=== PATIENT | female | born 1955 | race Caucasian/White ===

== ENCOUNTER → 2017-02-28 | Outpatient (CLI) | payer MEDICARE, OTHER ==
[2017-02-28 08:45] LABS: EKG EKG PERFORMED
[2017-02-28 09:15] LABS: Basophils % (A) 0 %; CH 32.4; CHCM 31.1; Eosinophils # (A) 0.1 k/uL (0-0.7); Eosinophils % (A) 1 %; HCT 44.5 % (34.0-46.0); HDW 2.61; Hypochromasia Slight; Luc # (Auto) 0.07; Luc % (Auto) 1; Lymphocytes # (A) 2.1 k/uL (1.0-4.8); Lymphocytes % (A) 24 %; MCH 32.8 pg (25.0-35.0); MCHC 31.3 g/dL (31.0-37.0); MCV 104.7 fL (80.0-100.0); Macrocytosis Moderate; Mean Platelet Volume 7.4; Monocytes # (A) 0.2 k/uL (0-1.0); Monocytes % (A) 2 %; Neutrophils # (A) 6.1 k/uL (1.3-7.7); Neutrophils % (A) 71 %; RBC 4.25 m/uL (3.80-5.40); RDW 15.4 % (11.5-15.5); WBC 8.6 k/uL (3.8-10.6); WBC (Perox) 8.79
[2017-02-28 09:32] LABS: ALT 34 U/L (9-52); AST 27 U/L (14-36); Alkaline Phosphatase 79 U/L (38-126); Anion Gap 16 mmol/L; Blood Urea Nitrogen 11 mg/dL (7-17); Calcium 9.5 mg/dL (8.4-10.2); Carbon Dioxide 23 mmol/L (22-30); Chloride 105 mmol/L (98-107); Cholesterol 168 mg/dL (<200); Glucose 111 mg/dL (74-99); HDL Cholesterol 50 mg/dL (40-60); Non-African American GFR(MDRD) >60 (>60 ml/min/1.73 sqM); Potassium 3.7 mmol/L (3.5-5.1); Sodium 144 mmol/L (137-145); Total Bilirubin 0.8 mg/dL (0.2-1.3); Total Protein 6.8 g/dL (6.3-8.2); Triglycerides 147 mg/dL (<150)
--- NOTE | 2017-02-28 10:09 | XR ---
Right knee HISTORY: Pain 3 views of the right knee, no comparisons There is marginal spurring and joint space loss is present in the medial compartment. Alignment and b one mineralization are maintained. Marginal spurring also present at the patellofemoral joint with latoya int space loss. There may be a small joint effusion. IMPRESSION: Osteoarthritis.
--- NOTE | 2017-02-28 10:11 | XR ---
Right shoulder HISTORY: M25.561, M25.511 3 views of the right shoulder No comparisons Bone mineralization is maintained. Spurring and joint space loss of the glenohumeral joint. No eviden t fracture location. Right lung apex as visualized is normal. IMPRESSION: Osteoarthritic change noted at the glenohumeral joint.
== END | disposition home or self-care (01) ==
LOC: LABWHC1 08:35
PROVIDERS: ATTEND Internal Medicine
DX: M17.11 Unilateral primary osteoarthritis, right knee (principal); M19.011 Primary osteoarthritis, right shoulder; E03.9 Hypothyroidism, unspecified; E78.2 Mixed hyperlipidemia; I10 Essential (primary) hypertension
CPT/HCPCS: 36415; 80053; 80061; 84439; 84443; 85025; 93005

== ENCOUNTER → 2017-05-26 | Outpatient (CLI) | payer MEDICARE, OTHER ==
[2017-05-26 13:38] LABS: Basophils % (A) 0 %; CH 31.8; CHCM 31.3; Eosinophils # (A) 0.1 k/uL (0-0.7); Eosinophils % (A) 1 %; HCT 43.2 % (34.0-46.0); HDW 2.67; HGB 13.9 gm/dL (11.4-16.0); Hypochromasia Slight; Luc # (Auto) 0.07; Luc % (Auto) 1; Lymphocytes # (A) 1.8 k/uL (1.0-4.8); Lymphocytes % (A) 16 %; MCH 32.8 pg (25.0-35.0); MCHC 32.1 g/dL (31.0-37.0); MCV 102.2 fL (80.0-100.0); Macrocytosis Slight; Mean Platelet Volume 7.1; Monocytes # (A) 0.3 k/uL (0-1.0); Monocytes % (A) 2 %; Neutrophils # (A) 9.3 k/uL (1.3-7.7); Neutrophils % (A) 81 %; RBC 4.23 m/uL (3.80-5.40); RDW 14.2 % (11.5-15.5); WBC 11.5 k/uL (3.8-10.6); WBC (Perox) 11.24
[2017-05-26 14:03] LABS: ALT 40 U/L (9-52); AST 28 U/L (14-36); Alkaline Phosphatase 108 U/L (38-126); Amylase 31 U/L (30-110); Anion Gap 16 mmol/L; Blood Urea Nitrogen 9 mg/dL (7-17); Calcium 9.8 mg/dL (8.4-10.2); Carbon Dioxide 22 mmol/L (22-30); Chloride 107 mmol/L (98-107); Glucose 117 mg/dL (74-99); Non-African American GFR(MDRD) >60 (>60 ml/min/1.73 sqM); Potassium 3.4 mmol/L (3.5-5.1); Sodium 145 mmol/L (137-145); Total Bilirubin 0.7 mg/dL (0.2-1.3); Total Protein 6.6 g/dL (6.3-8.2)
[2017-05-26 15:22] LABS: Erythrocyte Sedimentation Rate 50 mm/hr (0-20)
== END | disposition home or self-care (01) ==
LOC: LABWHC1 12:53
PROVIDERS: ATTEND Internal Medicine
DX: T58.94XA Toxic effect of carbon monoxide from unspecified source, undetermined, initial encounter (principal); I10 Essential (primary) hypertension; R55 Syncope and collapse
CPT/HCPCS: 36415; 80053; 82150; 82375; 83690; 85025; 85652

== ENCOUNTER 2019-11-10 11:05 | Inpatient (IN) | payer MEDICARE, OTHER ==
[2019-11-10 11:24] LABS: Glucose,Whole Blood 83 mg/dL (75-99)
[2019-11-10] MEDS ORDERED: SODIUM CHLORIDE 0.9% 1,000 ML IV STA (11:54)
[2019-11-10 12:08] LABS: Basophils # (A) 0.1 k/uL (0-0.2); Basophils % (A) 1 %; Eosinophils # (A) 0.1 k/uL (0-0.7); Eosinophils % (A) 1 %; HCT 44.2 % (34.0-46.0); HGB 13.4 gm/dL (11.4-16.0); Hypochromasia Slight; Lymphocytes # (A) 1.8 k/uL (1.0-4.8); Lymphocytes % (A) 15 %; MCH 29.5 pg (25.0-35.0); MCHC 30.4 g/dL (31.0-37.0); Mean Platelet Volume 7.6; Monocytes # (A) 0.3 k/uL (0-1.0); Monocytes % (A) 3 %; Neutrophils # (A) 9.4 k/uL (1.3-7.7); Neutrophils % (A) 79 %; Platelet Count 343 k/uL (150-450); RBC 4.56 m/uL (3.80-5.40); RDW 14.7 % (11.5-15.5); WBC 11.8 k/uL (3.8-10.6)
[2019-11-10 12:19] LABS: Albumin 4.4 g/dL (3.5-5.0); Calcium 10.3 mg/dL (8.4-10.2); Potassium 4.2 mmol/L (3.5-5.1); Total Bilirubin 1.4 mg/dL (0.2-1.3); Total Protein 7.2 g/dL (6.3-8.2)
--- NOTE | 2019-11-10 12:27 | ED ---
Weakness HPI - General Chief complaint: Weakness Stated complaint: weakness Time Seen by Provider: 11/10/19 11:43 Source: EMS Mode of arrival: EMS Limitations: no limitations - History of Present Illness Initial comments: Patient is 63-year-old female with history of CVA and IA presenting to emergency Department with a chief complaint of weakness. Patient status states the patient has been in a gradual decline for about a year. Daughter states the p atient does not like to seek any medical attention over the last week she has developed increased weakness. Patient states that she has not been eating well over the last week with few episodes of nonbloody diarrhea over the last several days. Patient does report increased urgency but denies changes in frequency or dysuria. Denies any nausea vomiting or abdominal pain. Denies any back pain chest pain or shortness of breath at this time. Patient states she does not have any appetite. Patient lives home alone in a senior apartment. - Related Data Allergies Allergy/AdvReac Type Severity Reaction Status Date / Time No Known Allergies Allergy Verified 11/10/19 11:11 Review of Systems ROS Statement: Those systems with pertinent positive or pertinent negative responses have been documented in the HPI. ROS Other: All systems not noted in ROS Statement are negative. Past Medical History Past Medical History: Hypertension Additional Past Medical History / Comment(s): neuropathy History of Any Multi-Drug Resistant Organisms: None Reported Past Surgical History: Section Past Psychological History: No Psychological Hx Reported Smoking Status: Never smoker Past Alcohol Use History: None Reported Past Drug Use History: None Reported General Exam Limitations: no limitations General appearance: alert, in no apparent distress, obese Head exam: Present: atraumatic, normocephalic, normal inspection Eye exam: Present: normal appearance, PERRL, EOMI Pupils: Present: normal accommodation ENT exam: Present: normal exam, normal oropharynx, mucous membranes dry, TM's normal bilaterally, normal external ear exam Neck exam: Present: normal inspection, full ROM. Absent: tenderness, lymphadenopathy Respiratory exam: Present: normal lung sounds bilaterally. Absent: respiratory distress, wheezes, rales, chest wall tenderness, accessory muscle use Cardiovascular Exam: Present: regular rate, normal rhythm, normal heart sounds Extremities exam: Present: normal inspection, full ROM Back exam: Present: normal inspection, full ROM Neurological exam: Present: alert, oriented X3 Psychiatric exam: Present: normal affect, normal mood Skin exam: Present: warm, dry, intact, normal color Course Vital Signs 11/10/19 11:09 Temperature 97.9 F Pulse Rate 107 H Respiratory 16 Rate Blood Pressure 140/72 O2 Sat by Pulse 95 Oximetry EKG Findings - EKG Comments: EKG Findings:: Sinus tachycardia, trachea rate 102, [place] interval 166, QRS duration 84, QTC 458. Medical Decision Making - Medical Decision Making Patient is 63-year-old female presenting to emergency Department with chief complaint of weakness. Patient is AO 3. Daughter is also present as historian. On exam patient does have dry mucous members. Poor hygiene also evident. Patient does have excoriations along her abdominal skin. Patient is m orbidly obese. EKG shows sinus tachycardia and is similar to her most recent one.. D-dimer negative. Initial troponin is negative. UA does show ketones, leukocyte esterase and white blood cells. The suspect patient has a urinary tract infection. Lactate is elevated secondary to dehydration. Chest x-ray does show bilateral atelectasis favored over pneumonia. Auscultation is not evident of any wheezing Or rhonchi. Patient given IV fluids and Rocephin. Patient will be admitted for further medical management. Case discussed with physician. Admitted physician is . - Lab Data Result diagrams: 11/10/19 11:22 11/10/19 11:22 Lab Results 11/10/19 11/10/19 11/10/19 Range/Units 11:22 11:22 11:22 WBC 11.8 H (3.8-10.6) k/uL RBC 4.56 (3.80-5.40) m/uL Hgb 13.4 (11.4-16.0) gm/dL Hct 44.2 (34.0-46.0) % MCV 97.0 (80.0-100.0) fL MCH 29.5 (25.0-35.0) pg MCHC 30.4 L (31.0-37.0) g/dL RDW 14.7 (11.5-15.5) % Plt Count 343 (150-450) k/uL Neutrophils % 79 % Lymphocytes % 15 % Monocytes % 3 % Eosinophils % 1 % Basophils % 1 % Neutrophils # 9.4 H (1.3-7.7) k/uL Lymphocytes # 1.8 (1.0-4.8) k/uL Monocytes # 0.3 (0-1.0) k/uL Eosinophils # 0.1 (0-0.7) k/uL Basophils # 0.1 (0-0.2) k/uL Hypochromasia Slight PT 9.9 (9.0-12.0) sec INR 0.9 (<1.2) APTT 21.6 L (22.0-30.0) sec D-Dimer 0.45 (<0.60) mg/L FEU Sodium (137-145) mmol/L Potassium (3.5-5.1) mmol/L Chloride (98-107) mmol/L Carbon Dioxide (22-30) mmol/L Anion Gap mmol/L BUN (7-17) mg/dL Creatinine (0.52-1.04) mg/dL Est GFR (CKD-EPI)AfAm (>60 ml/min/1.73 sqM) Est GFR (CKD-EPI)NonAf (>60 ml/min/1.73 sqM) Glucose (74-99) mg/dL POC Glucose (mg/dL) 83 (75-99) mg/dL POC Glu Revenue Stamp Cutter ID Nelli Xavier Plasma Lactic Acid Silvio (0.7-2.0) mmol/L Calcium (8.4-10.2) mg/dL Total Bilirubin (0.2-1.3) mg/dL AST (14-36) U/L ALT (4-34) U/L Alkaline Phosphatase (38-126) U/L Troponin I (0.000-0.034) ng/mL Total Protein (6.3-8.2) g/dL Albumin (3.5-5.0) g/dL Urine Color Urine Appearance (Clear) Urine pH (5.0-8.0) Ur Specific [place] (1.001-1.035) Urine Protein (Negative) Urine Glucose (UA) (Negative) Urine Ketones (Negative) Urine Blood (Negative) Urine Nitrite (Negative) Urine Bilirubin (Negative) Urine Urobilinogen (<2.0) mg/dL Ur Leukocyte Esterase (Negative) Urine RBC (0-5) /hpf Urine WBC (0-5) /hpf Urine WBC Clumps (None) /hpf Ur Squamous Epith Cells (0-4) /hpf Amorphous Sediment (None) /hpf Urine Bacteria (None) /hpf Urine Mucus (None) /hpf 11/10/19 11/10/19 11/10/19 Range/Units 11:22 11:22 12:10 WBC (3.8-10.6) k/uL RBC (3.80-5.40) m/uL Hgb (11.4-16.0) gm/dL Hct (34.0-46.0) % MCV (80.0-100.0) fL MCH (25.0-35.0) pg MCHC (31.0-37.0) g/dL RDW (11.5-15.5) % Plt Count (150-450) k/uL Neutrophils % % Lymphocytes % % Monocytes % % Eosinophils % % Basophils % % Neutrophils # (1.3-7.7) k/uL Lymphocytes # (1.0-4.8) k/uL Monocytes # (0-1.0) k/uL Eosinophils # (0-0.7) k/uL Basophils # (0-0.2) k/uL Hypochromasia PT (9.0-12.0) sec INR (<1.2) APTT (22.0-30.0) sec D-Dimer (<0.60) mg/L FEU Sodium 141 (137-145) mmol/L Potassium 4.2 (3.5-5.1) mmol/L Chloride 100 (98-107) mmol/L Carbon Dioxide 19 L (22-30) mmol/L Anion Gap 22 mmol/L BUN 20 H (7-17) mg/dL Creatinine 0.92 (0.52-1.04) mg/dL Est GFR (CKD-EPI)AfAm 76 (>60 ml/min/1.73 sqM) Est GFR (CKD-EPI)NonAf 66 (>60 ml/min/1.73 sqM) Glucose 85 (74-99) mg/dL POC Glucose (mg/dL) (75-99) mg/dL POC Glu Revenue Stamp Cutter ID Plasma Lactic Acid Silvio 2.3 H* (0.7-2.0) mmol/L Calcium 10.3 H (8.4-10.2) mg/dL Total Bilirubin 1.4 H (0.2-1.3) mg/dL AST 24 (14-36) U/L ALT 16 (4-34) U/L Alkaline Phosphatase 77 (38-126) U/L Troponin I <0.012 (0.000-0.034) ng/mL Total Protein 7.2 (6.3-8.2) g/dL Albumin 4.4 (3.5-5.0) g/dL Urine Color Urine Appearance (Clear) Urine pH (5.0-8.0) Ur Specific [place] (1.001-1.035) Urine Protein (Negative) Urine Glucose (UA) (Negative) Urine Ketones (Negative) Urine Blood (Negative) Urine Nitrite (Negative) Urine Bilirubin (Negative) Urine Urobilinogen (<2.0) mg/dL Ur Leukocyte Esterase (Negative) Urine RBC (0-5) /hpf Urine WBC (0-5) /hpf Urine WBC Clumps (None) /hpf Ur Squamous Epith Cells (0-4) /hpf Amorphous Sediment (None) /hpf Urine Bacteria (None) /hpf Urine Mucus (None) /hpf 11/10/19 Range/Units 12:15 WBC (3.8-10.6) k/uL RBC (3.80-5.40) m/uL Hgb (11.4-16.0) gm/dL Hct (34.0-46.0) % MCV (80.0-100.0) fL MCH (25.0-35.0) pg MCHC (31.0-37.0) g/dL RDW (11.5-15.5) % Plt Count (150-450) k/uL Neutrophils % % Lymphocytes % % Monocytes % % Eosinophils % % Basophils % % Neutrophils # (1.3-7.7) k/uL Lymphocytes # (1.0-4.8) k/uL Monocytes # (0-1.0) k/uL Eosinophils # (0-0.7) k/uL Basophils # (0-0.2) k/uL Hypochromasia PT (9.0-12.0) sec INR (<1.2) APTT (22.0-30.0) sec D-Dimer (<0.60) mg/L FEU Sodium (137-145) mmol/L Potassium (3.5-5.1) mmol/L Chloride (98-107) mmol/L Carbon Dioxide (22-30) mmol/L Anion Gap mmol/L BUN (7-17) mg/dL Creatinine (0.52-1.04) mg/dL Est GFR (CKD-EPI)AfAm (>60 ml/min/1.73 sqM) Est GFR (CKD-EPI)NonAf (>60 ml/min/1.73 sqM) Glucose (74-99) mg/dL POC Glucose (mg/dL) (75-99) mg/dL POC Glu Revenue Stamp Cutter ID Plasma Lactic Acid Silvio (0.7-2.0) mmol/L Calcium (8.4-10.2) mg/dL Total Bilirubin (0.2-1.3) mg/dL AST (14-36) U/L ALT (4-34) U/L Alkaline Phosphatase (38-126) U/L Troponin I (0.000-0.034) ng/mL Total Protein (6.3-8.2) g/dL Albumin (3.5-5.0) g/dL Urine Color Yellow Urine Appearance Turbid H (Clear) Urine pH 8.0 (5.0-8.0) Ur Specific [place] 1.016 (1.001-1.035) Urine Protein 3+ H (Negative) Urine Glucose (UA) Negative (Negative) Urine Ketones 3+ H (Negative) Urine Blood Small H (Negative) Urine Nitrite Negative (Negative) Urine Bilirubin Negative (Negative) Urine Urobilinogen 2.0 (<2.0) mg/dL Ur Leukocyte Esterase Large H (Negative) Urine RBC 38 H (0-5) /hpf Urine WBC >182 H (0-5) /hpf Urine WBC Clumps Few H (None) /hpf Ur Squamous Epith Cells 1 (0-4) /hpf Amorphous Sediment Rare H (None) /hpf Urine Bacteria Moderate H (None) /hpf Urine Mucus Few H (None) /hpf Disposition Clinical Impression: Weakness, Dehydration, Urinary tract infection, Fungal skin infection Disposition: ADMITTED IP TO THIS HOSP Condition: Fair Instructions (If sedation given, give patient instructions): Weakness (ED) Additional Instructions: Patient will be admitted Is patient prescribed a controlled substance at d/c from ED?: No Referrals: Logan Renee MD [Primary Care Provider] - 1-2 days Time of Disposition: 13:20
[2019-11-10 12:31] LABS: D-Dimer 0.45 mg/L FEU (<0.60); INR 0.9 (<1.2); Prothrombin Time 9.9 sec (9.0-12.0)
[2019-11-10 12:36] LABS: Partial Thromboplastin Time 21.6 sec (22.0-30.0)
--- NOTE | 2019-11-10 12:45 | XR ---
EXAMINATION TYPE: XR chest 2V DATE OF EXAM: 11/10/2019 COMPARISON: NONE TECHNIQUE: PA and lateral views submitted. HISTORY: Weakness FINDINGS: The lungs are clear and there is no pneumothorax, pleural effusion, or focal pneumonia. Subsegmenta l changes at both lung bases with reduced inspiration. Arthropathy of the shoulders. No pneumothorax. IMPRESSION: 1. Basilar atelectasis favored over pneumonia secondary to poor inspiration correlate clinically.
[2019-11-10 12:51] LABS: Amorphous Sediment,Urine Rare /hpf; Appearance,Urine Turbid (Clear); Bacteria,Urine Moderate /hpf; Bilirubin,Urine Negative (Negative); Blood,Urine Small (Negative); Color,Urine Yellow; Glucose,Urine (UA) Negative (Negative); Ketones,Urine 3+ (Negative); Leukocyte Esterase,Urine Large (Negative); Mucus,Urine Few /hpf; Nitrite,Urine Negative (Negative); Protein,Urine 3+ (Negative); RBC,Urine 38 /hpf (0-5); Specific Gravity,Urine 1.016 (1.001-1.035); Squamous Epithelial Cell,Urine 1 /hpf (0-4); WBC,Urine >182 /hpf (0-5)
[2019-11-10] MEDS ORDERED: cefTRIAXone IN SWFI 1,000 MG/10 ML SYRINGE IVP STA (13:00)
[2019-11-10] MEDS ORDERED: NALOXONE 0.4 MG/ML 1 ML VIAL IV PRN (13:12)
[2019-11-10] MEDS ORDERED: ACETAMINOPHEN TAB 325 MG TAB PO PRN (13:12)
[2019-11-10] MEDS ORDERED: ALPRAZolam 0.25 MG TAB PO PRN (13:12)
[2019-11-10] MEDS ORDERED: MORPHINE SULFATE 4 MG/ML SYRINGE IV PRN (13:12)
[2019-11-10] MEDS ORDERED: traMADol 50 MG TAB PO PRN (13:12)
[2019-11-10] MEDS: SODIUM CHLORIDE 0.9% 1,000 ML IV SCH ×2 (13:34→19:55)
[2019-11-10] MEDS: GABAPENTIN 100 MG CAP PO SCH (19:55)
[2019-11-11] MEDS: LISINOPRIL 20 MG TAB PO SCH (08:25)
[2019-11-11] MEDS: amLODIPine 10 MG TAB PO SCH (08:25)
[2019-11-11] MEDS: SODIUM CHLORIDE 0.9% 1,000 ML IV SCH ×2 (09:53→15:59)
--- NOTE | 2019-11-11 14:52 | P.HPIM ---
History of Present Illness H&P Date: 11/11/19 This is a 63-year-old female patient of Dr. Renee with history of hypertension, CVA, [place], neuropathy. Patient apparently has had increasing weakness gradually worsening over the past year and significantly worse over the past 10 days. She states she has not been eating well for the past week. She has had off-and-on diarrhea for several days, nonbloody. She complains of dysuria which started fi rst. She denies having any abdominal pain. She denies fever but complains of chills. She denies any flank pain or back pain. She also gives history that approximately 6-8 weeks ago she didn't feel safe walking with her walker and started using a wheelchair. She denies any home 02. She states she contacted Dr. Renee's office and staff called her daughter Apolonia and she went to check on her in her home. Patient was agreeable to come in the hospital but was unable to get in the car. Patient came into [facility] emergency center by EMS for evaluation. Patient was afebrile, heart rate 107, blood pressure 140/72, pulse ox 95%. EKG was sinus tachycardia. WBC 11.8, hemoglobin 13.4, platelet count 343. CO2 19, BUN 20 creatinine 0.92, blood sugar 85. Lactic acid 2.3 with repeat at 1.9, total bilirubin 1.4 and liver function tests within normal limits, troponin negative. Urinalysis turbid, blood small, leukoesterase large, WBCs greater than 182, bacteria moderate. [facility] on [facility] Patient was admitted to our service per patient's daughter, Apolonia, request. Apolonia works as a vp digital marketing social media and crm at [employer]. Physical therapy has evaluated the patient and recommended subacute rehab. Patient refuses subacute rehab and states she will be agreeable to home care only. Patient has been started on ceftriaxone and urine culture in progress. Review of Systems Constitutional: Reports chills, Reports fatigue, Reports lethargy, Reports malaise, Reports poor appetite, Reports weakness, Denies fever Eyes: denies blurred vision, denies pain Ears, nose, mouth and throat: Denies dysphagia, Denies headache, Denies nasal congestion, Denies nasal discharge, Denies sore throat, Denies vertigo Cardiovascular: Denies chest pain, Denies decreased exercise tolerance, Denies dyspnea on exertion, Denies edema, Denies lightheadedness, Denies shortness of breath, Denies syncope Respiratory: Denies cough, Denies cough with sputum, Denies dyspnea, Denies excessive sputum, Denies hemoptysis, Denies home oxygen, Denies wheezing Gastrointestinal: Reports diarrhea (intermittent ), Reports loss of appetite, Denies abdominal pain, Denies nausea, Denies vomiting Genitourinary: Reports dysuria, Reports urgency, Denies hematuria Musculoskeletal: Reports gait dysfunction, Reports muscle weakness, Denies myalgias Integumentary: Denies pruritus, Denies rash Neurological: Reports gait dysfunction, Reports weakness, Denies change in mentation, Denies change in speech, Denies numbness Psychiatric: Denies anxiety, Denies depression Endocrine: Denies fatigue, Denies weight change Past Medical History Past Medical History: CVA/TIA, Hypertension, Myocardial Infarction ([place]) Additional Past Medical History / Comment(s): neuropathy Last Myocardial Infarction Date:: unknown History of Any Multi-Drug Resistant Organisms: None Reported Past Surgical History: Section Past Anesthesia/Blood Transfusion Reactions: No Reported Reaction Past Psychological History: No Psychological Hx Reported Smoking Status: Former smoker Past Alcohol Use History: None Reported Additional Past Alcohol Use History / Comment(s): Patient was a smoker briefly and quit 40 years ago. She denies any illicit drug use or alcohol use. Patient lives at home alone in a senior apartment. She has a walker and wheelchair at home. She denies any oxygen use. Past Drug Use History: None Reported - Past Family History Father Additional Family Medical History / Comment(s): Father at age 101 from old age. Mother Additional Family Medical History / Comment(s): Mother at age 83 with history of hypertension. Brother(s) Additional Family Medical History / Comment(s): Patient does not have any brothers or sisters. Daughter(s) Additional Family Medical History / Comment(s): Patient has 3 daughters. She has no contact with 2 of her daughters. One daughter has no major medical problems. Son(s) Additional Family Medical History / Comment(s): Patient has 3 sons. One as a stillbirth, one has no major medical problems, one has ADD. Medications and Allergies Home Medications Medication Instructions Recorded Confirmed Type Benazepril HCl 20 mg PO DAILY 11/10/19 11/10/19 History Gabapentin [Neurontin] 100 mg PO HS 11/10/19 11/10/19 History Multivitamins, Thera [Multivitamin 1 tab PO DAILY 11/10/19 11/10/19 History (formulary)] amLODIPine [Norvasc] 10 mg PO DAILY 11/10/19 11/10/19 History Allergies Allergy/AdvReac Type Severity Reaction Status Date / Time No Known Allergies Allergy Verified 11/10/19 13:37 Physical Exam Vitals: Vital Signs Temp Pulse Pulse Resp BP BP Pulse Ox 11/11/19 07:00 98.1 F 82 16 130/76 97 11/11/19 02:20 98.2 F 93 18 131/74 96 11/11/19 00:00 16 11/10/19 20:00 97.7 F 94 16 111/74 99 11/10/19 15:00 98 17 124/78 99 11/10/19 13:46 98.0 F 11/10/19 13:30 100 18 132/73 11/10/19 12:00 100 19 135/76 97 11/10/19 11:30 101 H 17 140/72 96 11/10/19 11:09 97.9 F 107 H 16 140/72 95 Intake and Output 11/10/19 11/11/19 11/11/19 22:59 06:59 14:59 Intake Total 50 Balance 50 Intake: Oral 50 Other: Voiding Method Diaper Diaper Diaper # Voids 1 2 # Bowel Movements 1 Gen: This is a morbidly obese 63-year-old female. Patient is resting bed appears to be comfortable and in no acute distress. HEENT: Head is atraumatic, normocephalic. Pupils equal, round. Sclerae is anicteric. NECK: Supple. No JVD. No lymphadenopathy. No thyromegaly. LUNGS: Clear to auscultation. No wheezes or rhonchi. No intercostal retractions. HEART: Regular rate and rhythm. No murmur. ABDOMEN: Soft. Bowel sounds are present. No masses. No tenderness. Excoriation on abdominal fold. EXTREMITIES: No pedal edema. No calf tenderness. NEUROLOGICAL: Patient is awake, alert and oriented x3. Cranial nerves 2 through 12 are grossly intact. Generalized weakness. Results CBC & Chem 7: 11/10/19 11:22 11/10/19 11:22 Labs: Abnormal Lab Results - Last 24 Hours (Table) 11/10/19 11/10/19 11/10/19 Range/Units 11:22 11:22 11:22 WBC 11.8 H (3.8-10.6) k/uL MCHC 30.4 L (31.0-37.0) g/dL Neutrophils # 9.4 H (1.3-7.7) k/uL APTT 21.6 L (22.0-30.0) sec Carbon Dioxide 19 L (22-30) mmol/L BUN 20 H (7-17) mg/dL Plasma Lactic Acid Silvio (0.7-2.0) mmol/L Calcium 10.3 H (8.4-10.2) mg/dL Total Bilirubin 1.4 H (0.2-1.3) mg/dL Urine Appearance (Clear) Urine Protein (Negative) Urine Ketones (Negative) Urine Blood (Negative) Ur Leukocyte Esterase (Negative) Urine RBC (0-5) /hpf Urine WBC (0-5) /hpf Urine WBC Clumps (None) /hpf Amorphous Sediment (None) /hpf Urine Bacteria (None) /hpf Urine Mucus (None) /hpf 11/10/19 11/10/19 Range/Units 12:10 12:15 WBC (3.8-10.6) k/uL MCHC (31.0-37.0) g/dL Neutrophils # (1.3-7.7) k/uL APTT (22.0-30.0) sec Carbon Dioxide (22-30) mmol/L BUN (7-17) mg/dL Plasma Lactic Acid Silvio 2.3 H* (0.7-2.0) mmol/L Calcium (8.4-10.2) mg/dL Total Bilirubin (0.2-1.3) mg/dL Urine Appearance Turbid H (Clear) Urine Protein 3+ H (Negative) Urine Ketones 3+ H (Negative) Urine Blood Small H (Negative) Ur Leukocyte Esterase Large H (Negative) Urine RBC 38 H (0-5) /hpf Urine WBC >182 H (0-5) /hpf Urine WBC Clumps Few H (None) /hpf Amorphous Sediment Rare H (None) /hpf Urine Bacteria Moderate H (None) /hpf Urine Mucus Few H (None) /hpf Microbiology - Last 24 Hours (Table) 11/10/19 12:15 Urine Culture - Preliminary Urine,Catheterized Thrombosis Risk Factor Assmnt - DVT/VTE Prophylaxis DVT/VTE Prophylaxis: Pharmacologic Prophylaxis ordered Assessment and Plan Plan: 1. Acute urinary tract infection with lactic acidosis. Urine culture and blood culture in progress. Continue ceftriaxone. 2. Generalized weakness, worsening debilitation, poor oral intake, ongoing and worsening over one year, possibly due to deconditioning. 3. Hypertension. Continue Norvasc 10 mg daily, lisinopril 20 mg daily. 4. Neuropathy. Continue gabapentin 100 mg at bedtime. 5. Morbid obesity with BMI of 51. 6. GI prophylaxis. Pepcid. 7. DVT prophylaxis. Heparin subcu. Patient will be admitted to the hospital for a minimum of 2 night stay. Discharge plan: Most likely home with homecare. PT has recommended subacute rehab. Patient is adamant that she will not go to subacute rehab. Impression and plan of care have been directed as dictated by the signing physician. Brooklyn Rowell nurse practitioner acting as scribe for signing physician.
[2019-11-11] MEDS: HEPARIN SODIUM,PORCINE 5,000 UNIT/ML 1 ML VIAL SQ SCH (20:28)
[2019-11-11] MEDS: GABAPENTIN 100 MG CAP PO SCH (20:28)
[2019-11-12] MEDS: SODIUM CHLORIDE 0.9% 1,000 ML IV SCH ×2 (00:12→15:56)
[2019-11-12] MEDS: HEPARIN SODIUM,PORCINE 5,000 UNIT/ML 1 ML VIAL SQ SCH ×2 (08:15→20:58)
[2019-11-12] MEDS: amLODIPine 10 MG TAB PO SCH (08:16)
[2019-11-12] MEDS: LISINOPRIL 20 MG TAB PO SCH (08:16)
[2019-11-12] MEDS: FAMOTIDINE 20 MG TAB PO SCH (08:16)
--- NOTE | 2019-11-12 17:33 | P.PN ---
Subjective Progress Note Date: 11/12/19 This is a 63-year-old female patient of Dr. Renee with history of hypertension, CVA, [place], neuropathy. Patient apparently has had increasing weakness gradually worsening over the past year and significantly worse over the past 10 days. She states she has not been eating well for the past week. She has had off-and-on diarrhea for several days, nonbloody. She complains of dysuria which started first. She denies having any abdominal pain. She denies fever but complains of chills. She denies any flank pain or back pain. She also gives history that approximately 6-8 weeks ago she didn't feel safe walking with her walker and started using a wheelchair. She denies any home 02. She states she contacted Dr. Renee's office and staff called her daughter Apolonia and she went to check on her in her home. Patient was agreeable to come in the hospital but was unable to get in the car. Patient came into [facility] emergency center by EMS for evaluation. Patient was afebrile, heart rate 107, blood pressure 140/72, pulse ox 95%. EKG was sinus tachycardia. WBC 11.8, hemoglobin 13.4, platelet count 343. CO2 19, BUN 20 creatinine 0.92, blood sugar 85. Lactic acid 2.3 with repe at at 1.9, total bilirubin 1.4 and liver function tests within normal limits, troponin negative. Urinalysis turbid, blood small, leukoesterase large, WBCs greater than 182, bacteria moderate. Patient was started on ceftriaxone and admitted to the MedSur floor. Patient was admitted to our service per patient's daughter, Apolonia, request. Apolonia works as a hospice social worker at [employer]. Physical therapy has evaluated the patient and recommended subacute rehab. Patient refuses subacute rehab and states she will be agreeable to home care only. Patient has been started on ceftriaxone and urine culture in progress. 11/12: Patient states she is feeling sleepy today. She is complaining of generalized weakness. She states she is drinking and eating everything on her tray. She is urinating without difficulty. Urine culture is in progress. She is currently on Rocephin. Patient has been afebrile, heart rate 97, blood pressure 107/63, pulse ox 93% on room air. Patient states that she is staying in the hospital until Thursday because that's what the doctor told her. Discussed discharge planning with her again. She is adamantly against subacute rehab. Review of Systems Constitutional: Reports chills, Reports fatigue, Reports lethargy, Reports malaise, Reports poor appetite, Reports weakness, Denies fever Eyes: denies blurred vision, denies pain Ears, nose, mouth and throat: Denies dysphagia, Denies headache, Denies nasal congestion, Denies nasal discharge, Denies sore throat, Denies vertigo Cardiovascular: Denies chest pain, Denies decreased exercise tolerance, Denies dyspnea on exertion, Denies edema, Denies lightheadedness, Denies shortness of breath, Denies syncope Respiratory: Denies cough, Denies cough with sputum, Denies dyspnea, Denies excessive sputum, Denies hemoptysis, Denies home oxygen, Denies wheezing Gastrointestinal: Reports diarrhea (intermittent ), denies loss of appetite, D enies abdominal pain, Denies nausea, Denies vomiting Genitourinary: Denies dysuria, Reports urgency, Denies hematuria Musculoskeletal: Reports gait dysfunction, Reports muscle weakness, Denies myalgias Integumentary: Denies pruritus, Denies rash Neurological: Reports gait dysfunction, Reports weakness, Denies change in mentation, Denies change in speech, Denies numbness Psychiatric: Denies anxiety, Denies depression Endocrine: Denies fatigue, Denies weight change Objective - Vital Signs Vital signs: Vital Signs Temp 97.8 F 11/12/19 07:00 Pulse 87 11/12/19 07:00 Resp 16 11/12/19 07:00 BP 113/66 11/12/19 07:00 Pulse Ox 97 11/12/19 07:00 Intake & Output 11/11/19 11/12/19 11/12/19 18:59 06:59 18:59 Intake Total 250 Balance 250 Intake: Intake, IV Titration 250 Amount Sodium Chloride 0.9% 1, 200 000 ml @ 99 mls/hr IV . Q10H7M RED Rx#:[id number] cefTRIAXone 1 gm In 50 Sodium Chloride 0.9% 50 ml @ 100 mls/hr IVPB Q24HR RED Rx#:[id number] Other: Voiding Method Diaper Diaper Diaper # Voids 2 1 - Exam Gen: This is a morbidly obese 63-year-old female. Patient is resting bed appears to be comfortable and in no acute distress. HEENT: Head is atraumatic, normocephalic. Pupils equal, round. Sclerae is anicteric. NECK: Supple. No JVD. No lymphadenopathy. No thyromegaly. LUNGS: Clear to auscultation. No wheezes or rhonchi. No intercostal retractions. HEART: Regular rate and rhythm. No murmur. ABDOMEN: Soft. Bowel sounds are present. No masses. No tenderness. Excoriation on abdominal fold. EXTREMITIES: No pedal edema. No calf tenderness. Dorsalis pedis +1 bilaterally. NEUROLOGICAL: Patient is awake, alert and oriented x3. Cranial nerves 2 through 12 are grossly intact. Generalized weakness. - Labs CBC & Chem 7: 11/10/19 11:22 11/10/19 11:22 Labs: Microbiology - Last 24 Hours (Table) 11/10/19 12:15 Urine Culture - Preliminary Urine,Catheterized Gram Neg Bacilli 11/10/19 13:00 Blood Culture - Preliminary Blood No Growth after 24 hours Assessment and Plan Plan: 1. Acute urinary tract infection with lactic acidosis. Urine culture and blood culture in progress. Continue ceftriaxone. 2. Generalized weakness, worsening debilitation, poor oral intake, ongoing and worsening over one year, possibly due to deconditioning. 3. Hypertension. Continue Norvasc 10 mg daily, lisinopril 20 mg daily. 4. Neuropathy. Continue gabapentin 100 mg at bedtime. 5. Morbid obesity with BMI of 51. 6. GI prophylaxis. Pepcid. 7. DVT prophylaxis. Heparin subcu. Discharge plan: Most likely home with homecare. PT has recommended subacute rehab. Patient is adamant that she will not go to subacute rehab. Impression and plan of care have been directed as dictated by the signing physician. Brooklyn Rowell nurse practitioner acting as scribe for signing ph ysician.
[2019-11-12] MEDS: GABAPENTIN 100 MG CAP PO SCH (20:58)
[2019-11-13 07:23] LABS: HCT 36.3 % (34.0-46.0); HGB 11.2 gm/dL (11.4-16.0); Hypochromasia Slight; MCH 29.7 pg (25.0-35.0); MCHC 30.9 g/dL (31.0-37.0); MCV 96.3 fL (80.0-100.0); Mean Platelet Volume 7.6; Platelet Count 229 k/uL (150-450); RBC 3.78 m/uL (3.80-5.40); RDW 15.1 % (11.5-15.5); WBC 6.4 k/uL (3.8-10.6)
[2019-11-13 07:32] LABS: Calcium 9.8 mg/dL (8.4-10.2); Potassium 4.2 mmol/L (3.5-5.1)
[2019-11-13] MEDS: SODIUM CHLORIDE 0.9% 1,000 ML IV SCH ×2 (07:38→12:25)
[2019-11-13] MEDS: HEPARIN SODIUM,PORCINE 5,000 UNIT/ML 1 ML VIAL SQ SCH ×2 (08:16→20:56)
[2019-11-13] MEDS: LISINOPRIL 20 MG TAB PO SCH (08:17)
[2019-11-13] MEDS: amLODIPine 10 MG TAB PO SCH (08:17)
[2019-11-13] MEDS: FAMOTIDINE 20 MG TAB PO SCH (08:17)
--- NOTE | 2019-11-13 11:20 | P.PN ---
Subjective Progress Note Date: 11/13/19 Principal diagnosis: Weakness and UTI Patient continued to be modalities stable was slightly restless this morning but seems to be alert awake and following commands Objective - Vital Signs Vital signs: Vital Signs Temp 98.3 F 11/13/19 07:00 Pulse 81 11/13/19 07:00 Resp 16 11/13/19 07:00 BP 117/73 11/13/19 07:00 Pulse Ox 92 L 11/13/19 07:00 Intake & Output 11/12/19 11/13/19 11/13/19 18:59 06:59 18:59 Intake Total 240 Balance 240 Intake: Oral 240 Other: Voiding Method Diaper Diaper Diaper # Voids 1 1 - Exam Gen.: in stated age, no acute distress Heart: Normal S1-S2 Lungs: Clear to auscultation bilaterally Abdomen: Soft, no tenderness, positive bowel sounds in all 4 quadrant no guarding or rebound Skin: No new rash Psych: Alert and oriented 3 Neuro: No focal deficit - Labs CBC & Chem 7: 11/13/19 06:56 11/13/19 06:56 Labs: Abnormal Lab Results - Last 24 Hours (Table) 11/13/19 11/13/19 Range/Units 06:56 06:56 RBC 3.78 L (3.80-5.40) m/uL Hgb 11.2 L (11.4-16.0) gm/dL MCHC 30.9 L (31.0-37.0) g/dL BUN 22 H (7-17) mg/dL Microbiology - Last 24 Hours (Table) 11/10/19 12:15 Urine Culture - Final Urine,Catheterized Escherichia coli 11/10/19 13:00 Blood Culture - Preliminary Blood No Growth after 48 hours Assessment and Plan Assessment: 1. E. coli urinary tract infection. Patient is responding to Rocephin sensitivity was done and we'll consider switching to oral antibiotics in the morning based on clinical progress. 2. Restlessness and agitation. Seems to be controlled with frequent orientation. Plan discussed with nursing staff for discharge in the morning based on physical therapy recommendation. 3. Generalized weakness and debility. Could be related to #1 and morbid obesity with have physical therapy evaluate patient in the morning. 4. Hypertension. Fairly controlled. 5. Peripheral neuropathy. With continue low-dose Neurontin and monitor closely
[2019-11-13] MEDS: GABAPENTIN 100 MG CAP PO SCH (20:56)
[2019-11-14] MEDS: SODIUM CHLORIDE 0.9% 1,000 ML IV SCH ×2 (06:05→09:59)
[2019-11-14] MEDS: LISINOPRIL 20 MG TAB PO SCH (07:48)
[2019-11-14] MEDS: HEPARIN SODIUM,PORCINE 5,000 UNIT/ML 1 ML VIAL SQ SCH (07:48)
[2019-11-14] MEDS: FAMOTIDINE 20 MG TAB PO SCH (07:48)
[2019-11-14] MEDS: amLODIPine 10 MG TAB PO SCH (07:48)
[2019-11-14 07:51] VITALS: BP 124/79; PULSE 82; RESP 18; TEMP 98.8
--- NOTE | 2019-11-14 15:18 | P.DS ---
Providers Date of admission: 11/11/19 11:42 Attending physician: Ena Poe Primary care physician: Logan Renee [facility] Course: This is a 63-year-old female patient of Dr. Renee with history of hypertension, CVA, [place], neuropathy. Patient apparently has had increasing weakness gradually worsening over the past year and significantly worse over the past 10 days. She states she has not been eating well for the past week. She has had off-and-on diarrhea for several days, nonbloody. She complains of dysuria which started first. She denies having any abdominal pain. She denies fever but complains of chills. She denies any flank pain or back pain. She also gives history that approximately 6-8 weeks ago she didn't feel safe walking with her walker and started using a wheelchair. She denies any home 02. She states she contacted Dr. Renee's office and staff called her daughter Apolonia and she went to check on her in her home. Patient was agreeable to come in the hospital but was unable to get in the car. Patient came into [facility] emergency center by EMS for evaluation. Patient was afebrile, heart rate 107, blood pressure 140/72, pulse ox 95%. EKG was sinus tachycardia. WBC 11.8, hemoglobin 13.4, platelet count 343. CO2 19, BUN 20 creatinine 0.92, blood sugar 85. Lactic acid 2.3 with repeat at 1.9, total bilirubin 1.4 and liver function tests within normal limits, troponin negative. Urinalysis turbid, blood small, leukoesterase large, WBCs greater than 182, bacteria moderate. Patient was started on ceftriaxone and admitted to the MedSurg floor. Patient was admitted to our service per patient's daughter, Apolonia, request. Apolonia works as a public health social worker at [employer]. Physical therapy has evaluated the patient and recommended subacute rehab. Patient refuses subacute rehab and states she will be agreeable to home care only. Patient has been started on ceftriaxone and urine culture in progress. 11/12: Patient states she is feeling sleepy today. She is complaining of generalized weakness. She states she is drinking and eating everything on her tray. She is urinating without difficulty. Urine culture is in progress. She is currently on Rocephin. Patient has been afebrile, heart rate 97, blood pressure 107/63, pulse ox 93% on room air. Patient states that she is staying in the hospital until Thursday because that's what the doctor told her. Discussed discharge planning with her again. She is adamantly against subacute rehab. 11/14 patient examined bedside. Is feeling much better and would like to go home. Physical therapy evaluated the patient , very limited mobility refuses to stand patient is able to pivot to chair easily with supervision but does not want to stand or walk due to complains of bilateral knee pain and fatigue. On discussion withdaughter patient does have ongoing weakness and numbness involving the lower extremity for the past few weeks. Patient uses a wheelchair at home and refuses to walk. She had no neurology or EMG or nerve conduction study in the past few years and gets outpatient treatment with B12 injections for low vitamin B12. Patient recommended to follow up with neurology as outpatient. Vitals otherwise stable with a temperature of 98.8 pulse 68 to respiratory rate 18 blood pressure 124/79 WBC 6.4 creatinine 0.93. Patient will be discharged on Keflex 500 3 times a day for 7 days Review of Systems Constitutional: Reports chills, Reports fatigue, Reports lethargy, Reports malaise, Reports poor appetite, Reports weakness, Denies fever Eyes: denies blurred vision, denies pain Ears, nose, mouth and throat: Denies dysphagia, Denies headache, Denies nasal congestion, Denies nasal discharge, Denies sore throat, Denies vertigo Cardiovascular: Denies chest pain, Denies decreased exercise tolerance, Denies dyspnea on exertion, Denies edema, Denies lightheadedness, Denies shortness of breath, Denies syncope Respiratory: Denies cough, Denies cough with sputum, Denies dyspnea, Denies excessive sputum, Denies hemoptysis, Denies home oxygen, Denies wheezing Gastrointestinal: Reports diarrhea (intermittent ), denies loss of appetite, Denies abdominal pain, Denies nausea, Denies vomiting Genitourinary: Denies dysuria, Reports urgency, Denies hematuria Musculoskeletal: Reports gait dysfunction, Reports muscle weakness, Denies myalgias Integumentary: Denies pruritus, Denies rash Neurological: Reports gait dysfunction, Reports weakness, Denies change in mentation, Denies change in speech, Denies numbness Psychiatric: Denies anxiety, Denies depression Endocrine: Positive for fatigue PE - Constitutional General appearance: cooperative, no acute distress, obese - Respiratory Respiratory: bilateral: CTA, negative: diminished, dullness, rales, rhonchi - Cardiovascular Rhythm: regular Heart sounds: normal: S1, S2 Abnormal Heart Sounds: no systolic murmur, no diastolic murmur, no rub, no S3 Gallop, no S4 Gallop, no click, no other - Gastrointestinal General gastrointestinal: normal bowel sounds, soft - Neurologic Neurologic: CNII-XII intat - Musculoskeletal Musculoskeletal: b/l lower ext peripheal neuropahty and weakness - Psychiatric Psychiatric: A&O x's 3, appropriate affect Discharge diagnoses 1. E. coli urinary tract infection. 2. Restlessness and agitation. Seems to be controlled with frequent orientation. 3. Generalized weakness and debility. Could be related to #1 and morbid obesity with deconditioning 4. Hypertension. 5. Peripheral neuropathy with history of B12 deficiency. Disposition home with home care Patient Condition at Discharge: Fair Plan - Discharge Summary Discharge Rx Participant: Yes New Discharge Prescriptions: New Cephalexin [Keflex] 500 mg PO Q8HR #21 cap Continue Multivitamins, Thera [Multivitamin (formulary)] 1 tab PO DAILY amLODIPine [Norvasc] 10 mg PO DAILY Gabapentin [Neurontin] 100 mg PO HS Benazepril HCl 20 mg PO DAILY Discharge Medication List Benazepril HCl 20 mg PO DAILY 11/10/19 [History] Gabapentin [Neurontin] 100 mg PO HS 11/10/19 [History] Multivitamins, Thera [Multivitamin (formulary)] 1 tab PO DAILY 11/10/19 [History] amLODIPine [Norvasc] 10 mg PO DAILY 11/10/19 [History] Cephalexin [Keflex] 500 mg PO Q8HR #21 cap 11/14/19 [Rx] Follow up Appointment(s)/Referral(s): [facility], [NON-STAFF] - Logan Renee MD [Primary Care Provider] - 11/15/19 10:30 am Patient Instructions/Handouts: Urinary Tract Infection in Women (DC), Weakness (ED) Activity/Diet/Wound Care/Special Instructions: Patient will be admitted Discharge Disposition: HOME WITH HOME HEALTH SERVICES
== END 2019-11-14 17:57 | disposition home health service (06) | DRG 690 ==
LOC: EC 11:05 → 4SSUR 12:59 → OBSVTOIN 11-11 11:42
PROVIDERS: ADMIT Family Medicine; ATTEND Family Medicine
DX: N39.0 Urinary tract infection, site not specified (principal); Z68.43 Body mass index [BMI] 50.0-59.9, adult; E87.2 Acidosis; I10 Essential (primary) hypertension; G62.9 Polyneuropathy, unspecified; E66.01 Morbid (severe) obesity due to excess calories; E86.0 Dehydration; R53.81 Other malaise; R45.1 Restlessness and agitation; B96.20 Unspecified Escherichia coli [E. coli] as the cause of diseases classified elsewhere; B36.8 Other specified superficial mycoses; I25.2 Old myocardial infarction; Z98.891 History of uterine scar from previous surgery; Z87.891 Personal history of nicotine dependence; Z82.49 Family history of ischemic heart disease and other diseases of the circulatory system; Z79.899 Other long term (current) drug therapy; Z86.73 Personal history of transient ischemic attack (TIA), and cerebral infarction without residual deficits
CPT/HCPCS: 36415; 51701; 71046; 80048; 80053; 81001; 82607; 83605; 84484; 85025; 85027; 85379; 85610; 85730; 87040; 87077; 87086; 87186; 93005; 96361; 96374; 99285

== ENCOUNTER 2019-11-20 11:46 | Inpatient (IN) | payer MEDICARE, OTHER ==
[2019-11-20] MEDS ORDERED: SODIUM CHLORIDE 0.9% 1,000 ML IV STA ×2 (12:00)
--- NOTE | 2019-11-20 12:03 | ED ---
General Adult HPI - General Stated complaint: Weakness Time Seen by Provider: 11/20/19 11:52 Source: patient, EMS Mode of arrival: EMS Limitations: no limitations - History of Present Illness Initial comments: Patient is a pleasant 63-year-old female presenting to the emergency department for generalized weakness. Patient was in the hospital and discharged week ago for urinary tract infection. Patient has not gotten up out of her chair much and even has difficulty going to the bathroom. Patient just feels weak all over. Patient states she has been drinking some fluids. Patient denies confusion or any isolated area of weakness. - Related Data Home Medications Medication Instructions Recorded Confirmed Benazepril HCl 20 mg PO DAILY 11/10/19 11/10/19 Gabapentin [Neurontin] 100 mg PO HS 11/10/19 11/10/19 Multivitamins, Thera [Multivitamin 1 tab PO DAILY 11/10/19 11/10/19 (formulary)] amLODIPine [Norvasc] 10 mg PO DAILY 11/10/19 11/10/19 Previous Rx's Medication Instructions Recorded Cephalexin [Keflex] 500 mg PO Q8HR #21 cap 11/14/19 Allergies Allergy/AdvReac Type Severity Reaction Status Date / Time No Known Allergies Allergy Verified 11/10/19 13:37 Review of Systems ROS Statement: Those systems with pertinent positive or pertinent negative responses have been documented in the HPI. ROS Other: All systems not noted in ROS Statement are negative. Constitutional: Denies: fever Eyes: Denies: eye pain ENT: Denies: ear pain Respiratory: Denies: dyspnea Cardiovascular: Denies: chest pain Endocrine: Reports: fatigue Gastrointestinal: Denies: abdominal pain Genitourinary: Denies: dysuria Musculoskeletal: Denies: back pain Skin: Denies: rash Neurological: Reports: as per HPI. Denies: headache, confusion Past Medical History Past Medical History: CVA/TIA, Hypertension, Myocardial Infarction ([place]) Additional Past Medical History / Comment(s): neuropathy Last Myocardial Infarction Date:: unknown History of Any Multi-Drug Resistant Organisms: None Reported Past Surgical History: Section Past Anesthesia/Blood Transfusion Reactions: No Reported Reaction Past Psychological History: No Psychological Hx Reported Smoking Status: Former smoker Past Alcohol Use History: None Reported Additional Past Alcohol Use History / Comment(s): Patient was a smoker briefly and quit 40 years ago. She denies any illicit drug use or alcohol use. Patient lives at home alone in a senior apartment. She has a walker and wheelchair at home. She denies any oxygen use. Past Drug Use History: None Reported - Past Family History Father Additional Family Medical History / Comment(s): Father at age 101 from old age. Mother Additional Family Medical History / Comment(s): Mother at age 83 with history of hypertension. Brother(s) Additional Family Medical History / Comment(s): Patient does not have any brothers or sisters. Daughter(s) Additional Family Medical History / Comment(s): Patient has 3 daughters. She has no contact with 2 of her daughters. One daughter has no major medical problems. Son(s) Additional Family Medical History / Comment(s): Patient has 3 sons. One as a stillbirth, one has no major medical problems, one has ADD. General Exam Limitations: no limitations General appearance: other (Drowsy but easily arousable to voice.) Head exam: Present: normocephalic Eye exam: Present: normal appearance, PERRL ENT exam: Present: mucous membranes dry Neck exam: Present: normal inspection Respiratory exam: Present: normal lung sounds bilaterally Cardiovascular Exam: Present: tachycardia GI/Abdominal exam: Present: soft. Absent: tenderness Extremities exam: Present: normal inspection. Absent: pedal edema, calf tenderness Neurological exam: Present: oriented X3, CN II-XII intact Expanded Patient oriented to: Present: person, place, time Motor strength exam: RUE: 4, LUE: 4, RLE: 4, LLE: 4 Eye Response: (4) open spontaneously Motor Response: (6) obeys commands Verbal Response: (5) oriented Psychiatric exam: Present: normal affect, normal mood Skin exam: Present: normal color Course Vital Signs 11/20/19 11/20/19 12:23 14:00 Temperature 98.3 F Pulse Rate 89 86 Respiratory 18 18 Rate Blood Pressure 127/62 139/79 O2 Sat by Pulse 94 L 96 Oximetry EKG Findings - EKG Comments: EKG Findings:: Normal sinus rhythm and 90. [place] 150. QRS 90. QT 358. QTC 437. Left axis. LVH criteria. No acute ST change. Medical Decision Making - Medical Decision Making Patient reevaluated and slightly improved. Family requests admission and social work consult for placement. Case was discussed with Dr. Smart, who will admit covering for Dr. Cruz. - Lab Data Result diagrams: 11/20/19 12:19 11/20/19 12:19 Lab Results 11/20/19 11/20/19 11/20/19 Range/Units 12:19 12:19 12:19 WBC 6.0 (3.8-10.6) k/uL RBC 3.93 (3.80-5.40) m/uL Hgb 11.7 (11.4-16.0) gm/dL Hct 37.7 (34.0-46.0) % MCV 95.9 (80.0-100.0) fL MCH 29.7 (25.0-35.0) pg MCHC 30.9 L (31.0-37.0) g/dL RDW 15.2 (11.5-15.5) % Plt Count 269 (150-450) k/uL Neutrophils % 67 % Lymphocytes % 22 % Monocytes % 5 % Eosinophils % 2 % Basophils % 3 % Neutrophils # 4.0 (1.3-7.7) k/uL Lymphocytes # 1.3 (1.0-4.8) k/uL Monocytes # 0.3 (0-1.0) k/uL Eosinophils # 0.1 (0-0.7) k/uL Basophils # 0.2 (0-0.2) k/uL Hypochromasia Slight PT (9.0-12.0) sec INR (<1.2) APTT (22.0-30.0) sec Sodium 138 (137-145) mmol/L Potassium 4.9 (3.5-5.1) mmol/L Chloride 103 (98-107) mmol/L Carbon Dioxide 26 (22-30) mmol/L Anion Gap 9 mmol/L BUN 22 H (7-17) mg/dL Creatinine 0.80 (0.52-1.04) mg/dL Est GFR (CKD-EPI)AfAm 90 (>60 ml/min/1.73 sqM) Est GFR (CKD-EPI)NonAf 78 (>60 ml/min/1.73 sqM) Glucose 104 H (74-99) mg/dL Plasma Lactic Acid Silvio 1.5 (0.7-2.0) mmol/L Calcium 9.4 (8.4-10.2) mg/dL Magnesium 1.8 (1.6-2.3) mg/dL Total Bilirubin 0.8 (0.2-1.3) mg/dL AST 42 H (14-36) U/L ALT 42 H (4-34) U/L Alkaline Phosphatase 56 (38-126) U/L Creatine Kinase 79 (30-135) U/L Troponin I (0.000-0.034) ng/mL Total Protein 6.5 (6.3-8.2) g/dL Albumin 3.7 (3.5-5.0) g/dL Urine Color Urine Appearance (Clear) Urine pH (5.0-8.0) Ur Specific [place] (1.001-1.035) Urine Protein (Negative) Urine Glucose (UA) (Negative) Urine Ketones (Negative) Urine Blood (Negative) Urine Nitrite (Negative) Urine Bilirubin (Negative) Urine Urobilinogen (<2.0) mg/dL Ur Leukocyte Esterase (Negative) Urine RBC (0-5) /hpf Urine WBC (0-5) /hpf Ur Squamous Epith Cells (0-4) /hpf Urine Bacteria (None) /hpf Urine Mucus (None) /hpf Urine Yeast (Budding) (None) /hpf 11/20/19 11/20/19 11/20/19 Range/Units 12:19 12:19 14:15 WBC (3.8-10.6) k/uL RBC (3.80-5.40) m/uL Hgb (11.4-16.0) gm/dL Hct (34.0-46.0) % MCV (80.0-100.0) fL MCH (25.0-35.0) pg MCHC (31.0-37.0) g/dL RDW (11.5-15.5) % Plt Count (150-450) k/uL Neutrophils % % Lymphocytes % % Monocytes % % Eosinophils % % Basophils % % Neutrophils # (1.3-7.7) k/uL Lymphocytes # (1.0-4.8) k/uL Monocytes # (0-1.0) k/uL Eosinophils # (0-0.7) k/uL Basophils # (0-0.2) k/uL Hypochromasia PT 9.7 (9.0-12.0) sec INR 0.9 (<1.2) APTT 20.4 L (22.0-30.0) sec Sodium (137-145) mmol/L Potassium (3.5-5.1) mmol/L Chloride (98-107) mmol/L Carbon Dioxide (22-30) mmol/L Anion Gap mmol/L BUN (7-17) mg/dL Creatinine (0.52-1.04) mg/dL Est GFR (CKD-EPI)AfAm (>60 ml/min/1.73 sqM) Est GFR (CKD-EPI)NonAf (>60 ml/min/1.73 sqM) Glucose (74-99) mg/dL Plasma Lactic Acid Silvio (0.7-2.0) mmol/L Calcium (8.4-10.2) mg/dL Magnesium (1.6-2.3) mg/dL Total Bilirubin (0.2-1.3) mg/dL AST (14-36) U/L ALT (4-34) U/L Alkaline Phosphatase (38-126) U/L Creatine Kinase (30-135) U/L Troponin I <0.012 (0.000-0.034) ng/mL Total Protein (6.3-8.2) g/dL Albumin (3.5-5.0) g/dL Urine Color Yellow Urine Appearance Cloudy H (Clear) Urine pH 5.0 (5.0-8.0) Ur Specific [place] 1.013 (1.001-1.035) Urine Protein Negative (Negative) Urine Glucose (UA) Negative (Negative) Urine Ketones Trace H (Negative) Urine Blood Negative (Negative) Urine Nitrite Negative (Negative) Urine Bilirubin Negative (Negative) Urine Urobilinogen <2.0 (<2.0) mg/dL Ur Leukocyte Esterase Moderate H (Negative) Urine RBC 2 (0-5) /hpf Urine WBC 29 H (0-5) /hpf Ur Squamous Epith Cells 3 (0-4) /hpf Urine Bacteria Rare H (None) /hpf Urine Mucus Rare H (None) /hpf Urine Yeast (Budding) Few H (None) /hpf - Radiology Data Radiology results: image reviewed (Chest x-ray shows no acute process) Disposition Clinical Impression: Dehydration, Urinary tract infection Disposition: ADMITTED IP TO THIS [facility] Is patient prescribed a controlled substance at d/c from ED?: No Referrals: Logan Renee MD [Primary Care Provider] - 1-2 days Decision Time: 15:11
[2019-11-20 12:31] LABS: Basophils # (A) 0.2 k/uL (0-0.2); Basophils % (A) 3 %; Eosinophils # (A) 0.1 k/uL (0-0.7); Eosinophils % (A) 2 %; HCT 37.7 % (34.0-46.0); HGB 11.7 gm/dL (11.4-16.0); Hypochromasia Slight; Lymphocytes # (A) 1.3 k/uL (1.0-4.8); Lymphocytes % (A) 22 %; MCH 29.7 pg (25.0-35.0); MCHC 30.9 g/dL (31.0-37.0); MCV 95.9 fL (80.0-100.0); Mean Platelet Volume 7.7; Monocytes # (A) 0.3 k/uL (0-1.0); Monocytes % (A) 5 %; Neutrophils % (A) 67 %; Platelet Count 269 k/uL (150-450); RBC 3.93 m/uL (3.80-5.40); RDW 15.2 % (11.5-15.5)
[2019-11-20 12:39] LABS: Albumin 3.7 g/dL (3.5-5.0); Calcium 9.4 mg/dL (8.4-10.2); Magnesium 1.8 mg/dL (1.6-2.3); Potassium 4.9 mmol/L (3.5-5.1); Total Bilirubin 0.8 mg/dL (0.2-1.3); Total Protein 6.5 g/dL (6.3-8.2)
[2019-11-20 12:47] LABS: INR 0.9 (<1.2); Prothrombin Time 9.7 sec (9.0-12.0)
[2019-11-20 13:03] LABS: Partial Thromboplastin Time 20.4 sec (22.0-30.0)
--- NOTE | 2019-11-20 13:05 | XR ---
EXAMINATION TYPE: XR chest 2V DATE OF EXAM: 11/20/2019 HISTORY: Weakness. REFERENCE: Previous study dated 11/10/2019. FINDINGS: The heart is mildly enlarged. Lungs are clear. Pleural space are clear. IMPRESSION: MILD CARDIOMEGALY.
[2019-11-20 14:39] LABS: Appearance,Urine Cloudy (Clear); Bacteria,Urine Rare /hpf; Bilirubin,Urine Negative (Negative); Blood,Urine Negative (Negative); Budding Yeast,Urine Few /hpf; Color,Urine Yellow; Glucose,Urine (UA) Negative (Negative); Ketones,Urine Trace (Negative); Leukocyte Esterase,Urine Moderate (Negative); Mucus,Urine Rare /hpf; Nitrite,Urine Negative (Negative); Protein,Urine Negative (Negative); RBC,Urine 2 /hpf (0-5); Specific Gravity,Urine 1.013 (1.001-1.035); Squamous Epithelial Cell,Urine 3 /hpf (0-4); Urobilinogen,Urine <2.0 mg/dL (<2.0); WBC,Urine 29 /hpf (0-5)
[2019-11-20] MEDS ORDERED: NALOXONE 0.4 MG/ML 1 ML VIAL IV PRN (15:11)
[2019-11-20] MEDS ORDERED: ACETAMINOPHEN TAB 325 MG TAB PO PRN (15:11)
--- NOTE | 2019-11-20 16:16 | P.PN ---
Progress Note - Text Progress Note Date: 11/20/19 per patient and her family wishes, care will be transferred to Dr. Poe
[2019-11-20] MEDS: SODIUM CHLORIDE 0.9% 1,000 ML IV SCH ×2 (17:35→23:29)
[2019-11-20] MEDS: GABAPENTIN 100 MG CAP PO SCH (20:24)
[2019-11-21] MEDS: MULTIVITAMINS, THERA 1 EACH TAB PO SCH (08:22)
[2019-11-21] MEDS: amLODIPine 10 MG TAB PO SCH (08:22)
[2019-11-21] MEDS: LISINOPRIL 20 MG TAB PO SCH (08:22)
--- NOTE | 2019-11-21 11:08 | US ---
EXAMINATION TYPE: US kidneys/renal and bladder DATE OF EXAM: 11/21/2019 COMPARISON: NONE CLINICAL HISTORY: frequent UTIs. EXAM MEASUREMENTS: Right Kidney: 9.2 x 4.6 x 5.1 cm Left Kidney: 10.9 x 4.9 x 4.6 cm Technically difficult study performed portably on morbidly obese patient. Right Kidney: thinned cortex Left Kidney: Mild left hydronephrosis. Bladder: wnl, patient states she did just empty and bladder is still quite full. Bilateral Jets seen: No There is no evidence for hydronephrosis at this point in time. No nephrolithiasis is seen. No edouard s are identified. The urinary bladder is anechoic. Bilateral ureteral jets are not seen. IMPRESSION: 1. Mild left-sided hydronephrosis. 2. Right renal cortical thinning suggesting chronic medical renal disease. 3. Abnormal post void residual in the urinary bladder.
--- NOTE | 2019-11-21 11:56 | P.HPIM ---
History of Present Illness H&P Date: 11/21/19 Chief Complaint: Generalized weakness This is a 63-year-old female patient of Dr. Renee with history of hypertension, CVA, [place], neuropathy. Patient was recently hospitalized November 11 through November 14 for E. coli urinary tract infection and generalized weakness. Patient was discharged home with homecare. On presentation November 11, patient complained of increasing weakness gradually worsening over the past year and significantly worse over the past 10 days. She also gives history that approximately 6-8 weeks ago she didn't feel safe walking with her walker and st arted using a wheelchair. She states she has not been eating well for the past week. She has had off-and-on diarrhea for several days, nonbloody. Patient states that she was feeling improved when she went home but then became very weak. She denies any burning with urination. She does state she has incontinence which is fairly new for her. She denies any constipation. She denies having any abdominal pain. She denies fever but complains of chills. She denies any flank pain or back pain. Patient came into [facility] emergency center by EMS for evaluation. Patient was afebrile, heart rate 84, blood pressure 127/62, pulse ox 95%. EKG was sinus rhythm at rate of 90. WBC 6, hemoglobin 11.7, platelet count 269, electrolytes within normal limits, BUN 22 and creatinine 0.8, blood sugar 104. Lactic acid 1.5. Total bilirubin 0.8, AST 42, ALT 42, alkaline phosphatase 56. Troponin was negative. Urinalysis cloudy, leukoesterase moderate, WBC 29, squamous cells 3, bacteria rare. Chest x-ray showed no acute process. Patient was started on ceftriaxone and admitted to the MedSurg floor. Patient was initially admitted under [facility] and then changed to our service per patient's daughter, Apolonia, request. Apolonia works as a social work manager at [employer]. Consult dated for urology and bladder scans postvoid ordered. Review of Systems Constitutional: denies chills, Reports fatigue, Reports lethargy, Reports malaise, Reports poor appetite, Reports weakness, Denies fever Eyes: denies blurred vision, denies pain Ears, nose, mouth and throat: Denies dysphagia, Denies headache, Denies nasal congestion, Denies nasal discharge, Denies sore throat, Denies vertigo Cardiovascular: Denies chest pain, Denies decreased exercise tolerance, Denies dyspnea on exertion, Denies edema, Denies lightheadedness, Denies shortness of breath, Denies syncope Respiratory: Denies cough, Denies cough with sputum, Denies dyspnea, Denies excessive sputum, Denies hemoptysis, Denies home oxygen, Denies wheezing Gastrointestinal: denies diarrhea, Reports loss of appetite, Denies abdominal pain, Denies nausea, Denies vomiting Genitourinary: denies dysuria, Reports urgency, Denies hematuria Musculoskeletal: Reports gait dysfunction, Reports muscle weakness, Denies myalgias Integumentary: Denies pruritus, Denies rash Neurological: Reports gait dysfunction, Reports weakness, Denies change in mentation, Denies change in speech, Denies numbness Psychiatric: Denies anxiety, Denies depression Endocrine: Denies fatigue, Denies weight change Past Medical History Past Medical History: CVA/TIA, Hypertension, Myocardial Infarction ([place]) Additional Past Medical History / Comment(s): neuropathy Last Myocardial Infarction Date:: unknown History of Any Multi-Drug Resistant Organisms: None Reported Past Surgical History: Section Past Anesthesia/Blood Transfusion Reactions: No Reported Reaction Past Psychological History: No Psychological Hx Reported Smoking Status: Former smoker Past Alcohol Use History: None Reported Additional Past Alcohol Use History / Comment(s): Patient was a smoker briefly and quit 40 years ago. She denies any illicit drug use or alcohol use. Patient lives at home alone in a senior apartment. She has a walker and wheelchair at home. She denies any oxygen use. Past Drug Use History: None Reported - Past Family History Father Additional Family Medical History / Comment(s): Father at age 101 from old age. Mother Family Medical History: Hypertension Additional Family Medical History / Comment(s): Mother at age 83 with history of hypertension. Brother(s) Additional Family Medical History / Comment(s): Patient does not have any brothers or sisters. Daughter(s) Additional Family Medical History / Comment(s): Patient has 3 daughters. She has no contact with 2 of her daughters. One daughter has no major medical problems. Son(s) Additional Family Medical History / Comment(s): Patient has 3 sons. One as a stillbirth, one has no major medical problems, one has ADD. Medications and Allergies Home Medications Medication Instructions Recorded Confirmed Type Benazepril HCl 20 mg PO DAILY 11/10/19 11/20/19 History Gabapentin [Neurontin] 100 mg PO HS 11/10/19 11/20/19 History Multivitamins, Thera [Multivitamin 1 tab PO DAILY 11/10/19 11/20/19 History (formulary)] amLODIPine [Norvasc] 10 mg PO DAILY 11/10/19 11/20/19 History Cephalexin [Keflex] 500 mg PO Q8HR #21 cap 11/14/19 11/20/19 Rx Allergies Allergy/AdvReac Type Severity Reaction Status Date / Time No Known Allergies Allergy Verified 11/20/19 15:16 Physical Exam Vitals: Vital Signs Temp Pulse Pulse Pulse Resp BP BP 11/21/19 06:51 98.0 F 86 18 106/71 11/20/19 23:13 98.0 F 89 16 125/72 11/20/19 20:00 97.5 F L 86 18 104/62 11/20/19 16:03 97.3 F L 90 18 112/78 11/20/19 15:39 97.3 F L 84 18 124/74 11/20/19 14:00 86 18 139/79 11/20/19 12:23 98.3 F 89 18 127/62 Pulse Ox 11/21/19 06:51 93 L 11/20/19 23:13 95 11/20/19 20:00 95 11/20/19 16:03 95 11/20/19 15:39 96 11/20/19 14:00 96 11/20/19 12:23 94 L Intake and Output 11/20/19 11/21/19 11/21/19 22:59 06:59 14:59 Intake Total 240 Balance 240 Intake: Oral 240 Other: Voiding Method Bedside Commode Bedside Commode # Voids 1 0 Weight 136.078 kg Gen: This is a morbidly obese 63-year-old female. Patient is resting bed appears to be comfortable and in no acute distress. HEENT: Head is atraumatic, normocephalic. Pupils equal, round. Sclerae is anicteric. NECK: Supple. No JVD. No lymphadenopathy. No thyromegaly. LUNGS: Clear to auscultation. No wheezes or rhonchi. No intercostal retractions. HEART: Regular rate and rhythm. No murmur. ABDOMEN: Soft. Bowel sounds are present. No masses. No tenderness. . EXTREMITIES: No pedal edema. No calf tenderness. NEUROLOGICAL: Patient is awake, alert and oriented x3. Cranial nerves 2 through 12 are grossly intact. Generalized weakness. Results CBC & Chem 7: 11/20/19 12:19 11/20/19 12:19 Labs: Abnormal Lab Results - Last 24 Hours (Table) 11/20/19 11/20/19 11/20/19 Range/Units 12:19 12:19 12:19 MCHC 30.9 L (31.0-37.0) g/dL APTT 20.4 L (22.0-30.0) sec BUN 22 H (7-17) mg/dL Glucose 104 H (74-99) mg/dL AST 42 H (14-36) U/L ALT 42 H (4-34) U/L Urine Appearance (Clear) Urine Ketones (Negative) Ur Leukocyte Esterase (Negative) Urine WBC (0-5) /hpf Urine Bacteria (None) /hpf Urine Mucus (None) /hpf Urine Yeast (Budding) (None) /hpf 11/20/19 Range/Units 14:15 MCHC (31.0-37.0) g/dL APTT (22.0-30.0) sec BUN (7-17) mg/dL Glucose (74-99) mg/dL AST (14-36) U/L ALT (4-34) U/L Urine Appearance Cloudy H (Clear) Urine Ketones Trace H (Negative) Ur Leukocyte Esterase Moderate H (Negative) Urine WBC 29 H (0-5) /hpf Urine Bacteria Rare H (None) /hpf Urine Mucus Rare H (None) /hpf Urine Yeast (Budding) Few H (None) /hpf Microbiology - Last 24 Hours (Table) 11/20/19 14:15 Urine Culture - Preliminary Urine,Voided Thrombosis Risk Factor Assmnt - DVT/VTE Prophylaxis DVT/VTE Prophylaxis: Pharmacologic Prophylaxis ordered - Choose All That Apply Any of the Below Risk Factors Present?: Yes Each Factor Represents 1 point: Obesity (BMI >25), Swollen legs (current) Other Risk Factors: Yes Each Risk Factor Represents 2 Points: Age 61-74 years Other congenital or acquired thrombophilia - If yes, enter type in comment: No Thrombosis Risk Factor Assessment Total Risk Factor Score: 4 Thrombosis Risk Factor Assessment Level: Moderate Risk Assessment and Plan Plan: 1. Generalized weakness secondary to deconditioning and acute urinary tract infection. Repeat Urine culture and blood culture in progress. Continue ceftriaxone. Consult with urology, bladder scan postvoid. Discontinue IV fluids. 2. Recent treatment for acute E. coli urinary tract infection with urinary incontinence. Continue continue as in #1. 3. Hypertension. Continue Norvasc 10 mg daily, lisinopril 20 mg daily. 4. Neuropathy. Continue gabapentin 100 mg at bedtime. 5. Morbid obesity with BMI of 51. 6. GI prophylaxis. Pepcid. 7. DVT prophylaxis. Heparin subcu. Patient placed as an observation status. Discharge plan: Most likely home with homecare. PT consult. Impression and plan of care have been directed as dictated by the signing physician. Brooklyn Rowell nurse practitioner acting as scribe for signing ban farmer.
--- NOTE | 2019-11-21 19:42 | P.GSCN ---
History of Present Illness Consult date: 11/21/19 Reason for Consult: UTI and urinary incontinence History of present illness: Ms Terrazas is a 63-year-old female admitted to the hospital for UTI, She has a recent hospitalization in November 11 through November 14 for E. coli urinary tract infection. She indicated for the past few months she is been having difficulty with voiding with sensation of incomplete bladder emptying. She also complains of urgency with urinary incontinence. Denies any previous history of urinary retention. She underwent RBUS which demonstrated distended bladder with mild left hydronephrosis. She denies any hx of left flank pain or hx of nephrolithasis. He PVR was 900 mL Review of Systems - Constitutional Reports weakness, Denies chills, Denies fever - EENT Ears, nose, mouth and throat: Denies dysphagia - Cardiovascular Reports edema, Denies chest pain - Respiratory Denies cough, Denies dyspnea - Gastrointestinal Denies abdominal pain, Denies nausea, Denies vomiting - Genitourinary Genitourinary: Reports difficulty voiding, Reports incomplete emptying, Reports urgency - Musculoskeletal Reports muscle weakness - Psychiatric Denies confusion, Denies depression Past Medical History Past Medical History: CVA/TIA, Hypertension, Myocardial Infarction (SD) Additional Past Medical History / Comment(s): neuropathy Last Myocardial Infarction Date:: unknown History of Any Multi-Drug Resistant Organisms: None Reported Past Surgical History: Section Past Anesthesia/Blood Transfusion Reactions: No Reported Reaction Past Psychological History: No Psychological Hx Reported Smoking Status: Former smoker Past Alcohol Use History: None Reported Additional Past Alcohol Use History / Comment(s): Patient was a smoker briefly and quit 40 years ago. She denies any illicit drug use or alcohol use. Patient lives at home alone in a senior apartment. She has a walker and wheelchair at home. She denies any oxygen use. Past Drug Use History: None Reported - Past Family History Father Additional Family Medical History / Comment(s): Father at age 101 from old age. Mother Family Medical History: Hypertension Additional Family Medical History / Comment(s): Mother at age 83 with history of hypertension. Brother(s) Additional Family Medical History / Comment(s): Patient does not have any brothers or sisters. Daughter(s) Additional Family Medical History / Comment(s): Patient has 3 daughters. She has no contact with 2 of her daughters. One daughter has no major medical problems. Son(s) Additional Family Medical History / Comment(s): Patient has 3 sons. One as a stillbirth, one has no major medical problems, one has ADD. Medications and Allergies Home Medications Medication Instructions Recorded Confirmed Type Benazepril HCl 20 mg PO DAILY 11/10/19 11/20/19 History Gabapentin [Neurontin] 100 mg PO HS 11/10/19 11/20/19 History Multivitamins, Thera [Multivitamin 1 tab PO DAILY 11/10/19 11/20/19 History (formulary)] amLODIPine [Norvasc] 10 mg PO DAILY 11/10/19 11/20/19 History Cephalexin [Keflex] 500 mg PO Q8HR #21 cap 11/14/19 11/20/19 Rx Allergies Allergy/AdvReac Type Severity Reaction Status Date / Time No Known Allergies Allergy Verified 11/20/19 15:16 Surgical - Exam Vital Signs Temp Pulse Resp BP Pulse Ox 98.3 F 89 18 127/62 94 L 11/20/19 12:23 11/20/19 12:23 11/20/19 12:23 11/20/19 12:23 11/20/19 12:23 - General no distress, no pain - Eyes normal ocular movement, no pale - ENT normal mucosa, no hearing loss - Respiratory normal expansion, normal respiratory effort - Abdomen Abdomen: soft, non tender - Neurologic no combative, no confused - Psychiatric oriented to time, oriented to person, oriented to place, speech is normal Results - Labs 11/20/19 12:19 11/20/19 12:19 Microbiology - Last 24 Hours (Table) 11/20/19 13:14 Blood Culture - Preliminary Blood No Growth after 24 hours 11/20/19 14:15 Urine Culture - Preliminary Urine,Voided Assessment and Plan Assessment: 63 yo female admitted with weakness and UTI. Urology is consulted for UTI and urinary incontinence. RBUS demonstrated distended bladder with mild left hydro, of note her PVR is 900 mL. Patient UTI and hydronephrosis are secondary to poor bladder emptying and urinary retention . Her urinary incontinence is most likely overflow incontinence secondary to her urinary retention. Plan: -place alejo catheter for urinary retention, can be discharged home with alejo and f/u in 7-10 days for TOV -Will need repeat RBUS as an outpatient after resolution of urinary retention to asses for resolution of hydronephrosis
[2019-11-21] MEDS: HEPARIN SODIUM,PORCINE 5,000 UNIT/ML 1 ML VIAL SQ SCH (21:12)
[2019-11-21] MEDS: GABAPENTIN 100 MG CAP PO SCH (21:12)
[2019-11-22 05:37] VITALS: RESP 16
[2019-11-22] MEDS: HEPARIN SODIUM,PORCINE 5,000 UNIT/ML 1 ML VIAL SQ SCH (08:30)
[2019-11-22] MEDS: amLODIPine 10 MG TAB PO SCH (08:30)
[2019-11-22] MEDS: LISINOPRIL 20 MG TAB PO SCH (08:30)
[2019-11-22] MEDS: MULTIVITAMINS, THERA 1 EACH TAB PO SCH (08:30)
[2019-11-22 14:45] VITALS: BP 110/73; PULSE 82; TEMP 97.6
--- NOTE | 2019-11-23 15:46 | P.DS ---
Providers Date of admission: 11/20/19 21:41 Expected date of discharge: 11/22/19 Attending physician: Ena Poe Consults: 11/21/19 07:59 Consult Physician Routine Consulting Provider: Vincent Dunaway Consult Reason/Comments: frequent UTI, incontinence Do you want consulting provider notified?: Yes [facility] This is a 63-year-old female patient of Dr. Renee with history of hypertension, CVA, [place], neuropathy. Patient was recently hospitalized November 11 through November 14 for E. coli urinary tract infection and generalized weakness. Patient was discharged home with homecare. On presentation November 11, patient complained of increasing weakness gradually worsening over the past year and significantly worse over the past 10 days. She also gives history that approximately 6-8 weeks ago she didn't feel safe walking with her walker and started using a wheelchair. She states she has not been eating well for the past week. She has had off-and-on diarrhea for several days, nonbloody. Patient states that she was feeling improved when she went home but then became very weak. She denies any burning with urination. She does state she has incontinence which is fairly new for her. She denies any constipation. She denies having any abdominal pain. She denies fever but complains of chills. She denies any flank pain or back pain. Patient came into [facility] emergency center by EMS for evaluation. Patient was afebrile, heart rate 84, blood pressure 127/62, pulse ox 95%. EKG was sinus rhythm at rate of 90. WBC 6, hemoglobin 11.7, platelet count 269, electrolytes within normal limits, BUN 22 and creatinine 0.8, blood sugar 104. Lactic acid 1.5. Total bilirubin 0.8, AST 42, ALT 42, alkaline phosphatase 56. Troponin was negative. Urinalysis cloudy, leukoesterase moderate, WBC 29, squamous cells 3, bacteria rare. Chest x-ray showed no acute process. Patient was started on ceftriaxone and admitted to the MedSurg floor. Patient was initially admitted under [facility] and then changed to our service per patient's daughter, Apolonia, request. Apolonia works as a psychotherapist social worker at [employer]. Consult dated for urology and bladder scans postvoid ordered. 11/22:renal ultrasound revealed mild left sided hydronephrosis. Right renal cortical thinning suggestive of chronic medical renal disease. Abnormal postvoid residual in the urinary bladder.patient was seen in consultation by Dr. Dunaway with recommendations for a Alejo catheter for urinary retention with plan to follow-up in the office in 7-10 days. Plan for repeat ultrasound as an outpatient to evaluate resolution of urinary retention and hydronephrosis. Patient was afebrile, heart rate 82, blood pressure 110/73, pulse ox 97% on room air. urine culture was positive for Arelis species not albicans and patient was provided prescription for Diflucan for 3 days. Patient to continue her antibiotic prescription provided on her last admission. patient has been evaluated by physical therapy with recommendations for home with home care. Patient will be discharged home today in stable condition. Discharge diagnoses: 1. Generalized weakness secondary to deconditioning and acute urinary tract infection. 2. Recent treatment for acute E. coli urinary tract infection with urinary incontinence. 3. Hypertension. 4. Neuropathy. 5. Morbid obesity with BMI of 51. 6. Urinary retention contributing to urinary tract infection. 7. Arelis urinary tract infection. Discharge plan: home with [facility]. Impression and plan of care have been directed as dictated by the signing physician. Brooklyn Rowell nurse practitioner acting as scribe for signing physician. Patient Condition at Discharge: Good Plan - Discharge Summary Discharge Rx Participant: Yes New Discharge Prescriptions: New Fluconazole [Diflucan] 150 mg PO DAILY #3 tab Continue Multivitamins, Thera [Multivitamin (formulary)] 1 tab PO DAILY amLODIPine [Norvasc] 10 mg PO DAILY Gabapentin [Neurontin] 100 mg PO HS Benazepril HCl 20 mg PO DAILY Cephalexin [Keflex] 500 mg PO Q8HR #21 cap Discharge Medication List Benazepril HCl 20 mg PO DAILY 11/10/19 [History] Gabapentin [Neurontin] 100 mg PO HS 11/10/19 [History] Multivitamins, Thera [Multivitamin (formulary)] 1 tab PO DAILY 11/10/19 [History] amLODIPine [Norvasc] 10 mg PO DAILY 11/10/19 [History] Cephalexin [Keflex] 500 mg PO Q8HR #21 cap 11/14/19 [Rx] Fluconazole [Diflucan] 150 mg PO DAILY #3 tab 11/22/19 [Rx] Follow up Appointment(s)/Referral(s): Vincent Dunaway MD [STAFF PHYSICIAN] - 12/16/19 10:20 am (pt unable to do initial appt made at 1 week per order and made appt for 12/16) [facility], [NON-STAFF] - Logan Renee MD [Primary Care Provider] - 11/28/19 10:30 am Patient Instructions/Handouts: Dehydration (DC), Urinary Tract Infection in Women (DC) Activity/Diet/Wound Care/Special Instructions: D/C alejo 1 week 11/29/19 Discharge Disposition: HOME WITH HOME HEALTH SERVICES
== END 2019-11-22 17:05 | disposition home health service (06) | DRG 690 ==
LOC: EC 11:46 → 1SOBS 15:11 → OBSVTOIN 21:41 → 6NMEDSUR 22:54
PROVIDERS: ADMIT Family Medicine; ATTEND Family Medicine
DX: N13.6 Pyonephrosis (principal); Z68.43 Body mass index [BMI] 50.0-59.9, adult; B37.49 Other urogenital candidiasis; I10 Essential (primary) hypertension; G62.9 Polyneuropathy, unspecified; E66.01 Morbid (severe) obesity due to excess calories; I25.2 Old myocardial infarction; E86.0 Dehydration; N39.490 Overflow incontinence; Z79.899 Other long term (current) drug therapy; Z87.440 Personal history of urinary (tract) infections; Z86.73 Personal history of transient ischemic attack (TIA), and cerebral infarction without residual deficits; Z98.890 Other specified postprocedural states; Z87.891 Personal history of nicotine dependence; Z82.49 Family history of ischemic heart disease and other diseases of the circulatory system
CPT/HCPCS: 36415; 71046; 76770; 80053; 81001; 82550; 83605; 83735; 84484; 85025; 85610; 85730; 87040; 87086; 93005; 96360; 96361; 99285

== ENCOUNTER 2023-09-17 09:47 | Inpatient (IN) | payer MEDICARE, OTHER ==
[2023-09-17] MEDS ORDERED: LIDOCAINE 1% INJ 10MG/ML (20 ML MDV) SQ ONE (10:08)
--- NOTE | 2023-09-17 10:19 | ED ---
General Adult HPI - General Chief complaint: Skin/Abscess/Foreign Body Stated complaint: Infection in Breast Time Seen by Provider: 09/17/23 10:07 Source: patient, family, EMS, RN notes reviewed Mode of arrival: EMS - History of Present Illness Initial comments: 67-year-old female with a past medical history significant for myocardial infarction presents to the emergency department with a chief complaint of right breast pain. Patient reports that her right breast started bleeding today she has had a large mass that has progressively gotten worse over 3 months. She denies any known fevers, chills she reports it is not painful. She reports bright red blood from the area. Denies any fever, chills chest pain, shortness of breath, nausea, vomiting, abdominal pain. Patient has never had a mammogram. - Related Data Home Medications Medication Instructions Recorded Confirmed No Known Home Medications 09/17/23 09/17/23 Allergies Allergy/AdvReac Type Severity Reaction Status Date / Time No Known Allergies Allergy Verified 09/17/23 14:29 Review of Systems ROS Statement: Those systems with pertinent positive or pertinent negative responses have been documented in the HPI. ROS Other: All systems not noted in ROS Statement are negative. Past Medical History Past Medical History: CVA/TIA, Hypertension, Myocardial Infarction (SC) Additional Past Medical History / Comment(s): neuropathy Last Myocardial Infarction Date:: unknown History of Any Multi-Drug Resistant Organisms: None Reported Past Surgical History: Section Past Anesthesia/Blood Transfusion Reactions: No Reported Reaction Past Psychological History: No Psychological Hx Reported Smoking Status: Never smoker Past Alcohol Use History: None Reported Past Drug Use History: None Reported - Past Family History Father Additional Family Medical History / Comment(s): Father at age 101 from old age. Mother Family Medical History: Hypertension Additional Family Medical History / Comment(s): Mother at age 83 with history of hypertension. Brother(s) Additional Family Medical History / Comment(s): Patient does not have any brothe rs or sisters. Daughter(s) Additional Family Medical History / Comment(s): Patient has 3 daughters. She has no contact with 2 of her daughters. One daughter has no major medical problems. Son(s) Additional Family Medical History / Comment(s): Patient has 3 sons. One as a stillbirth, one has no major medical problems, one has ADD. General Exam - General Exam Comments Initial Comments: General: Alert, in no acute distress Head: atraumatic normocephalic. Eyes PERRL, EOMI intact, mucous membranes moist Respiratory: Lungs clear to auscultation bilaterally Cardiovascular: Tachycardic Chest: Right breast with large region encompassing the nipple, with surrounding erythema. Nontender. Purulent and bloody discharge noted. Abdominal: Soft without guarding or rebound Extremities: Normal inspection with full range of motion and normal capillary refill Neuroogic: alert and oriented 3, CN II-XII intact, able to ambulate with steady gait Skin: warm dry and intact with normal color Course Vital Signs 09/17/23 09/17/23 09/17/23 09:58 10:30 11:00 Temperature 98.1 F Pulse Rate 140 H 107 H 131 H Respiratory 20 20 21 Rate Blood Pressure 126/70 164/109 163/102 O2 Sat by Pulse 92 L 96 93 L Oximetry 09/17/23 09/17/23 09/17/23 11:25 11:30 12:00 Temperature Pulse Rate 99 98 133 H Respiratory 20 19 21 Rate Blood Pressure 165/99 165/99 167/95 O2 Sat by Pulse 95 91 L 90 L Oximetry - Reevaluation(s) Reevaluation #1: 09/17/23 13:31 Patient reevaluated. Patient be followed the plan for admission. Reevaluation #2: 09/17/23 13:44 Case is discussed with Dr. My burch who agrees and accepts the patient for observation. Medical Decision Making - Medical Decision Making Was pt. sent in by a medical professional or institution (, PA, [employer], urgent care, hospital, or long-term...) When possible be specific @ -[No] Did you speak to anyone other than the patient for history (EMS, parent, family, police, friend...)? What history was obtained from this source @ -[No] Did you review nursing and triage notes (agree or disagree)? Why? @ -[I reviewed and agree with nursing and triage notes] Were old charts reviewed (outside hosp., previous admission, EMS record, old EKG, old radiological studies, urgent care reports/EKG's, long-term records)? Report findings @ -[No old charts were reviewed] Differential Diagnosis (chest pain, altered mental status, abdominal pain women, abdominal pain men, vaginal bleeding, weakness, fever, dyspnea, syncope, headache, dizziness, GI bleed, back pain, seizure, CVA, palpatations, mental health, musculoskeletal)? @ -[not applicable] EKG interpreted by me (3pts min.). @ -[As above] X-rays interpreted by me (1pt min.). @ -yes ] CT interpreted by me (1pt min.). @ -Yes U/S interpreted by me (1pt. min.). @ -[None done] What testing was considered but not performed or refused? (CT, X-rays, U/S, labs)? Why? @ -[None] What meds were considered but not given or refused? Why? @ -[None] Did you discuss the management of the patient with other professionals (professionals i.e. , PA, [employer], lab, RT, psych nurse, secondary social studies teacher, mural painter, te acher, trust officer, case monitor)? Give summary @ -Dr Pepe who agrees and accepts the patient for admission. Was smoking cessation discussed for >3mins.? @ -[No] Was critical care preformed (if so, how long)? @ -[No] Were there social determinants of health that impacted care today? How? (Homelessness, low income, unemployed, alcoholism, drug addiction, transportation, low edu. Level, literacy, decrease access to med. care, residential, rehab)? @ -[No] Was there de-escalation of care discussed even if they declined (Discuss DNR or withdrawal of care, Hospice)? DNR status @ -[No] What co-morbidities impacted this encounter? (DM, HTN, Smoking, COPD, CAD, Cancer, CVA, ARF, Chemo, Hep., AIDS, mental health diagnosis, sleep apnea, morbid obesity)? @ -[None] Was patient admitted / discharged? Hospital course, mention meds given and route, prescriptions, significant lab abnormalities, going to OR and other pertinent info. @ -Admission. 67-year-old female with a past medical history significant for CVA/TIA/hypertension, SC presents to the emergency department with a chief complaint of right breast pain. Patient had a thorough history and physical exam performed. Physical exam reveals tachycardic and hypoxic female. There is a large 4 cm x 4 cm circular lesion around the nipple with active purulent and bloody discharge. Patient was placed on 2 L nasal cannula. Patient's oxygen saturation 96 and 97%. Patient had laboratory studies which revealed: WBC 7.5, hemoglobin 14.5 platelets 235 sodium 135, potassium 2.3 BUN 9, creatinine 0.86 troponin negative. CRP 6.[address] which reveals filling defect within the cyst in the right upper lobe segmental branch embolism cannot be noted. The right-sided breast carcinoma with skin thickening is diminished with right axillary adenopathy. I discussed results in detail with the patient's family and family members who agree and all questions were addressed. Case was discussed with marcin Black who agrees and accepts the patient for admission with consult to Dr. Esposito. Patient will be started on heparin. Case is discussed with, ZACHERY Grijalva who agrees with plan of care Undiagnosed new problem with uncertain prognosis? @ -[No] Drug Therapy requiring intensive monitoring for toxicity (Heparin, Nitro, Insulin, Cardizem)? @ -[No] Were any procedures done? @ -[No] Diagnosis/symptom? @ -Right breast Lesion - Pulmonary Embolism Acute, or Chronic, or Acute on Chronic? @ Acute Uncomplicated (without systemic symptoms) or Complicated (systemic symptoms)? @ -[default] Side effects of treatment? @ -[No] Exacerbation, Progression, or Severe Exacerbation? @ -[No] Poses a threat to life or bodily function? How? (Chest pain, USA, SC, pneumonia, PE, COPD, DKA, ARF, appy, cholecystitis, CVA, Diverticulitis, Homicidal, Suicidal, threat to staff... and all critical care pts) @ -Yes, PE - Lab Data Result diagrams: 09/17/23 10:20 09/17/23 10:20 Lab Results 09/17/23 09/17/23 09/17/23 Range/Units 10:20 10:20 10:20 WBC 7.5 (3.8-10.6) k/uL RBC 4.47 (3.80-5.40) m/uL Hgb 14.5 (11.4-16.0) gm/dL Hct 45.1 (34.0-46.0) % MCV 100.8 H (80.0-100.0) fL MCH 32.4 (25.0-35.0) pg MCHC 32.2 (31.0-37.0) g/dL RDW 14.2 (11.5-15.5) % Plt Count 235 (150-450) k/uL MPV 7.6 Neutrophils % 85 % Lymphocytes % 10 % Monocytes % 3 % Eosinophils % 1 % Basophils % 0 % Neutrophils # 6.4 (1.3-7.7) k/uL Lymphocytes # 0.8 L (1.0-4.8) k/uL Monocytes # 0.2 (0-1.0) k/uL Eosinophils # 0.0 (0-0.7) k/uL Basophils # 0.0 (0-0.2) k/uL Hypochromasia Slight Macrocytosis Slight PT (10.0-12.5) sec INR (<1.2) APTT (22.0-30.0) sec Sodium 135 L (137-145) mmol/L Potassium 3.3 L (3.5-5.1) mmol/L Chloride 95 L (98-107) mmol/L Carbon Dioxide 32 H (22-30) mmol/L Anion Gap 8 mmol/L BUN 9 (7-17) mg/dL Creatinine 0.86 (0.52-1.04) mg/dL Est GFR (CKD-EPI)AfAm 80 (>60 ml/min/1.73 sqM) Est GFR (CKD-EPI)NonAf 70 (>60 ml/min/1.73 sqM) Glucose 139 H (74-99) mg/dL Plasma Lactic Acid Silvio 1.5 (0.7-2.0) mmol/L Calcium 8.5 (8.4-10.2) mg/dL Magnesium 1.9 (1.6-2.3) mg/dL Total Bilirubin 1.4 H (0.2-1.3) mg/dL AST 184 H (14-36) U/L ALT 80 H (4-34) U/L Alkaline Phosphatase 117 (38-126) U/L Troponin I (0.000-0.034) ng/mL C-Reactive Protein 6.1 H (<1.0) mg/dL Total Protein 7.4 (6.3-8.2) g/dL Albumin 3.5 (3.5-5.0) g/dL Urine Color Urine Appearance (Clear) Urine pH (5.0-8.0) Ur Specific [place] (1.001-1.035) Urine Protein (Negative) Urine Glucose (UA) (Negative) Urine Ketones (Negative) Urine Blood (Negative) Urine Nitrite (Negative) Urine Bilirubin (Negative) Urine Urobilinogen (<2.0) mg/dL Ur Leukocyte Esterase (Negative) Urine RBC (0-5) /hpf Urine WBC (0-5) /hpf Ur Squamous Epith Cells (0-4) /hpf Urine Bacteria (None) /hpf Urine Mucus (None) /hpf 09/17/23 09/17/23 09/17/23 Range/Units 10:20 10:20 10:20 WBC (3.8-10.6) k/uL RBC (3.80-5.40) m/uL Hgb (11.4-16.0) gm/dL Hct (34.0-46.0) % MCV (80.0-100.0) fL MCH (25.0-35.0) pg MCHC (31.0-37.0) g/dL RDW (11.5-15.5) % Plt Count (150-450) k/uL MPV Neutrophils % % Lymphocytes % % Monocytes % % Eosinophils % % Basophils % % Neutrophils # (1.3-7.7) k/uL Lymphocytes # (1.0-4.8) k/uL Monocytes # (0-1.0) k/uL Eosinophils # (0-0.7) k/uL Basophils # (0-0.2) k/uL Hypochromasia Macrocytosis PT 11.4 (10.0-12.5) sec INR 1.1 (<1.2) APTT 24.5 (22.0-30.0) sec Sodium (137-145) mmol/L Potassium (3.5-5.1) mmol/L Chloride (98-107) mmol/L Carbon Dioxide (22-30) mmol/L Anion Gap mmol/L BUN (7-17) mg/dL Creatinine (0.52-1.04) mg/dL Est GFR (CKD-EPI)AfAm (>60 ml/min/1.73 sqM) Est GFR (CKD-EPI)NonAf (>60 ml/min/1.73 sqM) Glucose (74-99) mg/dL Plasma Lactic Acid Silvio (0.7-2.0) mmol/L Calcium (8.4-10.2) mg/dL Magnesium (1.6-2.3) mg/dL Total Bilirubin (0.2-1.3) mg/dL AST (14-36) U/L ALT (4-34) U/L Alkaline Phosphatase (38-126) U/L Troponin I 0.029 (0.000-0.034) ng/mL C-Reactive Protein (<1.0) mg/dL Total Protein (6.3-8.2) g/dL Albumin (3.5-5.0) g/dL Urine Color Yellow Urine Appearance Clear (Clear) Urine pH 5.5 (5.0-8.0) Ur Specific [place] 1.049 H (1.001-1.035) Urine Protein 1+ H (Negative) Urine Glucose (UA) Negative (Negative) Urine Ketones Trace H (Negative) Urine Blood Small H (Negative) Urine Nitrite Positive H (Negative) Urine Bilirubin Negative (Negative) Urine Urobilinogen 2.0 (<2.0) mg/dL Ur Leukocyte Esterase Small H (Negative) Urine RBC 3 (0-5) /hpf Urine WBC 11 H (0-5) /hpf Ur Squamous Epith Cells 1 (0-4) /hpf Urine Bacteria Rare H (None) /hpf Urine Mucus Rare H (None) /hpf Disposition Clinical Impression: Breast abscess, Tachycardia, Hypoxia, Fungal skin infection, Pulmonary embolism Disposition: ADMITTED IP TO THIS HOSP Condition: Fair Is patient prescribed a controlled substance at d/c from ED?: No Time of Disposition: 10:19
--- NOTE | 2023-09-17 10:31 | XR ---
EXAMINATION TYPE: XR chest 1V portable DATE OF EXAM: 09/17/2023 COMPARISON: 11/20/2019 HISTORY: Shortness of breath TECHNIQUE: Frontal and lateral views of the chest are obtained. FINDINGS: Scattered senescent parenchymal changes noted. Hyperinflation compatible with COPD. Basilar increased density may reflect atelectasis. Developing infiltrate to exclude. Correlate clinic ally. Heart size is stable. Mediastinal structures are stable and grossly unremarkable. No evidence for hilar prominence. Degenerative changes dorsal spine. IMPRESSION: 1. Basilar increased density may reflect atelectasis. Developing infiltrate to exclude. Correlate cli nically.
[2023-09-17 10:33] LABS: Basophils % (A) 0 %; Eosinophils % (A) 1 %; HCT 45.1 % (34.0-46.0); HGB 14.5 gm/dL (11.4-16.0); Hypochromasia Slight; Lymphocytes # (A) 0.8 k/uL (1.0-4.8); Lymphocytes % (A) 10 %; MCH 32.4 pg (25.0-35.0); MCHC 32.2 g/dL (31.0-37.0); MCV 100.8 fL (80.0-100.0); Macrocytosis Slight; Mean Platelet Volume 7.6; Monocytes # (A) 0.2 k/uL (0-1.0); Monocytes % (A) 3 %; Neutrophils # (A) 6.4 k/uL (1.3-7.7); Neutrophils % (A) 85 %; Platelet Count 235 k/uL (150-450); RBC 4.47 m/uL (3.80-5.40); RDW 14.2 % (11.5-15.5); WBC 7.5 k/uL (3.8-10.6)
[2023-09-17 10:44] LABS: ALT 80 U/L (4-34); AST 184 U/L (14-36); African American GFR (CKD) 80 (>60 ml/min/1.73 sqM); Albumin 3.5 g/dL (3.5-5.0); Alkaline Phosphatase 117 U/L (38-126); Anion Gap 8 mmol/L; Blood Urea Nitrogen 9 mg/dL (7-17); Calcium 8.5 mg/dL (8.4-10.2); Carbon Dioxide 32 mmol/L (22-30); Chloride 95 mmol/L (98-107); Glucose 139 mg/dL (74-99); INR 1.1 (<1.2); Magnesium 1.9 mg/dL (1.6-2.3); Non-African American GFR(CKD) 70 (>60 ml/min/1.73 sqM); Partial Thromboplastin Time 24.5 sec (22.0-30.0); Potassium 3.3 mmol/L (3.5-5.1); Prothrombin Time 11.4 sec (10.0-12.5); Sodium 135 mmol/L (137-145); Total Bilirubin 1.4 mg/dL (0.2-1.3); Total Protein 7.4 g/dL (6.3-8.2)
[2023-09-17 11:12] LABS: C Reactive Protein 6.1 mg/dL (<1.0)
[2023-09-17] MEDS: NYSTATIN 100,000 UNIT/GM POWD 15 GM TOPICAL SCH ×2 (11:25→15:05)
--- NOTE | 2023-09-17 11:43 | CT ---
EXAMINATION TYPE: CT chest angio for PE DATE OF EXAM: 09/17/2023 COMPARISON: none HISTORY: PE, breast abscess CT DLP: 933.7 mGycm CONTRAST: CT chest with contrast and 3D reconstruction with MIP imaging is performed with IV Contrast, patient injected with 100 mL of Isovue 370. Contrast-enhanced CT of the chest was performed through the course of the pulmonary arteries with pineda g and mediastinal window settings submitted. 3D reconstruction with MIP imaging was also performed. PULMONARY ARTERIES: There appears to be a filling defect within a cyst right upper lobe subsegmental branch. Pulmonary embolism is not excluded. No evidence for large central embolus or saddle embolus.. LUNGS: The lungs are clear and free of infiltrate. Basilar compressive atelectasis. No pulmonary nodu le or mass is detected. No pleural effusion. MEDIASTINUM: Thoracic aorta is of normal caliber.. The heart is enlarged. No evidence for mediastin al mass. No mediastinal lymph nodes greater than 1cm. HILAR STRUCTURES: No evidence for mass. No hilar lymph nodes greater than 1 cm. UPPER ABDOMEN: There is evidence of cholelithiasis. Other: Right axillary adenopathy measuring up to 3.8 and 3.0 cm. 1 cm left axillary lymph node identi fied. Partially imaged on this subareolar right breast mass measuring at least 4.6 cm. In mammographi c and sonographic correlation advised. I see less likely matter IMPRESSION: 1. There appears to be a filling defect within a cyst right upper lobe subsegmental branch. Pulmonar y embolism is not excluded. No evidence for large central embolus or saddle embolus. 2. Right-sided breast carcinoma with skin thickening is partially imaged. Ultrasound and mammography recommended. Right axillary adenopathy.
[2023-09-17] MEDS ORDERED: HEPARIN SODIUM 1,000 UN/ML (10ML VL) IV ONE (13:16)
[2023-09-17] MEDS ORDERED: HEPARIN SODIUM 1,000 UN/ML (10ML VL) IV PRN (13:16)
[2023-09-17] MEDS: HEPARIN SOD,PORK IN 0.45% NACL 25,000 UNIT in 0.45% NACL 1 250ML.BAG IV SCH (13:45)
[2023-09-17 13:54] LABS: Appearance,Urine Clear (Clear); Bacteria,Urine Rare /hpf; Bilirubin,Urine Negative (Negative); Blood,Urine Small (Negative); Color,Urine Yellow; Glucose,Urine (UA) Negative (Negative); Ketones,Urine Trace (Negative); Leukocyte Esterase,Urine Small (Negative); Mucus,Urine Rare /hpf; Nitrite,Urine Positive (Negative); PH, Urine 5.5 (5.0-8.0); Protein,Urine 1+ (Negative); RBC,Urine 3 /hpf (0-5); Squamous Epithelial Cell,Urine 1 /hpf (0-4); WBC,Urine 11 /hpf (0-5)
[2023-09-17] MEDS ORDERED: NALOXONE 0.4 MG/ML 1 ML VIAL IV PRN (13:56)
[2023-09-17 14:14] LABS: Specific Gravity,Urine 1.049 (1.001-1.035)
[2023-09-17] MEDS: SODIUM CHLORIDE 0.9% 1,000 ML IV SCH (15:05)
[2023-09-17 15:09] LABS: Basophils % (A) 0 %; Eosinophils % (A) 0 %; HCT 45.8 % (34.0-46.0); HGB 14.4 gm/dL (11.4-16.0); Hypochromasia Slight; Lymphocytes # (A) 0.8 k/uL (1.0-4.8); Lymphocytes % (A) 10 %; MCH 31.9 pg (25.0-35.0); MCHC 31.4 g/dL (31.0-37.0); MCV 101.5 fL (80.0-100.0); Macrocytosis Slight; Mean Platelet Volume 8.2; Monocytes # (A) 0.3 k/uL (0-1.0); Monocytes % (A) 4 %; Neutrophils # (A) 6.6 k/uL (1.3-7.7); Neutrophils % (A) 85 %; Platelet Count 215 k/uL (150-450); RBC 4.51 m/uL (3.80-5.40); RDW 14.2 % (11.5-15.5); WBC 7.8 k/uL (3.8-10.6)
[2023-09-17 15:34] LABS: INR 1.2 (<1.2); Prothrombin Time 12.4 sec (10.0-12.5)
[2023-09-17] MEDS ORDERED: bisacodyL 5 MG TABLET.DR PO PRN (17:47)
--- NOTE | 2023-09-17 17:57 | P.HPIM ---
History of Present Illness H&P Date: 09/17/23 Patient is a 67-year-old female with coronary artery disease and prior myocardial infarction, who presented to the ER with complaints of right breast pain and breast lesion that started bleeding. In the ER she underwent an extensive evaluation. On arrival she was tachycardic to 140. Laboratory analysis included a CBC, coags, CMP, troponin, and urinalysis which were remarkable for sodium 135, potassium 3.3, glucose 139, bilirubin 1.4, AST 184, ALT 80, troponin 0.029. She underwent a chest x-ray which shows basilar increased density possibly reflecting atelectasis. She then underwent CT of the chest which noted a defect within the right upper lobe subsegmental branch with pulmonary embolism not excluded. Right breast carcinoma with skin thickening is partially imaged, right axillary lymphadenopathy Patient seen and examined at bedside. She reports that she has had a right breast lesion for quite some time. It has been bleeding intermittently for the last several weeks. Today she had significant bleeding from her right-sided breast lesion and therefore called her daughter to come to the emergency department. The patient denies any history of mammograms. She has not been following with the primary care physician since Dr. Renee retired. She reports a breast lesion for the last 3 months. She denies any chest pain, shortness of breath, or right-sided breast pain. She denies any headache, lightheadedness, or dizziness. She uses a walker at baseline. She denies any recent cough, cold, fever, flu, nausea, vomiting, or diarrhea. Daughter reports she had a diarrhea episode about 2 weeks ago. She denies any weight loss, or night sweats. She does report decreased appetite over the last several weeks and increased overall fatigue. Vital signs reviewed General: nontoxic, mild distress, appears at stated age Cardiovascular: S1S2 tachy, no murmur, positive posterior tibial pulse bilateral, Lungs: DEcreased bs bilateral, no rhonchi, no rales , no accessory muscle use Abdominal: soft, nontender to palpation, no guarding, no appreciable org anomegaly Ext: no gross muscle atrophy, no edema b/l lower extremities, no contractures Neuro: Anisocoria, no tongue deviation, uvula elevation symmetric, no extremity focal neuro deficits Psych: Alert, oriented, appropriate affect Breast: Daugther present during exam: right breast with induration and errythema of entire breast, breast is taunt and almost non mobile. There is a large fungatiing, nodular purple mass just lateral and caudid to the areola that is approx 5 cm in length. Assessment/Plan: Right-sided segmental pulmonary embolism with acute hypoxic respiratory failure Fungating/necrotic right-sided breast measuring at least 4.6 cm - admit to cardiac step-down as inpatient - Supplement O2 - heparin gtt, monitor ptt for adequate dose and toxicity, follow HgB closey. Also needs clost monitoring for recurrent bleeding from breast mass - Check B/l LE venous dopplers and echo - Consult Pulm, Heme/onc and Dr. Eduardo - d/w family inpatient vs outpatient biopsy depending of recs of oncoloshahida and salvatore Britt d/w pateint and family that any PET SCAN will need to be completed as an outpatient. - will defer mammogram at this time as likely to cuase recurrent bleed and mass is grossly visable. - follow CBC - [place] 5/325 every 6 hours for moderate pain and morphine 4 mg every 4 hours for severe pain - Follow troponin for signs of heart strain. Transaminitis -Due to body habitus likely would suggest CT over liver ultrasound. We'll await oncology evaluation to determine if this would best be performed with or without contrast Hypokalemia -Replace with potassium chloride 40 mEq oral 1 Class III Obesity with BMI 60.6 - outpatient structured weight loss Imaging: As per HPI Data Review: As per HPI DVT prophylaxis: Heaprin gtt Discussed with: Patient, children COde status: DNR Anticipated discharge date: Pending clinical course Anticipated discharge place: Pending clinical course This dictation was prepared using Zoom voice recognition software. Though every attempt is made to correct errors during dictation some may still exist. Past Medical History Past Medical History: CVA/TIA, Hypertension Additional Past Medical History / Comment(s): neuropathy Last Myocardial Infarction Date:: unknown History of Any Multi-Drug Resistant Organisms: None Reported Past Surgical History: Section Past Anesthesia/Blood Transfusion Reactions: No Reported Reaction Past Psychological History: No Psychological Hx Reported Smoking Status: Never smoker Past Alcohol Use History: None Reported Additional Past Alcohol Use History / Comment(s): Patient was a smoker briefly and quit 40 years ago. She denies any illicit drug use or alcohol use. Patient lives at home alone in a senior apartment. She has a walker and wheelchair at home. She denies any oxygen use. Past Drug Use History: None Reported - Past Family History Father Additional Family Medical History / Comment(s): Father at age 101 from old age. Mother Family Medical History: Hypertension Additional Family Medical History / Comment(s): Mother at age 83 with history of hypertension. Brother(s) Additional Family Medical History / Comment(s): Patient does not have any brothers or sisters. Daughter(s) Additional Family Medical History / Comment(s): Patient has 3 daughters. She has no contact with 2 of her daughters. One daughter has no major medical problems. Son(s) Additional Family Medical History / Comment(s): Patient has 3 sons. One as a stillbirth, one has no major medical problems, one has ADD. Medications and Allergies Home Medications Medication Instructions Recorded Confirmed Type No Known Home Medications 09/17/23 09/17/23 History Allergies Allergy/AdvReac Type Severity Reaction Status Date / Time No Known Allergies Allergy Verified 09/17/23 14:29 Physical Exam Osteopathic Statement: *. No significant issues noted on an osteopathic structural exam other than those noted in the History and Physical/Consult. Vitals: Vital Signs Temp Pulse Pulse Resp BP BP Pulse Ox 09/17/23 15:40 98 18 142/86 94 L 09/17/23 15:20 92 L 09/17/23 15:02 99.8 F H 129 H 18 134/93 93 L 09/17/23 12:00 133 H 21 167/95 90 L 09/17/23 11:30 98 19 165/99 91 L 09/17/23 11:25 99 20 165/99 95 09/17/23 11:00 131 H 21 163/102 93 L 09/17/23 10:30 107 H 20 164/109 96 09/17/23 09:58 98.1 F 140 H 20 126/70 92 L Intake and Output 09/17/23 09/17/23 09/17/23 06:59 14:59 22:59 Intake Total 79.723 Balance 79.723 Intake: Intake, IV Titration 79.723 Amount Heparin Sod,Pork in 0.45% 79.723 NaCl 25,000 unit In 0.45 % NaCl 1 250ml.bag @ 16.9 UNITS/KG/HR 22.997 mls/ hr IV .[id number] [facility] Rx#: [id number] Other: Weight 136.078 kg 136.078 kg Results CBC & Chem 7: 09/17/23 14:27 09/17/23 10:20 Labs: Abnormal Lab Results - Last 24 Hours (Table) 09/17/23 09/17/23 09/17/23 Range/Units 10:20 10:20 10:20 MCV 100.8 H (80.0-100.0) fL Lymphocytes # 0.8 L (1.0-4.8) k/uL INR (<1.2) APTT (22.0-30.0) sec Sodium 135 L (137-145) mmol/L Potassium 3.3 L (3.5-5.1) mmol/L Chloride 95 L (98-107) mmol/L Carbon Dioxide 32 H (22-30) mmol/L Glucose 139 H (74-99) mg/dL Total Bilirubin 1.4 H (0.2-1.3) mg/dL AST 184 H (14-36) U/L ALT 80 H (4-34) U/L C-Reactive Protein 6.1 H (<1.0) mg/dL Ur Specific [place] 1.049 H (1.001-1.035) Urine Protein 1+ H (Negative) Urine Ketones Trace H (Negative) Urine Blood Small H (Negative) Urine Nitrite Positive H (Negative) Ur Leukocyte Esterase Small H (Negative) Urine WBC 11 H (0-5) /hpf Urine Bacteria Rare H (None) /hpf Urine Mucus Rare H (None) /hpf 09/17/23 09/17/23 Range/Units 14:27 14:27 MCV 101.5 H (80.0-100.0) fL Lymphocytes # 0.8 L (1.0-4.8) k/uL INR 1.2 H (<1.2) APTT 169.0 H* (22.0-30.0) sec Sodium (137-145) mmol/L Potassium (3.5-5.1) mmol/L Chloride (98-107) mmol/L Carbon Dioxide (22-30) mmol/L Glucose (74-99) mg/dL Total Bilirubin (0.2-1.3) mg/dL AST (14-36) U/L ALT (4-34) U/L C-Reactive Protein (<1.0) mg/dL Ur Specific [place] (1.001-1.035) Urine Protein (Negative) Urine Ketones (Negative) Urine Blood (Negative) Urine Nitrite (Negative) Ur Leukocyte Esterase (Negative) Urine WBC (0-5) /hpf Urine Bacteria (None) /hpf Urine Mucus (None) /hpf Thrombosis Risk Factor Assmnt - Choose All That Apply Each Factor Represents 1 point: Obesity (BMI >25) Each Risk Factor Represents 2 Points: Age 61-74 years Thrombosis Risk Factor Assessment Total Risk Factor Score: 3 Thrombosis Risk Factor Assessment Level: Moderate Risk
[2023-09-17] MEDS: POTASSIUM CHLORIDE ER 20 MEQ TAB.ER PO STA (20:02)
[2023-09-18] MEDS: SODIUM CHLORIDE 0.9% 1,000 ML IV SCH ×2 (00:03→04:20)
[2023-09-18] MEDS: MELATONIN 3 MG TABLET PO PRN (01:00)
[2023-09-18] MEDS: HYDROcodone/APAP 5-325MG 1 EACH TAB PO PRN (01:00)
[2023-09-18] MEDS ORDERED: SODIUM CHLORIDE 0.9% 1,000 ML IV ONE (03:08)
[2023-09-18 03:39] LABS: Glucose,Whole Blood 103 mg/dL (70-110)
[2023-09-18] MEDS: HEPARIN SOD,PORK IN 0.45% NACL 25,000 UNIT in 0.45% NACL 1 250ML.BAG IV SCH ×2 (04:13→18:45)
--- NOTE | 2023-09-18 04:30 | P.EN ---
Informed by the RN that the patient's oxygen requirements gradually worsened overnight from 3 L nasal cannula to 10 L via high flow. The patient has also had persistent tachycardia. EKGs were obtained and reviewed showing sinus tachycardia 138 bpm as reviewed by me. Patient was seen at the bedside and reported feeling okay and had no active complaints. The case was discussed with vascular surgery polymerization helper for EKOS. Informed regarding the patient's change in status. Advised to move the patient to MICU and order an Echocardiogram for AM to assess for RV strain.
[2023-09-18 05:12] LABS: Glucose,Whole Blood 106 mg/dL (70-110)
[2023-09-18 05:30] LABS: Basophils % (A) 0 %; Eosinophils % (A) 1 %; HCT 44.6 % (34.0-46.0); Hypochromasia Slight; Lymphocytes # (A) 1.3 k/uL (1.0-4.8); Lymphocytes % (A) 20 %; MCHC 31.4 g/dL (31.0-37.0); MCV 101.7 fL (80.0-100.0); Macrocytosis Slight; Mean Platelet Volume 7.8; Monocytes # (A) 0.3 k/uL (0-1.0); Monocytes % (A) 4 %; Neutrophils # (A) 4.8 k/uL (1.3-7.7); Neutrophils % (A) 74 %; Platelet Count 215 k/uL (150-450); RBC 4.39 m/uL (3.80-5.40); RDW 14.4 % (11.5-15.5); WBC 6.6 k/uL (3.8-10.6)
[2023-09-18 05:50] LABS: African American GFR (CKD) 70 (>60 ml/min/1.73 sqM); Anion Gap 8 mmol/L; Blood Urea Nitrogen 13 mg/dL (7-17); Calcium 8.4 mg/dL (8.4-10.2); Carbon Dioxide 29 mmol/L (22-30); Chloride 98 mmol/L (98-107); Glucose 108 mg/dL (74-99); Non-African American GFR(CKD) 61 (>60 ml/min/1.73 sqM); Phosphorus 2.4 mg/dL (2.5-4.5); Potassium 3.7 mmol/L (3.5-5.1); Sodium 135 mmol/L (137-145)
--- NOTE | 2023-09-18 07:50 | XR ---
EXAMINATION TYPE: XR chest 1V DATE OF EXAM: 09/18/2023 HISTORY: Shortness of breath. COMPARISON: 09/17/2023 TECHNIQUE: Single view of the chest is submitted. FINDINGS: Demonstrated are scattered senescent parenchymal change. Persistent increased basilar density at the left lung base which may reflect atelectasis or infiltrat e. The heart is stable. Hilar and mediastinal structures are within normal limits. Degenerative changes are seen of the dorsal spine. IMPRESSION: 1. Persistent increased basilar density at the left lung base which may reflect atelectasis or infil trate.
--- NOTE | 2023-09-18 07:52 | US ---
EXAMINATION TYPE: US venous doppler duplex LE DATE OF EXAM: 09/18/2023 7:35 AM COMPARISON: CLINICAL INDICATION: Female, 67 years old with history of Pulmonary embolism; On IV heparin. Possible PE. Portable inpatient exam SIDE PERFORMED: Bilateral TECHNIQUE: The lower extremity deep venous system is examined utilizing real time linear array sonog lynette with graded compression, doppler sonography and color-flow sonography. VESSELS IMAGED: Common Femoral Vein Deep Femoral Vein Greater Saphenous Vein *-not visualized Femoral Vein Popliteal Vein Small Saphenous Vein *-not visualized Proximal Calf Veins- not visualized (* superficial vessels) Extremely limited exam due to patient body habitus Right Leg: Negative for DVT Left Leg: Negative for DVT IMPRESSION: Grayscale, color doppler, spectral doppler imaging performed of the deep veins of the lo wer extremities. There is normal flow, compressibility, vascular waveforms.
[2023-09-18] MEDS ORDERED: FUROSEMIDE 10 MG/ML 2 ML VIAL IV ONE (08:31)
[2023-09-18] MEDS ORDERED: POTASSIUM CHLORIDE ER 20 MEQ TAB.ER PO ONE (08:33)
[2023-09-18] MEDS ORDERED: Potassium Replacement Protocol 1 EACH MISC MISCELLANE PRN (08:33)
--- NOTE | 2023-09-18 08:33 | P.CRDCN ---
History of Present Illness Consult date: 09/18/23 Chief complaint: Shortness of breath History of present illness: The patient is a 67-year-old female patient with no significant past medical his tory besides morbid obesity presented to the emergency department complaining of right breast discomfort. The discomfort started a few days ago as redness in the nipple and subsequently progressed significantly. The patient denies having any cardiovascular symptoms of any shortness of breath or any chest pain or chest discomfort beside the right breast discomfort. No dizziness or lightheadedness and no feeling of heart racing or fluttering. She presented to the emergency department because of the pain. She was found to be hypoxic and the hypoxemia has progressed overnight. She was also tachycardic. Further investigation was performed including computed tomography scan of the chest lidya wed possible pulmonary embolism but the pulmonary embolism was not sagittal nor central. She was started on heparin. The vascular surgeon was placed for possible ultrasonic catheter needed. I did review the computed tomography scan by myself and I did not see any evidence of RV strain on the computed tomography scan. An echo is in process to be done. The troponin is a slightly elevated. No NT proBNP ordered but is in process to be done. The chest x-ray showed what it seems to be small left pleural effusion. Clinically the patient remains hypoxic and currently she is on 10 L oxygen to maintain normal saturation. She is in mild heart failure was only mild bilateral lower extremity edema. She has not been making good urine. The creatinine is normal. The EKG shows sinus tachycardia. The patient doesn't have any cardiovascular history from before with no CAD or CHF or cardiac arrhythmia never seen a golf sales manager before. Hemodynamically today she remains stable. The examination is remarkable for regular rhythm with a systolic murmur at the right upper sternal and left upper sternal border and mild bilateral lower extremity edema. Assessment Acute hypoxic respiratory failure Pulmonary embolism, submassive versus non-massive Lower extremities edema and decreased urine output Sinus tachycardia The right breast discomfort/wound Obesity Plan I would give the patient 20 mg of Lasix IV once Continue IV heparin After further investigation of the etiology of the hypoxemia. Obtain an echocardiogram with Doppler to evaluate the etiology of the systolic murmur and the RV strain evidence Monitor the patient in the intensive care unit Follow-up with the patient Past Medical History Past Medical History: CVA/TIA, Hypertension Additional Past Medical History / Comment(s): neuropathy Last Myocardial Infarction Date:: unknown History of Any Multi-Drug Resistant Organisms: None Reported Past Surgical History: Section Past Anesthesia/Blood Transfusion Reactions: No Reported Reaction Past Psychological History: No Psychological Hx Reported Smoking Status: Never smoker Past Alcohol Use History: None Reported Additional Past Alcohol Use History / Comment(s): Patient was a smoker briefly and quit 40 years ago. She denies any illicit drug use or alcohol use. Patient lives at home alone in a senior apartment. She has a walker and wheelchair at home. She denies any oxygen use. Past Drug Use History: None Reported - Past Family History Father Additional Family Medical History / Comment(s): Father at age 101 from old age. Mother Family Medical History: Hypertension Additional Family Medical History / Comment(s): Mother at age 83 with history of hypertension. Brother(s) Additional Family Medical History / Comment(s): Patient does not have any brothers or sisters. Daughter(s) Additional Family Medical History / Comment(s): Patient has 3 daughters. She has no contact with 2 of her daughters. One daughter has no major medical problems. Son(s) Additional Family Medical History / Comment(s): Patient has 3 sons. One as a stillbirth, one has no major medical problems, one has ADD. Medications and Allergies Home Medications Medication Instructions Recorded Confirmed Type No Known Home Medications 09/17/23 09/17/23 History Allergies Allergy/AdvReac Type Severity Reaction Status Date / Time No Known Allergies Allergy Verified 09/17/23 14:29 Physical Exam Vitals: Vital Signs Temp Pulse Pulse Resp BP BP Pulse Ox 09/18/23 08:17 99 09/18/23 07:00 87 12 115/81 99 09/18/23 06:00 89 11 L 129/89 96 09/18/23 03:56 129 H 18 120/77 94 L 09/18/23 03:33 18 92 L 09/18/23 03:32 18 88 L 09/18/23 03:29 92 L 09/18/23 03:10 100.3 F H 146 H 18 117/76 91 L 09/18/23 00:00 99.1 F 133 H 20 136/84 91 L 09/17/23 20:00 98.9 F 122 H 18 136/81 94 L 09/17/23 15:40 98 18 142/86 94 L 09/17/23 15:20 92 L 09/17/23 15:02 99.8 F H 129 H 18 134/93 93 L 09/17/23 12:00 133 H 21 167/95 90 L 09/17/23 11:30 98 19 165/99 91 L 09/17/23 11:25 99 20 165/99 95 09/17/23 11:00 131 H 21 163/102 93 L 09/17/23 10:30 107 H 20 164/109 96 09/17/23 09:58 98.1 F 140 H 20 126/70 92 L Intake and Output 09/17/23 09/18/23 09/18/23 22:59 06:59 14:59 Intake Total 99.723 287.107 0 Output Total 500 120 Balance -400.277 167.107 0 Intake: IV 20 75 Invasive Line 1 10 Invasive Line 2 10 Sodium Chloride 0.9% 1, 75 000 ml @ 75 mls/hr IV . [id number] [facility] Rx#:[id number] Intake, IV Titration 79.723 212.107 0 Amount Heparin Sod,Pork in 0.45% 79.723 212.107 0 NaCl 25,000 unit In 0.45 % NaCl 1 250ml.bag @ 16.9 UNITS/KG/HR 22.997 mls/ hr IV .[id number] [facility] Rx#: [id number] Output: Urine 500 120 Other: Voiding Method Indwelling Catheter Indwelling Catheter Weight 136.078 kg Results 09/18/23 05:14 09/18/23 05:14 Cardiac Enzymes 09/17/23 09/17/23 09/17/23 Range/Units 10:20 10:20 17:49 AST 184 H (14-36) U/L Troponin I 0.029 0.035 H* (0.000-0.034) ng/mL Coagulation 09/17/23 09/17/23 09/17/23 Range/Units 10:20 14:27 22:55 PT 11.4 12.4 (10.0-12.5) sec APTT 24.5 169.0 H* 38.3 H (22.0-30.0) sec 09/18/23 Range/Units 05:14 PT (10.0-12.5) sec APTT 157.7 H* (22.0-30.0) sec CBC 09/17/23 09/17/23 09/18/23 Range/Units 10:20 14:27 05:14 WBC 7.5 7.8 6.6 (3.8-10.6) k/uL RBC 4.47 4.51 4.39 (3.80-5.40) m/uL Hgb 14.5 14.4 14.0 (11.4-16.0) gm/dL Hct 45.1 45.8 44.6 (34.0-46.0) % Plt Count 235 215 215 (150-450) k/uL Comprehensive Metabolic Panel 09/17/23 09/18/23 Range/Units 10:20 05:14 Sodium 135 L 135 L (137-145) mmol/L Potassium 3.3 L 3.7 (3.5-5.1) mmol/L Chloride 95 L 98 (98-107) mmol/L Carbon Dioxide 32 H 29 (22-30) mmol/L BUN 9 13 (7-17) mg/dL Creatinine 0.86 0.96 (0.52-1.04) mg/dL Glucose 139 H 108 H (74-99) mg/dL Calcium 8.5 8.4 (8.4-10.2) mg/dL AST 184 H (14-36) U/L ALT 80 H (4-34) U/L Alkaline Phosphatase 117 (38-126) U/L Total Protein 7.4 (6.3-8.2) g/dL Albumin 3.5 (3.5-5.0) g/dL Current Medications Generic Name Dose Route Start Last Admin Trade Name Freq PRN Reason Stop Dose Admin Acetaminophen 650 mg 09/17/23 17:47 Acetaminophen Tab 325 Mg Tab PO Q6HR PRN Mild Pain or Fever > 100.5 Hydrocodone Bitart/Acetaminophen 1 each 09/17/23 17:47 09/18/23 01:00 Hydrocodone/Apap 5-325mg 1 Each Tab PO 1 each Q4HR PRN Administration Moderate Pain (Scale 4 to 6) Bisacodyl 5 mg 09/17/23 17:47 Bisacodyl 5 Mg Tablet.Dr PO DAILY PRN Constipation Heparin Sodium (Porcine) 0 unit 09/17/23 13:16 09/17/23 23:44 Heparin Sodium 1,000 Un/Ml (10ml Vl) IV 5,440 unit PER PROTOCOL PRN Administration Low PTT Protocol Heparin Sodium/Sodium Chloride 250 mls @ 22.997 mls/hr 09/17/23 13:30 09/18/23 07:57 25,000 unit/ Sodium Chloride IV 12.9 units/kg/hr .[id number] RED 17.554 mls/hr Titration Protocol 16.9 UNITS/KG/HR Sodium Chloride 1,000 mls @ 75 mls/hr 09/18/23 03:15 09/18/23 04:20 Saline 0.9% IV 75 mls/hr .[id number] RED Administration Melatonin 3 mg 09/17/23 17:47 09/18/23 01:00 Melatonin 3 Mg Tablet PO 3 mg HS PRN Administration Insomnia Morphine Sulfate 4 mg 09/17/23 17:47 Morphine Sulfate 4 Mg/Ml Syringe IVP Q4HR PRN Severe Pain (Scale 7 to 10) Naloxone HCl 0.2 mg 09/17/23 13:56 Naloxone 0.4 Mg/Ml 1 Ml Vial IV Q2M PRN Opioid Reversal Ondansetron HCl 4 mg 09/17/23 17:47 Ondansetron 4 Mg/2 Ml Vial IVP Q8HR PRN Nausea And Vomiting Intake and Output 09/17/23 09/18/23 09/18/23 22:59 06:59 14:59 Intake Total 99.723 287.107 0 Output Total 500 120 Balance -400.277 167.107 0 Intake: IV 20 75 Invasive Line 1 10 Invasive Line 2 10 Sodium Chloride 0.9% 1, 75 000 ml @ 75 mls/hr IV . [id number] [facility] Rx#:[id number] Intake, IV Titration 79.723 212.107 0 Amount Heparin Sod,Pork in 0.45% 79.723 212.107 0 NaCl 25,000 unit In 0.45 % NaCl 1 250ml.bag @ 16.9 UNITS/KG/HR 22.997 mls/ hr IV .[id number] [facility] Rx#: [id number] Output: Urine 500 120 Other: Voiding Method Indwelling Catheter Indwelling Catheter Weight 136.078 kg 09/18/23 05:14 09/18/23 05:14
[2023-09-18] MEDS: POTASSIUM CHLORIDE ER 20 MEQ TAB.ER PO STA (08:47)
--- NOTE | 2023-09-18 09:41 | P.PN ---
Progress Note - Text Progress Note Date: 09/18/23 Patient is up in the chair. She is eating breakfast. She has no significant complaints of abdominal pain. On exam vital signs are stable. Abdomen is soft. Acute and chronic cholecystitis treated conservatively. Patient to receive supportive care. No surgical intervention is planned at this point.
[2023-09-18] MEDS ORDERED: IOPAMIDOL CONTRAST (ORAL USE) VIAL PO PRN (12:37)
--- NOTE | 2023-09-18 12:44 | P.GSCN ---
History of Present Illness Consult date: 09/18/23 Reason for Consult: PE History of present illness: 67-year-old morbid obese female presented to the emergency department complaining of right breast discomfort. She was found to have a fungating mass of the right breast which was bleeding. She was tachycardic, and hypoxic which has progressed overnight. She was sent for CT chest which showed possible pulmonary embolism but the pulmonary embolism. She was started on heparin and an echo is in process to be done. The troponin is a slightly elevated. The chest x-ray showed what it seems to be small left pleural effusion. Overnight her oxygen requirements have increased to 10L. Currently she denies any fevers, chills, chest pain or shortness of breath. Review of Systems All systems: negative (what is mentioned in the PMH or HPI) Past Medical History Past Medical History: CVA/TIA, Hypertension Additional Past Medical History / Comment(s): neuropathy Last Myocardial Infarction Date:: unknown History of Any Multi-Drug Resistant Organisms: None Reported Past Surgical History: Section Past Anesthesia/Blood Transfusion Reactions: No Reported Reaction Past Psychological History: No Psychological Hx Reported Smoking Status: Never smoker Past Alcohol Use History: None Reported Additional Past Alcohol Use History / Comment(s): Patient was a smoker briefly and quit 40 years ago. She denies any illicit drug use or alcohol use. Patient lives at home alone in a senior apartment. She has a walker and wheelchair at home. She denies any oxygen use. Past Drug Use History: None Reported - Past Family History Father Additional Family Medical History / Comment(s): Father at age 101 from old age. Mother Family Medical History: Hypertension Additional Family Medical History / Comment(s): Mother at age 83 with history of hypertension. Brother(s) Additional Family Medical History / Comment(s): Patient does not have any brothers or sisters. Daughter(s) Additional Family Medical History / Comment(s): Patient has 3 daughters. She has no contact with 2 of her daughters. One daughter has no major medical problems. Son(s) Additional Family Medical History / Comment(s): Patient has 3 sons. One as a stillbirth, one has no major medical problems, one has ADD. Medications and Allergies Home Medications Medication Instructions Recorded Confirmed Type No Known Home Medications 09/17/23 09/17/23 History Allergies Allergy/AdvReac Type Severity Reaction Status Date / Time No Known Allergies Allergy Verified 09/17/23 14:29 Surgical - Exam Vital Signs Temp Pulse Resp BP Pulse Ox 98.1 F 140 H 20 126/70 92 L 09/17/23 09:58 09/17/23 09:58 09/17/23 09:58 09/17/23 09:58 09/17/23 09:58 Patient Seen Date: 09/18/23 - General well developed, well nourished, no distress, obese - Eyes PERRL, normal ocular movement - ENT normal pinna, normal nares - Neck no masses, no bruits - Respiratory on 10 L no retractions - Cardiovascular Rhythm: regular - Abdomen Abdomen: soft, non tender - Integumentary right breast with large fungating mas around the nipple with surrounding erythema. No active bleeding. - Psychiatric oriented to time, oriented to person, oriented to place, speech is normal Results - Labs 09/18/23 05:14 09/18/23 05:14 Abnormal Lab Results - Last 24 Hours (Table) 09/17/23 09/17/23 09/17/23 Range/Units 10:20 14:27 14:27 MCV 101.5 H (80.0-100.0) fL Lymphocytes # 0.8 L (1.0-4.8) k/uL INR 1.2 H (<1.2) APTT 169.0 H* (22.0-30.0) sec Sodium (137-145) mmol/L Glucose (74-99) mg/dL Phosphorus (2.5-4.5) mg/dL Troponin I (0.000-0.034) ng/mL Ur Specific [place] 1.049 H (1.001-1.035) Urine Protein 1+ H (Negative) Urine Ketones Trace H (Negative) Urine Blood Small H (Negative) Urine Nitrite Positive H (Negative) Ur Leukocyte Esterase Small H (Negative) Urine WBC 11 H (0-5) /hpf Urine Bacteria Rare H (None) /hpf Urine Mucus Rare H (None) /hpf 09/17/23 09/17/23 09/18/23 Range/Units 17:49 22:55 05:14 MCV 101.7 H (80.0-100.0) fL Lymphocytes # (1.0-4.8) k/uL INR (<1.2) APTT 38.3 H (22.0-30.0) sec Sodium (137-145) mmol/L Glucose (74-99) mg/dL Phosphorus (2.5-4.5) mg/dL Troponin I 0.035 H* (0.000-0.034) ng/mL Ur Specific [place] (1.001-1.035) Urine Protein (Negative) Urine Ketones (Negative) Urine Blood (Negative) Urine Nitrite (Negative) Ur Leukocyte Esterase (Negative) Urine WBC (0-5) /hpf Urine Bacteria (None) /hpf Urine Mucus (None) /hpf 09/18/23 09/18/23 Range/Units 05:14 05:14 MCV (80.0-100.0) fL Lymphocytes # (1.0-4.8) k/uL INR (<1.2) APTT 157.7 H* (22.0-30.0) sec Sodium 135 L (137-145) mmol/L Glucose 108 H (74-99) mg/dL Phosphorus 2.4 L (2.5-4.5) mg/dL Troponin I (0.000-0.034) ng/mL Ur Specific [place] (1.001-1.035) Urine Protein (Negative) Urine Ketones (Negative) Urine Blood (Negative) Urine Nitrite (Negative) Ur Leukocyte Esterase (Negative) Urine WBC (0-5) /hpf Urine Bacteria (None) /hpf Urine Mucus (None) /hpf Diabetes panel 09/18/23 Range/Units 05:14 Sodium 135 L (137-145) mmol/L Potassium 3.7 (3.5-5.1) mmol/L Chloride 98 (98-107) mmol/L Carbon Dioxide 29 (22-30) mmol/L BUN 13 (7-17) mg/dL Creatinine 0.96 (0.52-1.04) mg/dL Glucose 108 H (74-99) mg/dL Calcium 8.4 (8.4-10.2) mg/dL Calcium panel 09/18/23 Range/Units 05:14 Calcium 8.4 (8.4-10.2) mg/dL Phosphorus 2.4 L (2.5-4.5) mg/dL Pituitary panel 09/18/23 Range/Units 05:14 Sodium 135 L (137-145) mmol/L Potassium 3.7 (3.5-5.1) mmol/L Chloride 98 (98-107) mmol/L Carbon Dioxide 29 (22-30) mmol/L BUN 13 (7-17) mg/dL Creatinine 0.96 (0.52-1.04) mg/dL Glucose 108 H (74-99) mg/dL Calcium 8.4 (8.4-10.2) mg/dL Adrenal panel 09/18/23 Range/Units 05:14 Sodium 135 L (137-145) mmol/L Potassium 3.7 (3.5-5.1) mmol/L Chloride 98 (98-107) mmol/L Carbon Dioxide 29 (22-30) mmol/L BUN 13 (7-17) mg/dL Creatinine 0.96 (0.52-1.04) mg/dL Glucose 108 H (74-99) mg/dL Calcium 8.4 (8.4-10.2) mg/dL Assessment and Plan Assessment: 1. Possible PE 2. Fungating right breast mass 3. Respiratory failure 4. Morbid obesity Plan: Reviewed the CT chest independently- no significant thrombus burden noted within the main pulmonary arteries. No indication for any vascular intervention at this time for the PE. Discussed with the patient the only option would be thrombectomy because thro mbolysis would make her mass bleed more. The clot burden is not large enough for thrombectomy to benefit and recommendation is for anticoagulation. Patient will likely require surgery for the breast mass and would be able to hold heparin prior. Thank you for the consultation.
--- NOTE | 2023-09-18 13:18 | P.CNPUL ---
History of Present Illness Consult date: 09/18/23 Requesting physician: Magnolia Echeverria Reason for consult: other (Possible pulmonary embolism) Chief complaint: Right breast discomfort and bleeding History of present illness: This is a 67-year-old female with chronic redness and swelling of her right nipple, which has been progressively getting worse. Patient has been noticing bleeding from her right breast nipple, and while evaluated in the ER she was noted to have a large mass which has been progressively getting worse apparently over the last 3 months. Upon evaluation in the ER, the patient was also noted to be tachycardic, with slightly elevated troponin of 0.035. Chest x-ray showed left lower lobe atelectasis, CT of the chest raised the possibility of a defect in the right upper lobe subsegmental branch. Considering the patient was complaining of some shortness of breath, and the patient was transferred to the ICU for further evaluation she was seen already by cardiology and by vascular surgery. I reviewed the CT of the chest, and I did not feel that the findings are specific for thromboembolic disease, not to mention that the CT angiogram is a very poor quality CT. Nonetheless it did show right breast mass, and right a xillary lymph nodes highly suggestive of breast carcinoma with lymph node metastasis. After reviewing the CT of the chest, and after reviewing that the patient had negative venous Doppler, and considering the patient had bleeding from the right breast mass, I recommended stopping the heparin and hopefully sometime today and arrange for a VQ scan to put the issue to rest clinically this is not a presentation of pulmonary embolism. And again the CT of the chest does not seem very diagnostic. During my evaluation the patient no shortness of breath, no cough no wheezing and no chest pain. She was on 2 L nasal cannula and O2 saturation was 97%, and after reviewing the CT of the chest again, she does have left lower lobe atelectasis, doubt pneumonia involving the left lower lobe Review of Systems Constitutional: Negative HEENT: Negative Pulmonary: As noted in HPI Cardiac: Negative GI: Negative Genitourinary: Negative Muscular skeletal: Negative Hematologic: Negative Psychiatric: Negative Endocrine: Negative Neurologic: Negative Skin: As noted in HPI with skin changes and masslike lesion in the left breast area/nipple. Past Medical History Past Medical History: CVA/TIA, Hypertension Additional Past Medical History / Comment(s): neuropathy Last Myocardial Infarction Date:: unknown History of Any Multi-Drug Resistant Organisms: None Reported Past Surgical History: Section Past Anesthesia/Blood Transfusion Reactions: No Reported Reaction Past Psychological History: No Psychological Hx Reported Smoking Status: Never smoker Past Alcohol Use History: None Reported Additional Past Alcohol Use History / Comment(s): Patient was a smoker briefly and quit 40 years ago. She denies any illicit drug use or alcohol use. Patient lives at home alone in a senior apartment. She has a walker and wheelchair at home. She denies any oxygen use. Past Drug Use History: None Reported - Past Family History Father Additional Family Medical History / Comment(s): Father at age 101 from old age. Mother Family Medical History: Hypertension Additional Family Medical History / Comment(s): Mother at age 83 with history of hypertension. Brother(s) Additional Family Medical History / Comment(s): Patient does not have any brothers or sisters. Daughter(s) Additional Family Medical History / Comment(s): Patient has 3 daughters. She has no contact with 2 of her daughters. One daughter has no major medical problems. Son(s) Additional Family Medical History / Comment(s): Patient has 3 sons. One as a stillbirth, one has no major medical problems, one has ADD. Medications and Allergies Home Medications Medication Instructions Recorded Confirmed Type No Known Home Medications 09/17/23 09/17/23 History Allergies Allergy/AdvReac Type Severity Reaction Status Date / Time No Known Allergies Allergy Verified 09/17/23 14:29 Physical Exam Vitals: Vital Signs Temp Pulse Pulse Resp BP BP Pulse Ox 09/18/23 12:00 98.9 F 87 129 H 14 136/82 94 L 09/18/23 11:00 82 12 142/74 95 09/18/23 10:00 90 18 137/82 97 09/18/23 09:00 86 12 147/91 98 09/18/23 08:17 99 09/18/23 08:00 99 F 86 129 H 13 130/89 98 09/18/23 07:00 87 12 115/81 99 09/18/23 06:00 89 11 L 129/89 96 09/18/23 03:56 129 H 18 120/77 94 L 09/18/23 03:33 18 92 L 11/24/23 03:32 18 88 L 09/18/23 03:29 92 L 09/18/23 03:10 100.3 F H 146 H 18 117/76 91 L 09/18/23 00:00 99.1 F 133 H 20 136/84 91 L 09/17/23 20:00 98.9 F 122 H 18 136/81 94 L 09/17/23 15:40 98 18 142/86 94 L 09/17/23 15:20 92 L 09/17/23 15:02 99.8 F H 129 H 18 134/93 93 L Intake and Output 09/17/23 09/18/23 09/18/23 22:59 06:59 14:59 Intake Total 99.723 287.107 218.034 Output Total 500 120 265 Balance -400.277 167.107 -46.966 Intake: IV 20 75 180 Invasive Line 1 10 Invasive Line 2 10 Sodium Chloride 0.9% 1, 75 180 000 ml @ 10 mls/hr IV . Q24H RED Rx#:[id number] Intake, IV Titration 79.723 212.107 38.034 Amount Heparin Sod,Pork in 0.45% 79.723 212.107 38.034 NaCl 25,000 unit In 0.45 % NaCl 1 250ml.bag @ 16.9 UNITS/KG/HR 22.997 mls/ hr IV .[id number] RED Rx#: [id number] Output: Urine 500 120 265 Female - External 60 Other: Voiding Method Indwelling Catheter Indwelling Catheter Indwelling Catheter Weight 136.078 kg Physical Exam: Revealed 67-year-old female in no distress Head: Atraumatic, normocephalic. HEENT:[Neck is supple.] [No neck masses.] [No thyromegaly.] [No JVD.] Chest: [Diminished breath sounds at the bases especially at the left base, no crackles or rhonchi or wheezes there is evidence of a fungating/necrotic right sided breast lesion measuring almost 5 cm with surrounding erythema and tenderness. Cardiac Exam: [Normal S1 and S2, no S3 gallop, no murmur.] Abdomen: Obese, [Soft, nontender, no megaly, no rebound, no guarding, normal bowel sounds.] Extremities: [No clubbing, no edema, no cyanosis.] Neurological Exam: [No focal neurologic deficit.] Alert oriented 3 Psychiatric: Normal mood, affect and normal mental status examination. Skin: As noted above regarding findings of right breast. Results - Laboratory Findings CBC and BMP: 09/18/23 05:14 09/18/23 05:14 PT/INR, D-dimer PT 12.4 sec (10.0-12.5) 09/17/23 14:27 INR 1.2 (<1.2) H 09/17/23 14:27 Abnormal lab findings: Abnormal Labs 09/17/23 09/17/23 09/17/23 10:20 10:20 10:20 MCV 100.8 H Lymphocytes # 0.8 L INR APTT Sodium 135 L Potassium 3.3 L Chloride 95 L Carbon Dioxide 32 H Glucose 139 H Phosphorus Total Bilirubin 1.4 H AST 184 H ALT 80 H Troponin I C-Reactive Protein 6.1 H Ur Specific [place] 1.049 H Urine Protein 1+ H Urine Ketones Trace H Urine Blood Small H Urine Nitrite Positive H Ur Leukocyte Esterase Small H Urine WBC 11 H Urine Bacteria Rare H Urine Mucus Rare H 09/17/23 09/17/23 09/17/23 14:27 14:27 17:49 MCV 101.5 H Lymphocytes # 0.8 L INR 1.2 H APTT 169.0 H* Sodium Potassium Chloride Carbon Dioxide Glucose Phosphorus Total Bilirubin AST ALT Troponin I 0.035 H* C-Reactive Protein Ur Specific [place] Urine Protein Urine Ketones Urine Blood Urine Nitrite Ur Leukocyte Esterase Urine WBC Urine Bacteria Urine Mucus 09/17/23 09/18/23 09/18/23 22:55 05:14 05:14 MCV 101.7 H Lymphocytes # INR APTT 38.3 H Sodium 135 L Potassium Chloride Carbon Dioxide Glucose 108 H Phosphorus 2.4 L Total Bilirubin AST ALT Troponin I C-Reactive Protein Ur Specific [place] Urine Protein Urine Ketones Urine Blood Urine Nitrite Ur Leukocyte Esterase Urine WBC Urine Bacteria Urine Mucus 09/18/23 05:14 MCV Lymphocytes # INR APTT 157.7 H* Sodium Potassium Chloride Carbon Dioxide Glucose Phosphorus Total Bilirubin AST ALT Troponin I C-Reactive Protein Ur Specific [place] Urine Protein Urine Ketones Urine Blood Urine Nitrite Ur Leukocyte Esterase Urine WBC Urine Bacteria Urine Mucus - Diagnostic Findings CT scan - chest: image reviewed (As noted in HPI questionable subsegmental defec t in the right upper lobe, however very poor quality CT angiogram of the chest) Assessment and Plan Assessment: Impression: Left lower lobe atelectasis, doubt pulmonary embolism based on the clinical presentation and based on the CT of the chest findings. Not to mention the patient had a negative venous Doppler of lower extremities. Fungating right Breast mass, highly suggestive of breast carcinoma with axillary lymph node metastasis. Acute hypoxic respiratory failure secondary to mostly atelectasis, and obesity. Patient may have obesity/hypoventilation syndrome. And significant left lower lobe atelectasis is noted on chest x-ray and CT of the chest Morbid obesity Obesity hypoventilation syndrome Recommendation: Discontinue heparin VQ scan Surgery to see patient for fungating right breast mass Titrate oxygen accordingly Incentive spirometry and encourage ambulation We will continue to follow Time with Patient: Greater than 30
[2023-09-18] MEDS: ONDANSETRON 4 MG/2 ML VIAL IVP PRN (13:30)
--- NOTE | 2023-09-18 13:38 | NM ---
EXAMINATION TYPE: NM pul perfusion DATE OF EXAM: 09/18/2023 COMPARISON: NONE CLINICAL INDICATION: Female, 67 years old with history of ? PE; Following administration of 5.1 mCi Tc 99m MAA. Images obtained post injection. FINDINGS: No perfusion defect is identified. Homogeneous distribution radiotracer noted. IMPRESSION: Very low probability for pulmonary embolism.
--- NOTE | 2023-09-18 15:22 | P.GSHP ---
History of Present Illness H&P Date: 09/18/23 Chief Complaint: fungating right breast mass Naila is a 67 year-old white female seen in consultation for Dr. Mejia regarding a fungating right breast mass. She presented to the emergency room on 09-17-23 with a complaint of a right breast lesion which had begun bleeding. She states that the bleeding has been ongoing intermittently for several weeks. Additionally she states that the mass is been present for over a year. She has never had a mammogram. She does not have a primary care physician. She denies ever having had any surgery on her breast. In the emergency department she was noted to be tachycardic and a computed tomography scan of the chest revealed a questionable pulmonary embolism. She was on heparin which has been discontinued. As this was further evaluated with a VQ scan which was low probability for pulmonary embolism. She has been seen by pulmonary, vascular surgery, and cardiology. She was noted by cardiology to be in mild heart failure. She was additionally seen by Dr. Yost from medical oncology. He would like to shrink the tumor with chemotherapy if possible. Family history: Negative for cancer Hormonal history: Menarche: 10 age of first 19, breast fed: No control pills: 4 years Hormones: Negative Past surgical history: Medical history: Hypertension Social history: Nicotine: Negative Alcohol: Negative Drugs: Negative - Constitutional Constitutional: Denies chills, Denies fever - EENT Eyes: denies blurred vision, denies pain Ears: deny: decreased hearing, tinnitus Ears, nose, mouth and throat: Denies headache, Denies sore throat - Breasts Breasts: bilateral: as per HPI - Cardiovascular Cardiovascular: Denies chest pain, Denies shortness of breath - Respiratory Respiratory: Denies cough, Denies 7 - Gastrointestinal Gastrointestinal: Denies abdominal pain, Denies diarrhea, Denies nausea, Denies vomiting - Genitourinary (Female) Genitourinary: Denies dysuria, Denies hematuria - Menstruation Menstruation: Reports postmenopausal - Musculoskeletal Comment: Uses a walker to ambulate - Integumentary Comment: Fungating mass right breast/fungal infection under both breast and in both groins - Neurological Neurological: Denies numbness, Denies weakness - Psychiatric Psychiatric: Denies anxiety, Denies depression - Endocrine Endocrine: Denies fatigue, Denies weight change - Hematologic/Lymphatic Comment: none - Allergic/Immunologic Allergic/Immunologic: Reports seasonal allergies Past Medical History Past Medical History: CVA/TIA, Hypertension Additional Past Medical History / Comment(s): neuropathy Last Myocardial Infarction Date:: unknown History of Any Multi-Drug Resistant Organisms: None Reported Past Surgical History: Section Past Anesthesia/Blood Transfusion Reactions: No Reported Reaction Past Psychological History: No Psychological Hx Reported Smoking Status: Never smoker Past Alcohol Use History: None Reported Additional Past Alcohol Use History / Comment(s): Patient was a smoker briefly and quit 40 years ago. She denies any illicit drug use or alcohol use. Patient lives at home alone in a senior apartment. She has a walker and wheelchair at home. She denies any oxygen use. Past Drug Use History: None Reported - Past Family History Father Additional Family Medical History / Comment(s): Father at age 101 from old age. Mother Family Medical History: Hypertension Additional Family Medical History / Comment(s): Mother at age 83 with history of hypertension. Brother(s) Additional Family Medical History / Comment(s): Patient does not have any br others or sisters. Daughter(s) Additional Family Medical History / Comment(s): Patient has 3 daughters. She has no contact with 2 of her daughters. One daughter has no major medical problems. Son(s) Additional Family Medical History / Comment(s): Patient has 3 sons. One as a stillbirth, one has no major medical problems, one has ADD. Medications and Allergies Home Medications Medication Instructions Recorded Confirmed Type No Known Home Medications 09/17/23 09/17/23 History Allergies Allergy/AdvReac Type Severity Reaction Status Date / Time No Known Allergies Allergy Verified 09/17/23 14:29 Surgical - Exam Vital Signs Temp Pulse Resp BP Pulse Ox 98.1 F 140 H 20 126/70 92 L 09/17/23 09:58 09/17/23 09:58 09/17/23 09:58 09/17/23 09:58 09/17/23 09:58 - General BMI 60.6 no distress - Eyes normal ocular movement - Neck trachea midline - Respiratory normal respiratory effort, clear to auscultation - Cardiovascular Heart Sounds: normal: S1, S2 - Abdomen Abdomen: soft, non tender, no guarding, no rigid, no rebound - Integumentary Fungating lesion right central breast, fungal infection under both breast and in bilateral groins - Neurologic no disoriented, no combative - Musculoskeletal laying in bed, by history uses a walker to ambulate - Psychiatric oriented to time, oriented to person, oriented to place, speech is normal, memory intact Breast examination: Inspection: Fungating mass right breast at the nipple areolar area with erythematous extension over three quarters of the remainder of the breast, bilateral fungal infection under both breast Right breast: Fungating mass nipple areolar complex measuring approximately 5 cm in size with thickened skin changes occupying at least three quarters of the breast no other dominant masses or nodules of concern this does not appear to be fixed to the chest wall What appears to be a fungal infection under the right breast Right axilla: Difficult to examine secondary to patient recumbent in bed; radiographically positive adenopathy Left breast: No dominant masses or nodules of concern Left axilla: No adenopathy of concern Fungal infection under her left breast Results Personal review of CAT scan, right breast mass noted - Labs 09/18/23 05:14 09/18/23 05:14 Abnormal Lab Results - Last 24 Hours (Table) 09/17/23 09/17/23 09/17/23 Range/Units 14:27 14:27 17:49 MCV 101.5 H (80.0-100.0) fL Lymphocytes # 0.8 L (1.0-4.8) k/uL INR 1.2 H (<1.2) APTT 169.0 H* (22.0-30.0) sec Sodium (137-145) mmol/L Glucose (74-99) mg/dL Phosphorus (2.5-4.5) mg/dL Troponin I 0.035 H* (0.000-0.034) ng/mL 09/17/23 09/18/23 09/18/23 Range/Units 22:55 05:14 05:14 MCV 101.7 H (80.0-100.0) fL Lymphocytes # (1.0-4.8) k/uL INR (<1.2) APTT 38.3 H (22.0-30.0) sec Sodium 135 L (137-145) mmol/L Glucose 108 H (74-99) mg/dL Phosphorus 2.4 L (2.5-4.5) mg/dL Troponin I (0.000-0.034) ng/mL 09/18/23 Range/Units 05:14 MCV (80.0-100.0) fL Lymphocytes # (1.0-4.8) k/uL INR (<1.2) APTT 157.7 H* (22.0-30.0) sec Sodium (137-145) mmol/L Glucose (74-99) mg/dL Phosphorus (2.5-4.5) mg/dL Troponin I (0.000-0.034) ng/mL Diabetes panel 09/18/23 Range/Units 05:14 Sodium 135 L (137-145) mmol/L Potassium 3.7 (3.5-5.1) mmol/L Chloride 98 (98-107) mmol/L Carbon Dioxide 29 (22-30) mmol/L BUN 13 (7-17) mg/dL Creatinine 0.96 (0.52-1.04) mg/dL Glucose 108 H (74-99) mg/dL Calcium 8.4 (8.4-10.2) mg/dL Calcium panel 09/18/23 Range/Units 05:14 Calcium 8.4 (8.4-10.2) mg/dL Phosphorus 2.4 L (2.5-4.5) mg/dL Pituitary panel 09/18/23 Range/Units 05:14 Sodium 135 L (137-145) mmol/L Potassium 3.7 (3.5-5.1) mmol/L Chloride 98 (98-107) mmol/L Carbon Dioxide 29 (22-30) mmol/L BUN 13 (7-17) mg/dL Creatinine 0.96 (0.52-1.04) mg/dL Glucose 108 H (74-99) mg/dL Calcium 8.4 (8.4-10.2) mg/dL Adrenal panel 09/18/23 Range/Units 05:14 Sodium 135 L (137-145) mmol/L Potassium 3.7 (3.5-5.1) mmol/L Chloride 98 (98-107) mmol/L Carbon Dioxide 29 (22-30) mmol/L BUN 13 (7-17) mg/dL Creatinine 0.96 (0.52-1.04) mg/dL Glucose 108 H (74-99) mg/dL Calcium 8.4 (8.4-10.2) mg/dL Assessment and Plan Assessment: Impression: Fungating mass right breast with some intermittent bleeding over the past several weeks, hemoglobin 14 Tachycardia/shortness of breath, probable mild heart failure, appears to have ruled out pulmonary embolism Morbid obesity Fungal infection under both breast and both groins Plan: Case discussed with Dr. Yost from medical oncology; at this time we would like to treat the patient nonoperatively if possible Core biopsy of axillary lymph node via radiology to make the diagnosis, I would avoid biopsy of the tumor in the breast if possible as this appears to be necrotic and could further aggravate bleeding Metastatic workup has been ordered computed tomography scan chest abdomen and pelvis and a bone scan Nystatin to treat fungal infections We will follow as needed
--- NOTE | 2023-09-18 16:08 | CA ---
Transthoracic Echo Report Name: Naila Terrazas Age: 67 Gender: F : 1955 Exam Date: 09/18/2023 09:28 Exam Location: [facility] Ht (in): 59 Wt (lb): 300 Ordering Physician: Magnolia Echeverria MD Attending/Referring Phys: Dental Hygiene Teacher Mima Vidales RDCS Procedure CPT: Indications: evaluate for R heart strain Cardiac Hx: Technical Quality: Poor Contrast 1: Definity Total Dose (mL): 2 Contrast 2: Total Dose (mL): MEASUREMENTS (Male / Female) Normal Values 2D ECHO LV Diastolic Diameter PLAX 5.2 cm 4.2 - 5.9 / 3.9 - 5.3 cm LV Systolic Diameter PLAX 4.2 cm IVS Diastolic Thickness 1.3 cm 0.6 - 1.0 / 0.6 - 0.9 cm LVPW Diastolic Thickness 1.3 cm 0.6 - 1.0 / 0.6 - 0.9 cm LV Relative Wall Thickness 0.5 M-MODE Aortic Root Diameter MM 3.2 cm LA Systolic Diameter MM 6.0 cm LA Ao Ratio MM 1.8 AV Cusp Separation MM 1.9 cm DOPPLER AV Peak Velocity 111.9 cm/s AV Peak Gradient 5.0 mmHg AV Mean Velocity 72.2 cm/s AV Mean Gradient 2.6 mmHg AV Velocity Time Integral 22.5 cm LVOT Peak Velocity 77.9 cm/s LVOT Peak Gradient 2.4 mmHg LVOT Velocity Time Integral 15.1 cm MV Area PHT 3.9 cm??? Mitral E Point Velocity 65.3 cm/s Mitral A Point Velocity 62.0 cm/s Mitral E to A Ratio 1.1 MV Deceleration Time 192.1 ms TR Peak Velocity 236.7 cm/s TR Peak Gradient 22.4 mmHg Right Ventricular Systolic Press 27.4 mmHg FINDINGS Left Ventricle Mildly increased left ventricular wall thickness. Left ventricular cavity size normal. Left ventricular ejection fraction is estimated at 50 %. Right Ventricle Right ventricle not well visualized. Right ventricular systolic pressure within normal limits. TAPSE is 26mm and S' is 13 cm/sec. No right heart strain noted. Right Atrium Right atrium not well visualized. Left Atrium Moderate left atrial dilatation. Mitral Valve No mitral stenosis. Mitral valve not well visualized. Aortic Valve Aortic valve not well visualized. No aortic stenosis. Mild aortic regurgitation. Tricuspid Valve Tricuspid valve not well visualized. Mild tricuspid regurgitation. Pulmonic Valve Pulmonic valve not well visualized. Pericardium Minimal pericardial effusion (normal variant). Echo free space anterior to the right ventricle likely represents a fat pad. Aorta Normal size aortic root and proximal ascending aorta. CONCLUSIONS Extremely difficult study for interpretation The EF is 50% Previewed by: Dr. Luis Hernandez MD (Electronically Signed) Final Date: 18 September 2023 16:06
--- NOTE | 2023-09-18 16:40 | P.PN ---
Subjective Progress Note Date: 09/18/23 (delayed charting seen at 10am) Patient is a 67-year-old female with coronary artery disease and prior myocardial infarction, who presented to the ER with complaints of right breast pain and breast lesion that started bleeding. In the ER she underwent an extensive evaluation. On arrival she was tachycardic to 140. Laboratory analysis included a CBC, coags, CMP, troponin, and urinalysis which were remarkable for sodium 135, potassium 3.3, glucose 139, bilirubin 1.4, AST 184, ALT 80, troponin 0.029. She underwent a chest x-ray which shows basilar increased density possibly reflecting atelectasis. She then underwent CT of the chest which noted a defect within the right upper lobe subsegmental branch with pulmonary embolism not excluded. Right breast carcinoma with skin thickening is partially imaged, right axillary lymphadenopathy. She was started on a heparin gtt and arrangements were made for admission. Pulm, oncology, and breast surgery were cosnulted. Over night she became hypoxic and required 10L high flow nasal cannula. She was subsequently transferred to the ICU. Patient seen and examined at bedside. She denies any shortness of breath, she continues to have some bleeding from her right breast. She is asking to eat. She denies any unusual nausea or vomiting. Vital signs reviewed General: nontoxic, no distress, appears at stated age, obese Cardiovascular: S1S2 reg with systolic ejection murmur, positive posterior tibial pulse bilateral, Lungs: Coarse breath sounds bilateral, no rhonchi, no rales , no accessory muscle use Abdominal: soft, nontender to palpation, no guarding, no appreciable organomegaly Ext: no gross muscle atrophy, no edema b/l lower extremities, no contractures Neuro: CN II-XI grossly intact, no focal neuro deficits Psych: Alert, oriented, appropriate affect Assessment/Plan: Probable Right-sided segmental pulmonary embolism with acute hypoxic respiratory failure Fungating/necrotic right-sided breast measuring at least 4.6 cm - discussed with Dr. Munoz no indication for EKOS - Discusse owen Gilmore and does not feel PE is likely, check VQ scan and D/C heparin if low probabilty - D/W Dr. Yost who would like biopsy anmd staging - D/W Dr. Tracey she is available to see the patient if needed over the weekend if not is planning on seeing her again on 09/22 she recommends possible Lymphnode core biopsy or other distant site pending resuls of abd/pelvis and bone scan. - reat CBC and CMP in AM - Heparin gtt, monitor ptt for therapeutic range and toxicity, monito for signs of bleeding Transaminitis -Trend and check CT abd and pelvis Positive troponin - Cardio note reviewed. Lasix 20 mg IVP X 1, await echo Class III Obesity with BMI 60.6 - outpatient structured weight loss Hypokalemia - resolved Imaging: VQ scan ordered LE venous doppler- no DVT Data Review: Symptomatic CBC, coags, PT, mass, and phosphorus which are remarkable for PTT 157.7 and phosphorus 2.4. DVT prophylaxis: heparin gtt Discussed with: Daughter Molly updated multiple times throughout the day Anticipated discharge date: Pending Clinical Course Anticipated discharge place: Pending Clinical Course This dictation was prepared using [employer] voice recognition software. Though every attempt is made to correct errors during dictation some may still exist. Objective - Vital Signs Vital signs: Vital Signs Temp 98.9 F 09/18/23 12:00 Pulse 123 H 09/18/23 14:00 Resp 15 09/18/23 14:00 BP 148/89 09/18/23 14:00 Pulse Ox 95 09/18/23 14:00 FiO2 Intake & Output 09/17/23 09/18/23 09/18/23 18:59 06:59 18:59 Intake Total 79.723 307.107 338.034 Output Total 620 355 Balance 79.723 -312.893 -16.966 Weight 136.078 kg Intake: IV 95 200 Invasive Line 1 10 Invasive Line 2 10 Sodium Chloride 0.9% 1, 75 200 000 ml @ 10 mls/hr IV . Q24H RED Rx#:[id number] Intake, IV Titration 79.723 212.107 38.034 Amount Heparin Sod,Pork in 0.45% 79.723 212.107 38.034 NaCl 25,000 unit In 0.45 % NaCl 1 250ml.bag @ 16.9 UNITS/KG/HR 22.997 mls/ hr IV .[id number] RED Rx#: [id number] Oral 100 Output: Urine 620 355 Female - External 60 Other: Voiding Method Indwelling Catheter Indwelling Catheter - Labs CBC & Chem 7: 09/18/23 05:14 09/18/23 05:14 Labs: Abnormal Lab Results - Last 24 Hours (Table) 09/17/23 09/17/23 09/18/23 Range/Units 17:49 22:55 05:14 MCV 101.7 H (80.0-100.0) fL APTT 38.3 H (22.0-30.0) sec Sodium (137-145) mmol/L Glucose (74-99) mg/dL Phosphorus (2.5-4.5) mg/dL Troponin I 0.035 H* (0.000-0.034) ng/mL 09/18/23 09/18/23 Range/Units 05:14 05:14 MCV (80.0-100.0) fL APTT 157.7 H* (22.0-30.0) sec Sodium 135 L (137-145) mmol/L Glucose 108 H (74-99) mg/dL Phosphorus 2.4 L (2.5-4.5) mg/dL Troponin I (0.000-0.034) ng/mL Microbiology - Last 24 Hours (Table) 09/17/23 10:20 Gram Stain - Preliminary Breast - Right
[2023-09-18 19:41] LABS: ALT 65 U/L (4-34)
[2023-09-18 19:51] LABS: NT-Pro-B-Type Natriuretic Pept 605 pg/mL
[2023-09-18 20:15] LABS: AST 111 U/L (14-36); Alkaline Phosphatase 87 U/L (38-126)
[2023-09-18] MEDS: NYSTATIN 100,000 UNIT/GM POWD 15 GM TOPICAL SCH (22:05)
--- NOTE | 2023-09-18 23:15 | P.CONS ---
History of Present Illness - Reason for Consult Consult date: 09/18/23 Rt Breast Mass - History of Present Illness Ms Terrazas is a pleasant white female, with multiple medical issues, and no regu lar medical follow-up now for at least some years. The patient came in because of discomfort in the right breast, with then open area developing with oozing of blood. On physical exam the patient appears to have a large breast mass, penetrating through the skin with surface ulceration from which the bruising was occurring. The patient told the admitting service that the mass had been present for at least 3 months. On my evaluation she admitted that the mass had been present "forever" oozing from that started about 2-3 months ago, and had become somewhat more prominent and persistent over the past 2-3 weeks. The patient apparently has never had a mammogram. She denied any prior history of malignancy. On presentation the patient was found to be tachycardic and hypoxic. Troponins were mildly elevated. A CT scan of the chest showed bilateral basilar atelectasis, with CT angiogram raising the possibility of PE. CLL also showed a right breast mass at least 4.6 cm, right axillary adenopathy in the 3 cm range, and a 1 cm left axillary node. patient's labs showed mild troponin elevation, leading to cardiology evaluation. Echocardiogram showed LV EF of 50%, with some left ventricular hypertrophy. the patient also had lower extremity edema bilaterally, and was started on diuretics by cardiology. She was also started on IV heparin for the possible PE the patient states that she lives alone, with family coming in to help. She is able to perform simple ADLs on her own on a regular basis Review of Systems Constitutional: Reports fatigue, Reports weakness Eyes: denies blurred vision, denies pain Ears: deny: decreased hearing, ear discharge, earache, tinnitus Ears, nose, mouth and throat: Denies headache, Denies sore throat Cardiovascular: Reports as per HPI, Reports shortness of breath Respiratory: Reports dyspnea Gastrointestinal: Denies abdominal pain, Denies diarrhea, Denies nausea, Denies vomiting Genitourinary: Denies dysuria, Denies hematuria Menstruation: Reports postmenopausal Musculoskeletal: Reports as per HPI, Reports muscle weakness Integumentary: Reports as per HPI (skin changes right breast) Neurological: Reports weakness Psychiatric: Reports as per HPI Endocrine: Reports fatigue Hematologic/Lymphatic: Reports as per HPI Past Medical History Past Medical History: CVA/TIA, Hypertension Additional Past Medical History / Comment(s): neuropathy Last Myocardial Infarction Date:: unknown History of Any Multi-Drug Resistant Organisms: None Reported Past Surgical History: Section Past Anesthesia/Blood Transfusion Reactions: No Reported Reaction Past Psychological History: No Psychological Hx Reported Smoking Status: Never smoker Past Alcohol Use History: None Reported Additional Past Alcohol Use History / Comment(s): Patient was a smoker briefly and quit 40 years ago. She denies any illicit drug use or alcohol use. Patient lives at home alone in a senior apartment. She has a walker and wheelchair at home. She denies any oxygen use. Past Drug Use History: None Reported - Past Family History Father Additional Family Medical History / Comment(s): Father at age 101 from old age. Mother Family Medical History: Hypertension Additional Family Medical History / Comment(s): Mother at age 83 with history of hypertension. Brother(s) Additional Family Medical History / Comment(s): Patient does not have any brothers or sisters. Daughter(s) Additional Family Medical History / Comment(s): Patient has 3 daughters. She has no contact with 2 of her daughters. One daughter has no major medical problems. Son(s) Additional Family Medical History / Comment(s): Patient has 3 sons. One as a stillbirth, one has no major medical problems, one has ADD. Medications and Allergies Home Medications Medication Instructions Recorded Confirmed Type No Known Home Medications 09/17/23 09/17/23 History Allergies Allergy/AdvReac Type Severity Reaction Status Date / Time No Known Allergies Allergy Verified 09/17/23 14:29 Physical Exam Vitals: Vital Signs Temp Pulse Pulse Resp BP BP Pulse Ox 09/18/23 22:00 98 14 130/82 94 L 09/18/23 21:00 130 H 15 121/83 95 09/18/23 20:00 98.8 F 126 H 134 H 14 125/73 96 09/18/23 19:00 95 11 L 122/76 95 09/18/23 18:00 124 H 13 115/70 96 09/18/23 17:00 92 14 116/81 98 09/18/23 16:00 98.8 F 96 105 H 12 147/96 96 09/18/23 15:00 100 12 120/79 96 09/18/23 14:00 123 H 15 148/89 95 09/18/23 13:08 87 12 91 L 09/18/23 12:00 98.9 F 87 129 H 14 136/82 94 L 09/18/23 11:00 82 12 142/74 95 09/18/23 10:00 90 18 137/82 97 09/18/23 09:00 86 12 147/91 98 09/18/23 08:17 99 09/18/23 08:00 99 F 86 99 13 130/89 98 09/18/23 07:00 87 12 115/81 99 09/18/23 06:00 89 11 L 129/89 96 09/18/23 03:56 129 H 18 120/77 94 L 09/18/23 03:33 18 92 L 09/18/23 03:32 18 88 L 09/18/23 03:29 92 L 09/18/23 03:10 100.3 F H 146 H 18 117/76 91 L 09/18/23 00:00 99.1 F 133 H 20 136/84 91 L Intake and Output 09/18/23 09/18/23 09/18/23 06:59 14:59 22:59 Intake Total 287.107 338.034 570 Output Total 120 295 510 Balance 167.107 43.034 60 Intake: IV 75 200 80 Sodium Chloride 0.9% 1, 75 200 80 000 ml @ 10 mls/hr IV . Q24H RED Rx#:[id number] Intake, IV Titration 212.107 38.034 Amount Heparin Sod,Pork in 0.45% 212.107 38.034 NaCl 25,000 unit In 0.45 % NaCl 1 250ml.bag @ 16.9 UNITS/KG/HR 22.997 mls/ hr IV .[id number] RED Rx#: [id number] Oral 100 490 Output: Urine 120 295 510 Other: Voiding Method Indwelling Catheter Indwelling Catheter Indwelling Catheter - Constitutional General appearance: mild distress - EENT Eyes: EOMI, PERRLA ENT: hearing grossly normal, normal oropharynx - Neck Neck: no lymphadenopathy Carotids: bilateral: upstroke normal Thyroid: bilateral: normal size - Respiratory Respiratory: bilateral: diminished - Cardiovascular Rhythm: regular Heart sounds: normal: S1, S2 - Gastrointestinal General gastrointestinal: normal bowel sounds, soft - Integumentary rt breast skin changes - Neurologic Neurologic: CNII-XII intact - Musculoskeletal Musculoskeletal: generalized weakness, strength equal bilaterally - Psychiatric Psychiatric: A&O x's 3, appropriate affect - breast exam performed with female RN certified nursing assistant. Right breast shows an obvious mass in the central portion, that is growing through the skin, with a nodular surface with some surface necrosis in an area of ulceration inferiorly from which there is some bruising occurring. Surrounding breast area shows some thickening of the skin redness. -On examination of the lymph node basins, there appeared to be at least 1-2 hard, fixed suspicious nodes in the right axilla. No definite adenopathy on physical exam noted on the left no other adenopathy noted Results CBC & Chem 7: 09/18/23 05:14 09/18/23 05:14 Labs: Abnormal Lab Results - Last 24 Hours (Table) 09/17/23 09/18/23 09/18/23 Range/Units 22:55 05:14 05:14 MCV 101.7 H (80.0-100.0) fL APTT 38.3 H (22.0-30.0) sec Sodium 135 L (137-145) mmol/L Glucose 108 H (74-99) mg/dL Phosphorus 2.4 L (2.5-4.5) mg/dL AST (14-36) U/L ALT (4-34) U/L 09/18/23 09/18/23 Range/Units 05:14 15:53 MCV (80.0-100.0) fL APTT 157.7 H* (22.0-30.0) sec Sodium (137-145) mmol/L Glucose (74-99) mg/dL Phosphorus (2.5-4.5) mg/dL AST 111 H (14-36) U/L ALT 65 H (4-34) U/L Microbiology - Last 24 Hours (Table) 09/17/23 10:20 Gram Stain - Preliminary Breast - Right Wound Culture - Preliminary Beta Hemolytic Strep Group C Gram Neg Bacilli Assessment and Plan (1) Breast mass, right Narrative/Plan: physical exam findings, as well as imaging are quite compatible with a large right breast malignancy, with right axillary node involvement. Based on the history, this is likely a neglected tumor, it the patient seeking attention when she developed persistent serous sanguinous oozing due to surface breakdown - The clinical impression and implications were discussed in detail with her, and also with her daughter. They were advised that we need a tissue diagnosis for confirmation, as well as testing for marker status. The patient appears to have at least locally advanced disease, with a definite possibility of metastatic disease also. In this situation the mainstay of treatment in the first line, in case of nonmetastatic disease would be neoadjuvant systemic therapy, and systemic therapy in case of existing metastatic disease. - Major surgical intervention should therefore be avoided as much as possible, in case of metastatic disease, and upfront in case of locally advanced disease. The only indication for the same would be if the patient had a intractable, significantly symptomatic issue for which emergent surgical intervention would be required, such as major ongoing bleeding. - On examination there does not seem to be the case. Therefore in my opinion, it would be best to proceed with tissue diagnosis through biopsy, and continue local wound care, and ordered additional staging studies. - The above was also discussed in detail with the admitting service, and the surgical service, who were in agreement. Surgery will consult IR for right axillary node biopsy. - I will order additional staging with CT scan of the abdomen and pelvis and bone scan, and will also check tumor markers. Current Visit: Yes Status: Acute Code(s): N63.10 - UNSPECIFIED LUMP IN THE RIGHT BREAST, UNSPECIFIED QUADRANT SNOMED Code(s): 94982779 (2) Hypoxia Narrative/Plan: because of the same appears to be somewhat unclear at this time. It was initially attributed to the probable PE reported on CT angiogram. However from my discussion with the admitting service, the findings on further evaluation by pulmonary medicine, were not felt to be convincing for the same. Therefore VQ scan has been ordered with results pending. If this shows low, or no, probability of PE, then anticoagulation can be discontinued. In that situation cardiac etiology may be possible. Current Visit: Yes Status: Acute Code(s): R09.02 - HYPOXEMIA SNOMED Code(s): 529125660 Plan: defer to the admitting service and other consultants for management of her other medical problems
[2023-09-19] MEDS: PIPERACILLIN-TAZOBACTAM 3.375 GM in SODIUM CHLORIDE 0.9% 100 ML IVPB SCH ×4 (00:01→23:56)
[2023-09-19] MEDS: ACETAMINOPHEN TAB 325 MG TAB PO PRN (00:23)
[2023-09-19 06:17] LABS: HCT 43.2 % (34.0-46.0); HGB 13.6 gm/dL (11.4-16.0); Hypochromasia Moderate; MCH 32.1 pg (25.0-35.0); MCHC 31.4 g/dL (31.0-37.0); MCV 102.3 fL (80.0-100.0); Macrocytosis Slight; Platelet Count 202 k/uL (150-450); RBC 4.22 m/uL (3.80-5.40); RDW 14.4 % (11.5-15.5); WBC 6.2 k/uL (3.8-10.6)
[2023-09-19] MEDS: SODIUM CHLORIDE 0.9% 1,000 ML IV SCH (06:54)
[2023-09-19 07:00] LABS: ALT 53 U/L (4-34); AST 90 U/L (14-36); African American GFR (CKD) 77 (>60 ml/min/1.73 sqM); Albumin 2.9 g/dL (3.5-5.0); Alkaline Phosphatase 92 U/L (38-126); Blood Urea Nitrogen 14 mg/dL (7-17); Calcium 8.1 mg/dL (8.4-10.2); Chloride 97 mmol/L (98-107); Glucose 98 mg/dL (74-99); Magnesium 1.9 mg/dL (1.6-2.3); Non-African American GFR(CKD) 66 (>60 ml/min/1.73 sqM); Sodium 134 mmol/L (137-145); Total Bilirubin 0.8 mg/dL (0.2-1.3); Total Protein 6.5 g/dL (6.3-8.2)
[2023-09-19 07:02] LABS: Anion Gap 6 mmol/L; Carbon Dioxide 31 mmol/L (22-30)
--- NOTE | 2023-09-19 07:16 | XR ---
EXAMINATION TYPE: XR chest 1V DATE OF EXAM: 09/19/2023 HISTORY: Shortness of breath. COMPARISON: 09/18/2023 TECHNIQUE: Single view of the chest is submitted. FINDINGS: Demonstrated are scattered senescent parenchymal change. There is no evidence for focal infiltrate. The heart is stable. Continued Prominence of the central pulmonary vasculature. Left lower lobe increased of May reflect a telectasis and/or infiltrate and is unchanged. Hilar and mediastinal structures are within normal limits. Degenerative changes are seen of the dorsal spine. IMPRESSION: 1. Continued Prominence of the central pulmonary vasculature. Left lower lobe increased of May refle ct atelectasis and/or infiltrate and is unchanged.
--- NOTE | 2023-09-19 09:03 | P.PN ---
Subjective Progress Note Date: 09/19/23 Principal diagnosis: Respiratory failure The patient is a 67-year-old female patient with no significant past medical history besides morbid obesity presented to the emergency department complaining of right breast discomfort. The discomfort started a few days ago as redness in the nipple and subsequently progressed significantly. The patient denies having any cardiovascular symptoms of any shortness of breath or any chest pain or chest discomfort beside the right breast discomfort. No dizziness or lightheadedness and no feeling of heart racing or fluttering. She presented to the emergency department because of the pain. She was found to be hypoxic and the hypoxemia has progressed overnight. She was also tachycardic. Further investigation was performed including computed tomography scan of the chest showed possible pulmonary embolism but the pulmonary embolism was not sagittal nor central. She was started on heparin. The vascular surgeon was placed for possible ultrasonic catheter needed. I did review the computed tomography scan by myself and I did not see any evidence of RV strain on the computed tomography scan. An echo is in process to be done. The troponin is a slightly elevated. No NT proBNP ordered but is in process to be done. The chest x-ray showed what it seems to be small left pleural effusion. Clinically the patient remains hypoxic and currently she is on 10 L oxygen to maintain normal saturation. She is in mild heart failure was only mild bilateral lower extremity edema. She has not been making good urine. The creatinine is normal. The EKG shows sinus tachycardia. The patient doesn't have any cardiovascular history from before with no CAD or CHF or cardiac arrhythmia never seen a registration coordinator before. Hemodynamically today she remains stable. The examination is remarkable for regular rhythm with a systolic murmur at the right upper sternal and left upper sternal border and mild bilateral lower extremity edema. 09/19/2023 The patient was seen this morning. Overall she is doing better. She is on nasal cannula oxygen only. Her heart rate has improved significantly. The echo was technically difficult but the ejection fraction appears to be within normal limits. From the cardiovascular standpoint of view, continue the current medical regimen. The examination is remarkable for a systolic murmur at the l eft upper sternal border with diminished breathing sounds bilaterally and mild bilateral lower extremities edema. I'm going to the patient Lasix 20 mg IV once and start the patient on metoprolol for the tachycardia. Assessment Acute hypoxic respiratory failure Pulmonary embolism, submassive versus non-massive Lower extremities edema and decreased urine output Sinus tachycardia The right breast discomfort/wound Obesity Plan Start the patient on metoprolol Give the patient one dose of Lasix IV Follow-up with the patient Objective - Vital Signs Vital signs: Vital Signs Temp 98.8 F 09/19/23 04:00 Pulse 125 H 09/19/23 07:00 Resp 19 09/19/23 07:00 BP 131/78 09/19/23 07:00 Pulse Ox 95 09/19/23 07:00 FiO2 Intake & Output 09/18/23 09/19/23 09/19/23 18:59 06:59 18:59 Intake Total 868.034 220 10 Output Total 595 465 30 Balance 273.034 -245 -20 Weight 144 kg Intake: IV 240 120 10 Sodium Chloride 0.9% 1, 240 120 10 000 ml @ 10 mls/hr IV . Q24H RED Rx#:[id number] Intake, IV Titration 38.034 100 Amount Heparin Sod,Pork in 0.45% 38.034 NaCl 25,000 unit In 0.45 % NaCl 1 250ml.bag @ 16.9 UNITS/KG/HR 22.997 mls/ hr IV .[id number] RED Rx#: [id number] Piperacillin-Tazobactam 3 100 .375 gm In Sodium Chloride 0.9% 100 ml @ 25 mls/hr IVPB Q8HR RED Rx# :[id number] Oral 590 Output: Urine 595 465 30 Other: Voiding Method Indwelling Catheter Indwelling Catheter - Labs CBC & Chem 7: 09/19/23 05:32 09/19/23 05:32 Labs: Abnormal Lab Results - Last 24 Hours (Table) 09/18/23 09/19/23 09/19/23 Range/Units 15:53 05:32 05:32 MCV 102.3 H (80.0-100.0) fL Sodium 134 L (137-145) mmol/L Chloride 97 L (98-107) mmol/L Carbon Dioxide 31 H (22-30) mmol/L Calcium 8.1 L (8.4-10.2) mg/dL AST 111 H 90 H (14-36) U/L ALT 65 H 53 H (4-34) U/L Albumin 2.9 L (3.5-5.0) g/dL Microbiology - Last 24 Hours (Table) 09/17/23 10:10 Blood Culture - Preliminary Blood 09/17/23 10:20 Blood Culture - Preliminary Blood 09/17/23 10:20 Gram Stain - Preliminary Breast - Right Wound Culture - Preliminary Beta Hemolytic Strep Group C Gram Neg Bacilli
[2023-09-19] MEDS: ENOXAPARIN 40 MG/0.4 ML SYRINGE SQ SCH (09:24)
[2023-09-19] MEDS ORDERED: FUROSEMIDE 10 MG/ML 2 ML VIAL IV ONE (09:25)
[2023-09-19] MEDS: METOPROLOL TARTRATE 12.5 MG TAB PO SCH ×2 (09:50→21:34)
[2023-09-19] MEDS: NYSTATIN 100,000 UNIT/GM POWD 15 GM TOPICAL SCH ×3 (09:51→21:34)
[2023-09-19 10:03] LABS: Cancer Antigen 153 17.8 U/mL (0.0-32.3)
--- NOTE | 2023-09-19 12:27 | P.PN ---
Subjective Progress Note Date: 09/19/23 Principal diagnosis: Fungating right breast mass /bleeding This is a 67-year-old female with chronic redness and swelling of her right nipple, which has been progressively getting worse. Patient has been noticing bleeding from her right breast nipple, and while evaluated in the ER she was noted to have a large mass which has been progressively getting worse apparently over the last 3 months. Upon evaluation in the ER, the patient was also noted to be tachycardic, with slightly elevated troponin of 0.035. Chest x-ray showed left lower lobe atelectasis, CT of the chest raised the possibility of a defect in the right upper lobe subsegmental branch. Considering the patient was complaining of some shortness of breath, and the patient was transferred to the ICU for further evaluation she was seen already by cardiology and by vascular surgery. I reviewed the CT of the chest, and I did not feel that the findings are specific for thromboembolic disease, not to mention that the CT angiogram is a very poor quality CT. Nonetheless it did show right breast mass, and right axillary lymph nodes highly suggestive of breast carcinoma with lymph node metastasis. After reviewing the CT of the chest, and after reviewing that the patient had negative venous Doppler, and considering the patient had bleeding from the right breast mass, I recommended stopping the heparin and hopefully sometime today and arrange for a VQ scan to put the issue to rest clinically this is not a presentation of pulmonary embolism. And again the CT of the chest does not seem very diagnostic. During my evaluation the patient no shortness of breath, no cough no wheezing and no chest pain. She was on 2 L nasal cannula and O2 saturation was 97%, and after reviewing the CT of the chest again, she does have left lower lobe atelectasis, doubt pneumonia involving the left lower lobe Reevaluated today on 09/19/23, patient remains in the ICU, doing fairly well, relatively asymptomatic, her VQ scan came back negative for pulmonary embolism/low probability as the patient does not need heparin which I have already cut discontinued yesterday. She is however on Lovenox for DVT prophylaxis and cardiology recommended metoprolol 12.5 twice a day for tachycardia. Seems to be mostly a sinus tachycardia. Patient remains on 4 L nasal cannula, O2 saturation is 96% up to 98%. WBC count is 6.2 hemoglobin 13.6 basic metabolic profile is normal and renal profile is normal. Patient was seen by general surgery consultation, and I recommended basically right axillary lymph node biopsy by interventional radiology, withdraw the not do breast biopsy at this point since there is a concern about bleeding from the fungating right breast mass. In the meantime the patient is hemodynamically stable, and I believe we can safely transfer the patient out of the ICU to a regular medical floor or a medical surgical floor with telemetry to keep an eye on her tachycardia, and metoprolol was added today Objective - Vital Signs Vital signs: Vital Signs Temp 98.7 F 09/19/23 08:00 Pulse 105 H 09/19/23 11:00 Resp 16 09/19/23 11:00 BP 110/83 09/19/23 11:00 Pulse Ox 95 09/19/23 11:00 FiO2 Intake & Output 09/18/23 09/19/23 09/19/23 18:59 06:59 18:59 Intake Total 868.034 220 10 Output Total 595 465 505 Balance 273.034 245 -495 Weight 144 kg Intake: IV 240 120 10 Sodium Chloride 0.9% 1, 240 120 10 000 ml @ 10 mls/hr IV . Q24H [facility] Rx#:[id number] Intake, IV Titration 38.034 100 Amount Heparin Sod,Pork in 0.45% 38.034 NaCl 25,000 unit In 0.45 % NaCl 1 250ml.bag @ 16.9 UNITS/KG/HR 22.997 mls/ hr IV .[id number] [facility] Rx#: [id number] Piperacillin-Tazobactam 3 100 .375 gm In Sodium Chloride 0.9% 100 ml @ 25 mls/hr IVPB Q8HR [facility] Rx# :[id number] Oral 590 Output: Urine 595 465 505 Other: Voiding Method Indwelling Catheter Indwelling Catheter Indwelling Catheter - Exam Physical Exam: Revealed 67-year-old female in no distress, on 4 L nasal cannula O2 saturation 94% Head: Atraumatic, normocephalic. HEENT:[Neck is supple.] [No neck masses.] [No thyromegaly.] [No JVD.] Chest: [Diminished breath sounds at the bases especially at the left base, no crackles or rhonchi or wheezes there is evidence of a fungating/necrotic right sided breast lesion measuring almost 5 cm with surrounding erythema and tend erness. Cardiac Exam: [Normal S1 and S2, no S3 gallop, no murmur.] Abdomen: Obese, [Soft, nontender, no megaly, no rebound, no guarding, normal bowel sounds.] Extremities: [No clubbing, no edema, no cyanosis.] Neurological Exam: [No focal neurologic deficit.] Alert oriented 3 Psychiatric: Normal mood, affect and normal mental status examination. Skin: As noted above regarding findings of right breast. - Labs CBC & Chem 7: 09/19/23 05:32 09/19/23 05:32 Labs: Abnormal Lab Results - Last 24 Hours (Table) 09/18/23 09/19/23 09/19/23 Range/Units 15:53 05:32 05:32 MCV 102.3 H (80.0-100.0) fL Sodium 134 L (137-145) mmol/L Chloride 97 L (98-107) mmol/L Carbon Dioxide 31 H (22-30) mmol/L Calcium 8.1 L (8.4-10.2) mg/dL AST 111 H 90 H (14-36) U/L ALT 65 H 53 H (4-34) U/L Albumin 2.9 L (3.5-5.0) g/dL Microbiology - Last 24 Hours (Table) 09/17/23 10:10 Blood Culture - Preliminary Blood 09/17/23 10:20 Blood Culture - Preliminary Blood 09/17/23 10:20 Gram Stain - Preliminary Breast - Right Wound Culture - Preliminary Beta Hemolytic Strep Group C Gram Neg Bacilli Assessment and Plan Assessment: Impression: Pulmonary embolism was practically ruled out, VQ scan was reviewed. Fungating right Breast mass, highly suggestive of breast carcinoma with axillary lymph node metastasis. Acute hypoxic respiratory failure secondary to mostly atelectasis, and obesity. Patient may have obesity/hypoventilation syndrome. And significant left lower lobe atelectasis is noted on chest x-ray and CT of the chest Morbid obesity Obesity hypoventilation syndrome Recommendation: Transfer patient out of the ICU to a medical surgical floor, preferably with telemetry Discontinue heparin Surgery to see patient for fungating right breast mass, already recommended right axillary lymph node biopsy by interventional radiology Encourage incentive spirometry Titrate oxygen accordingly Ambulate patient if possible We will continue to follow Time with Patient: Less than 30
--- NOTE | 2023-09-19 12:37 | P.PN ---
Subjective Progress Note Date: 09/19/23 Patient seen and examined in the ICU. No complaints today states she is not having issues with breathing. Overall feels improved. Would like to get back to bed and is sleepy. Objective - Vital Signs Vital signs: Vital Signs Temp 98.7 F 09/19/23 08:00 Pulse 105 H 09/19/23 11:00 Resp 16 09/19/23 11:00 BP 110/83 09/19/23 11:00 Pulse Ox 95 09/19/23 11:00 FiO2 Intake & Output 09/18/23 09/19/23 09/19/23 18:59 06:59 18:59 Intake Total 868.034 220 10 Output Total 595 465 505 Balance 273.034 -245 -495 Weight 144 kg Intake: IV 240 120 10 Sodium Chloride 0.9% 1, 240 120 10 000 ml @ 10 mls/hr IV . Q24H [facility] Rx#:[id number] Intake, IV Titration 38.034 100 Amount Heparin Sod,Pork in 0.45% 38.034 NaCl 25,000 unit In 0.45 % NaCl 1 250ml.bag @ 16.9 UNITS/KG/HR 22.997 mls/ hr IV .[id number] [facility] Rx#: [id number] Piperacillin-Tazobactam 3 100 .375 gm In Sodium Chloride 0.9% 100 ml @ 25 mls/hr IVPB Q8HR [facility] Rx# :[id number] Oral 590 Output: Urine 595 465 505 Other: Voiding Method Indwelling Catheter Indwelling Catheter Indwelling Catheter - Exam No acute distress in a chair on nasal cannula. Mildly tachycardic. No overt respiratory distress. - Labs CBC & Chem 7: 09/19/23 05:32 09/19/23 05:32 Labs: Abnormal Lab Results - Last 24 Hours (Table) 09/18/23 09/19/23 09/19/23 Range/Units 15:53 05:32 05:32 MCV 102.3 H (80.0-100.0) fL Sodium 134 L (137-145) mmol/L Chloride 97 L (98-107) mmol/L Carbon Dioxide 31 H (22-30) mmol/L Calcium 8.1 L (8.4-10.2) mg/dL AST 111 H 90 H (14-36) U/L ALT 65 H 53 H (4-34) U/L Albumin 2.9 L (3.5-5.0) g/dL Microbiology - Last 24 Hours (Table) 09/17/23 10:10 Blood Culture - Preliminary Blood 09/17/23 10:20 Blood Culture - Preliminary Blood 09/17/23 10:20 Gram Stain - Preliminary Breast - Right Wound Culture - Preliminary Beta Hemolytic Strep Group C Gram Neg Bacilli Assessment and Plan Assessment: Possible PE on computed tomography scan, unlikely based on VQ Fungating breast mass Plan: At this time patient appears to be doing well with improvement of her respiratory status. Her heparin has been stopped due to the low likelihood on VQ scan and evidence of bleeding from her fungating breast mass. No vascular intervention indicated at this time. We'll sign off at this point
--- NOTE | 2023-09-19 12:58 | P.PN ---
Subjective Progress Note Date: 09/19/23 Hospital Course: Patient is a 67-year-old female with coronary artery disease and prior myocardial infarction, who presented to the ER with complaints of right breast pain and breast lesion that started bleeding. In the ER she underwent an extensive evaluation. On arrival she was tachycardic to 140. Laboratory analysis included a CBC, coags, CMP, troponin, and urinalysis which were remarkable for sodium 135, potassium 3.3, glucose 139, bilirubin 1.4, AST 184, ALT 80, troponin 0.029. She underwent a chest x-ray which shows basilar increased density possibly reflecting atelectasis. She then underwent CT of the chest which noted a defect within the right upper lobe subsegmental branch with pulmonary embolism not excluded. Right breast carcinoma with skin thickening is partially imaged, right axillary lymphadenopathy. She was started on a heparin gtt and arrangements were made for admission. Pulm, oncology, and breast surgery were cosnulted. Over night she became hypoxic and required 10L high flow nasal cannula. She was subsequently transferred to the ICU. Oxygen requirements coming down. Negative VQ scan. Cardiology also following. Echocardiogram showed EF 50%. Subjective: Seen and examined at bedside. No acute events overnight. Slightly tachycardic. Pertinent positives and negatives as discussed above, a complete review of systems was performed and all other systems are negative. Vitals Signs Reviewed. General: nontoxic, no distress, appears at stated age, obese Derm: warm, dry, lobulated necrotic fungating right-sided breast mass Head: atraumatic, normocephalic, symmetric Eyes: EOMI, no lid lag, anicteric sclera Mouth: no lip lesion, mucus membranes moist Cardiovascular: S1S2 reg, systolic murmur Lungs: Bilateral coarse breath sounds , no accessory muscle use, supplemental oxygen Abdominal: soft, nontender to palpation, no guarding, no appreciable organomegaly Ext: no gross muscle atrophy, no edema, no contractures Neuro: CN II-XI grossly intact, no focal neuro deficits Psych: Alert, oriented, appropriate affect Data Reviewed Today: Pertinent Labs: WBC 6.2, hemoglobin 13.6, sodium 134, bicarbonate 31, creatinine 0.89, magnesium 1.9, AST 90, ALT 53 Imaging: Chest x-ray independently interpreted, shows interstitial opacities and left pleural effusion Assessment and Plan: Patient is critically ill, in medical ICU. Acute hypoxic respiratory failure likely secondary to atelectasis Suspected obesity hypoventilation syndrome -Pulmonology note reviewed, transfer out of the ICU -Pulmonary embolism ruled out in light of negative VQ scan -Continue to wean oxygen -Vascular surgery note reviewed, signed off Hypervolemia Sinus tachycardia NSTEMI, non-ischemic -Cardiology note reviewed, patient given a dose of 20 mg IV Lasix and metoprolol 12.5 twice a day -Consider aspirin and statin Fungating/necrotic right-sided breast measuring at least 4.6 cm -Pending CT abdomen and pelvis with contrast, and nuclear med whole-body bone scan -Surgery and oncology following, likely IR guided biopsy of right axilla versus other distant site depending on the staging test -Wound cultures growing beta hemolytic strep group C and gram negative bacilli, likely skin contamination -Continue local wound care -ID also following -Patient is currently on IV Zosyn 3.375 g every 8 hours, consider discontinuing Transaminitis, down trending -Trend and check CT abd and pelvis Class III Obesity with BMI 60.6 - outpatient structured weight loss Hypokalemia - resolved DVT ppx: Lovenox Code status: Full code Anticipated discharge place: Pending clinical course Anticipated discharge time: Pending clinical course Objective - Vital Signs Vital signs: Vital Signs Temp 98.7 F 09/19/23 08:00 Pulse 105 H 09/19/23 11:00 Resp 16 09/19/23 11:00 BP 110/83 09/19/23 11:00 Pulse Ox 95 09/19/23 11:00 FiO2 Intake & Output 09/18/23 09/19/23 09/19/23 18:59 06:59 18:59 Intake Total 868.034 220 10 Output Total 595 465 505 Balance 273.034 -245 -495 Weight 144 kg Intake: IV 240 120 10 Sodium Chloride 0.9% 1, 240 120 10 000 ml @ 10 mls/hr IV . Q24H [facility] Rx#:[id number] Intake, IV Titration 38.034 100 Amount Heparin Sod,Pork in 0.45% 38.034 NaCl 25,000 unit In 0.45 % NaCl 1 250ml.bag @ 16.9 UNITS/KG/HR 22.997 mls/ hr IV .[id number] [facility] Rx#: [id number] Piperacillin-Tazobactam 3 100 .375 gm In Sodium Chloride 0.9% 100 ml @ 25 mls/hr IVPB Q8HR [facility] Rx# :[id number] Oral 590 Output: Urine 595 465 505 Other: Voiding Method Indwelling Catheter Indwelling Catheter Indwelling Catheter - Labs CBC & Chem 7: 09/19/23 05:32 09/19/23 05:32 Labs: Abnormal Lab Results - Last 24 Hours (Table) 09/18/23 09/19/23 09/19/23 Range/Units 15:53 05:32 05:32 MCV 102.3 H (80.0-100.0) fL Sodium 134 L (137-145) mmol/L Chloride 97 L (98-107) mmol/L Carbon Dioxide 31 H (22-30) mmol/L Calcium 8.1 L (8.4-10.2) mg/dL AST 111 H 90 H (14-36) U/L ALT 65 H 53 H (4-34) U/L Albumin 2.9 L (3.5-5.0) g/dL Microbiology - Last 24 Hours (Table) 09/17/23 10:10 Blood Culture - Preliminary Blood 09/17/23 10:20 Blood Culture - Preliminary Blood 09/17/23 10:20 Gram Stain - Preliminary Breast - Right Wound Culture - Preliminary Beta Hemolytic Strep Group C Gram Neg Bacilli
--- NOTE | 2023-09-19 21:44 | P.CONS ---
History of Present Illness - Reason for Consult Consult date: 09/19/23 - History of Present Illness Patient is a 67-year-old female with a past medical history significant for CVA TIA hypertension morbid obesity presenting to the hospital 2 days ago for evaluation of right breast pain patient mention right breast started to bleed but was the main reason she came to the hospital apparently did not have this mass that has been progressive getting worse for the last 3 months patient denies high-grade fever or any chills denies significant pain to the right breast area, patient on presentation to the hospital was afebrile subsequently did have a low-grade fever of 99.8 F to 100.3 degrees Fahrenheit, patient was on the floor apparently he become acutely short of breath for the patient was brought into the hospital ICU for close monitoring work-up so far include the patient did have a CT angiogram of the chest appears to be filling defect within the cystic right upper lobe subsegmental branch PE not excluded right-sided breast carcinoma with skin thickening patient also have a VQ scan which was very low probability for PE, patient did have white count of 7.5 creatinine 0.96 levels and mildly elevated urine mildly positive patient did have blood and right breast cultures obtained which are currently pending patient has been empirically started on Zosyn infectious disease was consulted today concern for possible sepsis as the patient did have a low-grade fever and tachycardia meeting criteria for SIRS Past Medical History Past Medical History: CVA/TIA, Hypertension Additional Past Medical History / Comment(s): neuropathy Last Myocardial Infarction Date:: unknown History of Any Multi-Drug Resistant Organisms: None Reported Past Surgical History: Section Past Anesthesia/Blood Transfusion Reactions: No Reported Reaction Past Psychological History: No Psychological Hx Reported Smoking Status: Never smoker Past Alcohol Use History: None Reported Additional Past Alcohol Use History / Comment(s): Patient was a smoker briefly and quit 40 years ago. She denies any illicit drug use or alcohol use. Patient lives at home alone in a senior apartment. She [facility] and [facility]. She denies any oxygen use. Past Drug Use History: None Reported - Past Family History Father Additional Family Medical History / Comment(s): Father at age 101 from old age. Mother Family Medical History: Hypertension Additional Family Medical History / Comment(s): Mother at age 83 with history of hypertension. Brother(s) Additional Family Medical History / Comment(s): Patient does not have any brothers or sisters. Daughter(s) Additional Family Medical History / Comment(s): Patient has 3 daughters. She has no contact with 2 of her daughters. One daughter has no major medical pr oblems. Son(s) Additional Family Medical History / Comment(s): Patient has 3 sons. One as a stillbirth, one has no major medical problems, one has ADD. Medications and Allergies Home Medications Medication Instructions Recorded Confirmed Type No Known Home Medications 09/17/23 09/17/23 History Allergies Allergy/AdvReac Type Severity Reaction Status Date / Time No Known Allergies Allergy Verified 09/17/23 14:29 Physical Exam Vitals: Vital Signs Temp Pulse Pulse Resp BP Pulse Ox 09/19/23 07:00 125 H 19 131/78 95 09/19/23 06:00 93 14 112/74 92 L 09/19/23 05:00 89 15 117/81 93 L 09/19/23 04:00 98.8 F 99 19 112/67 94 L 09/19/23 03:00 94 18 108/71 91 L 09/19/23 02:00 135 H 19 96/68 90 L 09/19/23 01:00 134 H 16 122/79 91 L 09/19/23 00:16 134 H 19 122/79 92 L 09/19/23 00:00 99.5 F 140 H 20 113/73 93 L 09/18/23 23:00 131 H 14 124/67 93 L 09/18/23 22:00 98 14 130/82 94 L 09/18/23 21:00 130 H 15 121/83 95 09/18/23 20:00 98.8 F 126 H 134 H 14 125/73 96 09/18/23 19:00 95 11 L 122/76 95 09/18/23 18:00 124 H 13 115/70 96 09/18/23 17:00 92 14 116/81 98 09/18/23 16:00 98.8 F 96 105 H 12 147/96 96 09/18/23 15:00 100 12 120/79 96 09/18/23 14:00 123 H 15 148/89 95 09/18/23 13:08 87 12 91 L 09/18/23 12:00 98.9 F 87 129 H 14 136/82 94 L 09/18/23 11:00 82 12 142/74 95 Intake and Output 09/18/23 09/19/23 09/19/23 22:59 06:59 14:59 Intake Total 570 180 10 Output Total 510 255 30 Balance 60 -75 -20 Intake: IV 80 80 10 Sodium Chloride 0.9% 1, 80 80 10 000 ml @ 10 mls/hr IV . Q24H [facility] Rx#:[id number] Intake, IV Titration 100 Amount Piperacillin-Tazobactam 3 100 .375 gm In Sodium Chloride 0.9% 100 ml @ 25 mls/hr IVPB Q8HR [facility] Rx# :[id number] Oral 490 Output: Urine 510 255 30 Other: Voiding Method Indwelling Catheter Indwelling Catheter Weight 144 kg Results CBC & Chem 7: 09/19/23 05:32 09/19/23 05:32 Labs: Abnormal Lab Results - Last 24 Hours (Table) 09/18/23 09/19/23 09/19/23 Range/Units 15:53 05:32 05:32 MCV 102.3 H (80.0-100.0) fL Sodium 134 L (137-145) mmol/L Chloride 97 L (98-107) mmol/L Carbon Dioxide 31 H (22-30) mmol/L Calcium 8.1 L (8.4-10.2) mg/dL AST 111 H 90 H (14-36) U/L ALT 65 H 53 H (4-34) U/L Albumin 2.9 L (3.5-5.0) g/dL Microbiology - Last 24 Hours (Table) 09/17/23 10:10 Blood Culture - Preliminary Blood 09/17/23 10:20 Blood Culture - Preliminary Blood 09/17/23 10:20 Gram Stain - Preliminary Breast - Right Wound Culture - Preliminary Beta Hemolytic Strep Group C Gram Neg Bacilli Assessment and Plan Plan: 1patient presented to hospital with large right breast mass with some bleeding, in this patient who is running low-grade fever and was tachycardic and concern for possible infected right breast wound with underlying malignancy versus pneumonia less likely 2-blood and local culture obtained results will be followed we will check inflammatory markers 3-patient to continue with the Zosyn 3.375 g. Every 8 hours waiting for the culture to finalize We will follow on clinical condition and cultures to further adjust medication if needed Thank you for this consultation we will follow the patient along with you Dictation was produced using [employer] dictation software. please excuse any grammatical, word or spelling errors. Time with Patient: Greater than 30
[2023-09-20] MEDS: HYDROcodone/APAP 5-325MG 1 EACH TAB PO PRN (01:00)
[2023-09-20 06:34] LABS: ALT 47 U/L (4-34); AST 91 U/L (14-36); African American GFR (CKD) 65 (>60 ml/min/1.73 sqM); Albumin 2.9 g/dL (3.5-5.0); Alkaline Phosphatase 104 U/L (38-126); Anion Gap 7 mmol/L; Blood Urea Nitrogen 17 mg/dL (7-17); Calcium 8.1 mg/dL (8.4-10.2); Carbon Dioxide 31 mmol/L (22-30); Chloride 94 mmol/L (98-107); Glucose 90 mg/dL (74-99); Non-African American GFR(CKD) 57 (>60 ml/min/1.73 sqM); Potassium 3.7 mmol/L (3.5-5.1); Sodium 132 mmol/L (137-145); Total Bilirubin 0.7 mg/dL (0.2-1.3); Total Protein 6.3 g/dL (6.3-8.2)
[2023-09-20 06:44] LABS: Basophils % (A) 0 %; Eosinophils % (A) 0 %; HCT 41.9 % (34.0-46.0); HGB 13.2 gm/dL (11.4-16.0); Hypochromasia Slight; Lymphocytes % (A) 17 %; MCH 31.9 pg (25.0-35.0); MCHC 31.4 g/dL (31.0-37.0); MCV 101.5 fL (80.0-100.0); Macrocytosis Slight; Mean Platelet Volume 8.1; Monocytes # (A) 0.4 k/uL (0-1.0); Monocytes % (A) 7 %; Neutrophils # (A) 4.3 k/uL (1.3-7.7); Neutrophils % (A) 74 %; Platelet Count 232 k/uL (150-450); RBC 4.13 m/uL (3.80-5.40); RDW 14.9 % (11.5-15.5); WBC 5.9 k/uL (3.8-10.6)
[2023-09-20] MEDS ORDERED: POTASSIUM CHLORIDE 10 MEQ in WATER FOR INJECTION 1 100ML.BAG IVPB SCH (06:45)
[2023-09-20] MEDS: SODIUM CHLORIDE 0.9% 1,000 ML IV SCH (06:56)
[2023-09-20] MEDS ORDERED: POTASSIUM BICARBONATE/CIT AC 20 MEQ TABLET.EFF NG-TUBE SCH (07:00)
--- NOTE | 2023-09-20 09:21 | XR ---
EXAMINATION TYPE: XR chest 1V DATE OF EXAM: 09/20/2023 5:25 AM CLINICAL INDICATION:Female, 67 years old with history of SOB, PE; [facility] COMPARISON: Chest radiograph one day prior. TECHNIQUE: XR chest 1V Frontal view of the chest. FINDINGS: Lungs/Pleura: Stable suspected trace left pleural effusion is identified. No evidence of pneumothorax . Pulmonary vascularity: Mild pulmonary vascular congestion. Heart/mediastinum: Cardiomediastinal silhouette is enlarged and stable. Musculoskeletal: No acute osseous pathology. IMPRESSION: Stable exam demonstrating cardiomegaly and suspected trace left pleural effusion.
[2023-09-20] MEDS: ENOXAPARIN 40 MG/0.4 ML SYRINGE SQ SCH (10:41)
[2023-09-20] MEDS: METOPROLOL TARTRATE 25 MG TAB PO SCH ×2 (10:41→21:04)
[2023-09-20] MEDS: PIPERACILLIN-TAZOBACTAM 3.375 GM in SODIUM CHLORIDE 0.9% 100 ML IVPB SCH ×3 (10:45→23:30)
[2023-09-20] MEDS: NYSTATIN 100,000 UNIT/GM POWD 15 GM TOPICAL SCH ×3 (10:45→21:04)
--- NOTE | 2023-09-20 10:55 | P.PN ---
Subjective Progress Note Date: 09/20/23 Hospital Course: Patient is a 67-year-old female with coronary artery disease and prior myocard ial infarction, who presented to the ER with complaints of right breast pain and breast lesion that started bleeding. In the ER she underwent an extensive evaluation. On arrival she was tachycardic to 140. Laboratory analysis included a CBC, coags, CMP, troponin, and urinalysis which were remarkable for sodium 135, potassium 3.3, glucose 139, bilirubin 1.4, AST 184, ALT 80, troponin 0.029. She underwent a chest x-ray which shows basilar increased density possibly reflecting atelectasis. She then underwent CT of the chest which noted a defect within the right upper lobe subsegmental branch with pulmonary embolism not excluded. Right breast carcinoma with skin thickening is partially imaged, right axillary lymphadenopathy. She was started on a heparin gtt and arrangements were made for admission. Pulm, oncology, and breast surgery were cosnulted. Over night she became hypoxic and required 10L high flow nasal cannula. She was subsequently transferred to the ICU. Oxygen requirements coming down. Negative VQ scan. Cardiology also following. Echocardiogram showed EF 50%. ID also following, patient currently on Zosyn. Subjective: Seen and examined at bedside. No acute events overnight. Slightly tachycardic. Pertinent positives and negatives as discussed above, a complete review of systems was performed and all other systems are negative. Vitals Signs Reviewed. General: nontoxic, no distress, appears at stated age, obese Derm: warm, dry, lobulated necrotic fungating right-sided breast mass Head: atraumatic, normocephalic, symmetric Eyes: EOMI, no lid lag, anicteric sclera Mouth: no lip lesion, mucus membranes moist Cardiovascular: S1S2 reg, systolic murmur Lungs: Bilateral coarse breath sounds , no accessory muscle use, supplemental oxygen Abdominal: soft, nontender to palpation, no guarding, no appreciable organomegaly Ext: no gross muscle atrophy, no edema, no contractures Neuro: CN II-XI grossly intact, no focal neuro deficits Psych: Alert, oriented, appropriate affect Data Reviewed Today: Pertinent Labs: WBC 5.9, hemoglobin 13.2, sodium 132, bicarbonate 31, creatinine 1.02, AST 91, ALT 47 Imaging: Chest x-ray independently interpreted, shows interstitial opacities and left pleural effusion, similar to yesterday Assessment and Plan: Patient is critically ill, in medical ICU. Acute hypoxic respiratory failure likely secondary to atelectasis Suspected obesity hypoventilation syndrome -Pulmonology following, pending transfer to the ICU -Pulmonary embolism ruled out in light of negative VQ scan -Continue to wean oxygen -Vascular surgery note reviewed, signed off Hypervolemia, slightly improved Sinus tachycardia NSTEMI, non-ischemic -Cardiology following -Pulmonology increase metoprolol to 25 twice a day -Consider aspirin and statin Fungating/necrotic right-sided breast measuring at least 4.6 cm -Pending CT abdomen and pelvis with contrast, and nuclear med whole-body bone scan -Surgery and oncology following, likely IR guided biopsy of right axilla versus other distant site depending on the staging test -Wound cultures growing beta hemolytic strep group C and gram negative bacilli -Continue local wound care -ID following, recommending continuing IV antibiotics -Patient is currently on IV Zosyn 3.375 g every 8 hours Transaminitis, down trending, stable -Trend and check CT abd and pelvis Class III Obesity with BMI 60.6 - outpatient structured weight loss Hypokalemia - resolved DVT ppx: Lovenox Code status: Full code Anticipated discharge place: Pending clinical course Anticipated discharge time: Pending clinical course Objective - Vital Signs Vital signs: Vital Signs Temp 98.3 F 09/20/23 04:00 Pulse 133 H 09/20/23 10:00 Resp 14 09/20/23 10:00 BP 108/73 09/20/23 10:00 Pulse Ox 92 L 09/20/23 10:00 FiO2 Intake & Output 09/19/23 09/20/23 09/20/23 18:59 06:59 18:59 Intake Total 10 90 10 Output Total 1160 460 25 Balance -1150 -370 -15 Weight 147 kg Intake: IV 10 90 10 Sodium Chloride 0.9% 1, 10 90 10 000 ml @ 10 mls/hr IV . Q24H COUNTS INCLUDE 234 BEDS AT THE [facility] Rx#:[id number] Output: Urine 1160 460 25 Other: Voiding Method Indwelling Catheter Indwelling Catheter - Labs CBC & Chem 7: 09/20/23 05:44 09/20/23 05:44 Labs: Abnormal Lab Results - Last 24 Hours (Table) 09/20/23 09/20/23 Range/Units 05:44 05:44 MCV 101.5 H (80.0-100.0) fL Sodium 132 L (137-145) mmol/L Chloride 94 L (98-107) mmol/L Carbon Dioxide 31 H (22-30) mmol/L Calcium 8.1 L (8.4-10.2) mg/dL AST 91 H (14-36) U/L ALT 47 H (4-34) U/L Albumin 2.9 L (3.5-5.0) g/dL Microbiology - Last 24 Hours (Table) 09/17/23 10:10 Blood Culture - Preliminary Blood 09/17/23 10:20 Blood Culture - Preliminary Blood 09/17/23 10:20 Gram Stain - Preliminary Breast - Right Wound Culture - Preliminary Beta Hemolytic Strep Group C Proteus mirabilis Presumptive Staph aureus
[2023-09-20] MEDS ORDERED: IOPAMIDOL CONTRAST (ORAL USE) VIAL PO PRN ×2 (13:17→13:30)
--- NOTE | 2023-09-20 13:28 | P.PN ---
Subjective Progress Note Date: 09/20/23 Principal diagnosis: Fungating right breast mass /bleeding This is a 67-year-old female with chronic redness and swelling of her right nipple, which has been progressively getting worse. Patient has been noticing bleeding from her right breast nipple, and while evaluated in the ER she was noted to have a large mass which has been progressively getting worse apparently over the last 3 months. Upon evaluation in the ER, the patient was also noted to be tachycardic, with slightly elevated troponin of 0.035. Chest x-ray showed left lower lobe atelectasis, CT of the chest raised the possibility of a defect in the right upper lobe subsegmental branch. Considering the patient was complaining of some shortness of breath, and the patient was transferred to the ICU for further evaluation she was seen already by cardiology and by vascular surgery. I reviewed the CT of the chest, and I did not feel that the findings are specific for thromboembolic disease, not to mention that the CT angiogram is a very poor quality CT. Nonetheless it did show right breast mass, and right axillary lymph nodes highly suggestive of breast carcinoma with lymph node metastasis. After reviewing the CT of the chest, and after reviewing that the patient had negative venous Doppler, and considering the patient had bleeding from the right breast mass, I recommended stopping the heparin and hopefully sometime today and arrange for a VQ scan to put the issue to rest clinically this is not a presentation of pulmonary embolism. And again the CT of the chest does not seem very diagnostic. During my evaluation the patient no shortness of breath, no cough no wheezing and no chest pain. She was on 2 L nasal cannula and O2 saturation was 97%, and after reviewing the CT of the chest again, she does have left lower lobe atelectasis, doubt pneumonia involving the left lower lobe Reevaluated today on 09/19/23, patient remains in the ICU, doing fairly well, relatively asymptomatic, her VQ scan came back negative for pulmonary embolism/low probability as the patient does not need heparin which I have already cut discontinued yesterday. She is however on Lovenox for DVT prophylaxis and cardiology recommended metoprolol 12.5 twice a day for tachycardia. Seems to be mostly a sinus tachycardia. Patient remains on 4 L nasal cannula, O2 saturation is 96% up to 98%. WBC count is 6.2 hemoglobin 13.6 basic metabolic profile is normal and renal profile is normal. Patient was seen by general surgery consultation, and I recommended basically right axillary lymph node biopsy by interventional radiology, withdraw the not do breast biopsy at this point since there is a concern about bleeding from the fungating right breast mass. In the meantime the patient is hemodynamically stable, and I believe we can safely transfer the patient out of the ICU to a regular medical floor or a medical surgical floor with telemetry to keep an eye on her tachycardia, and metoprolol was added Seen today 09/20, patient remains in the ICU, however she is truly an overflow in the ICU, patient is being seen by many consultants, at initial presentation was a presentation of bleeding fungating right breast mass and a left lower lobe atelectasis, doubt pneumonia, patient had no pulmonary symptoms on her initial presentation, CT angiogram of the chest questioned pulmonary embolism and we felt that this is not truly the case. Venous Dopplers were negative, VQ scan was negative, hence the patient was taken off heparin which was initially started in the ER. Patient is morbidly obese, and she has significant left lower lobe atelectasis, doing very poorly with incentive spirometry, she is e mpirically on antibiotics in the form of Zosyn. She remains tachycardic with heart rate of 130, hemodynamically stable otherwise. Metoprolol dose was increased to 25 mg twice a day CBC showed no evidence of leukocytosis, hemoglobin is 13.2 basic metabolic profile is normal renal profile is normal, BNP level is normal 1 culture from the right breast is showing polymicrobial picture with presumptive staph, Proteus mirabilis, and beta hemolytic strep group C patient is being seen by infectious disease on consultation blood cultures are negative so far. Objective - Vital Signs Vital signs: Vital Signs Temp 100.1 F H 09/20/23 11:00 Pulse 131 H 09/20/23 11:00 Resp 12 09/20/23 11:00 BP 118/74 09/20/23 11:00 Pulse Ox 91 L 09/20/23 11:00 FiO2 Intake & Output 09/19/23 09/20/23 09/20/23 18:59 06:59 18:59 Intake Total 10 90 10 Output Total 1160 460 25 Balance -1150 -370 -15 Weight 147 kg Intake: IV 10 90 10 Sodium Chloride 0.9% 1, 10 90 10 000 ml @ 10 mls/hr IV . Q24H [facility] Rx#:[id number] Output: Urine 1160 460 25 Other: Voiding Method Indwelling Catheter Indwelling Catheter - Exam Physical Exam: Revealed 67-year-old female in no distress, on 5 L nasal cannula Head: Atraumatic, normocephalic. HEENT:[Neck is supple.] [No neck masses.] [No thyromegaly.] [No JVD.] Chest: [Diminished breath sounds at the bases especially at the left base, no crackles or rhonchi or wheezes there is evidence of a fungating/necrotic right sided breast lesion measuring almost 5 cm with surrounding erythema and te nderness. Cardiac Exam: [Normal S1 and S2, no S3 gallop, no murmur.] Abdomen: Obese, [Soft, nontender, no megaly, no rebound, no guarding, normal bowel sounds.] Extremities: [No clubbing, no edema, no cyanosis.] Neurological Exam: [No focal neurologic deficit.] Alert oriented 3 Psychiatric: Depressed mood , flat affect and normal mental status examination. Skin: As noted above regarding findings of right breast. - Labs CBC & Chem 7: 09/20/23 05:44 09/20/23 05:44 Labs: Abnormal Lab Results - Last 24 Hours (Table) 09/20/23 09/20/23 Range/Units 05:44 05:44 MCV 101.5 H (80.0-100.0) fL Sodium 132 L (137-145) mmol/L Chloride 94 L (98-107) mmol/L Carbon Dioxide 31 H (22-30) mmol/L Calcium 8.1 L (8.4-10.2) mg/dL AST 91 H (14-36) U/L ALT 47 H (4-34) U/L Albumin 2.9 L (3.5-5.0) g/dL Microbiology - Last 24 Hours (Table) 09/17/23 10:10 Blood Culture - Preliminary Blood 09/17/23 10:20 Blood Culture - Preliminary Blood 09/17/23 10:20 Gram Stain - Preliminary Breast - Right Wound Culture - Preliminary Beta Hemolytic Strep Group C Proteus mirabilis Presumptive Staph aureus Assessment and Plan Assessment: Impression: Pulmonary embolism was practically ruled out, VQ scan was reviewed. Low probability for pulmonary embolism Fungating right Breast mass, highly suggestive of breast carcinoma with axillary lymph node metastasis. Acute hypoxic respiratory failure secondary to mostly atelectasis, and obesity. Patient may have obesity/hypoventilation syndrome. And significant left lower lobe atelectasis is noted on chest x-ray and CT of the chest Morbid obesity Obesity hypoventilation syndrome Left lower lobe atelectasis, doubt pneumonia Cellulitis of right breast, polymicrobial culture noted presently on Zosyn. Recommendation: Transfer to a medical surgical floor/with telemetry when a bed is available Continue antibiotics as per infectious disease on the case Continue GI and DVT prophylaxis Encourage incentive spirometry to help expand that left lower lobe Right axillary lymph node biopsy by interventional radiology as recommended by surgery Titrate oxygen accordingly Ambulate patient if possible We will continue to follow Time with Patient: Less than 30
[2023-09-20] MEDS: ONDANSETRON 4 MG/2 ML VIAL IVP PRN (13:37)
--- NOTE | 2023-09-20 14:40 | P.PN ---
Subjective Progress Note Date: 09/20/23 Principal diagnosis: Respiratory failure The patient is a 67-year-old female patient with no significant past medical history besides morbid obesity presented to the emergency department complaining of right breast discomfort. The discomfort started a few days ago as redness in the nipple and subsequently progressed significantly. The patient denies having any cardiovascular symptoms of any shortness of breath or any chest pain or chest discomfort beside the right breast discomfort. No dizziness or lightheadedness and no feeling of heart racing or fluttering. She presented to the emergency department because of the pain. She was found to be hypoxic and the hypoxemia has progressed overnight. She was also tachycardic. Further investigation was performed including computed tomography scan of the chest showed possible pulmonary embolism but the pulmonary embolism was not sagittal nor central. She was started on heparin. The vascular surgeon was placed for possible ultrasonic catheter needed. I did review the computed tomography scan by myself and I did not see any evidence of RV strain on the computed tomography scan. An echo is in process to be done. The troponin is a slightly elevated. No NT proBNP ordered but is in process to be done. The chest x-ray showed what it seems to be small left pleural effusion. Clinically the patient remains hypoxic and currently she is on 10 L oxygen to maintain normal saturation. She is in mild heart failure was only mild bilateral lower extremity edema. She has not been making good urine. The creatinine is normal. The EKG shows sinus tachycardia. The patient doesn't have any cardiovascular history from before with no CAD or CHF or cardiac arrhythmia never seen a law examiner before. Hemodynamically today she remains stable. The examination is remarkable for regular rhythm with a systolic murmur at the right upper sternal and left upper sternal border and mild bilateral lower extremity edema. 09/19/2023 The patient was seen this morning. Overall she is doing better. She is on nasal cannula oxygen only. Her heart rate has improved significantly. The echo was technically difficult but the ejection fraction appears to be within normal limits. From the cardiovascular standpoint of view, continue the current medical regimen. The examination is remarkable for a systolic murmur at the l eft upper sternal border with diminished breathing sounds bilaterally and mild bilateral lower extremities edema. I'm going to the patient Lasix 20 mg IV once and start the patient on metoprolol for the tachycardia. 09/20/2023 The patient was seen and evaluated this morning. She still hypoxic on oxygen. She is tachycardic and the dose of beta elsa has increased earlier by the critical care team which I would agree on. The echo showed preserved LV systolic function with an EF around 50% but the study was technically very difficult. She does not seem in overt congestive heart failure. The examination is remarkable for diminished breathing sounds bilaterally with regular rhythm and distant heart sounds. Assessment Acute hypoxic respiratory failure Pulmonary embolism, submassive versus non-massive Lower extremities edema and decreased urine output Sinus tachycardia The right breast discomfort/wound Obesity Plan Start the patient on metoprolol Follow-up with the patient Objective - Vital Signs Vital signs: Vital Signs Temp 100.1 F H 09/20/23 11:00 Pulse 131 H 09/20/23 11:00 Resp 12 09/20/23 11:00 BP 118/74 09/20/23 11:00 Pulse Ox 91 L 09/20/23 11:00 FiO2 Intake & Output 09/19/23 09/20/23 09/20/23 18:59 06:59 18:59 Intake Total 10 90 180 Output Total 1160 460 275 Balance -1150 -370 -95 Weight 147 kg Intake: IV 10 90 180 Piperacillin-Tazobactam 3 100 .375 gm In Sodium Chloride 0.9% 100 ml @ 25 mls/hr IVPB Q8HR [facility] Rx# :[id number] Sodium Chloride 0.9% 1, 10 90 80 000 ml @ 10 mls/hr IV . Q24H [facility] Rx#:[id number] Output: Urine 1160 460 275 Other: Voiding Method Indwelling Catheter Indwelling Catheter - Labs CBC & Chem 7: 09/20/23 05:44 09/20/23 05:44 Labs: Abnormal Lab Results - Last 24 Hours (Table) 09/20/23 09/20/23 Range/Units 05:44 05:44 MCV 101.5 H (80.0-100.0) fL Sodium 132 L (137-145) mmol/L Chloride 94 L (98-107) mmol/L Carbon Dioxide 31 H (22-30) mmol/L Calcium 8.1 L (8.4-10.2) mg/dL AST 91 H (14-36) U/L ALT 47 H (4-34) U/L Albumin 2.9 L (3.5-5.0) g/dL Microbiology - Last 24 Hours (Table) 09/17/23 10:10 Blood Culture - Preliminary Blood 09/17/23 10:20 Blood Culture - Preliminary Blood 09/17/23 10:20 Gram Stain - Preliminary Breast - Right Wound Culture - Preliminary Beta Hemolytic Strep Group C Proteus mirabilis Presumptive Staph aureus
[2023-09-20] MEDS: METOPROLOL TARTRATE 12.5 MG TAB PO SCH (19:04)
--- NOTE | 2023-09-20 20:08 | CT ---
EXAMINATION TYPE: CT abdomen pelvis w con CT DLP: 3486 mGycm, Automated exposure control for dose reduction was used. DATE OF EXAM: 09/20/2023 4:02 PM COMPARISON: Reference CT chest 09/17/2023 CLINICAL INDICATION:Female, 67 years old with history of breast mass, liver enz elevation; breast mas s, liver enz elevation TECHNIQUE: Axial CT of the abdomen and pelvis. Sagittal and coronal reformats were created on a [employer] workstation. Contrast used:90ML mL of Isovue 300 with IV Contrast, (none if empty) Oral contrast used: with Oral Contrast (none if empty) FINDINGS: LOWER CHEST: Only partially seen, but there is worsening consolidative opacity in the imaged left pineda g base. Small left pleural effusion. Heart is moderately enlarged. A portion of known right breast ma ss and skin thickening is seen. Borderline enlarged 1 cm lymph node in the right chest wall inferiorl y appears stable from the last exam. Slightly farther superiorly, an enlarged node/nadeen conglomerate measuring 2.6 x 1.6 cm can be seen. Stable mildly prominent lymph node seen in the posterior inferio r left breast measures 1.3 cm. ABDOMEN Limitations by patient body habitus and position of the arms resulting in streak artifact. LIVER: Diffusely heterogeneous without evidence of discrete mass. GALLBLADDER AND BILE DUCTS: Gallbladder appears moderately distended and there is a peripherally calc ified 1.9 cm gallstone in the neck. CBD appears mildly prominent at 9 mm, with distal tapering sugges nissa. No significant intrahepatic dilatation is seen. PANCREAS: Mildly atrophic, no acute abnormality. SPLEEN: Small calcified nodular densities at the hilum, could reflect granulomatous disease or small aneurysms. ADRENAL GLANDS: Unremarkable. KIDNEYS AND URETERS: Kidneys enhance symmetrically. There is no evidence of hydronephrosis. Small cys t of the mid left kidney is 1.7 cm. Delayed imaging shows no additional abnormality. PELVIS BLADDER: Nondistended with Linton catheter in place. Some gas in the bladder lumen likely due to the c atheter. REPRODUCTIVE: Unremarkable. ABDOMEN & PELVIS STOMACH AND BOWEL: Stomach and small bowel are nondistended. There is some contrast seen in the dista l small bowel and proximal colon. Fatty infiltration of the ileocecal valve. Appendix is seen in the RLQ without evidence of inflammation. There are several diverticula in the descending and sigmoid col on, without convincing evidence of diverticulitis. Some thickening of the posterior distal rectal wal l cannot be excluded, correlate with exam to exclude neoplasia. No definite perirectal fat stranding or nodularity. PERITONEUM/RETROPERITONEUM: No evidence of pneumoperitoneum or free fluid. VASCULATURE: Moderate atherosclerotic calcifications are present throughout the abdominal aorta and i ts branches. No evidence of aortic aneurysm. Calcific plaque at the proximal SMA causes approximately 50% stenosis. Calcific plaque with mild stenosis at the origin of the celiac artery. RICHELLE is patent. Main left renal artery appears patent. There seems to be an accessory left renal artery which shows s ome calcification proximally may be mildly narrowed. Dense calcific focus at the origin of the main r ight renal artery, with suspected stenosis of 50% or more. There seems to be an accessory right renal artery which does not appear significantly narrowed. Retroaortic left renal vein. MUSCULOSKELETAL: No clearly acute osseous abnormality. Mild diffuse degenerative changes. No lytic/bl astic bony lesion is seen. LYMPH NODES, SOFT TISSUES/ABDOMINAL WALL: No enlarged pelvic or retroperitoneal/periaortic lymph node s. Mildly prominent nodule suggesting lymph node posterior to the CBD image 18 series 201 with short axis of 1.1 cm. There appears to be a small nodular density in the left upper quadrant just superior to the stomach image 17 series 301 axially measuring 1.6 x 1.4 cm, however not well seen on multiplan ar imaging. No large intraperitoneal mass is demonstrated. Postoperative changes with scarring along the anterior abdominal wall. Small focus of subcutaneous fat infiltration with focus of gas, likely f rom medication injection. IMPRESSION: 1. Partially seen worsening consolidative opacity in the left lung base with small left pleural effu nasra. Concern is raised for pneumonia. 2. Moderate cardiomegaly. 3. Portion of known right breast mass and skin thickening is seen. Enlarged nodes in the right chest wall are potentially metastatic. Mildly prominent lymph node seen in the posterior inferior left francy ast, uncertain character but metastatic involvement cannot be excluded. 4. Diffusely heterogeneous liver without evidence of discrete mass. 5. Gallbladder is moderately distended with a 1.9 cm gallstone in the neck. If concern for acute cho lecystitis, follow-up ultrasound or HIDA could be obtained. 6. CBD appears mildly prominent, with distal tapering suggested. Correlate clinically with LFTs. 7. Nondistended bladder with Linton catheter in place. Some gas in the bladder lumen likely due to th e catheter. 8. Colonic diverticular disease without evidence of diverticulitis. 9. Some thickening of the posterior distal rectal wall cannot be excluded, correlate clinically with exam to exclude neoplasia. 10. Mildly prominent nodule suggesting lymph node in the right upper quadrant, and suspected small n odular density in the left upper quadrant just superior to the stomach, nonspecific but metastatic in volvement is possible. RECOMMENDATION: PET/CT as an outpatient for further evaluation and staging, as clinically warranted.
[2023-09-21] MEDS ORDERED: METOPROLOL TARTRATE 5 MG/5 ML VIAL IVP STA (01:45)
[2023-09-21] MEDS: ACETAMINOPHEN TAB 325 MG TAB PO PRN (02:17)
[2023-09-21] MEDS: SODIUM CHLORIDE 0.9% 1,000 ML IV SCH (05:06)
[2023-09-21] MEDS: PIPERACILLIN-TAZOBACTAM 3.375 GM in SODIUM CHLORIDE 0.9% 100 ML IVPB SCH (08:22)
[2023-09-21] MEDS: ENOXAPARIN 40 MG/0.4 ML SYRINGE SQ SCH ×2 (08:22→21:21)
[2023-09-21] MEDS: NYSTATIN 100,000 UNIT/GM POWD 15 GM TOPICAL SCH ×3 (08:22→20:43)
[2023-09-21] MEDS: METOPROLOL TARTRATE 25 MG TAB PO SCH (08:22)
[2023-09-21 08:53] LABS: Amorphous Sediment,Urine Rare /hpf; Appearance,Urine Cloudy (Clear); Bilirubin,Urine Negative (Negative); Blood,Urine Moderate (Negative); Budding Yeast,Urine Occasional /hpf; Color,Urine Yellow; Glucose,Urine (UA) Negative (Negative); Ketones,Urine Trace (Negative); Leukocyte Esterase,Urine Moderate (Negative); Mucus,Urine Rare /hpf; Nitrite,Urine Negative (Negative); PH, Urine 5.5 (5.0-8.0); Protein,Urine 2+ (Negative); RBC,Urine 46 /hpf (0-5); Red Blood Cell Casts,Urine 13 /lpf (0); Specific Gravity,Urine 1.042 (1.001-1.035); Squamous Epithelial Cell,Urine 1 /hpf (0-4); WBC,Urine 24 /hpf (0-5)
[2023-09-21] MEDS ORDERED: METOPROLOL TARTRATE 25 MG TAB PO STA (09:06)
--- NOTE | 2023-09-21 09:20 | XR ---
EXAMINATION TYPE: XR chest 1V portable DATE OF EXAM: 09/21/2023 8:23 AM CLINICAL INDICATION:Female, 67 years old with history of hypoxia; [facility] COMPARISON: Chest radiograph from one day prior. TECHNIQUE: XR chest 1V portable Frontal view of the chest. FINDINGS: Lungs/Pleura: There is no evidence of pleural effusion, focal consolidation, or pneumothorax. Pulmonary vascularity: Pulmonary vascular congestion. Heart/mediastinum: Cardiomediastinal silhouette is enlarged and stable. Musculoskeletal: No acute osseous pathology. IMPRESSION: Cardiomegaly and mild pulmonary vascular congestion. Correlate with BNP for congestive heart failure.
[2023-09-21 11:04] LABS: Basophils # (A) 0.05 X 10*3/uL (0.00-0.10); Basophils % (A) 0.6 %; Eosinophils # (A) 0.04 X 10*3/uL (0.04-0.35); Eosinophils % (A) 0.5 %; HCT 45.1 % (37.2-46.3); HGB 14.1 g/dL (12.0-15.0); Lymphocytes # (A) 1.52 X 10*3/uL (0.90-5.00); Lymphocytes % (A) 19.1 %; MCH 31.8 pg (27.0-32.0); MCHC 31.3 g/dL (32.0-37.0); MCV 101.8 FL (80.0-97.0); Mean Platelet Volume 10.3 FL (9.5-12.2); Monocytes # (A) 0.48 X 10*3/uL (0.20-1.00); NRBC Per 100 WBC 0 X 10*3/uL (0.00-0.01); Neutrophils # (A) 5.55 X 10*3/uL (1.80-7.70); Platelet Count 222 X 10*3/uL (140-440); RBC 4.43 X 10*6/uL (4.10-5.20); RDW 15.6 % (11.5-14.5); WBC 7.94 X 10*3/uL (4.50-10.00)
[2023-09-21] MEDS: HYDROcodone/APAP 5-325MG 1 EACH TAB PO PRN ×2 (11:13→20:43)
--- NOTE | 2023-09-21 11:13 | P.PN ---
Subjective Progress Note Date: 09/21/23 Respiratory failure The patient is a 67-year-old female patient with no significant past medical history besides morbid obesity presented to the emergency department complaining of right breast discomfort. The discomfort started a few days ago as redness in the nipple and subsequently progressed significantly. The patient denies having any cardiovascular symptoms of any shortness of breath or any chest pain or chest discomfort beside the right breast discomfort. No dizziness or lightheadedness and no feeling of heart racing or fluttering. She presented to the emergency department because of the pain. She was found to be hypoxic and the hypoxemia has progressed overnight. She was also tachycardic. Further investigation was performed including computed tomography scan of the chest showed possible pulmonary embolism but the pulmonary embolism was not sagittal nor central. She was started on heparin. The vascular surgeon was placed for possible ultrasonic catheter needed. I did review the computed tomography scan by myself and I did not see any evidence of RV strain on the computed tomography scan. An echo is in process to be done. The troponin is a slightly elevated. No NT proBNP ordered but is in process to be done. The chest x-ray showed what it seems to be small left pleural effusion. Clinically the patient remains hypoxic and currently she is on 10 L oxygen to maintain normal saturation. She is in mild heart failure was only mild bilateral lower extremity edema. She has not been making good urine. The creatinine is normal. The EKG shows sinus tachycardia. 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 Hemodynamically today she remains stable. The examination is remarkable for regular rhythm with a systolic murmur at the right upper sternal and left upper sternal border and mild bilateral lower extremity edema. 09/19/2023 The patient was seen this morning. Overall she is doing better. She is on nasal cannula oxygen only. Her heart rate has improved significantly. The echo was technically difficult but the ejection fraction appears to be within normal limits. From the cardiovascular standpoint of view, continue the current medical regimen. The examination is remarkable for a systolic murmur at the left upper sternal border with diminished breathing sounds bilaterally and mild bilateral lower extremities edema. I'm going to the patient Lasix 20 mg IV once and start the patient on metoprolol for the tachycardia. 09/20/2023 The patient was seen and evaluated this morning. She still hypoxic on oxygen. She is tachycardic and the dose of beta elsa has increased earlier by the critical care team which I would agree on. The echo showed preserved LV systolic function with an EF around 50% but the study was technically very difficult. She does not seem in overt congestive heart failure. The examination is remarkable for diminished breathing sounds bilaterally with regular rhythm and distant heart sounds. 09/21 Patient seen and evaluation. Yesterday she was started on metoprolol for sinus tachycardia. She is currently on Lopressor 25 mg twice daily. Patient is noted to be febrile with temperature max 103.1. Heart rate this morning is in the 120s and looks like it was higher through the night. All seems to be a sinus tachycardia on review of telemetry. Patient denies feeling any palpitations. No chest pain. Patient is scheduled for a whole-body bone scan today which has been ordered by oncology. Physical Examination Gen: This is a morbidly obese 67-year-old female. She is resting in bed and appears to be in no acute distress. Patient appears generally ill. HEENT: Head is atraumatic, normocephalic. Pupils equal, round. Sclerae is anicteric. LUNGS: Decreased breath sounds bilaterally. No intercostal retractions. HEART: Regular rate and rhythm. Systolic murmur. ABDOMEN: Soft. Bowel sounds are present. No masses. No tenderness. EXTREMITIES: Trace pedal edema. Assessment Acute hypoxic respiratory failure Pulmonary embolism has been ruled out by pulmonary medicine Lower extremities edema and decreased urine output Sinus tachycardia The right breast mass and wound Obesity Plan Increase dose of metoprolol tartrate 50 mg twice daily Obtain TSH Follow-up with the patient Nurse practitioner note has been reviewed, I agree with the documented findings and plan of care. Patient was seen and examined. Objective - Vital Signs Vital signs: Vital Signs Temp 97.4 F L 09/21/23 06:58 Pulse 121 H 09/21/23 06:58 Resp 16 09/21/23 06:58 BP 102/62 09/21/23 06:58 Pulse Ox 90 L 09/21/23 06:58 FiO2 Intake & Output 09/20/23 09/21/23 09/21/23 18:59 06:59 18:59 Intake Total 180 480 Output Total 275 500 Balance -95 -20 Intake: IV 180 240 Piperacillin-Tazobactam 3 100 200 .375 gm In Sodium Chloride 0.9% 100 ml @ 25 mls/hr IVPB Q8HR [facility] Rx# :[id number] Sodium Chloride 0.9% 1, 80 40 000 ml @ 10 mls/hr IV . Q24H [facility] Rx#:[id number] Oral 240 Output: Urine 275 500 Other: Voiding Method Indwelling Catheter Indwelling Catheter - Labs CBC & Chem 7: 09/21/23 07:32 09/20/23 05:44 Labs: Abnormal Lab Results - Last 24 Hours (Table) 09/21/23 Range/Units 08:33 Urine Appearance Cloudy H (Clear) Ur Specific [place] 1.042 H (1.001-1.035) Urine Protein 2+ H (Negative) Urine Ketones Trace H (Negative) Urine Blood Moderate H (Negative) Ur Leukocyte Esterase Moderate H (Negative) Urine RBC 46 H (0-5) /hpf Urine WBC 24 H (0-5) /hpf Amorphous Sediment Rare H (None) /hpf Urine Mucus Rare H (None) /hpf Urine Yeast (Budding) Occasional H (None) /hpf Microbiology - Last 24 Hours (Table) 09/17/23 10:10 Blood Culture - Preliminary Blood 09/17/23 10:20 Blood Culture - Preliminary Blood 09/17/23 10:20 Gram Stain - Preliminary Breast - Right Wound Culture - Preliminary Beta Hemolytic Strep Group C Proteus mirabilis Staphylococcus aureus 09/19/23 09:58 Blood Culture - Preliminary Blood 09/19/23 09:49 Blood Culture - Preliminary Blood
[2023-09-21 12:32] LABS: ALT 50 U/L (8-44); AST 109 U/L (13-35); Albumin/Globulin Ratio 0.83 Ratio (1.60-3.17); Alkaline Phosphatase 117 U/L (41-126); BUN/Creat Ratio 15.08 Ratio (12.00-20.00); Blood Urea Nitrogen 18.1 mg/dL (9.0-27.0); Calcium 8.4 mg/dL (8.7-10.3); Carbon Dioxide 25.7 mmol/L (21.6-31.8); Chloride 94 mmol/L (96-109); Globulin 3.6 g/dL (1.6-3.3); Glucose 101 mg/dL (70-110); Potassium 4.4 mmol/L (3.5-5.5); Sodium 132 mmol/L (135-145); Total Bilirubin 0.5 mg/dL (0.3-1.2); Total Protein 6.6 g/dL (6.2-8.2)
--- NOTE | 2023-09-21 12:53 | P.PN ---
Subjective Progress Note Date: 09/21/23 This is a 67-year-old female with chronic redness and swelling of her right nipple, which has been progressively getting worse. Patient has been noticing bleeding from her right breast nipple, and while evaluated in the ER she was noted to have a large mass which has been progressively getting worse apparently over the last 3 months. Upon evaluation in the ER, the patient was also noted to be tachycardic, with slightly elevated troponin of 0.035. Chest x-ray showed left lower lobe atelectasis, CT of the chest raised the possibility of a defect in the right upper lobe subsegmental branch. Considering the patient was complaining of some shortness of breath, and the patient was transferred to the ICU for further evaluation she was seen already by cardiology and by vascular surgery. I reviewed the CT of the chest, and I did not feel that the findings are specific for thromboembolic disease, not to mention that the CT angiogram is a very poor quality CT. Nonetheless it did show right breast mass, and right axillary lymph nodes highly suggestive of breast carcinoma with lymph node metastasis. After reviewing the CT of the chest, and after reviewing that the patient had negative venous Doppler, and considering the patient had bleeding from the right breast mass, I recommended stopping the heparin and hopefully sometime today and arrange for a VQ scan to put the issue to rest clinically this is not a presentation of pulmonary embolism. And again the CT of the chest does not seem very diagnostic. During my evaluation the patient no shortness of breath, no cough no wheezing and no chest pain. She was on 2 L nasal cannula and O2 saturation was 97%, and after reviewing the CT of the chest again, she does have left lower lobe atelectasis, doubt pneumonia involving the left lower lobe Reevaluated today on 09/19/23, patient remains in the ICU, doing fairly well, relatively asymptomatic, her VQ scan came back negative for pulmonary embolism/low probability as the patient does not need heparin which I have already cut discontinued yesterday. She is however on Lovenox for DVT prophylaxis and cardiology recommended metoprolol 12.5 twice a day for tachycardia. Seems to be mostly a sinus tachycardia. Patient remains on 4 L nasal cannula, O2 saturation is 96% up to 98%. WBC count is 6.2 hemoglobin 13.6 basic metabolic profile is normal and renal profile is normal. Patient was seen by general surgery consultation, and I recommended basically right axillary lymph node biopsy by interventional radiology, withdraw the not do breast biopsy at this point since there is a concern about bleeding from the fungating right breast mass. In the meantime the patient is hemodynamically stable, and I believe we can safely transfer the patient out of the ICU to a regular medical floor or a medical surgical floor with telemetry to keep an eye on her tachycardia, and metoprolol was added Seen today 09/20, patient remains in the ICU, however she is truly an overflow in the ICU, patient is being seen by many consultants, at initial presentation was a presentation of bleeding fungating right breast mass and a left lower lobe atelectasis, doubt pneumonia, patient had no pulmonary symptoms on her initial presentation, CT angiogram of the chest questioned pulmonary embolism and we felt that this is not truly the case. Venous Dopplers were negative, VQ scan was negative, hence the patient was taken off heparin which was initially started in the ER. Patient is morbidly obese, and she has significant left lower lobe atelectasis, doing very poorly with incentive spirometry, she is empirically on antibiotics in the form of Zosyn. She remains tachycardic with heart rate of 130, hemodynamically stable otherwise. Metoprolol dose was increased to 25 mg twice a day CBC showed no evidence of leukocytosis, hemoglobin is 13.2 basic metabolic profile is normal renal profile is normal, BNP level is normal 1 culture from the right breast is showing polymicrobial picture with presumptive staph, Proteus mirabilis, and beta hemolytic strep group C patient is being seen by infectious disease on consultation blood cultures are negative so far. The patient is seen today 09/21/2023 in follow-up on the oncology unit. She is currently resting comfortably in bed. Awake and alert in no acute distress. She is maintaining O2 saturations in the 90s on 4 L/m per nasal cannula. Chest x-ray reveals cardiomegaly and mild pulmonary vascular congestion. Right breast cultures are positive for beta-hemolytic strep group C, Proteus mirabilis and Staphylococcus aureus. She is currently on Zosyn. White count 7.9. Hemoglobin 14.1. Platelets 222. Sodium 132. Potassium 4.4. Bicarb 26. BUN 18. Creatinine 1.2. AST 109. ALT 50. Urinalysis with possible UTI. Culture pe nding. She is currently on Lovenox for DVT prophylaxis. Normal saline at KVO. Objective - Vital Signs Vital signs: Vital Signs Temp 97.4 F L 09/21/23 06:58 Pulse 121 H 09/21/23 06:58 Resp 16 09/21/23 06:58 BP 102/62 09/21/23 06:58 Pulse Ox 90 L 09/21/23 06:58 FiO2 Intake & Output 09/20/23 09/21/23 09/21/23 18:59 06:59 18:59 Intake Total 180 480 Output Total 275 500 Balance -95 -20 Intake: IV 180 240 Piperacillin-Tazobactam 3 100 200 .375 gm In Sodium Chloride 0.9% 100 ml @ 25 mls/hr IVPB Q8HR [facility] Rx# :[id number] Sodium Chloride 0.9% 1, 80 40 000 ml @ 10 mls/hr IV . Q24H [facility] Rx#:[id number] Oral 240 Output: Urine 275 500 Other: Voiding Method Indwelling Catheter Indwelling Catheter Indwelling Catheter - Exam GENERAL EXAM: Alert, 67-year-old female, on 4 L nasal cannula, fairly comfortable in no apparent distress. HEAD: Normocephalic. EYES: Normal reaction of pupils, equal size. NOSE: Clear with pink turbinates. THROAT: No erythema or exudates. NECK: No masses, no JVD. CHEST: Dressing to right breast dry and intact LUNGS: Equal air entry with few crackles in the posterior bases. CVS: S1 and S2 normal with no audible murmur, regular rhythm. ABDOMEN: No hepatosplenomegaly, normal bowel sounds, no guarding or rigidity. SPINE: No scoliosis or deformity SKIN: No rashes CENTRAL NERVOUS SYSTEM: No focal deficits, tone is normal in all 4 extremities. EXTREMITIES: There is no peripheral edema. No clubbing, no cyanosis. Peripheral pulses are intact. - Labs CBC & Chem 7: 09/21/23 07:32 09/21/23 07:32 Labs: Abnormal Lab Results - Last 24 Hours (Table) 09/21/23 09/21/23 09/21/23 Range/Units 07:32 07:32 07:32 MCV 101.8 H (80.0-97.0) FL MCHC 31.3 L (32.0-37.0) g/dL RDW 15.6 H (11.5-14.5) % Sodium 132 L (135-145) mmol/L Chloride 94 L (96-109) mmol/L Anion Gap 12.30 H (4.00-12.00) mmol/L Est GFR (CKD-EPI) 49 L (>=60) Calcium 8.4 L (8.7-10.3) mg/dL AST 109 H (13-35) U/L ALT 50 H (8-44) U/L Albumin 3.0 L (3.8-4.9) g/dL Globulin 3.6 H (1.6-3.3) g/dL Albumin/Globulin Ratio 0.83 L (1.60-3.17) Ratio TSH 5.990 H (0.350-5.500) UIU/ML Urine Appearance (Clear) Ur Specific [place] (1.001-1.035) Urine Protein (Negative) Urine Ketones (Negative) Urine Blood (Negative) Ur Leukocyte Esterase (Negative) Urine RBC (0-5) /hpf Urine WBC (0-5) /hpf Amorphous Sediment (None) /hpf Urine Mucus (None) /hpf Urine Yeast (Budding) (None) /hpf 09/21/23 Range/Units 08:33 MCV (80.0-97.0) FL MCHC (32.0-37.0) g/dL RDW (11.5-14.5) % Sodium (135-145) mmol/L Chloride (96-109) mmol/L Anion Gap (4.00-12.00) mmol/L Est GFR (CKD-EPI) (>=60) Calcium (8.7-10.3) mg/dL AST (13-35) U/L ALT (8-44) U/L Albumin (3.8-4.9) g/dL Globulin (1.6-3.3) g/dL Albumin/Globulin Ratio (1.60-3.17) Ratio TSH (0.350-5.500) UIU/ML Urine Appearance Cloudy H (Clear) Ur Specific [place] 1.042 H (1.001-1.035) Urine Protein 2+ H (Negative) Urine Ketones Trace H (Negative) Urine Blood Moderate H (Negative) Ur Leukocyte Esterase Moderate H (Negative) Urine RBC 46 H (0-5) /hpf Urine WBC 24 H (0-5) /hpf Amorphous Sediment Rare H (None) /hpf Urine Mucus Rare H (None) /hpf Urine Yeast (Budding) Occasional H (None) /hpf Microbiology - Last 24 Hours (Table) 09/17/23 10:10 Blood Culture - Preliminary Blood 09/17/23 10:20 Blood Culture - Preliminary Blood 09/17/23 10:20 Gram Stain - Preliminary Breast - Right Wound Culture - Preliminary Beta Hemolytic Strep Group C Proteus mirabilis Staphylococcus aureus 09/19/23 09:58 Blood Culture - Preliminary Blood 09/19/23 09:49 Blood Culture - Preliminary Blood Assessment and Plan Assessment: Fungating right Breast mass, highly suggestive of breast carcinoma with axillary lymph node metastasis. Acute hypoxic respiratory failure secondary to mostly atelectasis, and obesity. Patient may have obesity/hypoventilation syndrome. And significant left lower lobe atelectasis is noted on chest x-ray and CT of the chest. Pulmonary embolism was practically ruled out, VQ scan was reviewed. Low probability for pulmonary embolism. Chest x-ray reveals evidence of fluid volume overload. Morbid obesity Obesity hypoventilation syndrome Left lower lobe atelectasis, doubt pneumonia Cellulitis of right breast, polymicrobial culture Plan: The patient was seen and evaluated Chest x-ray, labs and medications reviewed Obtain an echocardiogram Give Lasix 40 mg IVP 1 Continue antibiotics per ID services Titrate the FiO2 as tolerated We will continue to follow and make further recommendations based on her clinical status. This patient was seen independently by the nurse practitioner I have personally seen and examined the patient, performed the documentation and the assessment and plan as written. Number of minutes spent on the visit: 24.
[2023-09-21] MEDS ORDERED: FUROSEMIDE 10 MG/ML 4 ML VIAL IV STA (12:54)
--- NOTE | 2023-09-21 13:45 | P.PN ---
Subjective Progress Note Date: 09/21/23 Hospital Course: Patient is a 67-year-old female with coronary artery disease and prior myocard ial infarction, who presented to the ER with complaints of right breast pain and breast lesion that started bleeding. In the ER she underwent an extensive evaluation. On arrival she was tachycardic to 140. Laboratory analysis included a CBC, coags, CMP, troponin, and urinalysis which were remarkable for sodium 135, potassium 3.3, glucose 139, bilirubin 1.4, AST 184, ALT 80, troponin 0.029. She underwent a chest x-ray which shows basilar increased density possibly reflecting atelectasis. She then underwent CT of the chest which noted a defect within the right upper lobe subsegmental branch with pulmonary embolism not excluded. Right breast carcinoma with skin thickening is partially imaged, right axillary lymphadenopathy. She was started on a heparin gtt and arrangements were made for admission. Pulm, oncology, and breast surgery were cosnulted. Over night she became hypoxic and required 10L high flow nasal cannula. She was subsequently transferred to the ICU. Oxygen requirements coming down. Negative VQ scan. Cardiology also following. Echocardiogram showed EF 50%. Also likely septic, intermittent fevers. ID also following, patient currently on Zosyn. Some evidence of pulmonary vascular congestion, also being diuresed. Subjective: Seen and examined at bedside. No acute events overnight. Slightly tachycardic and in respiratory distress. Denies any significant pain. Pertinent positives and negatives as discussed above, a complete review of systems was performed and all other systems are negative. Vitals Signs Reviewed. General: nontoxic, no distress, appears at stated age, obese Derm: warm, dry, lobulated necrotic fungating right-sided breast mass Head: atraumatic, normocephalic, symmetric Eyes: EOMI, no lid lag, anicteric sclera Mouth: no lip lesion, mucus membranes moist Cardiovascular: S1S2 reg, systolic murmur Lungs: Bilateral coarse breath sounds , no accessory muscle use, supplemental oxygen Abdominal: soft, nontender to palpation, no guarding, no appreciable organomegaly Ext: no gross muscle atrophy, no edema, no contractures Neuro: CN II-XI grossly intact, no focal neuro deficits Psych: Alert, oriented, appropriate affect Data Reviewed Today: Pertinent Labs: WBC 7.94, hemoglobin 14.1, sodium 132, creatinine 1.2, AST 109, ALT 50, TSH 5.99, free T4 1 0.08, urinalysis shows negative nitrites, positive Esterase Imaging: Chest x-ray independently interpreted, shows interstitial opacities and left pleural effusion, similar to yesterday EKG independently interpreted from this morning, shows sinus tachycardia CT abdomen and pelvis shows consolidation in left lung base, left pleural effusion, right-with enlarged nodes in the right chest wall potentially metastatic, mildly prominent lymph node in the posterior inferior left breast, gallbladder moderately distended with 1.9 cm gallstone in the neck, CBD mildly prominent, some thickening of the posterior distal rectal wall which may indicate neoplasia, mildly prominent nodule suggesting lymph node in the right upper quadrant and left upper quadrant disappeared to the stomach which may be metastatic. Assessment and Plan: Patient is critically ill, in medical ICU. Sepsis, unclear source, possibly infected breast tissue Acute hypoxic respiratory failure likely secondary to atelectasis Suspected obesity hypoventilation syndrome Acute diastolic heart failure exacerbation -Pulmonology note reviewed, given 40 of IV Lasix today -Pulmonary embolism ruled out in light of negative VQ scan -Continue to wean oxygen -Vascular surgery signed off -ID following, patient currently on IV Unasyn 3 g every 8 hours -Wound cultures growing beta hemolytic strep group C and gram negative bacilli -Continue local wound care -She also has gallstone in the neck of gallbladder 1.[address], right upper quadrant ultrasound ordered Sinus tachycardia NSTEMI, non-ischemic Elevated TSH, normal free T4 -Cardiology note reviewed, increase metoprolol to 50 mg twice a day -Pulmonology increase metoprolol to 25 twice a day -Consider aspirin and statin Fungating/necrotic right-sided breast measuring at least 4.6 cm -Pending nuclear med whole-body bone scan -Surgery and oncology following, likely IR guided biopsy of right axilla versus other distant site depending on the staging test Transaminitis, stable -Right upper quadrant ultrasound ordered Class III Obesity with BMI 60.6 - outpatient structured weight loss Hypokalemia - resolved DVT ppx: Lovenox Code status: Full code Anticipated discharge place: Pending clinical course Anticipated discharge time: Pending clinical course Objective - Vital Signs Vital signs: Vital Signs Temp 97.4 F L 09/21/23 06:58 Pulse 121 H 09/21/23 06:58 Resp 16 09/21/23 06:58 BP 102/62 09/21/23 06:58 Pulse Ox 90 L 09/21/23 06:58 FiO2 Intake & Output 09/20/23 09/21/23 09/21/23 18:59 06:59 18:59 Intake Total 180 480 Output Total 275 500 150 Balance -95 -20 -150 Intake: IV 180 240 Piperacillin-Tazobactam 3 100 200 .375 gm In Sodium Chloride 0.9% 100 ml @ 25 mls/hr IVPB Q8HR [facility] Rx# :[id number] Sodium Chloride 0.9% 1, 80 40 000 ml @ 10 mls/hr IV . Q24H [facility] Rx#:[id number] Oral 240 Output: Urine 275 500 150 Other: Voiding Method Indwelling Catheter Indwelling Catheter Indwelling Catheter - Labs CBC & Chem 7: 09/21/23 07:32 09/21/23 07:32 Labs: Abnormal Lab Results - Last 24 Hours (Table) 09/21/23 09/21/23 09/21/23 Range/Units 07:32 07:32 07:32 MCV 101.8 H (80.0-97.0) FL MCHC 31.3 L (32.0-37.0) g/dL RDW 15.6 H (11.5-14.5) % Sodium 132 L (135-145) mmol/L Chloride 94 L (96-109) mmol/L Anion Gap 12.30 H (4.00-12.00) mmol/L Est GFR (CKD-EPI) 49 L (>=60) Calcium 8.4 L (8.7-10.3) mg/dL AST 109 H (13-35) U/L ALT 50 H (8-44) U/L Albumin 3.0 L (3.8-4.9) g/dL Globulin 3.6 H (1.6-3.3) g/dL Albumin/Globulin Ratio 0.83 L (1.60-3.17) Ratio TSH 5.990 H (0.350-5.500) UIU/ML Urine Appearance (Clear) Ur Specific [place] (1.001-1.035) Urine Protein (Negative) Urine Ketones (Negative) Urine Blood (Negative) Ur Leukocyte Esterase (Negative) Urine RBC (0-5) /hpf Urine WBC (0-5) /hpf Amorphous Sediment (None) /hpf Urine Mucus (None) /hpf Urine Yeast (Budding) (None) /hpf 09/21/23 Range/Units 08:33 MCV (80.0-97.0) FL MCHC (32.0-37.0) g/dL RDW (11.5-14.5) % Sodium (135-145) mmol/L Chloride (96-109) mmol/L Anion Gap (4.00-12.00) mmol/L Est GFR (CKD-EPI) (>=60) Calcium (8.7-10.3) mg/dL AST (13-35) U/L ALT (8-44) U/L Albumin (3.8-4.9) g/dL Globulin (1.6-3.3) g/dL Albumin/Globulin Ratio (1.60-3.17) Ratio TSH (0.350-5.500) UIU/ML Urine Appearance Cloudy H (Clear) Ur Specific [place] 1.042 H (1.001-1.035) Urine Protein 2+ H (Negative) Urine Ketones Trace H (Negative) Urine Blood Moderate H (Negative) Ur Leukocyte Esterase Moderate H (Negative) Urine RBC 46 H (0-5) /hpf Urine WBC 24 H (0-5) /hpf Amorphous Sediment Rare H (None) /hpf Urine Mucus Rare H (None) /hpf Urine Yeast (Budding) Occasional H (None) /hpf Microbiology - Last 24 Hours (Table) 09/17/23 10:10 Blood Culture - Preliminary Blood 09/17/23 10:20 Blood Culture - Preliminary Blood 09/17/23 10:20 Gram Stain - Preliminary Breast - Right Wound Culture - Preliminary Beta Hemolytic Strep Group C Proteus mirabilis Staphylococcus aureus 09/19/23 09:58 Blood Culture - Preliminary Blood 09/19/23 09:49 Blood Culture - Preliminary Blood
[2023-09-21] MEDS: AMPICILLIN-SULBACTAM 3 GM in SODIUM CHLORIDE 0.9% 100 ML IVPB SCH ×2 (13:47→20:43)
--- NOTE | 2023-09-21 13:58 | NM ---
EXAMINATION TYPE: NM bone scan whole body DATE OF EXAM: 09/21/2023 1:29 PM CLINICAL INDICATION:Female, 67 years old with history of breast mass, liver enz elevation; COMPARISON: CT 09/20/2023. TECHNIQUE: Intravenous administration 25.0 mCi Tc 99m MDP followed by multiple scintigraphic images o f the appendicular and axial skeleton. Additionally, small field of view planar anterior and posterio r images of the lumbosacral spine and pelvis. Lastly, coronal, transverse, and sagittal SPECT images of the lumbosacral spine and pelvis were generated for review.Lastly, small [id number] anterior, p osterior and lateral views of the chest were submitted for review. Images acquired 5.25 hours post injection. FINDINGS: No abnormal uptake is identified within the appendicular or axial skeleton to suggest metastatic dise ase. There is increased uptake within the bilateral shoulder, sternoclavicular, and sacroiliac joints con sistent with degenerative changes. No other photopenic areas or areas of increased activity are ident ified. Physiologic radiotracer activity is demonstrated in the kidneys and bladder. IMPRESSION: Nothing to suggest metastatic disease.
--- NOTE | 2023-09-21 14:04 | P.PN ---
Subjective Progress Note Date: 09/21/23 Principal diagnosis: breast mass At today's visit patient is resting comfortably in bed. Patient denies pain. She is reporting significant fatigue. Fever 103.1 this morning. Continues on IV abx. Bone scan scheduled for today Objective - Vital Signs Vital signs: Vital Signs Temp 97.4 F L 09/21/23 06:58 Pulse 121 H 09/21/23 06:58 Resp 16 09/21/23 06:58 BP 102/62 09/21/23 06:58 Pulse Ox 90 L 09/21/23 06:58 FiO2 Intake & Output 09/20/23 09/21/23 09/21/23 18:59 06:59 18:59 Intake Total 180 480 Output Total 275 500 Balance -95 -20 Intake: IV 180 240 Piperacillin-Tazobactam 3 100 200 .375 gm In Sodium Chloride 0.9% 100 ml @ 25 mls/hr IVPB Q8HR [facility] Rx# :[id number] Sodium Chloride 0.9% 1, 80 40 000 ml @ 10 mls/hr IV . Q24H [facility] Rx#:[id number] Oral 240 Output: Urine 275 500 Other: Voiding Method Indwelling Catheter Indwelling Catheter Indwelling Catheter - Constitutional General appearance: Present: no acute distress, obese - EENT Eyes: Present: anicteric sclerae, EOMI ENT: Present: hearing grossly normal - Respiratory Details: breathing even and unlabored - Cardiovascular Details: skin warm and dry - Integumentary Integumentary: Absent: cyanotic - Musculoskeletal Musculoskeletal: Present: generalized weakness - Psychiatric Psychiatric: Present: A&O x's 3 - Labs CBC & Chem 7: 09/21/23 07:32 09/21/23 07:32 Labs: Abnormal Lab Results - Last 24 Hours (Table) 09/21/23 09/21/23 09/21/23 Range/Units 07:32 07:32 07:32 MCV 101.8 H (80.0-97.0) FL MCHC 31.3 L (32.0-37.0) g/dL RDW 15.6 H (11.5-14.5) % Sodium 132 L (135-145) mmol/L Chloride 94 L (96-109) mmol/L Anion Gap 12.30 H (4.00-12.00) mmol/L Est GFR (CKD-EPI) 49 L (>=60) Calcium 8.4 L (8.7-10.3) mg/dL AST 109 H (13-35) U/L ALT 50 H (8-44) U/L Albumin 3.0 L (3.8-4.9) g/dL Globulin 3.6 H (1.6-3.3) g/dL Albumin/Globulin Ratio 0.83 L (1.60-3.17) Ratio TSH 5.990 H (0.350-5.500) UIU/ML Urine Appearance (Clear) Ur Specific [place] (1.001-1.035) Urine Protein (Negative) Urine Ketones (Negative) Urine Blood (Negative) Ur Leukocyte Esterase (Negative) Urine RBC (0-5) /hpf Urine WBC (0-5) /hpf Amorphous Sediment (None) /hpf Urine Mucus (None) /hpf Urine Yeast (Budding) (None) /hpf 09/21/23 Range/Units 08:33 MCV (80.0-97.0) FL MCHC (32.0-37.0) g/dL RDW (11.5-14.5) % Sodium (135-145) mmol/L Chloride (96-109) mmol/L Anion Gap (4.00-12.00) mmol/L Est GFR (CKD-EPI) (>=60) Calcium (8.7-10.3) mg/dL AST (13-35) U/L ALT (8-44) U/L Albumin (3.8-4.9) g/dL Globulin (1.6-3.3) g/dL Albumin/Globulin Ratio (1.60-3.17) Ratio TSH (0.350-5.500) UIU/ML Urine Appearance Cloudy H (Clear) Ur Specific [place] 1.042 H (1.001-1.035) Urine Protein 2+ H (Negative) Urine Ketones Trace H (Negative) Urine Blood Moderate H (Negative) Ur Leukocyte Esterase Moderate H (Negative) Urine RBC 46 H (0-5) /hpf Urine WBC 24 H (0-5) /hpf Amorphous Sediment Rare H (None) /hpf Urine Mucus Rare H (None) /hpf Urine Yeast (Budding) Occasional H (None) /hpf Microbiology - Last 24 Hours (Table) 09/17/23 10:10 Blood Culture - Preliminary Blood 09/17/23 10:20 Blood Culture - Preliminary Blood 09/17/23 10:20 Gram Stain - Preliminary Breast - Right Wound Culture - Preliminary Beta Hemolytic Strep Group C Proteus mirabilis Staphylococcus aureus 09/19/23 09:58 Blood Culture - Preliminary Blood 09/19/23 09:49 Blood Culture - Preliminary Blood - Imaging and Cardiology CT scan - abdomen: report reviewed CT scan - pelvis: report reviewed Assessment and Plan (1) Breast abscess Current Visit: Yes Status: Acute Priority: High Code(s): N61.1 - ABSCESS OF THE BREAST AND NIPPLE SNOMED Code(s): 64580833 (2) Breast mass, right Current Visit: Yes Status: Acute Priority: High Code(s): N63.10 - UNSPECIFIED LUMP IN THE RIGHT BREAST, UNSPECIFIED QUADRANT SNOMED Code(s): 57293533 (3) Hypoxia Current Visit: Yes Status: Acute Priority: High Code(s): R09.02 - HYPOXEMIA SNOMED Code(s): 218991807 Plan: Breast mass, right: -Physical exam findings, as well as imaging are quite compatible with a large right breast malignancy, with right axillary node involvement. 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 They were advised that we need a tissue diagnosis for confirmation, as well as testing for marker status. The patient appears to have at least locally advanced disease, with a definite possibility of metastatic disease also. In this situation the mainstay of treatment in the first line, in case of nonmetastatic disease would be neoadjuvant systemic therapy, and systemic therapy in case of existing metastatic disease. - Major surgical intervention should therefore be avoided as much as possible, in case of metastatic disease, and upfront in case of locally advanced disease. The only indication for the same would be if the patient had a intractable, significantly symptomatic issue for which emergent surgical intervention would be required, such as major ongoing bleeding. - On examination there does not seem to be the case. Therefore in my opinion, it would be best to proceed with tissue diagnosis through biopsy, and continue local wound care, and ordered additional staging studies. - The above was also discussed in detail with the admitting service, and the surgical service, who were in agreement. IR consult was placed for right axillary node biopsy. - CA 15-3 normal at 17.8, CA 27.29 pending - Additional staging with CT scan of the abdomen and pelvis and bone scan were ordered. Bone scan scheduled for today. CT AP revealed a worsening consolidative opacity in the left lung base with small left pleural effusion. Portion of known right breast mass and skin thickening noted. Enlarged nodes in the right chest wall, measuring 1.0cm and 2.6 x 1.6cm, and inferior left breast lymph node measuring 1.3cm. Diffusely heterogeneous liver without evidence of discrete mass. Gallbladder moderately distended with 1.9 cm gallstone in the neck. Clonic diverticular disease. Some thickening of the posterior distal rectal wall cannot be excluded. Mildly prominent nodule suggesting lymph node in the right upper quadrant and suspected small nodular density in the left upper quadrant just superior to the stomach, however not well visualized on imaging and are nonspecific. -If bone scan is negative for metastatic disease, will need to obtain PET CT outpt Hypoxia: -Because of the same appears to be somewhat unclear at this time. It was initially attributed to the probable PE reported on CT angiogram. However from my discussion with the admitting service, the findings on further evaluation by pulmonary medicine, were not felt to be convincing for the same. Therefore VQ scan was ordered, revealing low probability of PE. Heparin discontinued. Continues on lovenox, prophylactic dose. -Cardiac etiology may be possible. Cardiology following
--- NOTE | 2023-09-21 18:34 | P.PN ---
Subjective Progress Note Date: 09/20/23 Principal diagnosis: Reason for follow up is right breast infected wound Patient is a 67-year-old female with a past medical history significant for CVA TIA hypertension morbid obesity presenting to the hospital for evaluation of right breast pain, patient has been diagnosed with a fungating tumor with a wound and concern for infection. On today's evaluation that is 09/20/2023, the patient denies any fever or any chills, the patient is breathing comfortably on 4 L nasal cannula supplemental oxygen, patient denies chest pain shortness of breath and no significant cough or sputum production, patient denies Abdominal pain, no nausea/vomiting and denies having any diarrhea. Patient did have a white count of 5.9 creatinine 1.02 Objective - Vital Signs Vital signs: Vital Signs Temp 98.3 F 09/20/23 04:00 Pulse 86 09/20/23 07:00 Resp 16 09/20/23 07:00 BP 103/63 09/20/23 07:00 Pulse Ox 94 L 09/20/23 07:00 FiO2 Intake & Output 09/19/23 09/20/23 09/20/23 18:59 06:59 18:59 Intake Total 10 90 10 Output Total 1160 460 25 Balance -1150 -370 -15 Weight 147 kg Intake: IV 10 90 10 Sodium Chloride 0.9% 1, 10 90 10 000 ml @ 10 mls/hr IV . Q24H [facility] Rx#:[id number] Output: Urine 1160 460 25 Other: Voiding Method Indwelling Catheter Indwelling Catheter - Exam GENERAL DESCRIPTION: An elderly female lying in bed in no distress RESPIRATORY SYSTEM: Unlabored breathing , decreased breath sound the bases HEART: S1 S2 regular rate and rhythm , ABDOMEN: Soft , no tenderness EXTREMITIES: Diffuse swelling bilateral lower extremity no redness - Labs CBC & Chem 7: 09/21/23 07:32 09/21/23 07:32 Labs: Abnormal Lab Results - Last 24 Hours (Table) 09/20/23 09/20/23 Range/Units 05:44 05:44 MCV 101.5 H (80.0-100.0) fL Sodium 132 L (137-145) mmol/L Chloride 94 L (98-107) mmol/L Carbon Dioxide 31 H (22-30) mmol/L Calcium 8.1 L (8.4-10.2) mg/dL AST 91 H (14-36) U/L ALT 47 H (4-34) U/L Albumin 2.9 L (3.5-5.0) g/dL Microbiology - Last 24 Hours (Table) 09/17/23 10:10 Blood Culture - Preliminary Blood 09/17/23 10:20 Blood Culture - Preliminary Blood 09/17/23 10:20 Gram Stain - Preliminary Breast - Right Wound Culture - Preliminary Beta Hemolytic Strep Group C Proteus mirabilis Presumptive Staph aureus Assessment and Plan (1) Fever Current Visit: Yes Status: Acute Code(s): R50.9 - FEVER, UNSPECIFIED SNOMED Code(s): 894706306 (2) Mastitis Current Visit: Yes Status: Acute Code(s): N61.0 - MASTITIS WITHOUT ABSCESS SNOMED Code(s): 847777835 Plan: 1patient presented to hospital with large right breast mass with some bleeding, in this patient who is running low-grade fever and was tachycardic and concern for possible infected right breast wound with underlying malignancy versus pneumonia less likely 2-blood cultures have been negative so far and local culture currently growing strep Proteus and Staphylococcus aureus 3-patient to continue with the Zosyn 3.375 g. Every 8 hours waiting for the culture to finalize Dictation was produced using [employer] dictation software. please excuse any grammatical, word or spelling errors. Time with Patient: Less than 30
--- NOTE | 2023-09-21 18:37 | P.PN ---
Subjective Progress Note Date: 09/21/23 Principal diagnosis: Reason for follow up is right breast infected wound Patient is a 67-year-old female with a past medical history significant for CVA TIA hypertension morbid obesity presenting to the hospital for evaluation of right breast pain, patient has been diagnosed with a fungating tumor with a wound and concern for infection. On today's evaluation that is 09/21/2023, the patient did spike a fever of 103F around 2 AM , the patient is breathing comfortably on 4 L nasal cannula oxygen and denies any shortness of breath, the patient denies any chest pain, no significant cough or sputum production, patient denies nausea/vomiting /diarrhea and no abdominal pain, denies any worsening pain to the right breast area Patient did have a white count of 7.94, creatinine is 1.2 urine is positive, chest x-ray cardiomegaly and pulmonary vascular congestion Objective - Vital Signs Vital signs: Vital Signs Temp 97.4 F L 09/21/23 06:58 Pulse 121 H 09/21/23 06:58 Resp 16 09/21/23 06:58 BP 102/62 09/21/23 06:58 Pulse Ox 90 L 09/21/23 06:58 FiO2 Intake & Output 09/20/23 09/21/23 09/21/23 18:59 06:59 18:59 Intake Total 180 480 Output Total 275 500 Balance -95 -20 Intake: IV 180 240 Piperacillin-Tazobactam 3 100 200 .375 gm In Sodium Chloride 0.9% 100 ml @ 25 mls/hr IVPB Q8HR [facility] Rx# :[id number] Sodium Chloride 0.9% 1, 80 40 000 ml @ 10 mls/hr IV . Q24H [facility] Rx#:[id number] Oral 240 Output: Urine 275 500 Other: Voiding Method Indwelling Catheter Indwelling Catheter Indwelling Catheter - Exam GENERAL DESCRIPTION: An elderly female lying in bed in no distress RESPIRATORY SYSTEM: Unlabored breathing , decreased breath sound the bases HEART: S1 S2 regular rate and rhythm , ABDOMEN: Soft , no tenderness EXTREMITIES: Diffuse swelling bilateral lower extremity no redness - Labs CBC & Chem 7: 09/21/23 07:32 09/21/23 07:32 Labs: Abnormal Lab Results - Last 24 Hours (Table) 09/21/23 09/21/23 09/21/23 Range/Units 07:32 07:32 07:32 MCV 101.8 H (80.0-97.0) FL MCHC 31.3 L (32.0-37.0) g/dL RDW 15.6 H (11.5-14.5) % Sodium 132 L (135-145) mmol/L Chloride 94 L (96-109) mmol/L Anion Gap 12.30 H (4.00-12.00) mmol/L Est GFR (CKD-EPI) 49 L (>=60) Calcium 8.4 L (8.7-10.3) mg/dL AST 109 H (13-35) U/L ALT 50 H (8-44) U/L Albumin 3.0 L (3.8-4.9) g/dL Globulin 3.6 H (1.6-3.3) g/dL Albumin/Globulin Ratio 0.83 L (1.60-3.17) Ratio TSH 5.990 H (0.350-5.500) UIU/ML Urine Appearance (Clear) Ur Specific [place] (1.001-1.035) Urine Protein (Negative) Urine Ketones (Negative) Urine Blood (Negative) Ur Leukocyte Esterase (Negative) Urine RBC (0-5) /hpf Urine WBC (0-5) /hpf Amorphous Sediment (None) /hpf Urine Mucus (None) /hpf Urine Yeast (Budding) (None) /hpf 09/21/23 Range/Units 08:33 MCV (80.0-97.0) FL MCHC (32.0-37.0) g/dL RDW (11.5-14.5) % Sodium (135-145) mmol/L Chloride (96-109) mmol/L Anion Gap (4.00-12.00) mmol/L Est GFR (CKD-EPI) (>=60) Calcium (8.7-10.3) mg/dL AST (13-35) U/L ALT (8-44) U/L Albumin (3.8-4.9) g/dL Globulin (1.6-3.3) g/dL Albumin/Globulin Ratio (1.60-3.17) Ratio TSH (0.350-5.500) UIU/ML Urine Appearance Cloudy H (Clear) Ur Specific [place] 1.042 H (1.001-1.035) Urine Protein 2+ H (Negative) Urine Ketones Trace H (Negative) Urine Blood Moderate H (Negative) Ur Leukocyte Esterase Moderate H (Negative) Urine RBC 46 H (0-5) /hpf Urine WBC 24 H (0-5) /hpf Amorphous Sediment Rare H (None) /hpf Urine Mucus Rare H (None) /hpf Urine Yeast (Budding) Occasional H (None) /hpf Microbiology - Last 24 Hours (Table) 09/17/23 10:10 Blood Culture - Preliminary Blood 09/17/23 10:20 Blood Culture - Preliminary Blood 09/17/23 10:20 Gram Stain - Preliminary Breast - Right Wound Culture - Preliminary Beta Hemolytic Strep Group C Proteus mirabilis Staphylococcus aureus 09/19/23 09:58 Blood Culture - Preliminary Blood 09/19/23 09:49 Blood Culture - Preliminary Blood Assessment and Plan (1) Fever Current Visit: Yes Status: Acute Code(s): R50.9 - FEVER, UNSPECIFIED SNOMED Code(s): 198013441 (2) Mastitis Current Visit: Yes Status: Acute Code(s): N61.0 - MASTITIS WITHOUT ABSCESS SNOMED Code(s): 878456385 Plan: 1patient presented to hospital with large right breast mass with some bleeding, in this patient who is running low-grade fever and was tachycardic and concern for possible infected right breast wound with underlying malignancy versus pneumonia less likely 2-blood cultures have been negative so far and local culture currently growing strep Proteus and Staphylococcus aureus 3-patient antibiotics has been adjusted to Unasyn on the basis of sensitivity, with a new fever we will repeat her blood cultures, also check covid PCR dictation was produced using [employer] dictation software. please excuse any grammatical, word or spelling errors. Time with Patient: Less than 30
[2023-09-21] MEDS: MELATONIN 3 MG TABLET PO PRN (20:42)
[2023-09-21] MEDS: METOPROLOL TARTRATE 50 MG TAB PO SCH (20:43)
--- NOTE | 2023-09-21 21:06 | P.EN ---
notified by RN , Patient covid test positive reviewing her medical record. she is requiring supplemental oxygen ID following , pulmonary following will initiate decadrone 6 mg PO daily for 10 doses check D dimer start pharmacologic DVT PPX with lovenox 40 mg sc daily , If D dimer comes back >3 , will consider full anticoagulation
[2023-09-21] MEDS: dexAMETHasone 2 MG TAB PO SCH (21:21)
[2023-09-22] MEDS: MORPHINE SULFATE 4 MG/ML SYRINGE IVP PRN ×2 (03:12→22:33)
[2023-09-22] MEDS: AMPICILLIN-SULBACTAM 3 GM in SODIUM CHLORIDE 0.9% 100 ML IVPB SCH ×3 (04:12→19:42)
[2023-09-22] MEDS: SODIUM CHLORIDE 0.9% 1,000 ML IV SCH (04:12)
[2023-09-22] MEDS: dexAMETHasone 2 MG TAB PO SCH (09:01)
[2023-09-22] MEDS: METOPROLOL TARTRATE 50 MG TAB PO SCH ×2 (09:01→19:42)
[2023-09-22] MEDS: ENOXAPARIN 40 MG/0.4 ML SYRINGE SQ SCH (09:01)
[2023-09-22] MEDS: NYSTATIN 100,000 UNIT/GM POWD 15 GM TOPICAL SCH ×3 (09:37→19:41)
--- NOTE | 2023-09-22 09:47 | US ---
EXAMINATION TYPE: US abdomen limited DATE OF EXAM: 09/22/2023 COMPARISON: CT 09/20/2023 CLINICAL INDICATION: Female, 67 years old with history of sepsis; morbidly obese TECHNIQUE: Multiple sonographic images of the right upper quadrant are obtained. FINDINGS: EXAM MEASUREMENTS: Liver Length: 18.6 cm Gallbladder Wall: 0.3 cm CBD: 1.0 cm Right Kidney: 9.4 x 4.3 x 4.3 cm [employer] NOTES:morbidly obese patient with bowel gas Pancreas: not seen due to gas Liver: very limited views due to habitus and bowel gas Gallbladder: 2.1cm neck stone with irregularities seen along wall Evidence for sonographic Truong's sign: no CBD: wnl Right Kidney: wnl IMPRESSION: Gallstone stuck within the gallbladder neck. Correlate for signs and symptoms of cholecystitis/cystic duct obstruction.
--- NOTE | 2023-09-22 11:21 | P.PN ---
Subjective Progress Note Date: 09/22/23 Principal diagnosis: Shortness of breath, breast cancer. This is a 67-year-old female with chronic redness and swelling of her right nipple, which has been progressively getting worse. Patient has been noticing bleeding from her right breast nipple, and while evaluated in the ER she was noted to have a large mass which has been progressively getting worse apparently over the last 3 months. Upon evaluation in the ER, the patient was also noted to be tachycardic, with slightly elevated troponin of 0.035. Chest x-ray showed left lower lobe atelectasis, CT of the chest raised the possibility of a defect in the right upper lobe subsegmental branch. Considering the patient was complaining of some shortness of breath, and the patient was transferred to the ICU for further evaluation she was seen already by cardiology and by vascular surgery. I reviewed the CT of the chest, and I did not feel that the findings are specific for thromboembolic disease, not to mention that the CT angiogram is a very poor quality CT. Nonetheless it did show right breast mass, and right axillary lymph nodes highly suggestive of breast carcinoma with lymph node metastasis. After reviewing the CT of the chest, and after reviewing that the patient had negative venous Doppler, and considering the patient had bleeding from the right breast mass, I recommended stopping the heparin and hopefully sometime today and arrange for a VQ scan to put the issue to rest clinically this is not a presentation of pulmonary embolism. And again the CT of the chest does not seem very diagnostic. During my evaluation the patient no shortness of breath, no cough no wheezing and no chest pain. She was on 2 L nasal cannula and O2 saturation was 97%, and after reviewing the CT of the chest again, she does have left lower lobe atelectasis, doubt pneumonia involving the left lower lobe Reevaluated today on 09/19/23, patient remains in the ICU, doing fairly well, relatively asymptomatic, her VQ scan came back negative for pulmonary embolism/low probability as the patient does not need heparin which I have already cut discontinued yesterday. She is however on Lovenox for DVT prophylaxis and cardiology recommended metoprolol 12.5 twice a day for tachycardia. Seems to be mostly a sinus tachycardia. Patient remains on 4 L nasal cannula, O2 saturation is 96% up to 98%. WBC count is 6.2 hemoglobin 13.6 basic metabolic profile is normal and renal profile is normal. Patient was seen by general surgery consultation, and I recommended basically right axillary lymph node biopsy by interventional radiology, withdraw the not do breast biopsy at this point since there is a concern about bleeding from the fungating right breast mass. In the meantime the patient is hemodynamically stable, and I believe we can safely transfer the patient out of the ICU to a regular medical floor or a medical surgical floor with telemetry to keep an eye on her tachycardia, and metoprolol was added Seen today 09/20, patient remains in the ICU, however she is truly an overflow in the ICU, patient is being seen by many consultants, at initial presentation was a presentation of bleeding fungating right breast mass and a left lower lobe atelectasis, doubt pneumonia, patient had no pulmonary symptoms on her initial presentation, CT angiogram of the chest questioned pulmonary embolism and we felt that this is not truly the case. Venous Dopplers were negative, VQ scan was negative, hence the patient was taken off heparin which was initially started in the ER. Patient is morbidly obese, and she has significant left lower lobe atelectasis, doing very poorly with incentive spirometry, she is empi rically on antibiotics in the form of Zosyn. She remains tachycardic with heart rate of 130, hemodynamically stable otherwise. Metoprolol dose was increased to 25 mg twice a day CBC showed no evidence of leukocytosis, hemoglobin is 13.2 basic metabolic profile is normal renal profile is normal, BNP level is normal 1 culture from the right breast is showing polymicrobial picture with presumptive staph, Proteus mirabilis, and beta hemolytic strep group C patient is being seen by infectious disease on consultation blood cultures are negative so far. The patient is seen today 09/21/2023 in follow-up on the oncology unit. She is currently resting comfortably in bed. Awake and alert in no acute distress. She is maintaining O2 saturations in the 90s on 4 L/m per nasal cannula. Chest x-ray reveals cardiomegaly and mild pulmonary vascular congestion. Right breast cultures are positive for beta-hemolytic strep group C, Proteus mirabilis and Staphylococcus aureus. She is currently on Zosyn. White count 7.9. Hemoglobin 14.1. Platelets 222. Sodium 132. Potassium 4.4. Bicarb 26. BUN 18. Creatinine 1.2. AST 109. ALT 50. Urinalysis with possible UTI. Culture pending. She is currently on Lovenox for DVT prophylaxis. Normal saline at KVO. Progress note dated 09/22/2023. The patient was transferred to room 350, because apparently she tested positive for coronavirus. Currently, she is on 4 L of oxygen. Getting saline at 10 mL an hour. The patient had a bone scan that was negative. A chest x-ray was ordered for September 23. No new labs today. Her last d-dimer was 1.37. The patient is being followed by medical oncology, and their impression is that she has a large right breast malignancy, with right axillary node involvement. Objective - Vital Signs Vital signs: Vital Signs Temp 99.1 F 09/22/23 08:00 Pulse 124 H 09/22/23 08:00 Resp 18 09/22/23 08:00 BP 139/88 09/22/23 08:00 Pulse Ox 92 L 09/22/23 09:35 FiO2 Intake & Output 09/21/23 09/22/23 09/22/23 18:59 06:59 18:59 Output Total 500 550 Balance -500 -550 Output: Urine 500 550 Other: Voiding Method Indwelling Catheter Indwelling Catheter Indwelling Catheter - Exam No acute distress, oriented 3. Currently on 4 L of oxygen. No respiratory distress. No use of accessory muscles. HEENT examination is grossly unremarkable. Mucous membranes are moist. No oral lesions. Neck supple. Full range of motion. No adenopathy thyromegaly or neck vein distention. Cardiovascular examination reveals regular rhythm rate. S1-S2 normal. No S3 or S4. No discernible murmur noted. Heart rate is 90 bpm. Lungs reveal scattered rhonchi. No wheezes or crackles. Breath sounds are equal bilaterally. 4 L saturation is 93%. Abdomen obese, but soft. Bowel sounds are noted. No tenderness. Extremities are intact. No cyanosis clubbing or edema. Skin is without rash or lesion. Neurologic examination is brief but nonfocal. - Labs CBC & Chem 7: 09/21/23 07:32 09/21/23 07:32 Labs: Abnormal Lab Results - Last 24 Hours (Table) 09/21/23 09/21/23 09/21/23 Range/Units 07:32 07:32 19:55 D-Dimer (<0.60) mg/L FEU Sodium 132 L (135-145) mmol/L Chloride 94 L (96-109) mmol/L Anion Gap 12.30 H (4.00-12.00) mmol/L Est GFR (CKD-EPI) 49 L (>=60) Calcium 8.4 L (8.7-10.3) mg/dL AST 109 H (13-35) U/L ALT 50 H (8-44) U/L Albumin 3.0 L (3.8-4.9) g/dL Globulin 3.6 H (1.6-3.3) g/dL Albumin/Globulin Ratio 0.83 L (1.60-3.17) Ratio TSH 5.990 H (0.350-5.500) UIU/ML SARS-CoV-2 (PCR) Detected A (Not Detectd) 09/21/23 Range/Units 21:31 D-Dimer 1.37 H (<0.60) mg/L FEU Sodium (135-145) mmol/L Chloride (96-109) mmol/L Anion Gap (4.00-12.00) mmol/L Est GFR (CKD-EPI) (>=60) Calcium (8.7-10.3) mg/dL AST (13-35) U/L ALT (8-44) U/L Albumin (3.8-4.9) g/dL Globulin (1.6-3.3) g/dL Albumin/Globulin Ratio (1.60-3.17) Ratio TSH (0.350-5.500) UIU/ML SARS-CoV-2 (PCR) (Not Detectd) Microbiology - Last 24 Hours (Table) 09/19/23 09:58 Blood Culture - Preliminary Blood 09/19/23 09:49 Blood Culture - Preliminary Blood Assessment and Plan Assessment: Fungating right breast mass, highly suggestive of breast carcinoma with axillary lymph node metastasis. Acute hypoxic respiratory failure secondary to mostly atelectasis, and obesity. Patient may have obesity/hypoventilation syndrome. And significant left lower lobe atelectasis is noted on chest x-ray and CT of the chest. Pulmonary embolism was ruled out, VQ scan was reviewed. Low probability for pulmonary embolism. Chest x-ray reveals evidence of fluid volume overload. Patient tested positive for coronavirus, doubt coronavirus associated pneumonia. Morbid obesity. Obesity/hypoventilation syndrome. Left lower lobe atelectasis, doubt pneumonia. Cellulitis of right breast, polymicrobial culture . Plan: Plan dated 09/22/2023. The patient tested positive for coronavirus, and was transferred down to room 350, and is currently on 4 L of oxygen. Labs, x-rays, and medications are reviewed. The patient was given Lasix yesterday, because we are concerned about fluid overload. The patient continues on Unasyn, as per infectious disease recommendation. We will continue to follow and make recommendations along the way. She does continue on Decadron 6 mg daily. Prognosis is certainly guarded. Time with Patient: Less than 30
[2023-09-22] MEDS: ACETAMINOPHEN TAB 325 MG TAB PO PRN ×2 (11:37→19:41)
[2023-09-22 11:51] LABS: Basophils % (A) 0 %; Eosinophils # (A) 0.1 k/uL (0-0.7); Eosinophils % (A) 1 %; HGB 14.4 gm/dL (11.4-16.0); Hypochromasia Marked; Lymphocytes # (A) 0.6 k/uL (1.0-4.8); Lymphocytes % (A) 5 %; MCH 32.2 pg (25.0-35.0); MCHC 31.2 g/dL (31.0-37.0); Macrocytosis Slight; Mean Platelet Volume 7.7; Monocytes # (A) 0.4 k/uL (0-1.0); Monocytes % (A) 3 %; Neutrophils % (A) 90 %; Platelet Count 238 k/uL (150-450); RBC 4.47 m/uL (3.80-5.40); RDW 14.5 % (11.5-15.5)
[2023-09-22 12:04] LABS: African American GFR (CKD) 63 (>60 ml/min/1.73 sqM); Anion Gap 5 mmol/L; Blood Urea Nitrogen 25 mg/dL (7-17); Calcium 8.4 mg/dL (8.4-10.2); Carbon Dioxide 32 mmol/L (22-30); Chloride 96 mmol/L (98-107); Glucose 105 mg/dL (74-99); Non-African American GFR(CKD) 54 (>60 ml/min/1.73 sqM); Sodium 133 mmol/L (137-145)
[2023-09-22 12:22] LABS: Potassium 4.8 mmol/L (3.5-5.1)
[2023-09-22 14:08] VITALS: BMI 65.4
--- NOTE | 2023-09-22 15:11 | P.PN ---
Subjective Progress Note Date: 09/22/23 Principal diagnosis: Reason for follow up is right breast infected wound Patient is a 67-year-old female with a past medical history significant for CVA TIA hypertension morbid obesity presenting to the hospital for evaluation of right breast pain, patient has been diagnosed with a fungating tumor with a wound and concern for infection. On today's evaluation that is 09/22/2023, the patient did spike a fever of 101.6F around 1135 AM , the patient is breathing comfortably on 4 L nasal cannula oxygen and denies any shortness of breath, the patient denies any chest pain, did have occasional dry cough but no sputum production, patient denies nausea/vomiting /diarrhea and no abdominal pain, the patient denies any worsening pain to the right breast area Patient did have a white count of 11,000, creatinine is 1.05 urine is positive, chest x-ray cardiomegaly and pulmonary vascular congestion, patient covid 19 PCR came back positive Objective - Vital Signs Vital signs: Vital Signs Temp 99.4 F 09/22/23 13:28 Pulse 120 H 09/22/23 11:35 Resp 16 09/22/23 11:35 BP 152/92 09/22/23 11:35 Pulse Ox 92 L 09/22/23 11:35 FiO2 Intake & Output 09/21/23 09/22/23 09/22/23 18:59 06:59 18:59 Output Total 500 550 Balance -500 -550 Weight 147 kg Output: Urine 500 550 Other: Voiding Method Indwelling Catheter Indwelling Catheter Indwelling Catheter - Exam GENERAL DESCRIPTION: An elderly female lying in bed in no distress RESPIRATORY SYSTEM: Unlabored breathing , decreased breath sound the bases HEART: S1 S2 regular rate and rhythm , ABDOMEN: Soft , no tenderness EXTREMITIES: Diffuse swelling bilateral lower extremity no redness - Labs CBC & Chem 7: 09/22/23 11:38 09/22/23 11:38 Labs: Abnormal Lab Results - Last 24 Hours (Table) 09/21/23 09/21/23 09/22/23 Range/Units 19:55 21:31 11:38 WBC 11.0 H (3.8-10.6) k/uL MCV 103.0 H (80.0-100.0) fL Neutrophils # 10.0 H (1.3-7.7) k/uL Lymphocytes # 0.6 L (1.0-4.8) k/uL D-Dimer 1.37 H (<0.60) mg/L FEU Sodium (137-145) mmol/L Chloride (98-107) mmol/L Carbon Dioxide (22-30) mmol/L BUN (7-17) mg/dL Creatinine (0.52-1.04) mg/dL Glucose (74-99) mg/dL SARS-CoV-2 (PCR) Detected A (Not Detectd) 09/22/23 Range/Units 11:38 WBC (3.8-10.6) k/uL MCV (80.0-100.0) fL Neutrophils # (1.3-7.7) k/uL Lymphocytes # (1.0-4.8) k/uL D-Dimer (<0.60) mg/L FEU Sodium 133 L (137-145) mmol/L Chloride 96 L (98-107) mmol/L Carbon Dioxide 32 H (22-30) mmol/L BUN 25 H (7-17) mg/dL Creatinine 1.05 H (0.52-1.04) mg/dL Glucose 105 H (74-99) mg/dL SARS-CoV-2 (PCR) (Not Detectd) Microbiology - Last 24 Hours (Table) 09/19/23 09:58 Blood Culture - Preliminary Blood 09/19/23 09:49 Blood Culture - Preliminary Blood Assessment and Plan (1) Fever Current Visit: Yes Status: Acute Code(s): R50.9 - FEVER, UNSPECIFIED SNOMED Code(s): 590363344 (2) Mastitis Current Visit: Yes Status: Acute Code(s): N61.0 - MASTITIS WITHOUT ABSCESS SNOMED Code(s): 322568331 (3) COVID-19 Current Visit: Yes Status: Acute Code(s): U07.1 - COVID-19 SNOMED Code(s): 147380204 Plan: 1patient presented to hospital with large right breast mass with some bleeding, in this patient who is running low-grade fever and was tachycardic and concern for possible infected right breast wound with underlying malignancy versus pneumonia less likely 2-blood cultures have been negative so far and local culture currently growing strep Proteus and Staphylococcus aureus, for the patient is currently covered with the Unasyn to continue 3-patient did have new fever and the patient covid PCR came back positive, patient was started on Decadron, Lovenox, will add zinc ascorbic acid, droplet precautions dictation was produced using [employer] dictation software. please excuse any grammatical, word or spelling errors. Time with Patient: Less than 30
--- NOTE | 2023-09-22 16:03 | CDI ---
Documentation Clarification Form Date: From: Kim Lopez Phone: [phone] Admit Date: 09/17/2023 02:06:00 PM Patient Name: Naila Terrazas Visit Number: [id number] Discharge Date: ATTENTION: The Clinical Documentation Specialists (CDI) and [facility] Coding Staff appreciate your assistance in clarifying documentation. Please respond to the clarification below the line at the bottom and electronically sign. The CDI & [facility] Coding staff will review the response and follow-up if needed. Please note: Queries are made part of the Legal Health Record. If you have any questions, please contact the author of this message via ITS. Dr. Samir Chacon Covid - 19 is documented in the Progress Note on 09/22. For each diagnosis, documentation must be clear to determine if the condition was present at the time of the patients inpatient admission or developed during the hospital stay. Additional clarification regarding the Covid - 19 is requested. History/Risk Factors: "67-year-old female with coronary artery disease and prior myocardial infarction, who presented to the ER with complaints of right breast pain and breast lesion that started bleeding." - Per H&P on 09/17 Clinical Indicators: "On arrival she was tachycardic to 140" "acute hypoxic respiratory failure" "Lungs: Decreased bs bilateral" - Per H&P on 09/17 "oxygen requirements gradually worsened overnight from 3 L nasal cannula to 10 L via high flow" - Per Event note on 09/18 Vitals Signs: 09/17: Temp. 99.8, HR 140, RR 20, BP 126/70, O2 92% on 2L NC 09/18: Temp. 100.3, HR 146 09/19: Temp. 99.6, HR 106, RR 11 09/20: Temp. 100.1, HR 131, RR 12, O2 91% on 5L NC 09/21: Temp. 103.1, HR 145, RR 20, O2 90% on 4L NC C-Reactive Protein: 09/17 - 6.1 SARS-CoV-2 PCR: 09/21 - Detected Treatment: ID consult, O2 via High flow Nasal Cannula "started on Decadron, Lovenox, will add zinc ascorbic acid, droplet precautions" - Per Progress Note on 09/22 Definition of Present on Admission (POA): A diagnosis present at the time the order for admission to inpatient status was written. Please clarify if the Covid - 19 was POA [ ] Y = Yes, the condition was present at the time of the order for inpatient admission. [ x ] N = No, the condition was not present at the time of the order for inpatient admission. [ ] W = Clinically undetermined if the condition was present at the time of the order for inpatient admission. MTDD
--- NOTE | 2023-09-22 19:05 | P.PN ---
Subjective Progress Note Date: 09/22/23 Respiratory failure The patient is a 67-year-old female patient with no significant past medical history besides morbid obesity presented to the emergency department complaining of right breast discomfort. The discomfort started a few days ago as redness in the nipple and subsequently progressed significantly. The patient denies having any cardiovascular symptoms of any shortness of breath or any chest pain or chest discomfort beside the right breast discomfort. No dizziness or lightheadedness and no feeling of heart racing or fluttering. She presented to the emergency department because of the pain. She was found to be hypoxic and the hypoxemia has progressed overnight. She was also tachycardic. Further investigation was performed including computed tomography scan of the chest showed possible pulmonary embolism but the pulmonary embolism was not sagittal nor central. She was started on heparin. The vascular surgeon was placed for possible ultrasonic catheter needed. I did review the computed tomography scan by myself and I did not see any evidence of RV strain on the computed tomography scan. An echo is in process to be done. The troponin is a slightly elevated. No NT proBNP ordered but is in process to be done. The chest x-ray showed what it seems to be small left pleural effusion. Clinically the patient remains hypoxic and currently she is on 10 L oxygen to maintain normal saturation. She is in mild heart failure was only mild bilateral lower extremity edema. She has not been making good urine. The creatinine is normal. The EKG shows sinus tachycardia. 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 Hemodynamically today she remains stable. The examination is remarkable for regular rhythm with a systolic murmur at the right upper sternal and left upper sternal border and mild bilateral lower extremity edema. 09/19/2023 The patient was seen this morning. Overall she is doing better. She is on nasal cannula oxygen only. Her heart rate has improved significantly. The echo was technically difficult but the ejection fraction appears to be within normal limits. From the cardiovascular standpoint of view, continue the current medical regimen. The examination is remarkable for a systolic murmur at the left upper sternal border with diminished breathing sounds bilaterally and mild bilateral lower extremities edema. I'm going to the patient Lasix 20 mg IV once and start the patient on metoprolol for the tachycardia. 09/20/2023 The patient was seen and evaluated this morning. She still hypoxic on oxygen. She is tachycardic and the dose of beta elsa has increased earlier by the critical care team which I would agree on. The echo showed preserved LV systolic function with an EF around 50% but the study was technically very difficult. She does not seem in overt congestive heart failure. The examination is remarkable for diminished breathing sounds bilaterally with regular rhythm and distant heart sounds. 09/21/23 Patient is significantly overloaded. She does have diminished air entry in bilateral lower lung fritz. Assessment Acute hypoxic respiratory failure Pulmonary embolism, submassive versus non-massive Lower extremities edema and decreased urine output Sinus tachycardia The right breast discomfort/wound Obesity Plan Continue metoprolol Continue anticoagulation Objective - Vital Signs Vital signs: Vital Signs Temp 98.3 F 09/22/23 15:56 Pulse 130 H 09/22/23 15:56 Resp 20 09/22/23 15:56 BP 144/79 09/22/23 15:56 Pulse Ox 92 L 09/22/23 15:56 FiO2 Intake & Output 09/22/23 09/22/23 09/23/23 06:59 18:59 06:59 Intake Total 0 Output Total 550 550 Balance -550 -550 Weight 147 kg Intake: Oral 0 Output: Urine 550 550 Other: Voiding Method Indwelling Catheter Indwelling Catheter - Labs CBC & Chem 7: 09/22/23 11:38 09/22/23 11:38 Labs: Abnormal Lab Results - Last 24 Hours (Table) 09/21/23 09/21/23 09/22/23 Range/Units 19:55 21:31 11:38 WBC 11.0 H (3.8-10.6) k/uL MCV 103.0 H (80.0-100.0) fL Neutrophils # 10.0 H (1.3-7.7) k/uL Lymphocytes # 0.6 L (1.0-4.8) k/uL D-Dimer 1.37 H (<0.60) mg/L FEU Sodium (137-145) mmol/L Chloride (98-107) mmol/L Carbon Dioxide (22-30) mmol/L BUN (7-17) mg/dL Creatinine (0.52-1.04) mg/dL Glucose (74-99) mg/dL SARS-CoV-2 (PCR) Detected A (Not Detectd) 09/22/23 Range/Units 11:38 WBC (3.8-10.6) k/uL MCV (80.0-100.0) fL Neutrophils # (1.3-7.7) k/uL Lymphocytes # (1.0-4.8) k/uL D-Dimer (<0.60) mg/L FEU Sodium 133 L (137-145) mmol/L Chloride 96 L (98-107) mmol/L Carbon Dioxide 32 H (22-30) mmol/L BUN 25 H (7-17) mg/dL Creatinine 1.05 H (0.52-1.04) mg/dL Glucose 105 H (74-99) mg/dL SARS-CoV-2 (PCR) (Not Detectd) Microbiology - Last 24 Hours (Table) 09/19/23 09:58 Blood Culture - Preliminary Blood 09/19/23 09:49 Blood Culture - Preliminary Blood
--- NOTE | 2023-09-22 20:01 | P.PN ---
Subjective Progress Note Date: 09/22/23 Principal diagnosis: breast mass Patient found to be COVID positive. She is more somnolent today, but responds to verbal stimuli and follows commands but easily falls asleep. Denies pain and SOB. Reporting significant fatigue. Fever 101.6 this morning. Objective - Vital Signs Vital signs: Vital Signs Temp 98.3 F 09/22/23 15:56 Pulse 130 H 09/22/23 15:56 Resp 20 09/22/23 15:56 BP 144/79 09/22/23 15:56 Pulse Ox 92 L 09/22/23 15:56 FiO2 Intake & Output 09/22/23 09/22/23 09/23/23 06:59 18:59 06:59 Intake Total 0 Output Total 550 550 Balance -550 -550 Weight 147 kg Intake: Oral 0 Output: Urine 550 550 Other: Voiding Method Indwelling Catheter Indwelling Catheter - Constitutional General appearance: Present: average body habitus, no acute distress - EENT Eyes: Present: anicteric sclerae, EOMI ENT: Present: hearing grossly normal - Respiratory Details: breathing is even and unlabored - Cardiovascular Details: skin warm and dry - Integumentary Integumentary: Absent: cyanotic - Musculoskeletal Musculoskeletal: Present: generalized weakness - Psychiatric Psychiatric Comment(s): A&Ox1, somnolent - Labs CBC & Chem 7: 09/22/23 11:38 09/22/23 11:38 Labs: Abnormal Lab Results - Last 24 Hours (Table) 09/21/23 09/21/23 09/22/23 Range/Units 19:55 21:31 11:38 WBC 11.0 H (3.8-10.6) k/uL MCV 103.0 H (80.0-100.0) fL Neutrophils # 10.0 H (1.3-7.7) k/uL Lymphocytes # 0.6 L (1.0-4.8) k/uL D-Dimer 1.37 H (<0.60) mg/L FEU Sodium (137-145) mmol/L Chloride (98-107) mmol/L Carbon Dioxide (22-30) mmol/L BUN (7-17) mg/dL Creatinine (0.52-1.04) mg/dL Glucose (74-99) mg/dL SARS-CoV-2 (PCR) Detected A (Not Detectd) 09/22/23 Range/Units 11:38 WBC (3.8-10.6) k/uL MCV (80.0-100.0) fL Neutrophils # (1.3-7.7) k/uL Lymphocytes # (1.0-4.8) k/uL D-Dimer (<0.60) mg/L FEU Sodium 133 L (137-145) mmol/L Chloride 96 L (98-107) mmol/L Carbon Dioxide 32 H (22-30) mmol/L BUN 25 H (7-17) mg/dL Creatinine 1.05 H (0.52-1.04) mg/dL Glucose 105 H (74-99) mg/dL SARS-CoV-2 (PCR) (Not Detectd) Microbiology - Last 24 Hours (Table) 09/19/23 09:58 Blood Culture - Preliminary Blood 09/19/23 09:49 Blood Culture - Preliminary Blood Assessment and Plan (1) Breast abscess Current Visit: Yes Status: Acute Priority: High Code(s): N61.1 - ABSCESS OF THE BREAST AND NIPPLE SNOMED Code(s): 74877151 (2) Breast mass, right Current Visit: Yes Status: Acute Priority: High Code(s): N63.10 - UNSPECIFIED LUMP IN THE RIGHT BREAST, UNSPECIFIED QUADRANT SNOMED Code(s): 43423908 (3) Hypoxia Current Visit: Yes Status: Acute Priority: High Code(s): R09.02 - HYPOXEMIA SNOMED Code(s): 925170698 (4) COVID-19 Current Visit: Yes Status: Acute Priority: High Code(s): U07.1 - COVID-19 SNOMED Code(s): 178040067 Plan: Breast mass, right: -Physical exam findings, as well as imaging are quite compatible with a large right breast malignancy, with right axillary node involvement. 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 They were advised that we need a tissue diagnosis for confirmation, as well as testing for marker status. The patient appears to have at least locally advanced disease, with a definite possibility of metastatic disease also. In this situation the mainstay of treatment in the first line, in case of nonmetastatic disease would be neoadjuvant systemic therapy, and systemic therapy in case of existing metastatic disease. - Major surgical intervention should therefore be avoided as much as possible, in case of metastatic disease, and upfront in case of locally advanced disease. The only indication for the same would be if the patient had a intractable, significantly symptomatic issue for which emergent surgical intervention would be required, such as major ongoing bleeding. - On examination there does not seem to be the case. Therefore in my opinion, it would be best to proceed with tissue diagnosis through biopsy, and continue local wound care, and ordered additional staging studies. - The above was also discussed in detail with the admitting service, and the surgical service, who were in agreement. IR consult was placed for right a xillary node biopsy. Lovenox was d/c for procedure but was unfortunately reordered last night. Biopsy was held today per IR. Spoke with IR dept RN and asked if this could be done in the morning. RN states she will speak with interventional radiologist, as he was hoping to hold off on procedure due to COVID and increased lethargy, as of time of note, have not heard back from IR dept. Will hold Lovenox for now and spoke to nursing to NOT give any anticoagulation prior to procedure. If procedure will be delayed will restart lovenox tomorrow - Tumor markers normal - Additional staging with CT scan of the abdomen and pelvis and bone scan were ordered. Bone scan showed no evidence of metastatic disease. CT AP revealed a worsening consolidative opacity in the left lung base with small left pleural effusion. Portion of known right breast mass and skin thickening noted. Enlarged nodes in the right chest wall, measuring 1.0cm and 2.6 x 1.6cm, and inferior left breast lymph node measuring 1.3cm. Diffusely heterogeneous liver without evidence of discrete mass. Gallbladder moderately distended with 1.9 cm gallstone in the neck. Clonic diverticular disease. Some thickening of the posterior distal rectal wall cannot be excluded. Mildly prominent nodule suggesting lymph node in the right upper quadrant and suspected small nodular density in the left upper quadrant just superior to the stomach, however not well visualized on imaging and are nonspecific. -PET CT will be scheduled outpt to further evaluate for metastatic disease. Clinic f/u will be scheduled pending course of hospitalization and possible need for rehabilitation Hypoxia: -Because of the same appears to be somewhat unclear upon admission. It was initially attributed to the probable PE reported on CT angiogram. However from my discussion with the admitting service, the findings on further evaluation by pulmonary medicine, were not felt to be convincing for the same. Therefore VQ scan was ordered, revealing low probability of PE. Heparin discontinued. Continues on lovenox, prophylactic dose. -COVID testing obtained on 09/21 was positive -Defer to admitting team and pulm for management
[2023-09-23] MEDS: SODIUM CHLORIDE 0.9% 1,000 ML IV SCH (05:13)
[2023-09-23] MEDS: AMPICILLIN-SULBACTAM 3 GM in SODIUM CHLORIDE 0.9% 100 ML IVPB SCH ×3 (05:14→21:46)
[2023-09-23] MEDS: dexAMETHasone 2 MG TAB PO SCH (09:08)
[2023-09-23] MEDS: METOPROLOL TARTRATE 50 MG TAB PO SCH ×2 (09:09→21:46)
[2023-09-23] MEDS: NYSTATIN 100,000 UNIT/GM POWD 15 GM TOPICAL SCH ×3 (09:09→21:46)
[2023-09-23] MEDS: ZINC SULFATE 220 MG CAP PO SCH (09:14)
[2023-09-23] MEDS: ASCORBIC ACID 500 MG TAB PO SCH (09:14)
[2023-09-23 10:09] LABS: Basophils # (A) 0.1 k/uL (0-0.2); Basophils % (A) 1 %; Eosinophils % (A) 0 %; HGB 15.8 gm/dL (11.4-16.0); Hypochromasia Marked; Lymphocytes # (A) 0.6 k/uL (1.0-4.8); Lymphocytes % (A) 5 %; MCH 33.6 pg (25.0-35.0); MCHC 32.9 g/dL (31.0-37.0); MCV 102.2 fL (80.0-100.0); Macrocytosis Slight; Mean Platelet Volume 7.7; Monocytes # (A) 0.4 k/uL (0-1.0); Monocytes % (A) 3 %; Neutrophils # (A) 10.2 k/uL (1.3-7.7); Neutrophils % (A) 90 %; Platelet Count 275 k/uL (150-450); RDW 14.7 % (11.5-15.5); WBC 11.3 k/uL (3.8-10.6)
--- NOTE | 2023-09-23 11:29 | P.PN ---
Subjective Progress Note Date: 09/23/23 Principal diagnosis: Shortness of breath, breast cancer. This is a 67-year-old female with chronic redness and swelling of her right nipple, which has been progressively getting worse. Patient has been noticing bleeding from her right breast nipple, and while evaluated in the ER she was noted to have a large mass which has been progressively getting worse apparently over the last 3 months. Upon evaluation in the ER, the patient was also noted to be tachycardic, with slightly elevated troponin of 0.035. Chest x-ray showed left lower lobe atelectasis, CT of the chest raised the possibility of a defect in the right upper lobe subsegmental branch. Considering the patient was complaining of some shortness of breath, and the patient was transferred to the ICU for further evaluation she was seen already by cardiology and by vascular surgery. I reviewed the CT of the chest, and I did not feel that the findings are specific for thromboembolic disease, not to mention that the CT angiogram is a very poor quality CT. Nonetheless it did show right breast mass, and right axillary lymph nodes highly suggestive of breast carcinoma with lymph node metastasis. After reviewing the CT of the chest, and after reviewing that the patient had negative venous Doppler, and considering the patient had bleeding from the right breast mass, I recommended stopping the heparin and hopefully sometime today and arrange for a VQ scan to put the issue to rest clinically this is not a presentation of pulmonary embolism. And again the CT of the chest does not seem very diagnostic. During my evaluation the patient no shortness of breath, no cough no wheezing and no chest pain. She was on 2 L nasal cannula and O2 saturation was 97%, and after reviewing the CT of the chest again, she does have left lower lobe atelectasis, doubt pneumonia involving the left lower lobe Reevaluated today on 09/19/23, patient remains in the ICU, doing fairly well, relatively asymptomatic, her VQ scan came back negative for pulmonary embolism/low probability as the patient does not need heparin which I have already cut discontinued yesterday. She is however on Lovenox for DVT prophylaxis and cardiology recommended metoprolol 12.5 twice a day for tachycardia. Seems to be mostly a sinus tachycardia. Patient remains on 4 L nasal cannula, O2 saturation is 96% up to 98%. WBC count is 6.2 hemoglobin 13.6 basic metabolic profile is normal and renal profile is normal. Patient was seen by general surgery consultation, and I recommended basically right axillary lymph node biopsy by interventional radiology, withdraw the not do breast biopsy at this point since there is a concern about bleeding from the fungating right breast mass. In the meantime the patient is hemodynamically stable, and I believe we can safely transfer the patient out of the ICU to a regular medical floor or a medical surgical floor with telemetry to keep an eye on her tachycardia, and metoprolol was added Seen today 09/20, patient remains in the ICU, however she is truly an overflow in the ICU, patient is being seen by many consultants, at initial presentation was a presentation of bleeding fungating right breast mass and a left lower lobe atelectasis, doubt pneumonia, patient had no pulmonary symptoms on her initial presentation, CT angiogram of the chest questioned pulmonary embolism and we felt that this is not truly the case. Venous Dopplers were negative, VQ scan was negative, hence the patient was taken off heparin which was initially started in the ER. Patient is morbidly obese, and she has significant left lower lobe atelectasis, doing very poorly with incentive spirometry, she is empi rically on antibiotics in the form of Zosyn. She remains tachycardic with heart rate of 130, hemodynamically stable otherwise. Metoprolol dose was increased to 25 mg twice a day CBC showed no evidence of leukocytosis, hemoglobin is 13.2 basic metabolic profile is normal renal profile is normal, BNP level is normal 1 culture from the right breast is showing polymicrobial picture with presumptive staph, Proteus mirabilis, and beta hemolytic strep group C patient is being seen by infectious disease on consultation blood cultures are negative so far. The patient is seen today 09/21/2023 in follow-up on the oncology unit. She is currently resting comfortably in bed. Awake and alert in no acute distress. She is maintaining O2 saturations in the 90s on 4 L/m per nasal cannula. Chest x-ray reveals cardiomegaly and mild pulmonary vascular congestion. Right breast cultures are positive for beta-hemolytic strep group C, Proteus mirabilis and Staphylococcus aureus. She is currently on Zosyn. White count 7.9. Hemoglobin 14.1. Platelets 222. Sodium 132. Potassium 4.4. Bicarb 26. BUN 18. Creatinine 1.2. AST 109. ALT 50. Urinalysis with possible UTI. Culture pending. She is currently on Lovenox for DVT prophylaxis. Normal saline at KVO. Progress note dated 09/22/2023. The patient was transferred to room 350, because apparently she tested positive for coronavirus. Currently, she is on 4 L of oxygen. Getting saline at 10 mL an hour. The patient had a bone scan that was negative. A chest x-ray was ordered for September 23. No new labs today. Her last d-dimer was 1.37. The patient is being followed by medical oncology, and their impression is that she has a large right breast malignancy, with right axillary node involvement. Progress note dated 09/23/2023. The patient is seen again in room 350. The patient is currently on 4 L of oxygen. She's getting saline at 10 mL an hour. She did test positive for coronavirus. She remains on Unasyn for her right breast cellulitis. The wounds from the right breast show evidence of beta-hemolytic streptococci, Proteus, and Staphylococcus. Infectious diseases is following this patient. White count is 11.3, hemoglobin 15.8, hematocrit 48, and platelet count 275,000. No additional labs from today. Objective - Vital Signs Vital signs: Vital Signs Temp 98.6 F 09/23/23 07:57 Pulse 110 H 09/23/23 07:57 Resp 19 09/23/23 07:57 BP 154/84 09/23/23 07:57 Pulse Ox 94 L 09/23/23 07:57 FiO2 Intake & Output 09/22/23 09/23/23 09/23/23 18:59 06:59 18:59 Intake Total 0 0 Output Total 550 300 Balance -550 -300 0 Weight 147 kg Intake: Oral 0 0 Output: Urine 550 300 Other: Voiding Method Indwelling Catheter Indwelling Catheter Indwelling Catheter - Exam No acute distress. Currently on 4 L of oxygen. No respiratory distress. No use of accessory muscles. The patient is very lethargic. HEENT examination is grossly unremarkable. Mucous membranes are moist. No oral lesions. Neck supple. Full range of motion. No adenopathy thyromegaly or neck vein distention. Cardiovascular examination reveals regular rhythm rate. S1-S2 normal. No S3 or S4. No discernible murmur noted. Heart rate is 87 bpm. Lungs reveal scattered rhonchi. No wheezes or crackles. Breath sounds are equal bilaterally. 4 L saturation is 94 %. Abdomen obese, but soft. Bowel sounds are noted. No tenderness. Extremities are intact. No cyanosis clubbing or edema. Skin is without rash or lesion. Neurologic examination is brief but nonfocal. - Labs CBC & Chem 7: 09/23/23 08:09 09/22/23 11:38 Labs: Abnormal Lab Results - Last 24 Hours (Table) 09/22/23 09/22/23 09/23/23 Range/Units 11:38 11:38 08:09 WBC 11.0 H 11.3 H (3.8-10.6) k/uL Hct 48.0 H (34.0-46.0) % MCV 103.0 H 102.2 H (80.0-100.0) fL Neutrophils # 10.0 H 10.2 H (1.3-7.7) k/uL Lymphocytes # 0.6 L 0.6 L (1.0-4.8) k/uL Sodium 133 L (137-145) mmol/L Chloride 96 L (98-107) mmol/L Carbon Dioxide 32 H (22-30) mmol/L BUN 25 H (7-17) mg/dL Creatinine 1.05 H (0.52-1.04) mg/dL Glucose 105 H (74-99) mg/dL Microbiology - Last 24 Hours (Table) 09/17/23 10:10 Blood Culture - Final Blood 09/17/23 10:20 Blood Culture - Final Blood 09/21/23 08:33 Urine Culture - Final Urine,Voided 09/17/23 10:20 Gram Stain - Final Breast - Right Wound Culture - Final Beta Hemolytic Strep Group C Proteus mirabilis Staphylococcus aureus 09/19/23 09:58 Blood Culture - Preliminary Blood 09/19/23 09:49 Blood Culture - Preliminary Blood Assessment and Plan Assessment: Fungating right breast mass, highly suggestive of breast carcinoma with axillary lymph node metastasis. Acute hypoxic respiratory failure secondary to mostly atelectasis, and obesity. Patient may have obesity/hypoventilation syndrome. And significant left lower lobe atelectasis is noted on chest x-ray and CT of the chest. Pulmonary embolism was ruled out, VQ scan was reviewed. Low probability for pulmonary embolism. Chest x-ray reveals evidence of fluid volume overload. Patient tested positive for coronavirus, doubt coronavirus associated pneumonia. Morbid obesity. Obesity/hypoventilation syndrome. Left lower lobe atelectasis, doubt pneumonia. Cellulitis of right breast, polymicrobial culture . Plan: Plan dated 09/22/2023. The patient tested positive for coronavirus, and was transferred down to room 350, and is currently on 4 L of oxygen. Labs, x-rays, and medications are reviewed. The patient was given Lasix yesterday, because we are concerned about fluid overload. The patient continues on Unasyn, as per infectious disease recommendation. We will continue to follow and make recommendations along the way. She does continue on Decadron 6 mg daily. Prognosis is certainly guarded. Plan dated 09/23/2023. The patient continues on Unasyn as per infectious diseases. The patient also continues on 4 L of oxygen, and saline at 10 mL an hour. Patient is very lethargic and sleepy. Looking at her medication list, she's not getting anything that might cause that. She does get melatonin in the evening for sleep. We will continue to follow. Labs, x-rays, and medications are reviewed. The patient's overall prognosis remains guarded. We did add Decadron for her coronavirus infection. Time with Patient: Less than 30
[2023-09-23 12:46] LABS: African American GFR (CKD) 71 (>60 ml/min/1.73 sqM); Anion Gap 11 mmol/L; Blood Urea Nitrogen 26 mg/dL (7-17); Carbon Dioxide 32 mmol/L (22-30); Chloride 92 mmol/L (98-107); Glucose 115 mg/dL (74-99); Non-African American GFR(CKD) 62 (>60 ml/min/1.73 sqM); Potassium 4.2 mmol/L (3.5-5.1); Sodium 135 mmol/L (137-145)
--- NOTE | 2023-09-23 13:06 | P.PN ---
Subjective HISTORY OF PRESENT ILLNESS: The patient is a 67-year-old female patient with no significant past medical history besides morbid obesity presented to the emergency department complaining of right breast discomfort. The discomfort started a few days ago as redness in the nipple and subsequently progressed significantly. The patient denies having any cardiovascular symptoms of any shortness of breath or any chest pain or chest discomfort beside the right breast discomfort. No dizziness or lightheadedness and no feeling of heart racing or fluttering. She presented to the emergency department because of the pain. She was found to be hypoxic and the hypoxemia has progressed overnight. She was also tachycardic. Further investigation was performed including computed tomography scan of the chest showed possible pulmonary embolism but the pulmonary embolism was not sagittal nor central. She was started on heparin. The vascular surgeon was placed for possible ultrasonic catheter needed. I did review the computed tomography scan by myself and I did not see any evidence of RV strain on the computed tomography scan. An echo is in process to be done. The troponin is a slightly elevated. No NT proBNP ordered but is in process to be done. The chest x-ray showed what it seems to be small left pleural effusion. Clinically the patient remains hypoxic and currently she is on 10 L oxygen to maintain normal saturation. She is in mild heart failure was only mild bilateral lower extremity edema. She has not been making good urine. The creatinine is normal. The EKG shows sinus tachycardia. The patient doesn't have any cardiovascular history from before with no CAD or CHF or cardiac arrhythmia never seen a senior scientist before. Hemodynamically today she remains stable. The examination is remarkable for regular rhythm with a systolic murmur at the right upper sternal and left upper sternal border and mild bilateral lower extremity edema. 09/19/2023 The patient was seen this morning. Overall she is doing better. She is on nasal cannula oxygen only. Her heart rate has improved significantly. The echo was technically difficult but the ejection fraction appears to be within normal limits. From the cardiovascular standpoint of view, continue the current medical regimen. The examination is remarkable for a systolic murmur at the left upper sternal border with diminished breathing sounds bilaterally and mild bilateral lower extremities edema. I'm going to the patient Lasix 20 mg IV once and start the patient on metoprolol for the tachycardia. 09/20/2023 The patient was seen and evaluated this morning. She still hypoxic on oxygen. She is tachycardic and the dose of beta elsa has increased earlier by the critical care team which I would agree on. The echo showed preserved LV systolic function with an EF around 50% but the study was technically very difficult. She does not seem in overt congestive heart failure. The examination is remarkable for diminished breathing sounds bilaterally with regular rhythm and distant heart sounds. 09/21/23 Patient is significantly overloaded. She does have diminished air entry in bilateral lower lung fritz. 09/23/2023 Patient examined this morning at the bedside. Patient currently denies chest pain or pressure. She denies shortness of breath. She remains on supplemental oxygen. Vital signs are stable. PHYSICAL EXAM: VITAL SIGNS: Reviewed. GENERAL: Well-developed in no acute distress. NECK: Supple. No JVD or thyromegaly LUNGS: Respirations even and unlabored. Lungs essentially clear to auscultation bilaterally. HEART: Regular rate and rhythm. S1 and S2 heard. EXTREMITIES: Normal range of motion. No clubbing or cyanosis. Peripheral pulses intact. No lower extremity edema ASSESSMENT: Acute hypoxic respiratory failure Covid 19 Pulmonary embolism, ruled out Right breast mass Morbid obesity PLAN: Continue current cardiac medications Patient is currently stable from a cardiac perspective with no further inpatient recommendations We will sign off. Please reconsult if needed. Nurse practitioner note has been reviewed by physician. Signing provider agrees with the documented findings, assessment, and plan of care. Objective - Vital Signs Vital signs: Vital Signs Temp 97.5 F L 09/23/23 11:40 Pulse 91 09/23/23 11:40 Resp 19 09/23/23 11:40 BP 157/88 09/23/23 11:40 Pulse Ox 90 L 09/23/23 11:40 FiO2 Intake & Output 09/22/23 09/23/23 09/23/23 18:59 06:59 18:59 Intake Total 0 0 Output Total 550 300 Balance -550 -300 0 Weight 147 kg Intake: Oral 0 0 Output: Urine 550 300 Other: Voiding Method Indwelling Catheter Indwelling Catheter Indwelling Catheter - Labs CBC & Chem 7: 09/23/23 08:09 09/23/23 11:56 Labs: Abnormal Lab Results - Last 24 Hours (Table) 09/23/23 09/23/23 Range/Units 08:09 11:56 WBC 11.3 H (3.8-10.6) k/uL Hct 48.0 H (34.0-46.0) % MCV 102.2 H (80.0-100.0) fL Neutrophils # 10.2 H (1.3-7.7) k/uL Lymphocytes # 0.6 L (1.0-4.8) k/uL Sodium 135 L (137-145) mmol/L Chloride 92 L (98-107) mmol/L Carbon Dioxide 32 H (22-30) mmol/L BUN 26 H (7-17) mg/dL Glucose 115 H (74-99) mg/dL Microbiology - Last 24 Hours (Table) 09/17/23 10:10 Blood Culture - Final Blood 09/17/23 10:20 Blood Culture - Final Blood 09/21/23 08:33 Urine Culture - Final Urine,Voided 09/17/23 10:20 Gram Stain - Final Breast - Right Wound Culture - Final Beta Hemolytic Strep Group C Proteus mirabilis Staphylococcus aureus 09/19/23 09:58 Blood Culture - Preliminary Blood 09/19/23 09:49 Blood Culture - Preliminary Blood
--- NOTE | 2023-09-23 14:15 | P.PN ---
Subjective Progress Note Date: 09/23/23 Hospital Course: Patient is a 67-year-old female with coronary artery disease and prior myocardial infarction, who presented to the ER with complaints of right breast pain and breast lesion that started bleeding. In the ER she underwent an extensive evaluation. On arrival she was tachycardic to 140. Laboratory analysis included a CBC, coags, CMP, troponin, and urinalysis which were remarkable for sodium 135, potassium 3.3, glucose 139, bilirubin 1.4, AST 184, ALT 80, troponin 0.029. She underwent a chest x-ray which shows basilar increased density possibly reflecting atelectasis. She then underwent CT of the chest which noted a defect within the right upper lobe subsegmental branch with pulmonary embolism not excluded. Right breast carcinoma with skin thickening is partially imaged, right axillary lymphadenopathy. She was started on a heparin gtt and arrangements were made for admission. Pulm, oncology, and breast surgery were cosnulted. Over night she became hypoxic and required 10L high flow nasal cannula. She was subsequently transferred to the ICU. Oxygen requirements coming down. Negative VQ scan. Cardiology also following. Echocardiogram showed EF 50%. Also likely septic, intermittent fevers. ID also following, patient currently on Zosyn. Some evidence of pulmonary vascular congestion, also being diuresed. CT abdomen and pelvis shows consolidation in left lung base, left pleural effusion, right-with enlarged nodes in the right chest wall potentially metastatic, mildly prominent lymph node in the posterior inferior left breast, gallbladder moderately distended with 1.9 cm gallstone in the neck, CBD mildly prominent, some thickening of the posterior distal rectal wall which may indicate neoplasia, mildly prominent nodule suggesting lymph node in the right upper quadrant and left upper quadrant disappeared to the stomach which may be metastatic. Patient found to be COVID-19 positive. Subjective: Seen and examined at bedside. No acute events overnight. More lethargic. Pertinent positives and negatives as discussed above, a complete review of systems was performed and all other systems are negative. Vitals Signs Reviewed. General: nontoxic, no distress, appears at stated age, obese Derm: warm, dry, lobulated necrotic fungating right-sided breast mass Head: atraumatic, normocephalic, symmetric Eyes: EOMI, no lid lag, anicteric sclera Mouth: no lip lesion, mucus membranes moist Cardiovascular: S1S2 reg, systolic murmur Lungs: Bilateral coarse breath sounds , no accessory muscle use, supplemental oxygen Abdominal: soft, nontender to palpation, no guarding, no appreciable organomegaly Ext: no gross muscle atrophy, no edema, no contractures Neuro: CN II-XI grossly intact, no focal neuro deficits Psych: Lethargic, oriented, appropriate affect Data Reviewed Today: Pertinent Labs: WBC 11, hemoglobin 14.4, sodium 133, potassium 4.8, creatinine 1.05 Imaging: Abdominal ultrasound shows gallstones stuck within the gallbladder neck, bone scan did not show any metastatic disease Assessment and Plan: Patient remains critically ill Sepsis possibly secondary to infected breast tissue Acute hypoxic respiratory failure likely secondary to atelectasis Acute COVID-19 infection Possible cholecystitis Suspected obesity hypoventilation syndrome Acute diastolic heart failure exacerbation -Pulmonology note reviewed, continue current management -Continue to wean oxygen -ID following, patient currently on IV Unasyn 3 g every 8 hours -Surgery following -Also on oral Decadron Sinus tachycardia NSTEMI, non-ischemic Elevated TSH, normal free T4 -Cardiology note reviewed, increase metoprolol to 50 mg twice a day -Consider aspirin and statin Fungating/necrotic right-sided breast measuring at least 4.6 cm -Bone scan negative for any metastatic disease -Surgery and oncology following, likely Prior CT of the breast tissue Transaminitis, stable -Surgery following Class III Obesity with BMI 60.6 - outpatient structured weight loss Hypokalemia - resolved DVT ppx: SCD Code status: Full code Anticipated discharge place: Pending clinical course Anticipated discharge time: Pending clinical course Objective - Vital Signs Vital signs: Vital Signs Temp 97.5 F L 09/23/23 11:40 Pulse 96 09/23/23 13:47 Resp 19 09/23/23 11:40 BP 157/88 09/23/23 11:40 Pulse Ox 91 L 09/23/23 13:47 FiO2 Intake & Output 09/22/23 09/23/23 09/23/23 18:59 06:59 18:59 Intake Total 0 0 Output Total 550 300 Balance -550 -300 0 Weight 147 kg Intake: Oral 0 0 Output: Urine 550 300 Other: Voiding Method Indwelling Catheter Indwelling Catheter Indwelling Catheter - Labs CBC & Chem 7: 09/23/23 08:09 09/23/23 11:56 Labs: Abnormal Lab Results - Last 24 Hours (Table) 09/23/23 09/23/23 Range/Units 08:09 11:56 WBC 11.3 H (3.8-10.6) k/uL Hct 48.0 H (34.0-46.0) % MCV 102.2 H (80.0-100.0) fL Neutrophils # 10.2 H (1.3-7.7) k/uL Lymphocytes # 0.6 L (1.0-4.8) k/uL Sodium 135 L (137-145) mmol/L Chloride 92 L (98-107) mmol/L Carbon Dioxide 32 H (22-30) mmol/L BUN 26 H (7-17) mg/dL Glucose 115 H (74-99) mg/dL Microbiology - Last 24 Hours (Table) 09/17/23 10:10 Blood Culture - Final Blood 09/17/23 10:20 Blood Culture - Final Blood 09/21/23 08:33 Urine Culture - Final Urine,Voided 09/17/23 10:20 Gram Stain - Final Breast - Right Wound Culture - Final Beta Hemolytic Strep Group C Proteus mirabilis Staphylococcus aureus 09/19/23 09:58 Blood Culture - Preliminary Blood 09/19/23 09:49 Blood Culture - Preliminary Blood
--- NOTE | 2023-09-23 14:18 | P.PN ---
Subjective Progress Note Date: 09/23/23 Hospital Course: Patient is a 67-year-old female with coronary artery disease and prior myocardial infarction, who presented to the ER with complaints of right breast pain and breast lesion that started bleeding. In the ER she underwent an extensive evaluation. On arrival she was tachycardic to 140. Laboratory analysis included a CBC, coags, CMP, troponin, and urinalysis which were remarkable for sodium 135, potassium 3.3, glucose 139, bilirubin 1.4, AST 184, ALT 80, troponin 0.029. She underwent a chest x-ray which shows basilar increased density possibly reflecting atelectasis. She then underwent CT of the chest which noted a defect within the right upper lobe subsegmental branch with pulmonary embolism not excluded. Right breast carcinoma with skin thickening is partially imaged, right axillary lymphadenopathy. She was started on a heparin gtt and arrangements were made for admission. Pulm, oncology, and breast surgery were cosnulted. Over night she became hypoxic and required 10L high flow nasal cannula. She was subsequently transferred to the ICU. Oxygen requirements coming down. Negative VQ scan. Cardiology also following. Echocardiogram showed EF 50%. Also likely septic, intermittent fevers. ID also following, patient currently on Zosyn. Some evidence of pulmonary vascular congestion, also being diuresed. CT abdomen and pelvis shows consolidation in left lung base, left pleural effusion, right-with enlarged nodes in the right chest wall potentially metastatic, mildly prominent lymph node in the posterior inferior left breast, gallbladder moderately distended with 1.9 cm gallstone in the neck, CBD mildly prominent, some thickening of the posterior distal rectal wall which may indicate neoplasia, mildly prominent nodule suggesting lymph node in the right upper quadrant and left upper quadrant disappeared to the stomach which may be metastatic. Patient found to be COVID-19 positive. Subjective: Seen and examined at bedside. No acute events overnight. Lethargy has improved. Pertinent positives and negatives as discussed above, a complete review of systems was performed and all other systems are negative. Vitals Signs Reviewed. General: nontoxic, no distress, appears at stated age, obese Derm: warm, dry, lobulated necrotic fungating right-sided breast mass Head: atraumatic, normocephalic, symmetric Eyes: EOMI, no lid lag, anicteric sclera Mouth: no lip lesion, mucus membranes moist Cardiovascular: S1S2 reg, systolic murmur Lungs: Bilateral coarse breath sounds , no accessory muscle use, supplemental oxygen Abdominal: soft, nontender to palpation, no guarding, no appreciable organomegaly Ext: no gross muscle atrophy, no edema, no contractures Neuro: CN II-XI grossly intact, no focal neuro deficits Psych: Lethargic, oriented, appropriate affect Data Reviewed Today: Pertinent Labs: WBC 11.3, hemoglobin 15.8, sodium 135, potassium 4.2, creatinine 0.95 Imaging: No new imaging Assessment and Plan: Patient remains critically ill, prognosis guarded Sepsis possibly secondary to infected breast tissue Acute hypoxic respiratory failure likely secondary to atelectasis Acute COVID-19 infection Possible cholecystitis Suspected obesity hypoventilation syndrome Acute diastolic heart failure exacerbation -Pulmonology note reviewed, continue oral Decadron -Continue to wean oxygen -ID following, patient currently on IV Unasyn 3 g every 8 hours -Surgery following Sinus tachycardia NSTEMI, non-ischemic Elevated TSH, normal free T4 -Cardiology note reviewed, on metoprolol to 50 mg twice a day, signed off -Consider aspirin and statin Fungating/necrotic right-sided breast measuring at least 4.6 cm -Bone scan negative for any metastatic disease -Surgery and oncology following, breast tissue biopsy by IR pending Transaminitis, has been stable -Surgery following -Repeat CMP tomorrow Class III Obesity with BMI 60.6 - outpatient structured weight loss Hypokalemia - resolved DVT ppx: SCD Code status: Full code Anticipated discharge place: Patient is extremely debilitated, will likely need subacute rehab Anticipated discharge time: Pending clinical course Objective - Vital Signs Vital signs: Vital Signs Temp 97.5 F L 09/23/23 11:40 Pulse 96 09/23/23 13:47 Resp 19 09/23/23 11:40 BP 157/88 09/23/23 11:40 Pulse Ox 91 L 09/23/23 13:47 FiO2 Intake & Output 09/22/23 09/23/23 09/23/23 18:59 06:59 18:59 Intake Total 0 0 Output Total 550 300 Balance -550 -300 0 Weight 147 kg Intake: Oral 0 0 Output: Urine 550 300 Other: Voiding Method Indwelling Catheter Indwelling Catheter Indwelling Catheter - Labs CBC & Chem 7: 09/23/23 08:09 09/23/23 11:56 Labs: Abnormal Lab Results - Last 24 Hours (Table) 09/23/23 09/23/23 Range/Units 08:09 11:56 WBC 11.3 H (3.8-10.6) k/uL Hct 48.0 H (34.0-46.0) % MCV 102.2 H (80.0-100.0) fL Neutrophils # 10.2 H (1.3-7.7) k/uL Lymphocytes # 0.6 L (1.0-4.8) k/uL Sodium 135 L (137-145) mmol/L Chloride 92 L (98-107) mmol/L Carbon Dioxide 32 H (22-30) mmol/L BUN 26 H (7-17) mg/dL Glucose 115 H (74-99) mg/dL Microbiology - Last 24 Hours (Table) 09/17/23 10:10 Blood Culture - Final Blood 09/17/23 10:20 Blood Culture - Final Blood 09/21/23 08:33 Urine Culture - Final Urine,Voided 09/17/23 10:20 Gram Stain - Final Breast - Right Wound Culture - Final Beta Hemolytic Strep Group C Proteus mirabilis Staphylococcus aureus 09/19/23 09:58 Blood Culture - Preliminary Blood 09/19/23 09:49 Blood Culture - Preliminary Blood
--- NOTE | 2023-09-23 15:37 | US ---
EXAMINATION TYPE: US axilla RT DATE OF EXAM: 09/23/2023 COMPARISON: NONE CLINICAL INDICATION: Female, 67 years old with history of Right axilla mass; TECHNIQUE: FINDINGS: Multiple lymph nodes seen in right axilla, largest - 1. 3.7 x 2.6 x 2.8 cm 2. 2.6 x 2.2 x 2.7 cm IMPRESSION: Multiple enlarged lymph nodes.
[2023-09-24] MEDS: SODIUM CHLORIDE 0.9% 1,000 ML IV SCH (03:13)
[2023-09-24] MEDS: AMPICILLIN-SULBACTAM 3 GM in SODIUM CHLORIDE 0.9% 100 ML IVPB SCH ×3 (05:31→20:39)
[2023-09-24] MEDS: ENOXAPARIN 40 MG/0.4 ML SYRINGE SQ SCH (06:54)
[2023-09-24 09:11] LABS: Basophils # (A) 0.1 k/uL (0-0.2); Basophils % (A) 1 %; Eosinophils % (A) 0 %; HCT 44.4 % (34.0-46.0); HGB 13.6 gm/dL (11.4-16.0); Hypochromasia Marked; Lymphocytes # (A) 0.7 k/uL (1.0-4.8); Lymphocytes % (A) 8 %; MCH 31.8 pg (25.0-35.0); MCHC 30.6 g/dL (31.0-37.0); Macrocytosis Moderate; Mean Platelet Volume 8.3; Monocytes # (A) 0.5 k/uL (0-1.0); Monocytes % (A) 6 %; Neutrophils # (A) 7.5 k/uL (1.3-7.7); Neutrophils % (A) 85 %; Platelet Count 237 k/uL (150-450); RBC 4.27 m/uL (3.80-5.40); RDW 14.8 % (11.5-15.5); WBC 8.9 k/uL (3.8-10.6)
[2023-09-24 09:45] LABS: African American GFR (CKD) 81 (>60 ml/min/1.73 sqM); Anion Gap 12 mmol/L; Blood Urea Nitrogen 29 mg/dL (7-17); Calcium 9.3 mg/dL (8.4-10.2); Carbon Dioxide 30 mmol/L (22-30); Chloride 96 mmol/L (98-107); Glucose 92 mg/dL (74-99); Non-African American GFR(CKD) 70 (>60 ml/min/1.73 sqM); Sodium 138 mmol/L (137-145)
[2023-09-24 09:46] LABS: Potassium 4.6 mmol/L (3.5-5.1)
[2023-09-24] MEDS: dexAMETHasone 2 MG TAB PO SCH (09:56)
[2023-09-24] MEDS: ASCORBIC ACID 500 MG TAB PO SCH (09:56)
[2023-09-24] MEDS: METOPROLOL TARTRATE 50 MG TAB PO SCH ×2 (09:56→20:39)
[2023-09-24] MEDS: ZINC SULFATE 220 MG CAP PO SCH (09:56)
[2023-09-24] MEDS: NYSTATIN 100,000 UNIT/GM POWD 15 GM TOPICAL SCH ×2 (09:57→17:09)
--- NOTE | 2023-09-24 13:47 | P.PN ---
Subjective Progress Note Date: 09/24/23 Principal diagnosis: Shortness of breath, breast cancer. This is a 67-year-old female with chronic redness and swelling of her right nipple, which has been progressively getting worse. Patient has been noticing bleeding from her right breast nipple, and while evaluated in the ER she was noted to have a large mass which has been progressively getting worse apparently over the last 3 months. Upon evaluation in the ER, the patient was also noted to be tachycardic, with slightly elevated troponin of 0.035. Chest x-ray showed left lower lobe atelectasis, CT of the chest raised the possibility of a defect in the right upper lobe subsegmental branch. Considering the patient was complaining of some shortness of breath, and the patient was transferred to the ICU for further evaluation she was seen already by cardiology and by vascular surgery. I reviewed the CT of the chest, and I did not feel that the findings are specific for thromboembolic disease, not to mention that the CT angiogram is a very poor quality CT. Nonetheless it did show right breast mass, and right axillary lymph nodes highly suggestive of breast carcinoma with lymph node metastasis. After reviewing the CT of the chest, and after reviewing that the patient had negative venous Doppler, and considering the patient had bleeding from the right breast mass, I recommended stopping the heparin and hopefully sometime today and arrange for a VQ scan to put the issue to rest clinically this is not a presentation of pulmonary embolism. And again the CT of the chest does not seem very diagnostic. During my evaluation the patient no shortness of breath, no cough no wheezing and no chest pain. She was on 2 L nasal cannula and O2 saturation was 97%, and after reviewing the CT of the chest again, she does have left lower lobe atelectasis, doubt pneumonia involving the left lower lobe Reevaluated today on 09/19/23, patient remains in the ICU, doing fairly well, relatively asymptomatic, her VQ scan came back negative for pulmonary embolism/low probability as the patient does not need heparin which I have already cut discontinued yesterday. She is however on Lovenox for DVT prophylaxis and cardiology recommended metoprolol 12.5 twice a day for tachycardia. Seems to be mostly a sinus tachycardia. Patient remains on 4 L nasal cannula, O2 saturation is 96% up to 98%. WBC count is 6.2 hemoglobin 13.6 basic metabolic profile is normal and renal profile is normal. Patient was seen by general surgery consultation, and I recommended basically right axillary lymph node biopsy by interventional radiology, withdraw the not do breast biopsy at this point since there is a concern about bleeding from the fungating right breast mass. In the meantime the patient is hemodynamically stable, and I believe we can safely transfer the patient out of the ICU to a regular medical floor or a medical surgical floor with telemetry to keep an eye on her tachycardia, and metoprolol was added Seen today 09/20, patient remains in the ICU, however she is truly an overflow in the ICU, patient is being seen by many consultants, at initial presentation was a presentation of bleeding fungating right breast mass and a left lower lobe atelectasis, doubt pneumonia, patient had no pulmonary symptoms on her initial presentation, CT angiogram of the chest questioned pulmonary embolism and we felt that this is not truly the case. Venous Dopplers were negative, VQ scan was negative, hence the patient was taken off heparin which was initially started in the ER. Patient is morbidly obese, and she has significant left lower lobe atelectasis, doing very poorly with incentive spirometry, she is empi rically on antibiotics in the form of Zosyn. She remains tachycardic with heart rate of 130, hemodynamically stable otherwise. Metoprolol dose was increased to 25 mg twice a day CBC showed no evidence of leukocytosis, hemoglobin is 13.2 basic metabolic profile is normal renal profile is normal, BNP level is normal 1 culture from the right breast is showing polymicrobial picture with presumptive staph, Proteus mirabilis, and beta hemolytic strep group C patient is being seen by infectious disease on consultation blood cultures are negative so far. The patient is seen today 09/21/2023 in follow-up on the oncology unit. She is currently resting comfortably in bed. Awake and alert in no acute distress. She is maintaining O2 saturations in the 90s on 4 L/m per nasal cannula. Chest x-ray reveals cardiomegaly and mild pulmonary vascular congestion. Right breast cultures are positive for beta-hemolytic strep group C, Proteus mirabilis and Staphylococcus aureus. She is currently on Zosyn. White count 7.9. Hemoglobin 14.1. Platelets 222. Sodium 132. Potassium 4.4. Bicarb 26. BUN 18. Creatinine 1.2. AST 109. ALT 50. Urinalysis with possible UTI. Culture pending. She is currently on Lovenox for DVT prophylaxis. Normal saline at KVO. Progress note dated 09/22/2023. The patient was transferred to room 350, because apparently she tested positive for coronavirus. Currently, she is on 4 L of oxygen. Getting saline at 10 mL an hour. The patient had a bone scan that was negative. A chest x-ray was ordered for September 23. No new labs today. Her last d-dimer was 1.37. The patient is being followed by medical oncology, and their impression is that she has a large right breast malignancy, with right axillary node involvement. Progress note dated 09/23/2023. The patient is seen again in room 350. The patient is currently on 4 L of oxygen. She's getting saline at 10 mL an hour. She did test positive for coronavirus. She remains on Unasyn for her right breast cellulitis. The wounds from the right breast show evidence of beta-hemolytic streptococci, Proteus, and Staphylococcus. Infectious diseases is following this patient. White count is 11.3, hemoglobin 15.8, hematocrit 48, and platelet count 275,000. No additional labs from today. Progress note dated 09/24/2023. The patient is seen today in room 350. Currently, the patient's off of oxygen. Saturations are 90%. The patient is receiving saline at 10 mL an hour. An ultrasound of the right axilla shows multiple lymph nodes. In addition, the patient continues on Unasyn. Currently labs include a white count 8.9, hemoglobin 13.6, hematocrit 44.4, and a platelet count of 237,000. Sodium 138, potassium 4.6, chloride 96, CO2 30, BUN 29, and creatinine 0.85. Objective - Vital Signs Vital signs: Vital Signs Temp 98.2 F 09/24/23 08:00 Pulse 95 09/24/23 12:10 Resp 20 09/24/23 12:10 BP 136/72 09/24/23 12:10 Pulse Ox 89 L 09/24/23 12:10 FiO2 Intake & Output 09/23/23 09/24/23 09/24/23 18:59 06:59 18:59 Intake Total 0 Output Total 625 Balance 0 -625 Intake: Oral 0 Output: Urine 625 Other: Voiding Method Indwelling Catheter Indwelling Catheter Indwelling Catheter - Exam No acute distress. Currently on 4 L of oxygen. No respiratory distress. No use of accessory muscles. The patient is very lethargic. HEENT examination is grossly unremarkable. Mucous membranes are moist. No oral lesions. Neck supple. Full range of motion. No adenopathy thyromegaly or neck vein distention. Cardiovascular examination reveals regular rhythm rate. S1-S2 normal. No S3 or S4. No discernible murmur noted. Heart rate is 95 bpm. Lungs reveal scattered rhonchi. No wheezes or crackles. Breath sounds are equal bilaterally. 4 L saturation is 92 %. Abdomen obese, but soft. Bowel sounds are noted. No tenderness. Extremities are intact. No cyanosis clubbing or edema. Skin is without rash or lesion. Neurologic examination is brief but nonfocal. - Labs CBC & Chem 7: 09/24/23 06:57 09/24/23 06:57 Labs: Abnormal Lab Results - Last 24 Hours (Table) 09/24/23 09/24/23 Range/Units 06:57 06:57 MCV 104.0 H (80.0-100.0) fL MCHC 30.6 L (31.0-37.0) g/dL Lymphocytes # 0.7 L (1.0-4.8) k/uL Chloride 96 L (98-107) mmol/L BUN 29 H (7-17) mg/dL Assessment and Plan Assessment: Fungating right breast mass, highly suggestive of breast carcinoma with axillary lymph node metastasis. Acute hypoxic respiratory failure secondary to mostly atelectasis, and obesity. Patient may have obesity/hypoventilation syndrome. And significant left lower lobe atelectasis is noted on chest x-ray and CT of the chest. Pulmonary embolism was ruled out, VQ scan was reviewed. Low probability for pulmonary embolism. Chest x-ray reveals evidence of fluid volume overload. Patient tested positive for coronavirus, doubt coronavirus associated pneumonia. Morbid obesity. Obesity/hypoventilation syndrome. Left lower lobe atelectasis, doubt pneumonia. Cellulitis of right breast, polymicrobial culture . Plan: Plan dated 09/22/2023. The patient tested positive for coronavirus, and was transferred down to room 350, and is currently on 4 L of oxygen. Labs, x-rays, and medications are reviewed. The patient was given Lasix yesterday, because we are concerned about fluid overload. The patient continues on Unasyn, as per infectious disease recommendation. We will continue to follow and make recommendations along the way. She does continue on Decadron 6 mg daily. Prognosis is certainly guarded. Plan dated 09/23/2023. The patient continues on Unasyn as per infectious diseases. The patient also c ontinues on 4 L of oxygen, and saline at 10 mL an hour. Patient is very lethargic and sleepy. Looking at her medication list, she's not getting anything that might cause that. She does get melatonin in the evening for sleep. We will continue to follow. Labs, x-rays, and medications are reviewed. The patient's overall prognosis remains guarded. We did add Decadron for her coronavirus infection. Plan dated 09/24/2023. The patient continues on Unasyn for her breast infection. The patient is also on 4 L of oxygen, with saturations of 90-92%. An ultrasound of the right axilla reveals multiple enlarged lymph nodes, and a biopsy will be done in this area. Labs, x-rays, and medications are reviewed. Patient overall prognosis remains guarded. She is more awake today. She is also receiving saline at 10 mL an hour. We will continue to follow make recommendations along the way. Prognosis is guarded. Time with Patient: Less than 30
--- NOTE | 2023-09-24 16:19 | P.PN ---
Subjective Progress Note Date: 09/23/23 Principal diagnosis: Reason for follow up is right breast infected wound Patient is a 67-year-old female with a past medical history significant for CVA TIA hypertension morbid obesity presenting to the hospital for evaluation of right breast pain, patient has been diagnosed with a fungating tumor with a wound and concern for infection. On today's evaluation that is 09/23/2023, the patient remains to be febrile, the patient is breathing comfortably on 4 L nasal cannula oxygen, The patient denies chest pain or cough, patient denies Abdominal pain, no nausea/vomiting or diarrhea the patient denies any worsening pain to the right breast area Patient did have a white count of 11.3, creatinine is 0.95 urine is positive, chest x-ray cardiomegaly and pulmonary vascular congestion, patient covid 19 PCR came back positive Objective - Vital Signs Vital signs: Vital Signs Temp 97.5 F L 09/23/23 11:40 Pulse 91 09/23/23 11:40 Resp 19 09/23/23 11:40 BP 157/88 09/23/23 11:40 Pulse Ox 90 L 09/23/23 11:40 FiO2 Intake & Output 09/22/23 09/23/23 09/23/23 18:59 06:59 18:59 Intake Total 0 0 Output Total 550 300 Balance -550 -300 0 Weight 147 kg Intake: Oral 0 0 Output: Urine 550 300 Other: Voiding Method Indwelling Catheter Indwelling Catheter Indwelling Catheter - Exam GENERAL DESCRIPTION: An elderly female lying in bed in no distress RESPIRATORY SYSTEM: Unlabored breathing , decreased breath sound the bases HEART: S1 S2 regular rate and rhythm , ABDOMEN: Soft , no tenderness EXTREMITIES: Diffuse swelling bilateral lower extremity no redness - Labs CBC & Chem 7: 09/24/23 06:57 09/24/23 06:57 Labs: Abnormal Lab Results - Last 24 Hours (Table) 09/23/23 Range/Units 08:09 WBC 11.3 H (3.8-10.6) k/uL Hct 48.0 H (34.0-46.0) % MCV 102.2 H (80.0-100.0) fL Neutrophils # 10.2 H (1.3-7.7) k/uL Lymphocytes # 0.6 L (1.0-4.8) k/uL Microbiology - Last 24 Hours (Table) 09/17/23 10:10 Blood Culture - Final Blood 09/17/23 10:20 Blood Culture - Final Blood 09/21/23 08:33 Urine Culture - Final Urine,Voided 09/17/23 10:20 Gram Stain - Final Breast - Right Wound Culture - Final Beta Hemolytic Strep Group C Proteus mirabilis Staphylococcus aureus 09/19/23 09:58 Blood Culture - Preliminary Blood 09/19/23 09:49 Blood Culture - Preliminary Blood Assessment and Plan (1) Fever Current Visit: Yes Status: Acute Code(s): R50.9 - FEVER, UNSPECIFIED SNOMED Code(s): 391222517 (2) Mastitis Current Visit: Yes Status: Acute Code(s): N61.0 - MASTITIS WITHOUT ABSCESS SNOMED Code(s): 088716393 (3) COVID-19 Current Visit: Yes Status: Acute Priority: High Code(s): U07.1 - COVID-19 SNOMED Code(s): 775568927 Plan: 1patient presented to hospital with large right breast mass with some bleeding, in this patient who is running low-grade fever and was tachycardic and concern for possible infected right breast wound with underlying malignancy versus pneumonia less likely 2-blood cultures have been negative so far and local culture currently growing strep Proteus and Staphylococcus aureus, for the patient is currently covered with the Unasyn to continue 3-patient did have new fever and the patient covid PCR came back positive, patient to continue with Decadron, Lovenox, zinc ascorbic acid, droplet precautions dictation was produced using [employer] dictation software. please excuse any grammatical, word or spelling errors. Time with Patient: Less than 30
--- NOTE | 2023-09-24 16:21 | P.PN ---
Subjective Progress Note Date: 09/24/23 Principal diagnosis: Reason for follow up is right breast infected wound Patient is a 67-year-old female with a past medical history significant for CVA TIA hypertension morbid obesity presenting to the hospital for evaluation of right breast pain, patient has been diagnosed with a fungating tumor with a wound and concern for infection. On today's evaluation that is 09/24/2023, the patient denies any fever or any chills, the patient is breathing comfortably on 4 L nasal cannula oxygen, the patient denies any chest pain, no cough or sputum production, patient denies nausea/vomiting /diarrhea and no abdominal pain, patient denies any worsening pain to the right breast area Patient did have a white count of 8.9, creatinine is 0.85 urine is positive, chest x-ray cardiomegaly and pulmonary vascular congestion, patient covid 19 PCR came back positive Objective - Vital Signs Vital signs: Vital Signs Temp 98.2 F 09/24/23 08:00 Pulse 94 09/24/23 08:00 Resp 20 09/24/23 08:00 BP 137/68 09/24/23 08:00 Pulse Ox 90 L 09/24/23 08:00 FiO2 Intake & Output 09/23/23 09/24/23 09/24/23 18:59 06:59 18:59 Intake Total 0 Output Total 625 Balance 0 -625 Intake: Oral 0 Output: Urine 625 Other: Voiding Method Indwelling Catheter Indwelling Catheter Indwelling Catheter - Exam GENERAL DESCRIPTION: An elderly female lying in bed in no distress RESPIRATORY SYSTEM: Unlabored breathing , decreased intensity breath sound, no wheeze HEART: S1 S2 regular rate and rhythm , ABDOMEN: Soft , no tenderness EXTREMITIES: Diffuse swelling bilateral lower extremity no redness - Labs CBC & Chem 7: 09/24/23 06:57 09/24/23 06:57 Labs: Abnormal Lab Results - Last 24 Hours (Table) 09/24/23 09/24/23 Range/Units 06:57 06:57 MCV 104.0 H (80.0-100.0) fL MCHC 30.6 L (31.0-37.0) g/dL Lymphocytes # 0.7 L (1.0-4.8) k/uL Chloride 96 L (98-107) mmol/L BUN 29 H (7-17) mg/dL Assessment and Plan (1) Fever Current Visit: Yes Status: Acute Code(s): R50.9 - FEVER, UNSPECIFIED SNOMED Code(s): 700450491 (2) Mastitis Current Visit: Yes Status: Acute Code(s): N61.0 - MASTITIS WITHOUT ABSCESS SNOMED Code(s): 468912356 (3) COVID-19 Current Visit: Yes Status: Acute Priority: High Code(s): U07.1 - COVID-19 SNOMED Code(s): 654559231 Plan: 1patient presented to hospital with large right breast mass with some bleeding, in this patient who is running low-grade fever and was tachycardic and concern for possible infected right breast wound with underlying malignancy versus pneumonia less likely 2-blood cultures have been negative so far and local culture currently growing strep Proteus and Staphylococcus aureus, patient to continue with Unasyn patient white count has normalized 3-patient with Covid 19, patient to continue with Decadron, Lovenox, zinc asco rbic acid, droplet precautions dictation was produced using [employer] dictation software. please excuse any grammatical, word or spelling errors. Time with Patient: Less than 30
--- NOTE | 2023-09-24 16:52 | P.PN ---
Subjective Progress Note Date: 09/24/23 (delayed charting seen at 1300) Patient is a 67-year-old female with coronary artery disease and prior olga cardial infarction, who presented to the ER with complaints of right breast pain and breast lesion that started bleeding. In the ER she underwent an extensive evaluation. On arrival she was tachycardic to 140. Laboratory analysis included a CBC, coags, CMP, troponin, and urinalysis which were remarkable for sodium 135, potassium 3.3, glucose 139, bilirubin 1.4, AST 184, ALT 80, troponin 0.029. She underwent a chest x-ray which shows basilar increased density possibly reflecting atelectasis. She then underwent CTA of the chest which noted a defect within the right upper lobe subsegmental branch with pulmonary embolism not excluded. Right breast carcinoma with skin thickening is partially imaged, right axillary lymphadenopathy. She was started on a heparin gtt and arrangements were made for admission. Pulm, oncology, and breast surgery were cosnulted. Over night she became hypoxic and required 10L high flow nasal cannula. She was subsequently transferred to the ICU. After being evaluated by pulmonary and was told she likely did not have a pulmonary embolism. She had lower extremity venous Dopplers which were negative for DVT bilaterally. She had an echocardiogram which revealed an ejection fraction of 50% with normal right ventricular systolic pressure. She then underwent a VQ scan which showed very low probability of pulmonary embolism and this was subsequently ruled out. She was seen by oncology and breast surgery who recommended possible lymph node biopsy. During her hospital stay she spiked a fever and was found to be positive for COVID-19. She was started on IV steroids. Patient underwent right axillary lymph node biopsy on 09/24/23 Hospital course imaging: Echocardiogram ejection fraction 50%, normal RVSP Lower extremity venous Dopplers: No DVT bilaterally CTA chest: Filling defect within the right upper lobe pulmonary embolism not excluded, right breast carcinoma with skin thickening VQ scan: Low probability of pulmonary embolism CT abdomen and pelvis: Partially seen worsening consolidative opacity in the left lung base with small pleural effusion possible pneumonia, moderate cardiomegaly, portion of right breast mass and skin thickening seen, enlarged lymph nodes in the right chest wall potentially metastatic, diffuse heterogeneous liver without discrete mass, gallbladder moderately distended with 1.9 cm gallstone in the neck, mildly prominent nodule suggested lymph node in the right upper quadrant, PET/CT as an outpatient for further staging as clinically warranted. Nuclear medicine bone scan: Nothing to suggest metastatic disease Amna ultrasound, gallstones stuck within the gallbladder neck correlate for signs and symptoms of cholecystitis, cystic duct obstruction Patient seen and examined at bedside with daughter present. She does not want to be bothered. She denies any shortness of breath. She had one episode of loo se stools today. No nausea or vomiting currently. Vital signs reviewed General: nontoxic, no distress, appears at stated age Breast: Fungating right-sided breast mass with some excoriation and bleeding Cardiovascular: S1S2 reg, no murmur, positive posterior tibial pulse bilateral, Lungs: CTA bilateral, no rhonchi, no rales , no accessory muscle use Abdominal: soft, nontender to palpation, no guarding, no appreciable organomegaly Ext: no gross muscle atrophy, no edema b/l lower extremities, no contractures Neuro: CN II-XI grossly intact, no focal neuro deficits Psych: Alert, oriented, appropriate affect Assessment/Plan: Sepsis possibly secondary to infected breast tissue Fungating/necrotic right-sided breast measuring at least 4.6 cm -Bone scan negative for any metastatic disease - Case is being followed by breast surgery and oncology. -Status post axillary lymph node biopsy on 09/24/23 -Infectious disease recommendations: -Unasyn 3 g IV piggyback every 8 hours day #4, received Zosyn on 09/19 through 09/21 - bleeding from breast mass, recommend vasline impregnated gauze prior to 4X 4 as breast mass bleeding from multiple 4X 4 changes. Acute hypoxic respiratory failure likely secondary to atelectasis Acute COVID-19 infection Probable obesity hypoventilation syndrome -Pulmonary no reviewed: Continue Unasyn for possible breast infection. Continue with Decadron -Decadron 6 mg oral daily dose #4 of 10 - Wean O2 as able. Acute diastolic heart failure exacerbation, ruled out Sinus tachycardia Elevated trop X 1 NSTEMI ruled out and due to supple demand mismatch Elevated TSH, normal free T4 - Cardiology, signed off - Lopressor 50 mg oral BID Transaminitis, has been stable Possible cholecystitis -Repeat CMP tomorrow Class III Obesity with BMI 60.6 - outpatient structured weight loss Hypokalemia - resolved Imaging: No new imaging Data Review: Labs reviewed from today include CBC and basic metabolic profile which are essentially remarkable for BUN 29 DVT prophylaxis: Lovenox Anticipated discharge date: Pending Clinical Course Anticipated discharge place: Pending Clinical Course This dictation was prepared using [employer] voice recognition software. Though every attempt is made to correct errors during dictation some may still exist. Objective - Vital Signs Vital signs: Vital Signs Temp 98.2 F 09/24/23 08:00 Pulse 95 09/24/23 12:10 Resp 20 09/24/23 14:34 BP 136/72 09/24/23 12:10 Pulse Ox 89 L 09/24/23 12:10 FiO2 Intake & Output 09/23/23 09/24/23 09/24/23 18:59 06:59 18:59 Intake Total 0 Output Total 625 Balance 0 -625 Intake: Oral 0 Output: Urine 625 Other: Voiding Method Indwelling Catheter Indwelling Catheter Indwelling Catheter - Labs CBC & Chem 7: 09/24/23 06:57 09/24/23 06:57 Labs: Abnormal Lab Results - Last 24 Hours (Table) 09/24/23 09/24/23 Range/Units 06:57 06:57 MCV 104.0 H (80.0-100.0) fL MCHC 30.6 L (31.0-37.0) g/dL Lymphocytes # 0.7 L (1.0-4.8) k/uL Chloride 96 L (98-107) mmol/L BUN 29 H (7-17) mg/dL
[2023-09-25] MEDS: SODIUM CHLORIDE 0.9% 1,000 ML IV SCH (05:13)
[2023-09-25] MEDS: AMPICILLIN-SULBACTAM 3 GM in SODIUM CHLORIDE 0.9% 100 ML IVPB SCH ×3 (05:13→17:27)
[2023-09-25] MEDS: ASCORBIC ACID 500 MG TAB PO SCH (08:21)
[2023-09-25] MEDS: ZINC SULFATE 220 MG CAP PO SCH (08:21)
[2023-09-25] MEDS: ENOXAPARIN 40 MG/0.4 ML SYRINGE SQ SCH (08:21)
[2023-09-25] MEDS: METOPROLOL TARTRATE 50 MG TAB PO SCH ×2 (08:21→21:14)
[2023-09-25] MEDS: dexAMETHasone 2 MG TAB PO SCH (08:21)
[2023-09-25] MEDS: NYSTATIN 100,000 UNIT/GM POWD 15 GM TOPICAL SCH ×4 (08:22→21:14)
[2023-09-25 09:10] LABS: HCT 45.6 % (34.0-46.0); HGB 14.1 gm/dL (11.4-16.0); Hypochromasia Marked; MCH 31.8 pg (25.0-35.0); MCV 102.5 fL (80.0-100.0); Macrocytosis Slight; Mean Platelet Volume 7.9; Platelet Count 313 k/uL (150-450); RBC 4.45 m/uL (3.80-5.40); RDW 14.5 % (11.5-15.5)
--- NOTE | 2023-09-25 09:10 | XR ---
EXAMINATION TYPE: XR chest 1V portable DATE OF EXAM: 09/25/2023 8:41 AM CLINICAL INDICATION:Female, 67 years old with history of covid; [facility] COMPARISON: Chest radiographs from 09/21/2023 TECHNIQUE: XR chest 1V portable Frontal view of the chest. FINDINGS: Lungs/Pleura: There is no evidence of pleural effusion, focal consolidation, or pneumothorax. Pulmonary vascularity: Pulmonary vascular congestion. Heart/mediastinum: Cardiomediastinal silhouette is enlarged and stable. Musculoskeletal: No acute osseous pathology. Other findings: None IMPRESSION: Low lung volumes with a generalized hazy appearance which could represent atelectasis versus pulmonar y edema correlate with serum BNP.
[2023-09-25 09:26] LABS: ALT 46 U/L (4-34); AST 91 U/L (14-36); African American GFR (CKD) 77 (>60 ml/min/1.73 sqM); Alkaline Phosphatase 174 U/L (38-126); Anion Gap 8 mmol/L; Blood Urea Nitrogen 31 mg/dL (7-17); Calcium 9.3 mg/dL (8.4-10.2); Carbon Dioxide 36 mmol/L (22-30); Chloride 99 mmol/L (98-107); Glucose 115 mg/dL (74-99); Non-African American GFR(CKD) 66 (>60 ml/min/1.73 sqM); Potassium 4.1 mmol/L (3.5-5.1); Sodium 143 mmol/L (137-145); Total Bilirubin 0.6 mg/dL (0.2-1.3); Total Protein 6.8 g/dL (6.3-8.2)
--- NOTE | 2023-09-25 13:26 | P.PN ---
Subjective Progress Note Date: 09/25/23 Principal diagnosis: Shortness of breath, breast cancer. This is a 67-year-old female with chronic redness and swelling of her right nipple, which has been progressively getting worse. Patient has been noticing bleeding from her right breast nipple, and while evaluated in the ER she was noted to have a large mass which has been progressively getting worse apparently over the last 3 months. Upon evaluation in the ER, the patient was also noted to be tachycardic, with slightly elevated troponin of 0.035. Chest x-ray showed left lower lobe atelectasis, CT of the chest raised the possibility of a defect in the right upper lobe subsegmental branch. Considering the patient was complaining of some shortness of breath, and the patient was transferred to the ICU for further evaluation she was seen already by cardiology and by vascular surgery. I reviewed the CT of the chest, and I did not feel that the findings are specific for thromboembolic disease, not to mention that the CT angiogram is a very poor quality CT. Nonetheless it did show right breast mass, and right axillary lymph nodes highly suggestive of breast carcinoma with lymph node metastasis. After reviewing the CT of the chest, and after reviewing that the patient had negative venous Doppler, and considering the patient had bleeding from the right breast mass, I recommended stopping the heparin and hopefully sometime today and arrange for a VQ scan to put the issue to rest clinically this is not a presentation of pulmonary embolism. And again the CT of the chest does not seem very diagnostic. During my evaluation the patient no shortness of breath, no cough no wheezing and no chest pain. She was on 2 L nasal cannula and O2 saturation was 97%, and after reviewing the CT of the chest again, she does have left lower lobe atelectasis, doubt pneumonia involving the left lower lobe Reevaluated today on 09/19/23, patient remains in the ICU, doing fairly well, relatively asymptomatic, her VQ scan came back negative for pulmonary embolism/low probability as the patient does not need heparin which I have already cut discontinued yesterday. She is however on Lovenox for DVT prophylaxis and cardiology recommended metoprolol 12.5 twice a day for tachycardia. Seems to be mostly a sinus tachycardia. Patient remains on 4 L nasal cannula, O2 saturation is 96% up to 98%. WBC count is 6.2 hemoglobin 13.6 basic metabolic profile is normal and renal profile is normal. Patient was seen by general surgery consultation, and I recommended basically right axillary lymph node biopsy by interventional radiology, withdraw the not do breast biopsy at this point since there is a concern about bleeding from the fungating right breast mass. In the meantime the patient is hemodynamically stable, and I believe we can safely transfer the patient out of the ICU to a regular medical floor or a medical surgical floor with telemetry to keep an eye on her tachycardia, and metoprolol was added Seen today 09/20, patient remains in the ICU, however she is truly an overflow in the ICU, patient is being seen by many consultants, at initial presentation was a presentation of bleeding fungating right breast mass and a left lower lobe atelectasis, doubt pneumonia, patient had no pulmonary symptoms on her initial presentation, CT angiogram of the chest questioned pulmonary embolism and we felt that this is not truly the case. Venous Dopplers were negative, VQ scan was negative, hence the patient was taken off heparin which was initially started in the ER. Patient is morbidly obese, and she has significant left lower lobe atelectasis, doing very poorly with incentive spirometry, she is empi rically on antibiotics in the form of Zosyn. She remains tachycardic with heart rate of 130, hemodynamically stable otherwise. Metoprolol dose was increased to 25 mg twice a day CBC showed no evidence of leukocytosis, hemoglobin is 13.2 basic metabolic profile is normal renal profile is normal, BNP level is normal 1 culture from the right breast is showing polymicrobial picture with presumptive staph, Proteus mirabilis, and beta hemolytic strep group C patient is being seen by infectious disease on consultation blood cultures are negative so far. The patient is seen today 09/21/2023 in follow-up on the oncology unit. She is currently resting comfortably in bed. Awake and alert in no acute distress. She is maintaining O2 saturations in the 90s on 4 L/m per nasal cannula. Chest x-ray reveals cardiomegaly and mild pulmonary vascular congestion. Right breast cultures are positive for beta-hemolytic strep group C, Proteus mirabilis and Staphylococcus aureus. She is currently on Zosyn. White count 7.9. Hemoglobin 14.1. Platelets 222. Sodium 132. Potassium 4.4. Bicarb 26. BUN 18. Creatinine 1.2. AST 109. ALT 50. Urinalysis with possible UTI. Culture pending. She is currently on Lovenox for DVT prophylaxis. Normal saline at KVO. Progress note dated 09/22/2023. The patient was transferred to room 350, because apparently she tested positive for coronavirus. Currently, she is on 4 L of oxygen. Getting saline at 10 mL an hour. The patient had a bone scan that was negative. A chest x-ray was ordered for September 23. No new labs today. Her last d-dimer was 1.37. The patient is being followed by medical oncology, and their impression is that she has a large right breast malignancy, with right axillary node involvement. Progress note dated 09/23/2023. The patient is seen again in room 350. The patient is currently on 4 L of oxygen. She's getting saline at 10 mL an hour. She did test positive for coronavirus. She remains on Unasyn for her right breast cellulitis. The wounds from the right breast show evidence of beta-hemolytic streptococci, Proteus, and Staphylococcus. Infectious diseases is following this patient. White count is 11.3, hemoglobin 15.8, hematocrit 48, and platelet count 275,000. No additional labs from today. Progress note dated 09/24/2023. The patient is seen today in room 350. Currently, the patient's off of oxygen. Saturations are 90%. The patient is receiving saline at 10 mL an hour. An ultrasound of the right axilla shows multiple lymph nodes. In addition, the patient continues on Unasyn. Currently labs include a white count 8.9, hemoglobin 13.6, hematocrit 44.4, and a platelet count of 237,000. Sodium 138, potassium 4.6, chloride 96, CO2 30, BUN 29, and creatinine 0.85. Progress note dated 09/25/2023. The patient is seen today in room 629. Currently, the patient is on oxygen at 3.5 L. Saturation 90%. She's not receiving any IV fluids she does continue on Unasyn. Yesterday, she had a lymph node biopsy of the right axillary lymph nodes. We will recheck another pro-calcitonin level, and a BNP. White count 8, he will 14.1, hematocrit 45.6, platelet count 313,000. Sodium 143, potassium 4.1, chlorides 99, CO2 36, BUN 31, creatinine 0.89. The patient's N-terminal proBNP was 1220. Albumin is 3. The patient's lung volumes are low, and lung fritz are hazy, consistent with CHF/fluid overload. Objective - Vital Signs Vital signs: Vital Signs Temp 98.4 F 09/25/23 08:00 Pulse 85 09/25/23 08:00 Resp 20 09/25/23 08:00 BP 152/81 09/25/23 08:00 Pulse Ox 90 L 09/25/23 08:00 FiO2 Intake & Output 09/24/23 09/25/23 09/25/23 18:59 06:59 18:59 Intake Total 210 Output Total 300 Balance 210 -300 Weight 147 kg Intake: Oral 210 Output: Urine 300 Other: Voiding Method Indwelling Catheter Indwelling Catheter - Exam No acute distress. Currently on 3.5 L of oxygen. No respiratory distress. No use of accessory muscles. The patient is very lethargic. HEENT examination is grossly unremarkable. Mucous membranes are moist. No oral lesions. Neck supple. Full range of motion. No adenopathy thyromegaly or neck vein distention. Cardiovascular examination reveals regular rhythm rate. S1-S2 normal. No S3 or S4. No discernible murmur noted. Heart rate is 85 bpm. Lungs reveal scattered rhonchi. No wheezes or crackles. Breath sounds are equal bilaterally. 3.5 L saturation is 90%. Abdomen obese, but soft. Bowel sounds are noted. No tenderness. Extremities are intact. No cyanosis clubbing or edema. Skin is without rash or lesion. Neurologic examination is brief but nonfocal. - Labs CBC & Chem 7: 09/25/23 08:24 09/25/23 08:24 Labs: Abnormal Lab Results - Last 24 Hours (Table) 09/25/23 09/25/23 Range/Units 08:24 08:24 MCV 102.5 H (80.0-100.0) fL Carbon Dioxide 36 H (22-30) mmol/L BUN 31 H (7-17) mg/dL Glucose 115 H (74-99) mg/dL AST 91 H (14-36) U/L ALT 46 H (4-34) U/L Alkaline Phosphatase 174 H (38-126) U/L Albumin 3.0 L (3.5-5.0) g/dL Microbiology - Last 24 Hours (Table) 09/19/23 09:58 Blood Culture - Final Blood 09/19/23 09:49 Blood Culture - Final Blood Assessment and Plan Assessment: Fungating right breast mass, highly suggestive of breast carcinoma with axillary lymph node metastasis. S/P lymph node biopsy, right axillary nodes, September 24. Acute hypoxic respiratory failure secondary to mostly atelectasis, and obesity. Patient may have obesity/hypoventilation syndrome. And significant left lower lobe atelectasis is noted on chest x-ray and CT of the chest. Pulmonary embolism was ruled out, VQ scan was reviewed. Low probability for pulmonary embolism. Chest x-ray reveals evidence of fluid volume overload. Patient tested positive for coronavirus, doubt coronavirus associated pneumonia. Morbid obesity. Obesity/hypoventilation syndrome. Left lower lobe atelectasis, doubt pneumonia. Cellulitis of right breast, polymicrobial culture . Plan: Plan dated 09/22/2023. The patient tested positive for coronavirus, and was transferred down to room 350, and is currently on 4 L of oxygen. Labs, x-rays, and medications are reviewed. The patient was given Lasix yesterday, because we are concerned about fluid overload. The patient continues on Unasyn, as per infectious disease recommendation. We will continue to follow and make recommendations along the way. She does continue on Decadron 6 mg daily. Prognosis is certainly guarded. Plan dated 09/23/2023. The patient continues on Unasyn as per infectious diseases. The patient also continues on 4 L of oxygen, and saline at 10 mL an hour. Patient is very lethargic and sleepy. Looking at her medication list, she's not getting anything that might cause that. She does get melatonin in the evening for sleep. We will continue to follow. Labs, x-rays, and medications are reviewed. The patient's overall prognosis remains guarded. We did add Decadron for her coronavirus infection. Plan dated 09/24/2023. The patient continues on Unasyn for her breast infection. The patient is also on 4 L of oxygen, with saturations of 90-92%. An ultrasound of the right axilla reveals multiple enlarged lymph nodes, and a biopsy will be done in this area. Labs, x-rays, and medications are reviewed. Patient overall prognosis remains guarded. She is more awake today. She is also receiving saline at 10 mL an hour. We will continue to follow make recommendations along the way. Prognosis is guarded. Plan dated 09/25/2023. Yesterday, the patient had biopsy of her lymph nodes in the right axilla. Obviously, results are still pending. She continues on 3.5 L of oxygen. She also continues on Unasyn. Labs, x-rays, and medications are reviewed. Prognosis is guarded. We will continue to follow and make recommendations along the way. Time with Patient: Less than 30
--- NOTE | 2023-09-25 14:46 | P.PN ---
Subjective Progress Note Date: 09/25/23 Principal diagnosis: Reason for follow up is right breast infected wound Patient is a 67-year-old female with a past medical history significant for CVA TIA hypertension morbid obesity presenting to the hospital for evaluation of right breast pain, patient has been diagnosed with a fungating tumor with a wound and concern for infection. On today's evaluation that is 09/25/2023 the patient remains to be afebrile, the patient is breathing comfortably on 4 L nasal cannula oxygen. The patient denies chest pain did have occasional dry cough, patient denies nausea/vomiting or diarrhea and no abdominal pain, denies any worsening pain to the right breast area Patient did have a white count of 8.0, creatinine is 0.89 , right breast culture positive for Streptococcus MSSA and Proteus, patient covid 19 PCR came back positive Objective - Vital Signs Vital signs: Vital Signs Temp 98.4 F 09/25/23 08:00 Pulse 85 09/25/23 08:00 Resp 20 09/25/23 08:00 BP 152/81 09/25/23 08:00 Pulse Ox 90 L 09/25/23 08:00 FiO2 Intake & Output 09/24/23 09/25/23 09/25/23 18:59 06:59 18:59 Intake Total 210 Output Total 300 Balance 210 -300 Weight 147 kg Intake: Oral 210 Output: Urine 300 Other: Voiding Method Indwelling Catheter Indwelling Catheter - Exam GENERAL DESCRIPTION: An elderly female lying in bed in no distress RESPIRATORY SYSTEM: Unlabored breathing , decreased intensity breath sound, no wheeze HEART: S1 S2 regular rate and rhythm , ABDOMEN: Soft , no tenderness EXTREMITIES: Diffuse swelling bilateral lower extremity no redness - Labs CBC & Chem 7: 09/25/23 08:24 09/25/23 08:24 Labs: Abnormal Lab Results - Last 24 Hours (Table) 09/25/23 09/25/23 Range/Units 08:24 08:24 MCV 102.5 H (80.0-100.0) fL Carbon Dioxide 36 H (22-30) mmol/L BUN 31 H (7-17) mg/dL Glucose 115 H (74-99) mg/dL AST 91 H (14-36) U/L ALT 46 H (4-34) U/L Alkaline Phosphatase 174 H (38-126) U/L Albumin 3.0 L (3.5-5.0) g/dL Microbiology - Last 24 Hours (Table) 09/19/23 09:58 Blood Culture - Final Blood 09/19/23 09:49 Blood Culture - Final Blood Assessment and Plan (1) Fever Current Visit: Yes Status: Acute Code(s): R50.9 - FEVER, UNSPECIFIED SNOMED Code(s): 784988625 (2) Mastitis Current Visit: Yes Status: Acute Code(s): N61.0 - MASTITIS WITHOUT ABSCESS SNOMED Code(s): 190121082 (3) COVID-19 Current Visit: Yes Status: Acute Priority: High Code(s): U07.1 - COVID-19 SNOMED Code(s): 269103194 Plan: 1patient presented to hospital with large right breast mass with some bleeding, in this patient who is running low-grade fever and was tachycardic and concern for possible infected right breast wound with underlying malignancy versus pneumonia less likely 2-blood cultures have been negative so far and local culture growing strep Proteus and Staphylococcus aureus, for the patient is covered with Unasyn and patient white count has normalized 3-patient with Covid 19, patient to continue with Decadron, Lovenox, zinc ascorbic acid, droplet precautions, monitor clinical course closely dictation was produced using [employer] dictation software. please excuse any grammatical, word or spelling errors.
--- NOTE | 2023-09-25 17:33 | P.PN ---
Subjective Progress Note Date: 09/25/23 (delayed charting seen at 0945) Patient is a 67-year-old female with coronary artery disease and prior olga cardial infarction, who presented to the ER with complaints of right breast pain and breast lesion that started bleeding. In the ER she underwent an extensive evaluation. On arrival she was tachycardic to 140. Laboratory analysis included a CBC, coags, CMP, troponin, and urinalysis which were remarkable for sodium 135, potassium 3.3, glucose 139, bilirubin 1.4, AST 184, ALT 80, troponin 0.029. She underwent a chest x-ray which shows basilar increased density possibly reflecting atelectasis. She then underwent CTA of the chest which noted a defect within the right upper lobe subsegmental branch with pulmonary embolism not excluded. Right breast carcinoma with skin thickening is partially imaged, right axillary lymphadenopathy. She was started on a heparin gtt and arrangements were made for admission. Pulm, oncology, and breast surgery were cosnulted. Over night she became hypoxic and required 10L high flow nasal cannula. She was subsequently transferred to the ICU. After being evaluated by pulmonary and was told she likely did not have a pulmonary embolism. She had lower extremity venous Dopplers which were negative for DVT bilaterally. She had an echocardiogram which revealed an ejection fraction of 50% with normal right ventricular systolic pressure. She then underwent a VQ scan which showed very low probability of pulmonary embolism and this was subsequently ruled out. She was seen by oncology and breast surgery who recommended possible lymph node biopsy. During her hospital stay she spiked a fever and was found to be positive for COVID-19. She was started on IV steroids. Patient underwent right axillary lymph node biopsy on 09/24/23 Hospital course imaging: Echocardiogram ejection fraction 50%, normal RVSP Lower extremity venous Dopplers: No DVT bilaterally CTA chest: Filling defect within the right upper lobe pulmonary embolism not excluded, right breast carcinoma with skin thickening VQ scan: Low probability of pulmonary embolism CT abdomen and pelvis: Partially seen worsening consolidative opacity in the left lung base with small pleural effusion possible pneumonia, moderate cardiomegaly, portion of right breast mass and skin thickening seen, enlarged lymph nodes in the right chest wall potentially metastatic, diffuse heterogeneous liver without discrete mass, gallbladder moderately distended with 1.9 cm gallstone in the neck, mildly prominent nodule suggested lymph node in the right upper quadrant, PET/CT as an outpatient for further staging as clinically warranted. Nuclear medicine bone scan: Nothing to suggest metastatic disease Amna ultrasound, gallstones stuck within the gallbladder neck correlate for signs and symptoms of cholecystitis, cystic duct obstruction Patient seen and examined at bedside with daughter present. She does not want to be bothered. She denies any shortness of breath. She had one episode of loo se stools today. No nausea or vomiting currently. Vital signs reviewed General: nontoxic, no distress, appears at stated age Cardiovascular: S1S2 reg, no murmur, positive posterior tibial pulse bilateral, Lungs: Decreased bs bilateral, no rhonchi, no rales , no accessory muscle use Abdominal: soft, nontender to palpation, no guarding, no appreciable organomegaly Ext: no gross muscle atrophy, no edema b/l lower extremities, no contractures Neuro: CN II-XI grossly intact, no focal neuro deficits Psych: Alert, oriented, appropriate affect Assessment/Plan: Sepsis possibly secondary to infected breast tissue Fungating/necrotic right-sided breast measuring at least 4.6 cm - pathology pending -Bone scan negative for any metastatic disease - Case is being followed by breast surgery and oncology. -Status post axillary lymph node biopsy on 09/24/23 -Infectious disease note reviewed: Continue with Decadron for Covid and Unasyn for breast cultures. -Case discussed with Dr. Lopez. She will reevaluate the patient sometime next week. Should she be discharged before then she will recommend outpatient follow-up within the clinic. We'll continue to monitor for pathology to come back for lymphnode biopsy. -Unasyn 3 g IV piggyback every 8 hours day #5, received Zosyn on 09/19 through 09/21 - bleeding from breast mass, recommend vasline impregnated gauze prior to 4X 4 as breast mass bleeding from multiple 4X 4 changes. Acute hypoxic respiratory failure likely secondary to atelectasis Acute COVID-19 infection Probable obesity hypoventilation syndrome -Pulmonary note reviewed: Continues to require oxygen at 3.5 L. No additional recommendations -Decadron 6 mg oral daily dose #5 of 10 - Wean O2 as able. Acute diastolic heart failure exacerbation, ruled out Sinus tachycardia Elevated trop X 1 NSTEMI ruled out and due to supple demand mismatch Elevated TSH, normal free T4 - Cardiology, signed off - Lopressor 50 mg oral BID Transaminitis, has been stable Large gallstone, cholecystitis ruled out -Repeat CMP tomorrow Class III Obesity with BMI 60.6 - outpatient structured weight loss Hypokalemia - resolved Imaging: No new imaging Data Review: Labs reviewed from today include CBC and CMP which are remarkable for AST 91, ALT 46, BNP 1220 DVT prophylaxis: Lovenox Anticipated discharge date: Pending Clinical Course Anticipated discharge place: Pending Clinical Course This dictation was prepared using [email or web address] voice recognition software. Though every attempt is made to correct errors during dictation some may still exist. Objective - Vital Signs Vital signs: Vital Signs Temp 97.5 F L 09/25/23 15:38 Pulse 95 09/25/23 15:38 Resp 20 09/25/23 15:38 BP 151/82 09/25/23 15:38 Pulse Ox 90 L 09/25/23 15:38 FiO2 Intake & Output 09/24/23 09/25/23 09/25/23 18:59 06:59 18:59 Intake Total 210 118 Output Total 300 Balance 210 -300 118 Weight 147 kg Intake: Oral 210 118 Output: Urine 300 Other: Voiding Method Indwelling Catheter Indwelling Catheter # Bowel Movements 1 - Labs CBC & Chem 7: 09/25/23 08:24 09/25/23 08:24 Labs: Abnormal Lab Results - Last 24 Hours (Table) 09/25/23 09/25/23 Range/Units 08:24 08:24 MCV 102.5 H (80.0-100.0) fL Carbon Dioxide 36 H (22-30) mmol/L BUN 31 H (7-17) mg/dL Glucose 115 H (74-99) mg/dL AST 91 H (14-36) U/L ALT 46 H (4-34) U/L Alkaline Phosphatase 174 H (38-126) U/L Albumin 3.0 L (3.5-5.0) g/dL Microbiology - Last 24 Hours (Table) 09/19/23 09:58 Blood Culture - Final Blood 09/19/23 09:49 Blood Culture - Final Blood
[2023-09-26] MEDS: AMPICILLIN-SULBACTAM 3 GM in SODIUM CHLORIDE 0.9% 100 ML IVPB SCH ×5 (00:45→23:31)
[2023-09-26] MEDS: SODIUM CHLORIDE 0.9% 1,000 ML IV SCH (06:09)
[2023-09-26 06:55] LABS: HCT 46.1 % (34.0-46.0); Hypochromasia Marked; MCH 31.5 pg (25.0-35.0); MCHC 30.3 g/dL (31.0-37.0); Macrocytosis Moderate; Mean Platelet Volume 7.6; Platelet Count 271 k/uL (150-450); RBC 4.43 m/uL (3.80-5.40); RDW 14.4 % (11.5-15.5); WBC 7.7 k/uL (3.8-10.6)
[2023-09-26 07:20] LABS: Glucose 111 mg/dL (74-99)
[2023-09-26 07:21] LABS: ALT 46 U/L (4-34); AST 84 U/L (14-36); African American GFR (CKD) >90 (>60 ml/min/1.73 sqM); Albumin 2.9 g/dL (3.5-5.0); Albumin/Globulin Ratio 0.8; Alkaline Phosphatase 147 U/L (38-126); Anion Gap 8 mmol/L; Blood Urea Nitrogen 35 mg/dL (7-17); Carbon Dioxide 33 mmol/L (22-30); Chloride 100 mmol/L (98-107); Globulin 3.8 g/dL; Non-African American GFR(CKD) 79 (>60 ml/min/1.73 sqM); Potassium 4.1 mmol/L (3.5-5.1); Sodium 141 mmol/L (137-145); Total Bilirubin 0.7 mg/dL (0.2-1.3); Total Protein 6.7 g/dL (6.3-8.2)
[2023-09-26] MEDS: ZINC SULFATE 220 MG CAP PO SCH (09:05)
[2023-09-26] MEDS: dexAMETHasone 2 MG TAB PO SCH (09:05)
[2023-09-26] MEDS: ENOXAPARIN 40 MG/0.4 ML SYRINGE SQ SCH (09:05)
[2023-09-26] MEDS: METOPROLOL TARTRATE 50 MG TAB PO SCH ×2 (09:05→20:43)
[2023-09-26] MEDS: ASCORBIC ACID 500 MG TAB PO SCH (09:05)
[2023-09-26] MEDS: NYSTATIN 100,000 UNIT/GM POWD 15 GM TOPICAL SCH ×3 (09:07→20:43)
--- NOTE | 2023-09-26 09:13 | P.PN ---
Subjective Progress Note Date: 09/25/23 Principal diagnosis: breast mass Patient remains lethargic and weak, but is more alert at todays visit. S/p right axillary biopsy Objective - Vital Signs Vital signs: Vital Signs Temp 97.5 F L 09/25/23 19:10 Pulse 84 09/25/23 19:10 Resp 18 09/25/23 19:10 BP 135/79 09/25/23 19:10 Pulse Ox 92 L 09/25/23 21:40 FiO2 Intake & Output 09/25/23 09/25/23 09/26/23 06:59 18:59 06:59 Intake Total 858 Output Total 300 200 Balance -300 658 Weight 147 kg Intake: Oral 858 Output: Urine 300 200 Other: Voiding Method Indwelling Catheter # Bowel Movements 1 - Constitutional General appearance: Present: no acute distress, obese - EENT Eyes: Present: anicteric sclerae, EOMI ENT: Present: hearing grossly normal - Respiratory Details: breathing is even and unlabored - Cardiovascular Details: skin warm and dry - Musculoskeletal Musculoskeletal: Present: generalized weakness - Labs CBC & Chem 7: 09/26/23 06:04 09/26/23 06:04 Labs: Abnormal Lab Results - Last 24 Hours (Table) 09/25/23 09/25/23 09/25/23 Range/Units 08:24 08:24 08:24 MCV 102.5 H (80.0-100.0) fL Carbon Dioxide 36 H (22-30) mmol/L BUN 31 H (7-17) mg/dL Glucose 115 H (74-99) mg/dL AST 91 H (14-36) U/L ALT 46 H (4-34) U/L Alkaline Phosphatase 174 H (38-126) U/L Albumin 3.0 L (3.5-5.0) g/dL Procalcitonin 0.91 H (0.02-0.09) ng/mL Microbiology - Last 24 Hours (Table) 09/19/23 09:58 Blood Culture - Final Blood 09/19/23 09:49 Blood Culture - Final Blood Assessment and Plan (1) Breast abscess Current Visit: Yes Status: Acute Priority: High Code(s): N61.1 - ABSCESS OF THE BREAST AND NIPPLE SNOMED Code(s): 10341222 (2) Breast mass, right Current Visit: Yes Status: Acute Priority: High Code(s): N63.10 - UNSPECIFIED LUMP IN THE RIGHT BREAST, UNSPECIFIED QUADRANT SNOMED Code(s): 94079799 (3) Hypoxia Current Visit: Yes Status: Acute Priority: High Code(s): R09.02 - HYPOXEMIA SNOMED Code(s): 878427150 (4) COVID-19 Current Visit: Yes Status: Acute Priority: High Code(s): U07.1 - COVID-19 SNOMED Code(s): 619551404 Plan: Breast mass, right: -Physical exam findings, as well as imaging are quite compatible with a large right breast malignancy, with right axillary node involvement. 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 They were advised that we need a tissue diagnosis for confirmation, as well as testing for marker status. The patient appears to have at least locally advanced disease, with a definite possibility of metastatic disease also. In this situation the mainstay of treatment in the first line, in case of nonmetastatic disease would be neoadjuvant systemic therapy, and systemic therapy in case of existing metastatic disease. - Major surgical intervention should therefore be avoided as much as possible, in case of metastatic disease, and upfront in case of locally advanced disease. The only indication for the same would be if the patient had a intractable, significantly symptomatic issue for which emergent surgical intervention would be required, such as major ongoing bleeding. - On examination there does not seem to be the case. Therefore in my opinion, it would be best to proceed with tissue diagnosis through biopsy, and continue local wound care, and ordered additional staging studies. - The above was also discussed in detail with the admitting service, and the surgical service, who were in agreement. - S/p right axillary lymph node biopsy, path pending - Tumor markers normal - Additional staging with CT scan of the abdomen and pelvis and bone scan were ordered. Bone scan showed no evidence of metastatic disease. CT AP revealed a worsening consolidative opacity in the left lung base with small left pleural effusion. Portion of known right breast mass and skin thickening noted. Enlarged nodes in the right chest wall, measuring 1.0cm and 2.6 x 1.6cm, and inferior left breast lymph node measuring 1.3cm. Diffusely heterogeneous liver without evidence of discrete mass. Gallbladder moderately distended with 1.9 cm gallstone in the neck. Clonic diverticular disease. Some thickening of the posterior distal rectal wall cannot be excluded. Mildly prominent nodule suggesting lymph node in the right upper quadrant and suspected small nodular density in the left upper quadrant just superior to the stomach, however not well visualized on imaging and are nonspecific. -PET CT will be scheduled outpt to further evaluate for metastatic disease. Clinic f/u will be scheduled pending course of hospitalization and possible need for rehabilitation Hypoxia: -Because of the same appears to be somewhat unclear upon admission. It was initially attributed to the probable PE reported on CT angiogram. However from my discussion with the admitting service, the findings on further evaluation by pulmonary medicine, were not felt to be convincing for the same. Therefore VQ scan was ordered, revealing low probability of PE. Heparin discontinued. Continues on lovenox, prophylactic dose. -COVID testing obtained on 09/21 was positive -Defer to admitting team and pulm for management Attests: I have seen and examined pt, performed H&P, developed impression and plan of care. Discussed with dictator. Agree with documentation, dictated as a scribe
--- NOTE | 2023-09-26 10:57 | P.PN ---
Subjective Progress Note Date: 09/26/23 This is a 67-year-old female with chronic redness and swelling of her right nipple, which has been progressively getting worse. Patient has been noticing bleeding from her right breast nipple, and while evaluated in the ER she was noted to have a large mass which has been progressively getting worse apparently over the last 3 months. Upon evaluation in the ER, the patient was also noted to be tachycardic, with slightly elevated troponin of 0.035. Chest x-ray showed left lower lobe atelectasis, CT of the chest raised the possibility of a defect in the right upper lobe subsegmental branch. Considering the patient was complaining of some shortness of breath, and the patient was transferred to the ICU for further evaluation she was seen already by cardiology and by vascular surgery. I reviewed the CT of the chest, and I did not feel that the findings are specific for thromboembolic disease, not to mention that the CT angiogram is a very poor quality CT. Nonetheless it did show right breast mass, and right axillary lymph nodes highly suggestive of breast carcinoma with lymph node metastasis. After reviewing the CT of the chest, and after reviewing that the patient had negative venous Doppler, and considering the patient had bleeding from the right breast mass, I recommended stopping the heparin and hopefully sometime today and arrange for a VQ scan to put the issue to rest clinically this is not a presentation of pulmonary embolism. And again the CT of the chest does not seem very diagnostic. During my evaluation the patient no shortness of breath, no cough no wheezing and no chest pain. She was on 2 L nasal cannula and O2 saturation was 97%, and after reviewing the CT of the chest again, she does have left lower lobe atelectasis, doubt pneumonia involving the left lower lobe Reevaluated today on 09/19/23, patient remains in the ICU, doing fairly well, relatively asymptomatic, her VQ scan came back negative for pulmonary embolism/low probability as the patient does not need heparin which I have already cut discontinued yesterday. She is however on Lovenox for DVT prophylaxis and cardiology recommended metoprolol 12.5 twice a day for tachycardia. Seems to be mostly a sinus tachycardia. Patient remains on 4 L nasal cannula, O2 saturation is 96% up to 98%. WBC count is 6.2 hemoglobin 13.6 basic metabolic profile is normal and renal profile is normal. Patient was seen by general surgery consultation, and I recommended basically right axillary lymph node biopsy by interventional radiology, withdraw the not do breast biopsy at this point since there is a concern about bleeding from the fungating right breast mass. In the meantime the patient is hemodynamically stable, and I believe we can safely transfer the patient out of the ICU to a regular medical floor or a medical surgical floor with telemetry to keep an eye on her tachycardia, and metoprolol was added Seen today 09/20, patient remains in the ICU, however she is truly an overflow in the ICU, patient is being seen by many consultants, at initial presentation was a presentation of bleeding fungating right breast mass and a left lower lobe atelectasis, doubt pneumonia, patient had no pulmonary symptoms on her initial presentation, CT angiogram of the chest questioned pulmonary embolism and we felt that this is not truly the case. Venous Dopplers were negative, VQ scan was negative, hence the patient was taken off heparin which was initially started in the ER. Patient is morbidly obese, and she has significant left lower lobe atelectasis, doing very poorly with incentive spirometry, she is empirically on antibiotics in the form of Zosyn. She remains tachycardic with heart rate of 130, hemodynamically stable otherwise. Metoprolol dose was increased to 25 mg twice a day CBC showed no evidence of leukocytosis, hemoglobin is 13.2 basic metabolic profile is normal renal profile is normal, BNP level is normal 1 culture from the right breast is showing polymicrobial picture with presumptive staph, Proteus mirabilis, and beta hemolytic strep group C patient is being seen by infectious disease on consultation blood cultures are negative so far. The patient is seen today 09/21/2023 in follow-up on the oncology unit. She is currently resting comfortably in bed. Awake and alert in no acute distress. She is maintaining O2 saturations in the 90s on 4 L/m per nasal cannula. Chest x-ray reveals cardiomegaly and mild pulmonary vascular congestion. Right breast cultures are positive for beta-hemolytic strep group C, Proteus mirabilis and Staphylococcus aureus. She is currently on Zosyn. White count 7.9. Hemoglobin 14.1. Platelets 222. Sodium 132. Potassium 4.4. Bicarb 26. BUN 18. Creatinine 1.2. AST 109. ALT 50. Urinalysis with possible UTI. Culture pe nding. She is currently on Lovenox for DVT prophylaxis. Normal saline at KVO. Progress note dated 09/22/2023. The patient was transferred to room 350, because apparently she tested positive for coronavirus. Currently, she is on 4 L of oxygen. Getting saline at 10 mL an hour. The patient had a bone scan that was negative. A chest x-ray was ordered for September 23. No new labs today. Her last d-dimer was 1.37. The patient is being followed by medical oncology, and their impression is that she has a large right breast malignancy, with right axillary node involvement. Progress note dated 09/23/2023. The patient is seen again in room 350. The patient is currently on 4 L of oxygen. She's getting saline at 10 mL an hour. She did test positive for coronavirus. She remains on Unasyn for her right breast cellulitis. The wounds from the right breast show evidence of beta-hemolytic streptococci, Proteus, and Staphylococcus. Infectious diseases is following this patient. White count is 11.3, hemoglobin 15.8, hematocrit 48, and platelet count 275,000. No additional labs from today. Progress note dated 09/24/2023. The patient is seen today in room 350. Currently, the patient's off of oxygen. Saturations are 90%. The patient is receiving saline at 10 mL an hour. An ult rasound of the right axilla shows multiple lymph nodes. In addition, the patient continues on Unasyn. Currently labs include a white count 8.9, hemoglobin 13.6, hematocrit 44.4, and a platelet count of 237,000. Sodium 138, potassium 4.6, chloride 96, CO2 30, BUN 29, and creatinine 0.85. Progress note dated 09/25/2023. The patient is seen today in room 629. Currently, the patient is on oxygen at 3.5 L. Saturation 90%. She's not receiving any IV fluids she does continue on Unasyn. Yesterday, she had a lymph node biopsy of the right axillary lymph nodes. We will recheck another pro-calcitonin level, and a BNP. White count 8, he will 14.1, hematocrit 45.6, platelet count 313,000. Sodium 143, potassium 4.1, chlorides 99, CO2 36, BUN 31, creatinine 0.89. The patient's N-terminal proBNP was 1220. Albumin is 3. The patient's lung volumes are low, and lung fritz are hazy, consistent with CHF/fluid overload. The patient is seen today 09/26/2023 in follow-up on the regular medical floor. She is currently sitting up in bed. Awake and alert in no acute distress. She is maintaining O2 saturations in the 90s on 4 L/m per nasal cannula. She is receiving normal saline at KVO. Her pro-calcitonin is 0.91. She remains on Unasyn. Breast wound cultures were positive for Proteus mirabilis, Staphylococcus aureus, beta-hemolytic strep group C. Blood cultures revealed no growth. Urine cultures revealed no growth. White count 7.7. He will 14.0. Platelets 271. Sodium 141. Potassium 4.1. Bicarb 33. BUN 35. Creatinine 0.77. Glucose 111. She did test positive for COVID-19 infection. She is continued on vitamin supplements, Decadron, Lovenox for DVT prophylaxis. Pa thology from the right axillary lymph node biopsy is pending. Objective - Vital Signs Vital signs: Vital Signs Temp 98.3 F 09/26/23 07:45 Pulse 73 09/26/23 07:45 Resp 18 09/26/23 07:45 BP 153/82 09/26/23 07:45 Pulse Ox 90 L 09/26/23 07:45 FiO2 Intake & Output 09/25/23 09/26/23 09/26/23 18:59 06:59 18:59 Intake Total 858 118 236 Output Total 200 100 Balance 658 18 236 Weight 147 kg Intake: Oral 858 118 236 Output: Urine 200 100 Other: Voiding Method External Catheter External Catheter # Voids 1 # Bowel Movements 1 - Exam GENERAL EXAM: Alert, more awake today, pleasant 67-year-old female, on 4 L nasal cannula, comfortable in no apparent distress. HEAD: Normocephalic. EYES: Normal reaction of pupils, equal size. NOSE: Clear with pink turbinates. THROAT: No erythema or exudates. NECK: No masses, no JVD. CHEST: Dressing to right breast dry and intact LUNGS: Equal air entry with few crackles in the posterior bases. CVS: S1 and S2 normal with no audible murmur, regular rhythm. ABDOMEN: No hepatosplenomegaly, normal bowel sounds, no guarding or rigidity. SPINE: No scoliosis or deformity SKIN: Excoriated right breast. CENTRAL NERVOUS SYSTEM: No focal deficits, tone is normal in all 4 extremities. EXTREMITIES: There is no peripheral edema. No clubbing, no cyanosis. Peripheral pulses are intact. - Labs CBC & Chem 7: 09/26/23 06:04 09/26/23 06:04 Labs: Abnormal Lab Results - Last 24 Hours (Table) 09/25/23 09/26/23 09/26/23 Range/Units 08:24 06:04 06:04 Hct 46.1 H (34.0-46.0) % MCV 104.0 H (80.0-100.0) fL MCHC 30.3 L (31.0-37.0) g/dL Carbon Dioxide 33 H (22-30) mmol/L BUN 35 H (7-17) mg/dL Glucose 111 H (74-99) mg/dL AST 84 H (14-36) U/L ALT 46 H (4-34) U/L Alkaline Phosphatase 147 H (38-126) U/L Albumin 2.9 L (3.5-5.0) g/dL Procalcitonin 0.91 H (0.02-0.09) ng/mL Assessment and Plan Assessment: Fungating right breast mass, highly suggestive of breast carcinoma with axillary lymph node metastasis. Status post right axillary lymph node biopsy on 09/24/2023. Pathology pending. Acute hypoxic respiratory failure secondary to mostly atelectasis, and obesity. Patient may have obesity/hypoventilation syndrome. And significant left lower lobe atelectasis is noted on chest x-ray and CT of the chest. Pulmonary embolism was ruled out. Chest x-ray reveals evidence of fluid volume overload. Morbid obesity Obesity hypoventilation syndrome Left lower lobe atelectasis, doubt pneumonia Cellulitis of right breast, polymicrobial culture with Staphylococcus aureus, Proteus mirabilis, beta-hemolytic strep group C Plan: The patient was seen and evaluated Labs and medications reviewed Remains on Unasyn Remains on vitamin supplements, Decadron, Lovenox Right axillary node biopsy pending Titrate the FiO2 as tolerated We will continue to follow This patient was seen independently by the nurse practitioner I have personally seen and examined the patient, performed the documentation and the assessment and plan as written. Number of minutes spent on the visit: 22.
--- NOTE | 2023-09-26 17:54 | P.PN ---
Subjective Progress Note Date: 09/26/23 Hospital course: Patient is a very pleasant 67-year-old female with coronary artery disease and prior myocardial infarction, TIA, and neuropathy. She presented to the emergency department on 09/17/23 with complaints of right breast pain and breast lesion that started bleeding. In the ER she underwent an extensive evaluation. Vital signs revealed patient to be significantly tachycardic at 140 bpm, blood pressure 126/70, respiratory rate 20, temp 98.1F, SpO2 of 92% on 2 L of oxygen. Labs were completed and reviewed. CBC showing macrocytosis with MCV of 100.8 otherwise normal findings. Coagulation profile normal findings. BMP revealed hyponatremia with sodium 135, hypokalemia with potassium 3.3, hypochloremia with chloride of 95, and hypercarbia with bicarb of 32 and anion gap of 8. Blood glucose was 139. Magnesium 1.9. Liver profile showing hyperbilirubinemia with total bili of 1.4, elevated AST of 184 and ALT of 80 with normal alkaline meredith sphatase of 117. Troponin was 0.029 and CRP was 6.1. Chest x-ray completed showing basilar increased density concerning for atelectasis versus developing infiltrate. CTA chest was completed showing a filling defect with an right upper lobe subsegmental branch concerning for pulmonary emboli with no evidence of large central or saddlebag emboli, and right sided breast carcinoma with skin thickening along with right axillary adenopathy. EKG was completed showing atrial flutter/atrial tachycardia with RVR at 138 bpm. Patient was admitted under our services with consultations to pulmonology, hematology/oncology, and breast surgery. She is placed on IV anticoagulation with high intensity heparin infusion. Overnight patient was found to become hypoxic requiring increased oxygenation needs and was placed on 10 L high flow nasal cannula. Troponins trended resulting at 0.029 and 0.035. Patient was transferred to the ICU. Therapy Teacher evaluated and further reviewed CTA stated unlikely pulmonary emboli and ordered lower extremity venous Dopplers which were negative for DVTs. Echocardiogram completed revealing a preserved EF of 50% with normal right ventricular systolic pressure. Patient then underwent VQ scan which showed very low probability of pulmonary emboli. Subsequently pulmonary emboli was ruled out at this time. Patient then evaluated by oncology and breast surgery who recommended lymph node biopsy. During this hospitalization and patient also noted to spike a fever and was found to be positive for COVID-19 infection. Patient was started on IV steroids with continued management of her acute hypoxic respiratory failure. Patient underwent right axillary lymph node biopsy on 09/24/23. Hospital course imaging: Echocardiogram ejection fraction 50%, normal RVSP Lower extremity venous Dopplers: No DVT bilaterally CTA chest: Filling defect within the right upper lobe pulmonary embolism not excluded, right breast carcinoma with skin thickening VQ scan: Low probability of pulmonary embolism CT abdomen and pelvis: Partially seen worsening consolidative opacity in the left lung base with small pleural effusion possible pneumonia, moderate cardiomegaly, portion of right breast mass and skin thickening seen, enlarged lymph nodes in the right chest wall potentially metastatic, diffuse heterogeneous liver without discrete mass, gallbladder moderately distended with 1.9 cm gallstone in the neck, mildly prominent nodule suggested lymph node in the right upper quadrant, PET/CT as an outpatient for further staging as clinically warranted. Nuclear medicine bone scan: Nothing to suggest metastatic disease Amna ultrasound, gallstones stuck within the gallbladder neck correlate for signs and symptoms of cholecystitis, cystic duct obstruction Physical exam: Patient seen and fully evaluated at bedside this morning. Patient resting in bed. She remains on 4 L O2 via nasal cannula. Dressing in place to right lateral breast clean dry and intact. Patient currently denies having any pain or discomfort. She reports feeling very tired. Patient currently denies having any headache, lightheadedness, dizziness, chest pain, palpitations, or shortness of breath. Vital signs reviewed. General: nontoxic, no distress, obese Skin: Dressing in place right breast that is clean, dry, and intact. Remaining of right breast tissue appears erythemic with thickened skin/scaling. Cardiovascular: S1S2 reg, distant heart sounds, positive posterior tibial pulses bilaterally, Lungs: Respirations even, regular, and unlabored. Patient remains on 4 L O2 via nasal cannula with current SpO2 of 90%. Lung sounds decreased bilaterally, no rhonchi/rales/crackles/wheezes noted. Abdominal: soft, nontender to palpation, no guarding, no appreciable organomegaly Ext: no gross muscle atrophy, scant edema bilateral lower extremities, no contractures Neuro: CN II-XI grossly intact, no focal neuro deficits Psych: Alert, oriented, appropriate affect Assessment and Plan of Care: Sepsis possibly secondary to infected breast tissue Fungating/necrotic right-sided breast mass measuring at least 4.6 cm -Pathology pending -Bone scan negative for any metastatic disease -Case is being followed by breast surgery and hematology/oncology. -Status post axillary lymph node biopsy on 09/24/23 -Infectious disease following and reviewed documentation in chart, Recommending cannulation of Unasyn for breast mass pending cultures. -Per documentation in chart, Case was discussed with Dr. Lopez (breast surgeon) who will reevaluate the patient sometime next week. Should she be discharged before then she will recommend outpatient follow-up within the clinic. -Continue to monitor for pathology results from lymph node biopsy. -Continue Unasyn 3 g IV piggyback every 8 hours day #6, received Zosyn on 09/19 through 09/21 -Bleeding from breast mass, recommend vasline impregnated gauze prior to 4X 4 as breast mass bleeding from multiple 4X 4 changes. -Blood cultures showing no growth to date. -Breast mass wound culture positive for beta hemolytic strep group C, Proteus mirabilis, and Staphylococcus aureus. Acute hypoxic respiratory failure likely secondary to atelectasis Acute COVID-19 infection Probable obesity hypoventilation syndrome -Oxygenation to be administered and titrated as needed to maintain SPO2 equal to or greater than 90%, wean as patient tolerates. Currently on 4 L. -Encourage Incentive Spirometry 10-15x hourly while awake -Steroids: Decadron 6 mg daily, dose #6 out of 10 -Pulmonology following, appreciate further recommendations. -DVT prophylaxis with Lovenox. -Strict Droplet plus Contact precautions Acute diastolic heart failure exacerbation, ruled out Sinus tachycardia Isolated Elevated troponin, NSTEMI ruled out and elevated troponin due to supply demand mismatch Elevated TSH, normal free T4 -Cardiology evaluated, signed off recommending outpatient follow-up in their office after discharge -Continue Lopressor 50 mg BID Transaminitis, has been stable Large gallstone, cholecystitis ruled out -Repeat CMP tomorrow Class III Obesity with BMI 60.6 -Recommend outpatient structured weight loss program. Hypokalemia, resolved Hyponatremia, resolved Data and imaging reviewed: CBC showing persistent macrocytosis with MCV of 104.0 otherwise normal findings. BMP showing hypercarbia with bicarb of 33 and elevated BUN of 35 otherwise normal findings. Liver profile showing stable transaminitis with AST of 84, ALT of 46, and alkaline phosphatase of 147. Pro-calcitonin was completed and elevated at 0.91. Vital signs reviewed. Blood pressure 153/82, heart rate 73, respiratory rate 18, temp 98.3F, and SpO2 of 90% on 4 L O2. DVT prophylaxis: Lovenox Anticipated discharge date: Pending Clinical Course Anticipated discharge place: Pending Clinical Course Patient was seen independently by Nurse Pracitioner. This document was prepared using [employer] dictation software. Please allow for errors in exploration engineer, while rare they do occur. Objective - Vital Signs Vital signs: Vital Signs Temp 98.3 F 09/26/23 07:45 Pulse 73 09/26/23 07:45 Resp 18 09/26/23 07:45 BP 153/82 09/26/23 07:45 Pulse Ox 90 L 09/26/23 07:45 FiO2 Intake & Output 09/25/23 09/26/23 09/26/23 18:59 06:59 18:59 Intake Total 858 118 Output Total 200 100 Balance 658 18 Weight 147 kg Intake: Oral 858 118 Output: Urine 200 100 Other: Voiding Method External Catheter # Voids 1 # Bowel Movements 1 - Labs CBC & Chem 7: 09/26/23 06:04 09/26/23 06:04 Labs: Abnormal Lab Results - Last 24 Hours (Table) 09/25/23 09/25/23 09/26/23 Range/Units 08:24 08:24 06:04 Hct 46.1 H (34.0-46.0) % MCV 104.0 H (80.0-100.0) fL MCHC 30.3 L (31.0-37.0) g/dL Carbon Dioxide 36 H (22-30) mmol/L BUN 31 H (7-17) mg/dL Glucose 115 H (74-99) mg/dL AST 91 H (14-36) U/L ALT 46 H (4-34) U/L Alkaline Phosphatase 174 H (38-126) U/L Albumin 3.0 L (3.5-5.0) g/dL Procalcitonin 0.91 H (0.02-0.09) ng/mL 09/26/23 Range/Units 06:04 Hct (34.0-46.0) % MCV (80.0-100.0) fL MCHC (31.0-37.0) g/dL Carbon Dioxide 33 H (22-30) mmol/L BUN 35 H (7-17) mg/dL Glucose 111 H (74-99) mg/dL AST 84 H (14-36) U/L ALT 46 H (4-34) U/L Alkaline Phosphatase 147 H (38-126) U/L Albumin 2.9 L (3.5-5.0) g/dL Procalcitonin (0.02-0.09) ng/mL
[2023-09-27] MEDS: AMPICILLIN-SULBACTAM 3 GM in SODIUM CHLORIDE 0.9% 100 ML IVPB SCH ×3 (06:31→17:59)
[2023-09-27] MEDS: SODIUM CHLORIDE 0.9% 1,000 ML IV SCH (06:31)
[2023-09-27] MEDS: ZINC SULFATE 220 MG CAP PO SCH (09:01)
[2023-09-27] MEDS: ASCORBIC ACID 500 MG TAB PO SCH (09:01)
[2023-09-27] MEDS: ENOXAPARIN 40 MG/0.4 ML SYRINGE SQ SCH (09:01)
[2023-09-27] MEDS: METOPROLOL TARTRATE 50 MG TAB PO SCH ×2 (09:02→20:24)
[2023-09-27] MEDS: dexAMETHasone 2 MG TAB PO SCH (09:02)
[2023-09-27] MEDS: NYSTATIN 100,000 UNIT/GM POWD 15 GM TOPICAL SCH ×3 (09:02→20:24)
--- NOTE | 2023-09-27 11:00 | P.PN ---
Subjective Progress Note Date: 09/27/23 This is a 67-year-old female with chronic redness and swelling of her right nipple, which has been progressively getting worse. Patient has been noticing bleeding from her right breast nipple, and while evaluated in the ER she was noted to have a large mass which has been progressively getting worse apparently over the last 3 months. Upon evaluation in the ER, the patient was also noted to be tachycardic, with slightly elevated troponin of 0.035. Chest x-ray showed left lower lobe atelectasis, CT of the chest raised the possibility of a defect in the right upper lobe subsegmental branch. Considering the patient was complaining of some shortness of breath, and the patient was transferred to the ICU for further evaluation she was seen already by cardiology and by vascular surgery. I reviewed the CT of the chest, and I did not feel that the findings are specific for thromboembolic disease, not to mention that the CT angiogram is a very poor quality CT. Nonetheless it did show right breast mass, and right axillary lymph nodes highly suggestive of breast carcinoma with lymph node metastasis. After reviewing the CT of the chest, and after reviewing that the patient had negative venous Doppler, and considering the patient had bleeding from the right breast mass, I recommended stopping the heparin and hopefully sometime today and arrange for a VQ scan to put the issue to rest clinically this is not a presentation of pulmonary embolism. And again the CT of the chest does not seem very diagnostic. During my evaluation the patient no shortness of breath, no cough no wheezing and no chest pain. She was on 2 L nasal cannula and O2 saturation was 97%, and after reviewing the CT of the chest again, she does have left lower lobe atelectasis, doubt pneumonia involving the left lower lobe Reevaluated today on 09/19/23, patient remains in the ICU, doing fairly well, relatively asymptomatic, her VQ scan came back negative for pulmonary embolism/low probability as the patient does not need heparin which I have already cut discontinued yesterday. She is however on Lovenox for DVT prophylaxis and cardiology recommended metoprolol 12.5 twice a day for tachycardia. Seems to be mostly a sinus tachycardia. Patient remains on 4 L nasal cannula, O2 saturation is 96% up to 98%. WBC count is 6.2 hemoglobin 13.6 basic metabolic profile is normal and renal profile is normal. Patient was seen by general surgery consultation, and I recommended basically right axillary lymph node biopsy by interventional radiology, withdraw the not do breast biopsy at this point since there is a concern about bleeding from the fungating right breast mass. In the meantime the patient is hemodynamically stable, and I believe we can safely transfer the patient out of the ICU to a regular medical floor or a medical surgical floor with telemetry to keep an eye on her tachycardia, and metoprolol was added Seen today 09/20, patient remains in the ICU, however she is truly an overflow in the ICU, patient is being seen by many consultants, at initial presentation was a presentation of bleeding fungating right breast mass and a left lower lobe atelectasis, doubt pneumonia, patient had no pulmonary symptoms on her initial presentation, CT angiogram of the chest questioned pulmonary embolism and we felt that this is not truly the case. Venous Dopplers were negative, VQ scan was negative, hence the patient was taken off heparin which was initially started in the ER. Patient is morbidly obese, and she has significant left lower lobe atelectasis, doing very poorly with incentive spirometry, she is empirically on antibiotics in the form of Zosyn. She remains tachycardic with heart rate of 130, hemodynamically stable otherwise. Metoprolol dose was increased to 25 mg twice a day CBC showed no evidence of leukocytosis, hemoglobin is 13.2 basic metabolic profile is normal renal profile is normal, BNP level is normal 1 culture from the right breast is showing polymicrobial picture with presumptive staph, Proteus mirabilis, and beta hemolytic strep group C patient is being seen by infectious disease on consultation blood cultures are negative so far. The patient is seen today 09/21/2023 in follow-up on the oncology unit. She is currently resting comfortably in bed. Awake and alert in no acute distress. She is maintaining O2 saturations in the 90s on 4 L/m per nasal cannula. Chest x-ray reveals cardiomegaly and mild pulmonary vascular congestion. Right breast cultures are positive for beta-hemolytic strep group C, Proteus mirabilis and Staphylococcus aureus. She is currently on Zosyn. White count 7.9. Hemoglobin 14.1. Platelets 222. Sodium 132. Potassium 4.4. Bicarb 26. BUN 18. Creatinine 1.2. AST 109. ALT 50. Urinalysis with possible UTI. Culture pe nding. She is currently on Lovenox for DVT prophylaxis. Normal saline at KVO. Progress note dated 09/22/2023. The patient was transferred to room 350, because apparently she tested positive for coronavirus. Currently, she is on 4 L of oxygen. Getting saline at 10 mL an hour. The patient had a bone scan that was negative. A chest x-ray was ordered for September 23. No new labs today. Her last d-dimer was 1.37. The patient is being followed by medical oncology, and their impression is that she has a large right breast malignancy, with right axillary node involvement. Progress note dated 09/23/2023. The patient is seen again in room 350. The patient is currently on 4 L of oxygen. She's getting saline at 10 mL an hour. She did test positive for coronavirus. She remains on Unasyn for her right breast cellulitis. The wounds from the right breast show evidence of beta-hemolytic streptococci, Proteus, and Staphylococcus. Infectious diseases is following this patient. White count is 11.3, hemoglobin 15.8, hematocrit 48, and platelet count 275,000. No additional labs from today. Progress note dated 09/24/2023. The patient is seen today in room 350. Currently, the patient's off of oxygen. Saturations are 90%. The patient is receiving saline at 10 mL an hour. An ult rasound of the right axilla shows multiple lymph nodes. In addition, the patient continues on Unasyn. Currently labs include a white count 8.9, hemoglobin 13.6, hematocrit 44.4, and a platelet count of 237,000. Sodium 138, potassium 4.6, chloride 96, CO2 30, BUN 29, and creatinine 0.85. Progress note dated 09/25/2023. The patient is seen today in room 629. Currently, the patient is on oxygen at 3.5 L. Saturation 90%. She's not receiving any IV fluids she does continue on Unasyn. Yesterday, she had a lymph node biopsy of the right axillary lymph nodes. We will recheck another pro-calcitonin level, and a BNP. White count 8, he will 14.1, hematocrit 45.6, platelet count 313,000. Sodium 143, potassium 4.1, chlorides 99, CO2 36, BUN 31, creatinine 0.89. The patient's N-terminal proBNP was 1220. Albumin is 3. The patient's lung volumes are low, and lung fritz are hazy, consistent with CHF/fluid overload. The patient is seen today 09/26/2023 in follow-up on the regular medical floor. She is currently sitting up in bed. Awake and alert in no acute distress. She is maintaining O2 saturations in the 90s on 4 L/m per nasal cannula. She is receiving normal saline at KVO. Her pro-calcitonin is 0.91. She remains on Unasyn. Breast wound cultures were positive for Proteus mirabilis, Staphylococcus aureus, beta-hemolytic strep group C. Blood cultures revealed no growth. Urine cultures revealed no growth. White count 7.7. He will 14.0. Platelets 271. Sodium 141. Potassium 4.1. Bicarb 33. BUN 35. Creatinine 0.77. Glucose 111. She did test positive for COVID-19 infection. She is continued on vitamin supplements, Decadron, Lovenox for DVT prophylaxis. Pa thology from the right axillary lymph node biopsy is pending. The patient is seen today 09/27/2023 in follow-up on the regular medical floor. She is awake and alert in no acute distress. Resting fairly comfortably in bed. Continues to maintain O2 saturations in the 90s on 4 L/m per nasal cannula. Right breast wound culture positive for Proteus mirabilis, Staphylococcus aureus, beta-hemolytic strep group C. Blood cultures revealed no growth. Urine culture revealed no growth. She is continued on Unasyn. Remains on Lovenox, Decadron, vitamin supplements. Normal saline at KVO. Pathology from right axillary lymph node biopsy is pending. Objective - Vital Signs Vital signs: Vital Signs Temp 97.7 F 09/27/23 08:30 Pulse 83 09/27/23 08:30 Resp 18 09/27/23 08:30 BP 129/73 09/27/23 08:30 Pulse Ox 91 L 09/27/23 08:30 FiO2 Intake & Output 09/26/23 09/27/23 09/27/23 18:59 06:59 18:59 Intake Total 590 50 Output Total 650 Balance 590 -650 50 Intake: Oral 590 50 Output: Urine 650 Other: Voiding Method External Catheter External Catheter External Catheter - Exam GENERAL EXAM: Alert, pleasant 67-year-old female, on 4 L nasal cannula, in no apparent distress. HEAD: Normocephalic. EYES: Normal reaction of pupils, equal size. NOSE: Clear with pink turbinates. THROAT: No erythema or exudates. NECK: No masses, no JVD. CHEST: Dressing to right breast dry and intact LUNGS: Equal air entry with few crackles in the posterior bases. CVS: S1 and S2 normal with no audible murmur, regular rhythm. ABDOMEN: No hepatosplenomegaly, normal bowel sounds, no guarding or rigidity. SPINE: No scoliosis or deformity SKIN: Excoriated right breast. CENTRAL NERVOUS SYSTEM: No focal deficits, tone is normal in all 4 extremities. EXTREMITIES: There is no peripheral edema. No clubbing, no cyanosis. Peripheral pulses are intact. - Labs CBC & Chem 7: 09/26/23 06:04 09/26/23 06:04 Assessment and Plan Assessment: Fungating right breast mass, highly suggestive of breast carcinoma with axillary lymph node metastasis. Status post right axillary lymph node biopsy on 09/24/2023. Pathology pending. Acute hypoxic respiratory failure secondary to mostly atelectasis, and obesity. Patient may have obesity/hypoventilation syndrome. And significant left lower lobe atelectasis is noted on chest x-ray and CT of the chest. Pulmonary embolism was ruled out COVID-19 infection Morbid obesity Obesity hypoventilation syndrome Left lower lobe atelectasis, doubt pneumonia Cellulitis of right breast, polymicrobial culture with Staphylococcus aureus, Proteus mirabilis, beta-hemolytic strep group C Plan: The patient was seen and evaluated Medications reviewed Remains on Unasyn Remains on vitamin supplements, Decadron, Lovenox Increase her activity as tolerated Titrate the FiO2 as tolerated Add an incentive spirometer We will continue to follow This patient was seen independently by the nurse practitioner I have personally seen and examined the patient, performed the documentation and the assessment and plan as written. Number of minutes spent on the visit: 24.
--- NOTE | 2023-09-27 15:54 | P.PN ---
Subjective Progress Note Date: 09/26/23 Principal diagnosis: Reason for follow up is right breast infected wound Patient is a 67-year-old female with a past medical history significant for CVA TIA hypertension morbid obesity presenting to the hospital for evaluation of right breast pain, patient has been diagnosed with a fungating tumor with a wound and concern for infection. On today's evaluation that is 09/26/2023 the patient continues to be afebrile, the patient is breathing comfortably on 4 L nasal oxygen, the patient denies any shortness of breath, the patient denies chest pain or cough, patient denies abdominal pain, no nausea/vomiting or diarrhea. Patient did have a white count of 7.7, creatinine is 0.77, right breast culture positive for Streptococcus MSSA and Proteus, patient covid 19 PCR came back positive Objective - Vital Signs Vital signs: Vital Signs Temp 98.3 F 09/26/23 07:45 Pulse 73 09/26/23 07:45 Resp 18 09/26/23 07:45 BP 153/82 09/26/23 07:45 Pulse Ox 90 L 09/26/23 07:45 FiO2 Intake & Output 09/25/23 09/26/23 09/26/23 18:59 06:59 18:59 Intake Total 858 118 236 Output Total 200 100 Balance 658 18 236 Weight 147 kg Intake: Oral 858 118 236 Output: Urine 200 100 Other: Voiding Method External Catheter External Catheter # Voids 1 # Bowel Movements 1 - Exam GENERAL DESCRIPTION: An elderly female lying in bed in no distress RESPIRATORY SYSTEM: Unlabored breathing , decreased intensity breath sound, no wheeze HEART: S1 S2 regular rate and rhythm , ABDOMEN: Soft , no tenderness EXTREMITIES: Diffuse swelling bilateral lower extremity no redness - Labs CBC & Chem 7: 09/26/23 06:04 09/26/23 06:04 Labs: Abnormal Lab Results - Last 24 Hours (Table) 09/25/23 09/26/23 09/26/23 Range/Units 08:24 06:04 06:04 Hct 46.1 H (34.0-46.0) % MCV 104.0 H (80.0-100.0) fL MCHC 30.3 L (31.0-37.0) g/dL Carbon Dioxide 33 H (22-30) mmol/L BUN 35 H (7-17) mg/dL Glucose 111 H (74-99) mg/dL AST 84 H (14-36) U/L ALT 46 H (4-34) U/L Alkaline Phosphatase 147 H (38-126) U/L Albumin 2.9 L (3.5-5.0) g/dL Procalcitonin 0.91 H (0.02-0.09) ng/mL Assessment and Plan (1) Fever Current Visit: Yes Status: Acute Code(s): R50.9 - FEVER, UNSPECIFIED SNOMED Code(s): 278405868 (2) Mastitis Current Visit: Yes Status: Acute Code(s): N61.0 - MASTITIS WITHOUT ABSCESS SNOMED Code(s): 605645121 (3) COVID-19 Current Visit: Yes Status: Acute Priority: High Code(s): U07.1 - COVID-19 SNOMED Code(s): 944098166 Plan: 1patient presented to hospital with large right breast mass with some bleeding, in this patient who is running low-grade fever and was tachycardic and concern for possible infected right breast wound with underlying malignancy versus pneumonia less likely 2-blood cultures have been negative so far and local culture growing strep Proteus and Staphylococcus aureus, for the patient is covered with Unasyn and patient white count has normalized 3-patient with Covid 19, patient did have some improvement in her respiratory status to continue with Decadron, Lovenox, zinc ascorbic acid, droplet prec autions, monitor clinical course closely dictation was produced using [employer] dictation software. please excuse any grammatical, word or spelling errors. Time with Patient: Less than 30
--- NOTE | 2023-09-27 15:55 | P.PN ---
Subjective Progress Note Date: 09/27/23 Principal diagnosis: Reason for follow up is right breast infected wound Patient is a 67-year-old female with a past medical history significant for CVA TIA hypertension morbid obesity presenting to the hospital for evaluation of right breast pain, patient has been diagnosed with a fungating tumor with a wound and concern for infection. On today's evaluation that is 09/27/2023 the patient denies any fever or any chills, the patient denies shortness of breath currently on a 4 L nasal cannula oxygen, the patient denies chest pain or worsening cough, the patient rambo sea/vomiting or diarrhea and no abdominal pain. Patient did have a white count of 7.7, creatinine is 0.77 as of 09/26/2023, right breast culture positive for Streptococcus MSSA and Proteus, patient covid 19 PCR came back positive Objective - Vital Signs Vital signs: Vital Signs Temp 97.9 F 09/27/23 14:50 Pulse 81 09/27/23 14:50 Resp 17 09/27/23 14:50 BP 146/69 09/27/23 14:50 Pulse Ox 90 L 09/27/23 14:50 FiO2 Intake & Output 09/26/23 09/27/23 09/27/23 18:59 06:59 18:59 Intake Total 590 150 Output Total 650 Balance 590 -650 150 Intake: Oral 590 150 Output: Urine 650 Other: Voiding Method External Catheter External Catheter External Catheter - Exam GENERAL DESCRIPTION: An elderly female lying in bed in no distress RESPIRATORY SYSTEM: Unlabored breathing , decreased intensity breath sound, no wheeze HEART: S1 S2 regular rate and rhythm , ABDOMEN: Soft , no tenderness EXTREMITIES: Diffuse swelling bilateral lower extremity no redness - Labs CBC & Chem 7: 09/26/23 06:04 09/26/23 06:04 Assessment and Plan (1) Fever Current Visit: Yes Status: Acute Code(s): R50.9 - FEVER, UNSPECIFIED SNOMED Code(s): 341036123 (2) Mastitis Current Visit: Yes Status: Acute Code(s): N61.0 - MASTITIS WITHOUT ABSCESS SNOMED Code(s): 482076472 (3) COVID-19 Current Visit: Yes Status: Acute Priority: High Code(s): U07.1 - COVID-19 SNOMED Code(s): 715068515 Plan: 1patient presented to hospital with large right breast mass with some bleeding, in this patient who is running low-grade fever and was tachycardic and concern for possible infected right breast wound with underlying malignancy versus pneumonia less likely 2-blood cultures have been negative so far and local culture growing strep Proteus and Staphylococcus aureus, for the patient is covered with Unasyn plan is for a short course of oral Augmentin on discharge 3-patient with Covid 19, patient did have some improvement in her respiratory status to continue with Decadron, Lovenox, zinc ascorbic acid, droplet precautions, monitor clinical course closely Son at the bedside questions were answered dictation was produced using [employer] dictation software. please excuse any grammatical, word or spelling errors. Time with Patient: Less than 30
--- NOTE | 2023-09-27 17:29 | P.PN ---
Subjective Progress Note Date: 09/27/23 Hospital course: Patient is a very pleasant 67-year-old female with coronary artery disease and prior myocardial infarction, TIA, and neuropathy. She presented to the emergency department on 09/17/23 with complaints of right breast pain and breast lesion that started bleeding. In the ER she underwent an extensive evaluation. Vital signs revealed patient to be significantly tachycardic at 140 bpm, blood pressure 126/70, respiratory rate 20, temp 98.1F, SpO2 of 92% on 2 L of oxygen. Labs were completed and reviewed. CBC showing macrocytosis with MCV of 100.8 otherwise normal findings. Coagulation profile normal findings. BMP revealed hyponatremia with sodium 135, hypokalemia with potassium 3.3, hypochloremia with chloride of 95, and hypercarbia with bicarb of 32 and anion gap of 8. Blood glucose was 139. Magnesium 1.9. Liver profile showing hyperbilirubinemia with total bili of 1.4, elevated AST of 184 and ALT of 80 with normal alkaline meredith sphatase of 117. Troponin was 0.029 and CRP was 6.1. Chest x-ray completed showing basilar increased density concerning for atelectasis versus developing infiltrate. CTA chest was completed showing a filling defect with an right upper lobe subsegmental branch concerning for pulmonary emboli with no evidence of large central or saddlebag emboli, and right sided breast carcinoma with skin thickening along with right axillary adenopathy. EKG was completed showing atrial flutter/atrial tachycardia with RVR at 138 bpm. Patient was admitted under our services with consultations to pulmonology, hematology/oncology, and breast surgery. She is placed on IV anticoagulation with high intensity heparin infusion. Overnight patient was found to become hypoxic requiring increased oxygenation needs and was placed on 10 L high flow nasal cannula. Troponins trended resulting at 0.029 and 0.035. Patient was transferred to the ICU. Facility Supervisor evaluated and further reviewed CTA stated unlikely pulmonary emboli and ordered lower extremity venous Dopplers which were negative for DVTs. Echocardiogram completed revealing a preserved EF of 50% with normal right ventricular systolic pressure. Patient then underwent VQ scan which showed very low probability of pulmonary emboli. Subsequently pulmonary emboli was ruled out at this time. Patient then evaluated by oncology and breast surgery who recommended lymph node biopsy. During this hospitalization and patient also noted to spike a fever and was found to be positive for COVID-19 infection. Patient was started on IV steroids with continued management of her acute hypoxic respiratory failure. Patient underwent right axillary lymph node biopsy on 09/24/23. Hospital course imaging: Echocardiogram ejection fraction 50%, normal RVSP Lower extremity venous Dopplers: No DVT bilaterally CTA chest: Filling defect within the right upper lobe pulmonary embolism not excluded, right breast carcinoma with skin thickening VQ scan: Low probability of pulmonary embolism CT abdomen and pelvis: Partially seen worsening consolidative opacity in the left lung base with small pleural effusion possible pneumonia, moderate cardiomegaly, portion of right breast mass and skin thickening seen, enlarged lymph nodes in the right chest wall potentially metastatic, diffuse heterogeneous liver without discrete mass, gallbladder moderately distended with 1.9 cm gallstone in the neck, mildly prominent nodule suggested lymph node in the right upper quadrant, PET/CT as an outpatient for further staging as clinically warranted. Nuclear medicine bone scan: Nothing to suggest metastatic disease Amna ultrasound, gallstones stuck within the gallbladder neck correlate for signs and symptoms of cholecystitis, cystic duct obstruction Physical exam: Patient seen and fully evaluated at bedside this morning. Patient resting in bed. She remains on 4L O2 via nasal cannula with SpO2 of 91%. Dressing in place to right lateral breast clean dry and intact. Patient visiting with family at bedside and continues to deny having any pain or discomfort. She reports getting up to chair twice yesterday as encouraged. She continues to require 2 person assist from lying to standing and states she just feels tired. Patient currently denies having any headache, lightheadedness, dizziness, chest pain, palpitations, or shortness of breath. Vital signs reviewed. General: nontoxic, no distress, obese Skin: Dressing in place right breast that is clean, dry, and intact. Remaining of right breast tissue appears erythemic with thickened skin/scaling. Cardiovascular: S1S2 reg, distant heart sounds, positive posterior tibial pulses bilaterally, Lungs: Respirations even, regular, and unlabored. Patient remains on 4 L O2 via nasal cannula with current SpO2 of 90%. Lung sounds decreased bilaterally, no rhonchi/rales/crackles/wheezes noted. Abdominal: soft, nontender to palpation, no guarding, no appreciable organomegaly Ext: no gross muscle atrophy, scant edema bilateral lower extremities, no contractures Neuro: CN II-XI grossly intact, no focal neuro deficits Psych: Alert, oriented, appropriate affect Assessment and Plan of Care: Sepsis possibly secondary to infected breast tissue Fungating/necrotic right-sided breast mass measuring at least 4.6 cm -Pathology pending -Bone scan negative for any metastatic disease -Case is being followed by breast surgery and hematology/oncology. -Status post axillary lymph node biopsy on 09/24/23 -Infectious disease following and reviewed documentation in chart, Recommending cannulation of Unasyn for breast mass pending cultures. -Per documentation in chart, Case was discussed with Dr. Lopez (breast surgeon) who will reevaluate the patient sometime next week. Should she be discharged before then she will recommend outpatient follow-up within the clini c. -Continue to monitor for pathology results from lymph node biopsy. -Continue Unasyn 3 g IV piggyback every 8 hours day #6, received Zosyn on 09/19 through 09/21 -Bleeding from breast mass, recommend vasline impregnated gauze prior to 4X 4 as breast mass bleeding from multiple 4X 4 changes. -Blood cultures showing no growth to date. -Breast mass wound culture positive for beta hemolytic strep group C, Proteus mirabilis, and Staphylococcus aureus. Acute hypoxic respiratory failure likely secondary to atelectasis Acute COVID-19 infection Probable obesity hypoventilation syndrome -Oxygenation to be administered and titrated as needed to maintain SPO2 equal to or greater than 90%, wean as patient tolerates. Currently on 4 L. -Encourage Incentive Spirometry 10-15x hourly while awake -Steroids: Decadron 6 mg daily, dose #6 out of 10 -Pulmonology following, appreciate further recommendations. -DVT prophylaxis with Lovenox. -Strict Droplet plus Contact precautions Acute diastolic heart failure exacerbation, ruled out Sinus tachycardia Isolated Elevated troponin, NSTEMI ruled out and elevated troponin due to supply demand mismatch Elevated TSH, normal free T4 -Cardiology evaluated, signed off recommending outpatient follow-up in their office after discharge -Continue Lopressor 50 mg BID Transaminitis, has been stable Large gallstone, cholecystitis ruled out -Repeat CMP tomorrow Class III Obesity with BMI 60.6 -Recommend outpatient structured weight loss program. Hypokalemia, resolved Hyponatremia, resolved Data and imaging reviewed: Vital signs reviewed. Blood pressure 129/73, heart rate 83, respiratory rate 18, temp 97.7F, SpO2 of 91% on 4 L O2. DVT prophylaxis: Lovenox Anticipated discharge date: Pending Clinical Course Anticipated discharge place: Pending Clinical Course, [facility] to reevaluate patient's progress tomorrow morning. Patient was seen independently by Nurse Pracitioner. This document was prepared using [employer] dictation software. Please allow for errors in osd clerk, while rare they do occur. Objective - Vital Signs Vital signs: Vital Signs Temp 97.7 F 09/27/23 08:30 Pulse 83 09/27/23 08:30 Resp 18 09/27/23 08:30 BP 129/73 09/27/23 08:30 Pulse Ox 91 L 09/27/23 08:30 FiO2 Intake & Output 09/26/23 09/27/23 09/27/23 18:59 06:59 18:59 Intake Total 590 Output Total 650 Balance 590 -650 Intake: Oral 590 Output: Urine 650 Other: Voiding Method External Catheter External Catheter External Catheter - Labs CBC & Chem 7: 09/26/23 06:04 09/26/23 06:04
[2023-09-28] MEDS: AMPICILLIN-SULBACTAM 3 GM in SODIUM CHLORIDE 0.9% 100 ML IVPB SCH ×5 (00:14→21:00)
[2023-09-28] MEDS: SODIUM CHLORIDE 0.9% 1,000 ML IV SCH (06:32)
[2023-09-28] MEDS: ZINC SULFATE 220 MG CAP PO SCH (09:51)
[2023-09-28] MEDS: NYSTATIN 100,000 UNIT/GM POWD 15 GM TOPICAL SCH ×3 (09:51→21:01)
[2023-09-28] MEDS: ENOXAPARIN 40 MG/0.4 ML SYRINGE SQ SCH (09:51)
[2023-09-28] MEDS: METOPROLOL TARTRATE 50 MG TAB PO SCH ×2 (09:51→21:00)
[2023-09-28] MEDS: dexAMETHasone 2 MG TAB PO SCH (09:51)
[2023-09-28] MEDS: ASCORBIC ACID 500 MG TAB PO SCH (09:51)
[2023-09-28 10:43] LABS: HCT 42.9 % (37.2-46.3); HGB 14.1 g/dL (12.0-15.0); MCH 34.3 pg (27.0-32.0); MCHC 32.9 g/dL (32.0-37.0); MCV 104.4 FL (80.0-97.0); Mean Platelet Volume 9.6 FL (9.5-12.2); NRBC Per 100 WBC 0 X 10*3/uL (0.00-0.01); Platelet Count 301 X 10*3/uL (140-440); RBC 4.11 X 10*6/uL (4.10-5.20); RDW 15.6 % (11.5-14.5)
[2023-09-28 11:07] LABS: ALT 64 U/L (8-44); AST 82 U/L (13-35); Albumin 2.9 g/dL (3.8-4.9); Albumin/Globulin Ratio 0.91 Ratio (1.60-3.17); Alkaline Phosphatase 125 U/L (41-126); BUN/Creat Ratio 31.11 Ratio (12.00-20.00); Calcium 9.2 mg/dL (8.7-10.3); Chloride 103 mmol/L (96-109); Globulin 3.2 g/dL (1.6-3.3); Glucose 113 mg/dL (70-110); Potassium 4.2 mmol/L (3.5-5.5); Sodium 145 mmol/L (135-145); Total Bilirubin 0.5 mg/dL (0.3-1.2); Total Protein 6.1 g/dL (6.2-8.2)
--- NOTE | 2023-09-28 13:34 | P.PN ---
Subjective Progress Note Date: 09/28/23 Hospital course: Patient is a very pleasant 67-year-old female with coronary artery disease and prior myocardial infarction, TIA, and neuropathy. She presented to the emergency department on 09/17/23 with complaints of right breast pain and breast lesion that started bleeding. In the ER she underwent an extensive evaluation. Vital signs revealed patient to be significantly tachycardic at 140 bpm, blood pressure 126/70, respiratory rate 20, temp 98.1F, SpO2 of 92% on 2 L of oxygen. Labs were completed and reviewed. CBC showing macrocytosis with MCV of 100.8 otherwise normal findings. Coagulation profile normal findings. BMP revealed hyponatremia with sodium 135, hypokalemia with potassium 3.3, hypochloremia with chloride of 95, and hypercarbia with bicarb of 32 and anion gap of 8. Blood glucose was 139. Magnesium 1.9. Liver profile showing hyperbilirubinemia with total bili of 1.4, elevated AST of 184 and ALT of 80 with normal alkaline meredith sphatase of 117. Troponin was 0.029 and CRP was 6.1. Chest x-ray completed showing basilar increased density concerning for atelectasis versus developing infiltrate. CTA chest was completed showing a filling defect with an right upper lobe subsegmental branch concerning for pulmonary emboli with no evidence of large central or saddlebag emboli, and right sided breast carcinoma with skin thickening along with right axillary adenopathy. EKG was completed showing atrial flutter/atrial tachycardia with RVR at 138 bpm. Patient was admitted under our services with consultations to pulmonology, hematology/oncology, and breast surgery. She is placed on IV anticoagulation with high intensity heparin infusion. Overnight patient was found to become hypoxic requiring increased oxygenation needs and was placed on 10 L high flow nasal cannula. Troponins trended resulting at 0.029 and 0.035. Patient was transferred to the ICU. Field Director evaluated and further reviewed CTA stated unlikely pulmonary emboli and ordered lower extremity venous Dopplers which were negative for DVTs. Echocardiogram completed revealing a preserved EF of 50% with normal right ventricular systolic pressure. Patient then underwent VQ scan which showed very low probability of pulmonary emboli. Subsequently pulmonary emboli was ruled out at this time. Patient then evaluated by oncology and breast surgery who recommended lymph node biopsy. During this hospitalization and patient also noted to spike a fever and was found to be positive for COVID-19 infection. Patient was started on IV steroids with continued management of her acute hypoxic respiratory failure. Patient underwent right axillary lymph node biopsy on 09/24/23. Hospital course imaging: Echocardiogram ejection fraction 50%, normal RVSP Lower extremity venous Dopplers: No DVT bilaterally CTA chest: Filling defect within the right upper lobe pulmonary embolism not excluded, right breast carcinoma with skin thickening VQ scan: Low probability of pulmonary embolism CT abdomen and pelvis: Partially seen worsening consolidative opacity in the left lung base with small pleural effusion possible pneumonia, moderate cardiomegaly, portion of right breast mass and skin thickening seen, enlarged lymph nodes in the right chest wall potentially metastatic, diffuse heterogeneous liver without discrete mass, gallbladder moderately distended with 1.9 cm gallstone in the neck, mildly prominent nodule suggested lymph node in the right upper quadrant, PET/CT as an outpatient for further staging as clinically warranted. Nuclear medicine bone scan: Nothing to suggest metastatic disease Abdominal ultrasound, gallstones stuck within the gallbladder neck correlate for signs and symptoms of cholecystitis, cystic duct obstruction Physical exam: Patient seen and fully evaluated at bedside this morning. Patient sitting up in chair at bedside, she is visiting with family and remains on 4L O2 via nasal cannula with SpO2 of 92%. Awaiting reevaluation by [facility] for rehab. She continues to deny having any headache, lightheadedness, dizziness, chest pain, palpitations, or shortness of breath. Vital signs reviewed. General: nontoxic, no distress, obese Skin: Dressing in place right breast that is clean, dry, and intact. Remaining of right breast tissue appears erythemic with thickened skin/scaling. Cardiovascular: S1S2 reg, distant heart sounds, positive posterior tibial pulses bilaterally, Lungs: Respirations even, regular, and unlabored. Patient remains on 4 L O2 via nasal cannula with current SpO2 of 90%. Lung sounds decreased bilaterally, no rhonchi/rales/crackles/wheezes noted. Abdominal: soft, nontender to palpation, no guarding, no appreciable organomegaly Ext: no gross muscle atrophy, scant edema bilateral lower extremities, no contractures Neuro: CN II-XI grossly intact, no focal neuro deficits Psych: Alert, oriented, appropriate affect Assessment and Plan of Care: Sepsis possibly secondary to infected breast tissue Fungating/necrotic right-sided breast mass measuring at least 4.6 cm -Pathology pending -Bone scan negative for any metastatic disease -Case is being followed by breast surgery and hematology/oncology. -Status post axillary lymph node biopsy on 09/24/23 -Infectious disease following and reviewed documentation in chart, Recommending cannulation of Unasyn for breast mass pending cultures. -Per documentation in chart, Case was discussed with Dr. Lopez (breast surgeon) who will reevaluate the patient sometime next week. Should she be discharged before then she will recommend outpatient follow-up within the clinic. -Continue to monitor for pathology results from lymph node biopsy. -Continue Unasyn 3 g IV piggyback every 8 hours day #6, received Zosyn on 09/19 through 09/21 -Bleeding from breast mass, recommend vasline impregnated gauze prior to 4X 4 as breast mass bleeding from multiple 4X 4 changes. -Blood cultures showing no growth to date. -Breast mass wound culture positive for beta hemolytic strep group C, Proteus mirabilis, and Staphylococcus aureus. Acute hypoxic respiratory failure likely secondary to atelectasis Acute COVID-19 infection Probable obesity hypoventilation syndrome -Oxygenation to be administered and titrated as needed to maintain SPO2 equal to or greater than 90%, wean as patient tolerates. Currently on 4 L. -Encourage Incentive Spirometry 10-15x hourly while awake -Steroids: Decadron 6 mg daily, dose #8 out of 10 -Pulmonology following, appreciate further recommendations. -DVT prophylaxis with Lovenox. -Strict Droplet plus Contact precautions Acute diastolic heart failure exacerbation, ruled out Sinus tachycardia Isolated Elevated troponin, NSTEMI ruled out and elevated troponin due to supply demand mismatch Elevated TSH, normal free T4 -Cardiology evaluated, signed off recommending outpatient follow-up in their office after discharge -Continue Lopressor 50 mg BID Transaminitis, has been stable Large gallstone, cholecystitis ruled out -Repeat CMP tomorrow Class III Obesity with BMI 60.6 -Recommend outpatient structured weight loss program. Hypokalemia, resolved Hyponatremia, resolved Data and imaging reviewed: Vital signs reviewed. Blood pressure 142/77, heart rate 86, respiratory rate 18, temp 98.4F, and SpO2 of 92% on 4 L. Morning labs completed and reviewed. CBC showing mild leukocytosis with WBC count of 11.9 otherwise normal findings. BMP showing mild elevation of BUN at 28 blood glucose of 113. Magnesium normal findings at 2.0 and potassium normal findings at 4.2. Liver enzymes stable but remain elevated with AST of 82, ALT 64, alkaline phosphatase of 125. DVT prophylaxis: Lovenox Anticipated discharge date: Pending Clinical Course Anticipated discharge place: Pending Clinical Course, [facility] to reevaluate patient's progress tomorrow morning. Patient was seen independently by Nurse Pracitioner. This document was prepared using [employer] dictation software. Please allow for errors in sand hauler, while rare they do occur. I reviewed the documentation as provided by the MAGALY above, who is the original author of this note. I agree with the documented assessment and plan, with the following changes: none Objective - Vital Signs Vital signs: Vital Signs Temp 98.4 F 09/28/23 07:45 Pulse 86 09/28/23 07:45 Resp 18 09/28/23 07:45 BP 142/77 09/28/23 07:45 Pulse Ox 92 L 09/28/23 07:45 FiO2 Intake & Output 09/27/23 09/28/23 09/28/23 18:59 06:59 18:59 Intake Total 150 Balance 150 Intake: Oral 150 Other: Voiding Method External Catheter External Catheter - Labs CBC & Chem 7: 09/28/23 06:55 09/28/23 06:55
--- NOTE | 2023-09-28 16:13 | P.PN ---
Subjective Progress Note Date: 09/28/23 This is a 67-year-old female with chronic redness and swelling of her right nipple, which has been progressively getting worse. Patient has been noticing bleeding from her right breast nipple, and while evaluated in the ER she was noted to have a large mass which has been progressively getting worse apparently over the last 3 months. Upon evaluation in the ER, the patient was also noted to be tachycardic, with slightly elevated troponin of 0.035. Chest x-ray showed left lower lobe atelectasis, CT of the chest raised the possibility of a defect in the right upper lobe subsegmental branch. Considering the patient was complaining of some shortness of breath, and the patient was transferred to the ICU for further evaluation she was seen already by cardiology and by vascular surgery. I reviewed the CT of the chest, and I did not feel that the findings are specific for thromboembolic disease, not to mention that the CT angiogram is a very poor quality CT. Nonetheless it did show right breast mass, and right axillary lymph nodes highly suggestive of breast carcinoma with lymph node metastasis. After reviewing the CT of the chest, and after reviewing that the patient had negative venous Doppler, and considering the patient had bleeding from the right breast mass, I recommended stopping the heparin and hopefully sometime today and arrange for a VQ scan to put the issue to rest clinically this is not a presentation of pulmonary embolism. And again the CT of the chest does not seem very diagnostic. During my evaluation the patient no shortness of breath, no cough no wheezing and no chest pain. She was on 2 L nasal cannula and O2 saturation was 97%, and after reviewing the CT of the chest again, she does have left lower lobe atelectasis, doubt pneumonia involving the left lower lobe Reevaluated today on 09/19/23, patient remains in the ICU, doing fairly well, relatively asymptomatic, her VQ scan came back negative for pulmonary embolism/low probability as the patient does not need heparin which I have already cut discontinued yesterday. She is however on Lovenox for DVT prophylaxis and cardiology recommended metoprolol 12.5 twice a day for tachycardia. Seems to be mostly a sinus tachycardia. Patient remains on 4 L nasal cannula, O2 saturation is 96% up to 98%. WBC count is 6.2 hemoglobin 13.6 basic metabolic profile is normal and renal profile is normal. Patient was seen by general surgery consultation, and I recommended basically right axillary lymph node biopsy by interventional radiology, withdraw the not do breast biopsy at this point since there is a concern about bleeding from the fungating right breast mass. In the meantime the patient is hemodynamically stable, and I believe we can safely transfer the patient out of the ICU to a regular medical floor or a medical surgical floor with telemetry to keep an eye on her tachycardia, and metoprolol was added Seen today 09/20, patient remains in the ICU, however she is truly an overflow in the ICU, patient is being seen by many consultants, at initial presentation was a presentation of bleeding fungating right breast mass and a left lower lobe atelectasis, doubt pneumonia, patient had no pulmonary symptoms on her initial presentation, CT angiogram of the chest questioned pulmonary embolism and we felt that this is not truly the case. Venous Dopplers were negative, VQ scan was negative, hence the patient was taken off heparin which was initially started in the ER. Patient is morbidly obese, and she has significant left lower lobe atelectasis, doing very poorly with incentive spirometry, she is empirically on antibiotics in the form of Zosyn. She remains tachycardic with heart rate of 130, hemodynamically stable otherwise. Metoprolol dose was increased to 25 mg twice a day CBC showed no evidence of leukocytosis, hemoglobin is 13.2 basic metabolic profile is normal renal profile is normal, BNP level is normal 1 culture from the right breast is showing polymicrobial picture with presumptive staph, Proteus mirabilis, and beta hemolytic strep group C patient is being seen by infectious disease on consultation blood cultures are negative so far. The patient is seen today 09/21/2023 in follow-up on the oncology unit. She is currently resting comfortably in bed. Awake and alert in no acute distress. She is maintaining O2 saturations in the 90s on 4 L/m per nasal cannula. Chest x-ray reveals cardiomegaly and mild pulmonary vascular congestion. Right breast cultures are positive for beta-hemolytic strep group C, Proteus mirabilis and Staphylococcus aureus. She is currently on Zosyn. White count 7.9. Hemoglobin 14.1. Platelets 222. Sodium 132. Potassium 4.4. Bicarb 26. BUN 18. Creatinine 1.2. AST 109. ALT 50. Urinalysis with possible UTI. Culture pending. She is currently on Lovenox for DVT prophylaxis. Normal saline at KVO. Progress note dated 09/22/2023. The patient was transferred to room 350, because apparently she tested positive for coronavirus. Currently, she is on 4 L of oxygen. Getting saline at 10 mL an hour. The patient had a bone scan that was negative. A chest x-ray was ordered for September 23. No new labs today. Her last d-dimer was 1.37. The patient is being followed by medical oncology, and their impression is that she has a large right breast malignancy, with right axillary node involvement. Progress note dated 09/23/2023. The patient is seen again in room 350. The patient is currently on 4 L of oxygen. She's getting saline at 10 mL an hour. She did test positive for coronavirus. She remains on Unasyn for her right breast cellulitis. The wounds from the right breast show evidence of beta-hemolytic streptococci, Proteus, and Staphylococcus. Infectious diseases is following this patient. White count is 11.3, hemoglobin 15.8, hematocrit 48, and platelet count 275,000. No additional labs from today. Progress note dated 09/24/2023. The patient is seen today in room 350. Currently, the patient's off of oxygen. Saturations are 90%. The patient is receiving saline at 10 mL an hour. An u ltrasound of the right axilla shows multiple lymph nodes. In addition, the patient continues on Unasyn. Currently labs include a white count 8.9, hemoglobin 13.6, hematocrit 44.4, and a platelet count of 237,000. Sodium 138, potassium 4.6, chloride 96, CO2 30, BUN 29, and creatinine 0.85. Progress note dated 09/25/2023. The patient is seen today in room 629. Currently, the patient is on oxygen at 3.5 L. Saturation 90%. She's not receiving any IV fluids she does continue on Unasyn. Yesterday, she had a lymph node biopsy of the right axillary lymph nodes. We will recheck another pro-calcitonin level, and a BNP. White count 8, he will 14.1, hematocrit 45.6, platelet count 313,000. Sodium 143, potassium 4.1, chlorides 99, CO2 36, BUN 31, creatinine 0.89. The patient's N-terminal p roBNP was 1220. Albumin is 3. The patient's lung volumes are low, and lung fritz are hazy, consistent with CHF/fluid overload. The patient is seen today 09/26/2023 in follow-up on the regular medical floor. She is currently sitting up in bed. Awake and alert in no acute distress. She is maintaining O2 saturations in the 90s on 4 L/m per nasal cannula. She is receiving normal saline at KVO. Her pro-calcitonin is 0.91. She remains on Unasyn. Breast wound cultures were positive for Proteus mirabilis, Staphylococcus aureus, beta-hemolytic strep group C. Blood cultures revealed no growth. Urine cultures revealed no growth. White count 7.7. He will 14.0. Platelets 271. Sodium 141. Potassium 4.1. Bicarb 33. BUN 35. Creatinine 0.77. Glucose 111. She did test positive for COVID-19 infection. She is continued on vitamin supplements, Decadron, Lovenox for DVT prophylaxis. Pathology from the right axillary lymph node biopsy is pending. The patient is seen today 09/27/2023 in follow-up on the regular medical floor. She is awake and alert in no acute distress. Resting fairly comfortably in bed. Continues to maintain O2 saturations in the 90s on 4 L/m per nasal cannula. Right breast wound culture positive for Proteus mirabilis, Staphylococcus aureus, beta-hemolytic strep group C. Blood cultures revealed no growth. Urine culture revealed no growth. She is continued on Unasyn. Remains on Lovenox, Decadron, vitamin supplements. Normal saline at KVO. Pathology from right axillary lymph node biopsy is pending. On today's evaluation of 09/28/2023, the patient is being seen for a follow-up. The patient is sitting up on a decline in that she is, comfortable. No signs of any significant respiratory distress. She is morbidly obese with a BMI of 65. The CT angiogram of the chest raised the suspicion for a pulmonary embolism and this was a poor quality CT angiogram. The Doppler of the lower extremities were negative for DVT and the patient also had a VQ scan that was a very low probability for pulmonary embolism. The patient is hemodynamically stable. The patient d-dimer was at 1.37. She does have underlying malignancy and she is being followed up by oncology. The patient is a large right breast malignancy with right axillary lymph node involvement. The patient also has a ulcerating wound over the right breast with secondary cellulitis and the patient's cultures are positive for beta-hemolytic strep, Proteus and staph aureus. The previous echo is 11.9, he was 14.1 and a platelet count of 301, and the patient has normal renal function, normal electrolytes, and the patient is currently on IV Unasyn for now. Patient is on Lovenox 40 mg subcu portably prophylaxis. The patient on Decadron. IV fluids at 10 mL an hour. Echocardiogram showed a preserved ejection fraction of 50%. Poor quality due to the body habitus. Objective - Vital Signs Vital signs: Vital Signs Temp 97.4 F L 09/28/23 15:00 Pulse 73 09/28/23 15:00 Resp 17 09/28/23 15:00 BP 142/77 09/28/23 07:45 Pulse Ox 91 L 09/28/23 15:00 FiO2 Intake & Output 09/27/23 09/28/23 09/28/23 18:59 06:59 18:59 Intake Total 150 708 Balance 150 708 Weight 147 kg Intake: Oral 150 708 Other: Voiding Method External Catheter External Catheter External Catheter - Exam GENERAL EXAM: Alert, pleasant 67-year-old female, on 4 L nasal cannula, in no apparent distress. HEAD: Normocephalic. EYES: Normal reaction of pupils, equal size. NOSE: Clear with pink turbinates. THROAT: No erythema or exudates. NECK: No masses, no JVD. CHEST: Dressing to right breast dry and intact LUNGS: Equal air entry with few crackles in the posterior bases. CVS: S1 and S2 normal with no audible murmur, regular rhythm. ABDOMEN: No hepatosplenomegaly, normal bowel sounds, no guarding or rigidity. SPINE: No scoliosis or deformity SKIN: Excoriated right breast. CENTRAL NERVOUS SYSTEM: No focal deficits, tone is normal in all 4 extremities. EXTREMITIES: There is no peripheral edema. No clubbing, no cyanosis. Peripheral pulses are intact. - Labs CBC & Chem 7: 09/28/23 06:55 09/28/23 06:55 Labs: Abnormal Lab Results - Last 24 Hours (Table) 09/28/23 09/28/23 Range/Units 06:55 06:55 WBC 11.90 H (4.50-10.00) X 10*3/uL MCV 104.4 H (80.0-97.0) FL MCH 34.3 H (27.0-32.0) pg RDW 15.6 H (11.5-14.5) % Carbon Dioxide 33.0 H (21.6-31.8) mmol/L BUN 28.0 H (9.0-27.0) mg/dL BUN/Creatinine Ratio 31.11 H (12.00-20.00) Ratio Glucose 113 H (70-110) mg/dL AST 82 H (13-35) U/L ALT 64 H (8-44) U/L Total Protein 6.1 L (6.2-8.2) g/dL Albumin 2.9 L (3.8-4.9) g/dL Albumin/Globulin Ratio 0.91 L (1.60-3.17) Ratio Assessment and Plan Plan: Fungating right breast mass, highly suggestive of breast carcinoma with axillary lymph node metastasis. Status post right axillary lymph node biopsy on 11/24/2022. Pathology pending. This is a neglected tumor that was found with overlying skin ulceration and breakdown and cellulitis Acute hypoxic respiratory failure secondary to mostly atelectasis, and obesity. Patient may have obesity/hypoventilation syndrome. And significant left lower lobe atelectasis is noted on chest x-ray and CT of the chest. Pulmonary embolism was ruled out COVID-19 infection, currently asymptomatic , diagnosis established on 09/21/2023 , currently on Decadron Morbid obesity, body mass index of 65 Obesity hypoventilation syndrome Left lower lobe atelectasis, doubt pneumonia Cellulitis of right breast, polymicrobial culture with Staphylococcus aureus, Proteus mirabilis, beta-hemolytic strep group C Distended gallbladder without evidence of cholecystitis, prominent common bile duct Colonic diverticulosis Plan Awaiting pathology from the core biopsy of the breast Continue Unasyn Remains on vitamin supplements, Decadron, Lovenox Increase her activity as tolerated Titrate the FiO2 as tolerated Add an incentive spirometer Poor prognosis based on the above-mentioned
--- NOTE | 2023-09-28 17:07 | P.CONS ---
History of Present Illness - Reason for Consult Consult date: 09/28/23 rehab recommendations - Chief Complaint weakness - History of Present Illness Ms Shruti Terrazas is a 67 y/o right handed female who lives alone in an apartment with 0 YIN. Prior to admission, she was ambulating with 4ww, independent with ADLs. She has good support from her son and daughter. She does not drive, family provides transportation. She reports she can have 24/7 assistance at home if n eeded. Patient is a very pleasant 67-year-old female with coronary artery disease and prior myocardial infarction, TIA, and neuropathy. She presented to the emergency department on 09/17/23 with complaints of right breast pain and breast lesion that started bleeding. In the ER she underwent an extensive evaluation. Vital signs tachycardic at 140 bpm, blood pressure 126/70, respiratory rate 20, temp 98.1F, SpO2 of 92% on 2 L of oxygen. Labs were completed and reviewed. CBC showing macrocytosis with MCV of 100.8 otherwise normal findings. Coagulation profile normal findings. BMP revealed hyponatremia with sodium 135, hypokalemia with potassium 3.3, hypochloremia with chloride of 95, and hypercarbia with bicarb of 32 and anion gap of 8. Blood glucose was 139. M agnesium 1.9. Liver profile showing hyperbilirubinemia with total bili of 1.4, elevated AST of 184 and ALT of 80 with normal alkaline phosphatase of 117. Troponin was 0.029 and CRP was 6.1. Chest x-ray completed showing basilar increased density concerning for atelectasis versus developing infiltrate. CTA chest was completed showing a filling defect with an right upper lobe subsegmental branch concerning for pulmonary emboli with no evidence of large central or saddlebag emboli, and right sided breast carcinoma with skin thickening along with right axillary adenopathy. EKG was completed showing atrial flutter/atrial tachycardia with RVR at 138 bpm. Consultations to pulmonology, hematology/oncology, and breast surgery. She is placed on IV anticoagulation with high intensity heparin infusion. Overnight patient was found to become hypoxic requiring increased oxygenation needs and was placed on 10 L high flow nasal cannula. Troponins trended resulting at 0.029 and 0.035. Patient was transferred to the ICU. Crop Consultant evaluated and further reviewed CTA stated unlikely pulmonary emboli and ordered lower extremity venous Dopplers which were negative for DVTs. Echocardiogram completed revealing a preserved EF of 50% with normal right ventricular systolic pressure. Patient th en underwent VQ scan which showed very low probability of pulmonary emboli. Subsequently pulmonary emboli was ruled out at this time. Patient then evaluated by oncology and breast surgery who recommended lymph node biopsy. She developed a fever and was found to be positive for COVID-19 infection. Patient was started on IV steroids with continued management of her acute hypoxic respiratory failure. Patient underwent right axillary lymph node biopsy on 09/24/23. Breast wound cultures were positive for Proteus mirabilis, Staphylococcus aureus, beta-hemolytic strep group C. Blood cultures revealed no growth. Urine cultures revealed no growth. White count 7.7. He will 14.0. Platelets 271. Sodium 141. Potassium 4.1. Bicarb 33. BUN 35. Creatinine 0.77. Glucose 111. Pathology from the right axillary lymph node biopsy is pending. PM&R consulted for rehab recommendations; patient with no recent OT notes, PT notes reviewed, she is supervision with bed mobility, transfers, gait 20 ft x 2 with rest breaks supervision. 09/28/23: patient states she is doing 'ok', overall feeling better. She denies CP and abdominal pain. She has some SOB, wearing O2 which she does not wear at ton e. She denies issues with bowel and bladder. She has no current complaints of pain. She reports there is no pain over her breast lesion. She feels that she could probably return home, felt comfortable with how therapy went today. Review of Systems reviewed, negative unless stated above in HPI Past Medical History Past Medical History: CVA/TIA, Hypertension Additional Past Medical History / Comment(s): neuropathy Last Myocardial Infarction Date:: unknown History of Any Multi-Drug Resistant Organisms: None Reported Past Surgical History: Section Past Anesthesia/Blood Transfusion Reactions: No Reported Reaction Past Psychological History: No Psychological Hx Reported Smoking Status: Never smoker Past Alcohol Use History: None Reported Additional Past Alcohol Use History / Comment(s): Patient was a smoker briefly and quit 40 years ago. She denies any illicit drug use or alcohol use. Patient lives at home alone in a senior apartment. She has a walker and wheelchair at [facility]. She denies any oxygen use. Past Drug Use History: None Reported - Past Family History Father Additional Family Medical History / Comment(s): Father at age 101 from old age. Mother Family Medical History: Hypertension Additional Family Medical History / Comment(s): Mother at age 83 with history of hypertension. Brother(s) Additional Family Medical History / Comment(s): Patient does not have any brothers or sisters. Daughter(s) Additional Family Medical History / Comment(s): Patient has 3 daughters. She has no contact with 2 of her daughters. One daughter has no major medical pr oblems. Son(s) Additional Family Medical History / Comment(s): Patient has 3 sons. One as a stillbirth, one has no major medical problems, one has ADD. Medications and Allergies Home Medications Medication Instructions Recorded Confirmed Type No Known Home Medications 09/17/23 09/17/23 History Allergies Allergy/AdvReac Type Severity Reaction Status Date / Time No Known Allergies Allergy Verified 09/17/23 14:29 Physical Exam Vitals: Vital Signs Temp Pulse Resp BP BP Pulse Ox 09/28/23 15:00 97.4 F L 73 17 91 L 09/28/23 08:00 86 18 09/28/23 07:45 98.4 F 86 18 142/77 92 L 09/28/23 00:16 97.6 F 110 H 16 137/70 87 L 09/27/23 19:36 98.1 F 81 18 152/81 90 L Intake and Output 09/28/23 09/28/23 09/28/23 06:59 14:59 22:59 Intake Total 708 Balance 708 Intake: Oral 708 Other: Voiding Method External Catheter Weight 147 kg General: WDWN obese female, reclined in her chair, NAD HEENT: NC, AT, pupils equal, mouth clear Cardio: Calves supple, non tender, trace LE, and left greater than right pedal edema Pulm: even and non labored respirations on O2 via NC GI: abdomen soft, non tender : no suprapubic tenderness MSK: functional ROM of UE, decreased HF likely related to habitus and weakness Neuro: alert and oriented x 4, speech is clear and fluent. Sensation intact to light touch bilateral upper and lower extremities MMT: Bilateral SABD/ EF/EE/FABD/HG 4+/5 ; R HF 4-/5, L HF4-/5, KE 4+/5 , DF 5/5 Reflexes: symmetric UE Skin: breast lesion not assessed, multiple areas of ecchymosis of the UE Psych: Calm, Cooperative Results CBC & Chem 7: 09/28/23 06:55 09/28/23 06:55 Labs: Abnormal Lab Results - Last 24 Hours (Table) 09/28/23 09/28/23 Range/Units 06:55 06:55 WBC 11.90 H (4.50-10.00) X 10*3/uL MCV 104.4 H (80.0-97.0) FL MCH 34.3 H (27.0-32.0) pg RDW 15.6 H (11.5-14.5) % Carbon Dioxide 33.0 H (21.6-31.8) mmol/L BUN 28.0 H (9.0-27.0) mg/dL BUN/Creatinine Ratio 31.11 H (12.00-20.00) Ratio Glucose 113 H (70-110) mg/dL AST 82 H (13-35) U/L ALT 64 H (8-44) U/L Total Protein 6.1 L (6.2-8.2) g/dL Albumin 2.9 L (3.8-4.9) g/dL Albumin/Globulin Ratio 0.91 L (1.60-3.17) Ratio Assessment and Plan Assessment: #Sepsis possibly secondary to infected breast tissue -PT/OT #Fungating/necrotic right-sided breast mass measuring at least 4.6 cm, suspicious for breast cancer -Pathology pending -Bone scan negative for any metastatic disease - followed by breast surgery and hematology/oncology. #Status post axillary lymph node biopsy on 09/24/23 - Dr. Lopez (breast surgeon) possible outpatient follow-up within the clinic. -on IV abx per ID #Breast mass wound culture positive for beta hemolytic strep group C, Proteus mirabilis, and Staphylococcus aureus -abx per MAR #Acute hypoxic respiratory failure likely secondary to atelectasis #Acute COVID-19 infection #Probable obesity hypoventilation syndrome -Pulmonology following, on steroids per mar #Acute diastolic heart failure exacerbation, ruled out #Sinus tachycardia #Isolated Elevated troponin, NSTEMI ruled out and elevated troponin due to supply demand mismatch #Elevated TSH, normal free T4 -Cardiology signed off recommending outpatient follow-up in their office after discharge #Class III Obesity with BMI 60.6 #Hypokalemia, resolved #Hyponatremia, resolved # DVT prophylaxis with Lovenox # Cormorbidities:coronary artery disease and prior myocardial infarction, TIA, and neuropathy. # Your medical dx and management Disposition: Will need to see updated OT notes, patient is functioning well with PT and likely too functional to qualify for IPR. We will follow and make further recs after OT updates. Patient reports that she feels she could return home with [facility] and family assist. If she needs assistance and is an IPR candidate; will need to know duration of IV abx and hem/onc plan if treatment needs to start before outpatient work up Patient seen and examined in coordination with Dr Padron via audio and visual telemedicine. Patient seen and examined in coordination with WAYLON Tuttle via audiovisual telemedicine; agree with above.
[2023-09-29] MEDS: AMPICILLIN-SULBACTAM 3 GM in SODIUM CHLORIDE 0.9% 100 ML IVPB SCH ×3 (04:53→20:09)
[2023-09-29] MEDS: SODIUM CHLORIDE 0.9% 1,000 ML IV SCH (04:53)
[2023-09-29] MEDS: dexAMETHasone 2 MG TAB PO SCH (09:43)
[2023-09-29] MEDS: ZINC SULFATE 220 MG CAP PO SCH (09:43)
[2023-09-29] MEDS: ENOXAPARIN 40 MG/0.4 ML SYRINGE SQ SCH (09:43)
[2023-09-29] MEDS: METOPROLOL TARTRATE 50 MG TAB PO SCH ×2 (09:43→20:09)
[2023-09-29] MEDS: ASCORBIC ACID 500 MG TAB PO SCH (09:43)
[2023-09-29] MEDS: NYSTATIN 100,000 UNIT/GM POWD 15 GM TOPICAL SCH ×3 (09:44→20:08)
--- NOTE | 2023-09-29 13:23 | P.PN ---
Subjective Progress Note Date: 09/29/23 This is a 67-year-old female with chronic redness and swelling of her right nipple, which has been progressively getting worse. Patient has been noticing bleeding from her right breast nipple, and while evaluated in the ER she was noted to have a large mass which has been progressively getting worse apparently over the last 3 months. Upon evaluation in the ER, the patient was also noted to be tachycardic, with slightly elevated troponin of 0.035. Chest x-ray showed left lower lobe atelectasis, CT of the chest raised the possibility of a defect in the right upper lobe subsegmental branch. Considering the patient was complaining of some shortness of breath, and the patient was transferred to the ICU for further evaluation she was seen already by cardiology and by vascular surgery. I reviewed the CT of the chest, and I did not feel that the findings are specific for thromboembolic disease, not to mention that the CT angiogram is a very poor quality CT. Nonetheless it did show right breast mass, and right axillary lymph nodes highly suggestive of breast carcinoma with lymph node metastasis. After reviewing the CT of the chest, and after reviewing that the patient had negative venous Doppler, and considering the patient had bleeding from the right breast mass, I recommended stopping the heparin and hopefully sometime today and arrange for a VQ scan to put the issue to rest clinically this is not a presentation of pulmonary embolism. And again the CT of the chest does not seem very diagnostic. During my evaluation the patient no shortness of breath, no cough no wheezing and no chest pain. She was on 2 L nasal cannula and O2 saturation was 97%, and after reviewing the CT of the chest again, she does have left lower lobe atelectasis, doubt pneumonia involving the left lower lobe Reevaluated today on 09/19/23, patient remains in the ICU, doing fairly well, relatively asymptomatic, her VQ scan came back negative for pulmonary embolism/low probability as the patient does not need heparin which I have already cut discontinued yesterday. She is however on Lovenox for DVT prophylaxis and cardiology recommended metoprolol 12.5 twice a day for tachycardia. Seems to be mostly a sinus tachycardia. Patient remains on 4 L nasal cannula, O2 saturation is 96% up to 98%. WBC count is 6.2 hemoglobin 13.6 basic metabolic profile is normal and renal profile is normal. Patient was seen by general surgery consultation, and I recommended basically right axillary lymph node biopsy by interventional radiology, withdraw the not do breast biopsy at this point since there is a concern about bleeding from the fungating right breast mass. In the meantime the patient is hemodynamically stable, and I believe we can safely transfer the patient out of the ICU to a regular medical floor or a medical surgical floor with telemetry to keep an eye on her tachycardia, and metoprolol was added Seen today 09/20, patient remains in the ICU, however she is truly an overflow in the ICU, patient is being seen by many consultants, at initial presentation was a presentation of bleeding fungating right breast mass and a left lower lobe atelectasis, doubt pneumonia, patient had no pulmonary symptoms on her initial presentation, CT angiogram of the chest questioned pulmonary embolism and we felt that this is not truly the case. Venous Dopplers were negative, VQ scan was negative, hence the patient was taken off heparin which was initially started in the ER. Patient is morbidly obese, and she has significant left lower lobe atelectasis, doing very poorly with incentive spirometry, she is empirically on antibiotics in the form of Zosyn. She remains tachycardic with heart rate of 130, hemodynamically stable otherwise. Metoprolol dose was increased to 25 mg twice a day CBC showed no evidence of leukocytosis, hemoglobin is 13.2 basic metabolic profile is normal renal profile is normal, BNP level is normal 1 culture from the right breast is showing polymicrobial picture with presumptive staph, Proteus mirabilis, and beta hemolytic strep group C patient is being seen by infectious disease on consultation blood cultures are negative so far. The patient is seen today 09/21/2023 in follow-up on the oncology unit. She is currently resting comfortably in bed. Awake and alert in no acute distress. She is maintaining O2 saturations in the 90s on 4 L/m per nasal cannula. Chest x-ray reveals cardiomegaly and mild pulmonary vascular congestion. Right breast cultures are positive for beta-hemolytic strep group C, Proteus mirabilis and Staphylococcus aureus. She is currently on Zosyn. White count 7.9. Hemoglobin 14.1. Platelets 222. Sodium 132. Potassium 4.4. Bicarb 26. BUN 18. Creatinine 1.2. AST 109. ALT 50. Urinalysis with possible UTI. Culture pending. She is currently on Lovenox for DVT prophylaxis. Normal saline at KVO. Progress note dated 09/22/2023. The patient was transferred to room 350, because apparently she tested positive for coronavirus. Currently, she is on 4 L of oxygen. Getting saline at 10 mL an hour. The patient had a bone scan that was negative. A chest x-ray was ordered for September 23. No new labs today. Her last d-dimer was 1.37. The patient is being followed by medical oncology, and their impression is that she has a large right breast malignancy, with right axillary node involvement. Progress note dated 09/23/2023. The patient is seen again in room 350. The patient is currently on 4 L of oxygen. She's getting saline at 10 mL an hour. She did test positive for coronavirus. She remains on Unasyn for her right breast cellulitis. The wounds from the right breast show evidence of beta-hemolytic streptococci, Proteus, and Staphylococcus. Infectious diseases is following this patient. White count is 11.3, hemoglobin 15.8, hematocrit 48, and platelet count 275,000. No additional labs from today. Progress note dated 09/24/2023. The patient is seen today in room 350. Currently, the patient's off of oxygen. Saturations are 90%. The patient is receiving saline at 10 mL an hour. An u ltrasound of the right axilla shows multiple lymph nodes. In addition, the patient continues on Unasyn. Currently labs include a white count 8.9, hemoglobin 13.6, hematocrit 44.4, and a platelet count of 237,000. Sodium 138, potassium 4.6, chloride 96, CO2 30, BUN 29, and creatinine 0.85. Progress note dated 09/25/2023. The patient is seen today in room 629. Currently, the patient is on oxygen at 3.5 L. Saturation 90%. She's not receiving any IV fluids she does continue on Unasyn. Yesterday, she had a lymph node biopsy of the right axillary lymph nodes. We will recheck another pro-calcitonin level, and a BNP. White count 8, he will 14.1, hematocrit 45.6, platelet count 313,000. Sodium 143, potassium 4.1, chlorides 99, CO2 36, BUN 31, creatinine 0.89. The patient's N-terminal p roBNP was 1220. Albumin is 3. The patient's lung volumes are low, and lung fritz are hazy, consistent with CHF/fluid overload. The patient is seen today 09/26/2023 in follow-up on the regular medical floor. She is currently sitting up in bed. Awake and alert in no acute distress. She is maintaining O2 saturations in the 90s on 4 L/m per nasal cannula. She is receiving normal saline at KVO. Her pro-calcitonin is 0.91. She remains on Unasyn. Breast wound cultures were positive for Proteus mirabilis, Staphylococcus aureus, beta-hemolytic strep group C. Blood cultures revealed no growth. Urine cultures revealed no growth. White count 7.7. He will 14.0. Platelets 271. Sodium 141. Potassium 4.1. Bicarb 33. BUN 35. Creatinine 0.77. Glucose 111. She did test positive for COVID-19 infection. She is continued on vitamin supplements, Decadron, Lovenox for DVT prophylaxis. Pathology from the right axillary lymph node biopsy is pending. The patient is seen today 09/27/2023 in follow-up on the regular medical floor. She is awake and alert in no acute distress. Resting fairly comfortably in bed. Continues to maintain O2 saturations in the 90s on 4 L/m per nasal cannula. Right breast wound culture positive for Proteus mirabilis, Staphylococcus aureus, beta-hemolytic strep group C. Blood cultures revealed no growth. Urine culture revealed no growth. She is continued on Unasyn. Remains on Lovenox, Decadron, vitamin supplements. Normal saline at KVO. Pathology from right axillary lymph node biopsy is pending. On today's evaluation of 09/28/2023, the patient is being seen for a follow-up. The patient is sitting up on a decline in that she is, comfortable. No signs of any significant respiratory distress. She is morbidly obese with a BMI of 65. The CT angiogram of the chest raised the suspicion for a pulmonary embolism and this was a poor quality CT angiogram. The Doppler of the lower extremities were negative for DVT and the patient also had a VQ scan that was a very low probability for pulmonary embolism. The patient is hemodynamically stable. The patient d-dimer was at 1.37. She does have underlying malignancy and she is being followed up by oncology. The patient is a large right breast malignancy with right axillary lymph node involvement. The patient also has a ulcerating wound over the right breast with secondary cellulitis and the patient's cultures are positive for beta-hemolytic strep, Proteus and staph aureus. The previous echo is 11.9, he was 14.1 and a platelet count of 301, and the patient has normal renal function, normal electrolytes, and the patient is currently on IV Unasyn for now. Patient is on Lovenox 40 mg subcu portably prophylaxis. The patient on Decadron. IV fluids at 10 mL an hour. Echocardiogram showed a preserved ejection fraction of 50%. Poor quality due to the body habitus. On today's evaluation of 09/29/2023, the patient is resting comfortably on the recliner. No new complaints. The biopsy from the regular lymph nodes are not to be positive for ductal carcinoma of the breast. The patient remains on IV Unasyn. The patient is on Lovenox for DVT prophylaxis. The patient is also complaining of course of Decadron regarding her Covid 19 status. The patient's labs are from yesterday. No new labs are available from today. Pro-calcitonin level was at 0.91. Objective - Vital Signs Vital signs: Vital Signs Temp 97.4 F L 09/29/23 07:29 Pulse 75 09/29/23 07:29 Resp 16 09/29/23 07:29 BP 141/76 09/29/23 07:29 Pulse Ox 95 09/29/23 07:29 FiO2 Intake & Output 09/28/23 09/29/23 09/29/23 18:59 06:59 18:59 Intake Total 708 Balance 708 Weight 147 kg Intake: Oral 708 Other: Voiding Method External Catheter External Catheter - Exam GENERAL EXAM: Alert, pleasant 67-year-old female, on 4 L nasal cannula, in no apparent distress. HEAD: Normocephalic. EYES: Normal reaction of pupils, equal size. NOSE: Clear with pink turbinates. THROAT: No erythema or exudates. NECK: No masses, no JVD. CHEST: Dressing to right breast dry and intact LUNGS: Equal air entry with few crackles in the posterior bases. CVS: S1 and S2 normal with no audible murmur, regular rhythm. ABDOMEN: No hepatosplenomegaly, normal bowel sounds, no guarding or rigidity. SPINE: No scoliosis or deformity SKIN: Excoriated right breast. CENTRAL NERVOUS SYSTEM: No focal deficits, tone is normal in all 4 extremities. EXTREMITIES: There is no peripheral edema. No clubbing, no cyanosis. Peripheral pulses are intact. - Labs CBC & Chem 7: 09/28/23 06:55 09/28/23 06:55 Assessment and Plan Plan: Ductal carcinoma of the right breast confirmed by core biopsy of the exit early mass. The patient has a Fungating right breast mass, highly suggestive of breast carcinoma with axillary lymph node metastasis. Status post right axillary lymph node biopsy on 09/24/2023. Pathology pending. This is a neglected tumor that was found with overlying skin ulceration and breakdown and cellulitis Acute hypoxic respiratory failure secondary to mostly atelectasis, and obesity. Patient may have obesity/hypoventilation syndrome, d significant left lower lobe atelectasis is noted on chest x-ray and CT of the chest. Pulmonary embolism was ruled out COVID-19 infection, currently asymptomatic , diagnosis established on 09/21/2023 , currently on Decadron Morbid obesity, body mass index of 65 Obesity hypoventilation syndrome Left lower lobe atelectasis, doubt pneumonia Cellulitis of right breast, polymicrobial culture with Staphylococcus aureus, Proteus mirabilis, beta-hemolytic strep group C Distended gallbladder without evidence of cholecystitis, prominent common bile duct Colonic diverticulosis Plan Biopsies consistent with breast cancer Continue Unasyn Remains on vitamin supplements, Decadron, Lovenox Increase her activity as tolerated Titrate the FiO2 as tolerated, currently on 4 L nasal cannula and this can be weaned down Continue incentive spirometer Poor prognosis based on the above-mentioned Looking for ECF transfer
--- NOTE | 2023-09-29 16:00 | P.PN ---
Subjective Progress Note Date: 09/29/23 Principal diagnosis: Right breast invasive ductal carcinoma Naila is a 67-year-old white female admitted through the emergency room on 1119 with a fungating bleeding right breast cancer. At that time she was noted to be tachycardic and a computed tomography scan raised the possibility of the defect in the right upper lobe subsegmental branch. The patient was worked up for a pulmonary embolism which was negative. She subsequently was diagnosed with covert and was treated for a right breast wound culture positive for Proteus, staph aureus, and beta hemolytic strep. She had a core biopsy of a right axillary lymph node which was positive for invasive ductal carcinoma. ER/SD and HER-2 status are pending. Preliminary metastatic workup was negative. At this time she has been cleared for rehab at [facility] and the plan is for discharge today or tomorrow. Objective - Vital Signs Vital signs: Vital Signs Temp 98.1 F 09/29/23 13:29 Pulse 71 09/29/23 13:29 Resp 15 09/29/23 13:29 BP 134/89 09/29/23 13:29 Pulse Ox 97 09/29/23 13:29 FiO2 Intake & Output 09/28/23 09/29/23 09/29/23 18:59 06:59 18:59 Intake Total 708 Balance 708 Weight 147 kg Intake: Oral 708 Other: Voiding Method External Catheter External Catheter - Constitutional General appearance: Present: cooperative - EENT Eyes: Present: EOMI ENT: Present: hearing grossly normal - Respiratory Details: Decreased breath sounds at the bases - Cardiovascular Heart sounds: normal: S1, S2 - Musculoskeletal Musculoskeletal Comment(s): Sitting in a recliner at the side of the bed - Psychiatric Psychiatric: Present: A&O x's 3, appropriate affect, intact judgment & insight - Additional findings Additional findings: Examination of the right breast reveals a large fungating mass at the nipple areolar complex, it does not appear to be fixed to the chest wall, it is not actively bleeding on today's examination - Labs CBC & Chem 7: 09/28/23 06:55 09/28/23 06:55 Assessment and Plan Assessment: Impression: Fungating mass right breast with some intermittent bleeding over the past several weeks Morbid obesity Fungal infection under both breast and both groins improved Plan: Case discussed with Dr. Yost from medical oncology; we're waiting ER/SD and HER-[address] Neoadjuvant treatment as per Dr. Yost Surgical treatment for local control of metastatic workup negative to follow neoadjuvant treatment The patient is most likely going to be discharged to [facility] rehab tomorrow, I will be happy to see her as an outpatient after evaluation with medical oncology Cc: Dr. Pepe
--- NOTE | 2023-09-29 16:07 | P.PN ---
Subjective Progress Note Date: 09/29/23 Principal diagnosis: Sepsis possibly secondary to infected breast tissue Ms Shruti Terrazas is a 67 y/o right handed female who lives alone in an apartment with 0 YIN. Prior to admission, she was ambulating with 4ww, independent with ADLs. She has good support from her son and daughter. She does not drive, family provides transportation. She reports she can have 24/7 assistance at home if needed. Patient is a very pleasant 67-year-old female with coronary artery disease and p rior myocardial infarction, TIA, and neuropathy. She presented to the emergency department on 09/17/23 with complaints of right breast pain and breast lesion that started bleeding. In the ER she underwent an extensive evaluation. Vital signs tachycardic at 140 bpm, blood pressure 126/70, respiratory rate 20, temp 98.1F, SpO2 of 92% on 2 L of oxygen. Labs were completed and reviewed. CBC showing macrocytosis with MCV of 100.8 otherwise normal findings. Coagulation profile normal findings. BMP revealed hyponatremia with sodium 135, hypokalemia with potassium 3.3, hypochloremia with chloride of 95, and hypercarbia with bicarb of 32 and anion gap of 8. Blood glucose was 139. Magnesium 1.9. Liver profile showing hyperbilirubinemia with total bili of 1.4, elevated AST of 184 and ALT of 80 with normal alkaline phosphatase of 117. Troponin was 0.029 and CRP was 6.1. Chest x-ray completed showing basilar increased density concerning for atelectasis versus developing infiltrate. CTA chest was completed showing a filling defect with an right upper lobe subsegmental branch concerning for pulmonary emboli with no evidence of large central or saddlebag emboli, and right sided breast carcinoma with skin thickening along with right axillary adenopathy. EKG was completed showing atrial flutter/atrial tachycardia with RVR at 138 bpm. Consultations to pulmonology, hematology/oncology, and breast surgery. She is placed on IV anticoagulation with high intensity heparin infusion. Overnight patient was found to become hypoxic requiring increased oxygenation needs and was placed on 10 L high flow nasal cannula. Troponins trended resulting at 0.029 and 0.035. Patient was transferred to the ICU. Slip Cover Operator evaluated and further reviewed CTA stated unlikely pulmonary emboli and ordered lower extremity venous Dopplers which were negative for DVTs. Echocardiogram completed revealing a preserved EF of 50% with normal right ventricular systolic pressure. Patient then underwent VQ scan which showed very low probability of pulmonary emboli. Subsequently pulmonary emboli was ruled out at this time. Patient then evaluated by oncology and breast surgery who recommended lymph node biopsy. She developed a fever and was found to be positive for COVID-19 infection. Patient was started on IV steroids with continued management of her acute hypoxic respiratory failure. Patient underwent right axillary lymph node biopsy on 09/24/23. Breast wound cultures were positive for Proteus mirabilis, Staphylococcus aureus, beta-hemolytic strep group C. Blood cultures revealed no growth. Urine cultures revealed no growth. White count 7.7. He will 14.0. Platelets 271. Sodium 141. Potassium 4.1. Bicarb 33. BUN 35. Creatinine 0.77. Glucose 111. Pathology from the right axillary lymph node biopsy is pending. PM&R consulted for rehab recommendations; patient with no recent OT notes, PT notes reviewed, she is supervision with bed mobility, transfers, gait 20 ft x 2 with rest breaks supervision. 09/28/23: patient states she is doing 'ok', overall feeling better. She denies CP and abdominal pain. She has some SOB, wearing O2 which she does not wear at home. She denies issues with bowel and bladder. She has no current complaints of pain. She reports there is no pain over her breast lesion. She feels that she could probably return home, felt comfortable with how therapy went today. 09/29/23: Patient reports that she is feeling "ok". She denies issues with bowels and bladder. Denies CP and abdominal pain. Denies pain. She discussed discharge planning with daughter, both patient and daughter agree patient would benefit from some structured rehab at discharge. Patient denies other concerns at this time. Objective - Vital Signs Vital signs: Vital Signs Temp 98.1 F 09/29/23 13:29 Pulse 71 09/29/23 13:29 Resp 15 09/29/23 13:29 BP 134/89 09/29/23 13:29 Pulse Ox 97 09/29/23 13:29 FiO2 Intake & Output 09/28/23 09/29/23 09/29/23 18:59 06:59 18:59 Intake Total 708 Balance 708 Weight 147 kg Intake: Oral 708 Other: Voiding Method External Catheter External Catheter - Exam General: WDWN obese female, reclined in her chair, NAD HEENT: NC, AT, pupils equal, mouth clear Cardio: Calves supple, non tender, trace LE, and left greater than right pedal edema Pulm: even and non labored respirations on O2 via NC GI: abdomen soft, non tender : no suprapubic tenderness MSK: functional ROM of UE, decreased HF likely related to habitus and weakness Neuro: alert and oriented x 4, speech is clear and fluent. Sensation intact to light touch bilateral upper and lower extremities MMT: Bilateral SABD/ EF/EE/FABD/HG 4+/5 ; R HF 4-/5, L HF4-/5, KE 4+/5 , DF 5/5 Reflexes: symmetric UE Skin: breast lesion not assessed, multiple areas of ecchymosis of the UE Psych: Calm, Cooperative - Labs CBC & Chem 7: 09/28/23 06:55 09/28/23 06:55 Assessment and Plan Assessment: #Sepsis possibly secondary to infected breast tissue -PT/OT #Fungating/necrotic right-sided breast mass measuring at least 4.6 cm, suspic ious for breast cancer -Pathology pending -Bone scan negative for any metastatic disease - followed by breast surgery and hematology/oncology. #Status post axillary lymph node biopsy on 09/24/23 - Dr. Lopez (breast surgeon) possible outpatient follow-up within the clinic. -on IV abx per ID #Breast mass wound culture positive for beta hemolytic strep group C, Proteus mirabilis, and Staphylococcus aureus -abx per DEC #Acute hypoxic respiratory failure likely secondary to atelectasis #Acute COVID-19 infection #Probable obesity hypoventilation syndrome -Pulmonology following, on steroids per mar #Acute diastolic heart failure exacerbation, ruled out #Sinus tachycardia #Isolated Elevated troponin, NSTEMI ruled out and elevated troponin due to supply demand mismatch #Elevated TSH, normal free T4 -Cardiology signed off recommending outpatient follow-up in their office after discharge #Class III Obesity with BMI 60.6 #Hypokalemia, resolved #Hyponatremia, resolved # DVT prophylaxis with Lovenox # Cormorbidities:coronary artery disease and prior myocardial infarction, TIA, and neuropathy. # Your medical dx and management Disposition: To [facility] 09/30. patient not at baseline and requiring assistance with ADL's. Patient needing total assist with toileting, mod assist with bathing, LB dressing, shower transfers. Patient has good support at discharge. She is mot ivated. Patient seen and examined by Dr. Garcia Note prepped by MARVIN Schmidt
--- NOTE | 2023-09-29 16:39 | P.PN ---
Subjective Progress Note Date: 09/28/23 Principal diagnosis: Reason for follow up is right breast infected wound Patient is a 67-year-old female with a past medical history significant for CVA TIA hypertension morbid obesity presenting to the hospital for evaluation of right breast pain, patient has been diagnosed with a fungating tumor with a wound and concern for infection. On today's evaluation that is 09/28/2023 the patient remains to be afebrile, the patient is breathing comfortably on 4 L nasal cannula supplemental oxygen, the patient denies having any chest pain denies any worsening cough or sputum production, patient denies any abdominal pain no nausea vomiting or any diarrhea, Patient did have a white count of 11.90, creatinine 0.9, right breast culture positive for Streptococcus MSSA and Proteus, patient covid 19 PCR came back positive Objective - Vital Signs Vital signs: Vital Signs Temp 98.1 F 09/28/23 20:00 Pulse 89 09/28/23 20:00 Resp 18 09/28/23 20:00 BP 154/69 09/28/23 20:00 Pulse Ox 92 L 09/28/23 20:00 FiO2 Intake & Output 09/28/23 09/28/23 09/29/23 06:59 18:59 06:59 Intake Total 708 Balance 708 Weight 147 kg Intake: Oral 708 Other: Voiding Method External Catheter External Catheter - Exam GENERAL DESCRIPTION: An elderly female lying in bed in no distress RESPIRATORY SYSTEM: Unlabored breathing , decreased intensity breath sound, no wheeze HEART: S1 S2 regular rate and rhythm , ABDOMEN: Soft , no tenderness EXTREMITIES: Diffuse swelling bilateral lower extremity no redness - Labs CBC & Chem 7: 09/28/23 06:55 09/28/23 06:55 Labs: Abnormal Lab Results - Last 24 Hours (Table) 09/28/23 09/28/23 Range/Units 06:55 06:55 WBC 11.90 H (4.50-10.00) X 10*3/uL MCV 104.4 H (80.0-97.0) FL MCH 34.3 H (27.0-32.0) pg RDW 15.6 H (11.5-14.5) % Carbon Dioxide 33.0 H (21.6-31.8) mmol/L BUN 28.0 H (9.0-27.0) mg/dL BUN/Creatinine Ratio 31.11 H (12.00-20.00) Ratio Glucose 113 H (70-110) mg/dL AST 82 H (13-35) U/L ALT 64 H (8-44) U/L Total Protein 6.1 L (6.2-8.2) g/dL Albumin 2.9 L (3.8-4.9) g/dL Albumin/Globulin Ratio 0.91 L (1.60-3.17) Ratio Assessment and Plan (1) Fever Current Visit: Yes Status: Acute Code(s): R50.9 - FEVER, UNSPECIFIED SNOMED Code(s): 182054869 (2) Mastitis Current Visit: Yes Status: Acute Code(s): N61.0 - MASTITIS WITHOUT ABSCESS SNOMED Code(s): 459777897 (3) COVID-19 Current Visit: Yes Status: Acute Priority: High Code(s): U07.1 - COVID-19 SNOMED Code(s): 229615462 Plan: 1patient presented to hospital with large right breast mass with some bleeding, in this patient who is running low-grade fever and was tachycardic and concern for possible infected right breast wound with underlying malignancy versus pneumonia less likely 2-blood cultures have been negative so far and local culture growing strep Proteus and Staphylococcus aureus, for the patient is covered with Unasyn while inpatient 3-patient with Covid 19, patient did have some improvement in her respiratory st atus, patient to continue with Decadron, Lovenox, zinc ascorbic acid, droplet precautions, monitor clinical course closely dictation was produced using [employer] dictation software. please excuse any gr ammatical, word or spelling errors. Time with Patient: Less than 30
--- NOTE | 2023-09-29 16:40 | P.PN ---
Subjective Progress Note Date: 09/29/23 Principal diagnosis: Reason for follow up is right breast infected wound Patient is a 67-year-old female with a past medical history significant for CVA TIA hypertension morbid obesity presenting to the hospital for evaluation of right breast pain, patient has been diagnosed with a fungating tumor with a wound and concern for infection. On today's evaluation that is 09/29/2023, the patient continues to be afebrile and is breathing comfortably on room air, and patient denies any shortness of breath, chest pain, did have occasional dry cough and no sputum production, patient denies nausea/vomiting /diarrhea and no abdominal pain. Feeling better once to go home Patient did have a white count of 11.90, creatinine 0.9 as of 09/28/2023, right breast culture positive for Streptococcus MSSA and Proteus, patient covid 19 PCR came back positive Objective - Vital Signs Vital signs: Vital Signs Temp 97.4 F L 09/29/23 07:29 Pulse 75 09/29/23 07:29 Resp 16 09/29/23 07:29 BP 141/76 09/29/23 07:29 Pulse Ox 95 09/29/23 07:29 FiO2 Intake & Output 09/28/23 09/29/23 09/29/23 18:59 06:59 18:59 Intake Total 708 Balance 708 Weight 147 kg Intake: Oral 708 Other: Voiding Method External Catheter External Catheter - Exam GENERAL DESCRIPTION: An elderly female lying in bed in no distress RESPIRATORY SYSTEM: Unlabored breathing , decreased intensity breath sound, no wheeze HEART: S1 S2 regular rate and rhythm , ABDOMEN: Soft , no tenderness EXTREMITIES: Diffuse swelling bilateral lower extremity no redness - Labs CBC & Chem 7: 09/28/23 06:55 09/28/23 06:55 Assessment and Plan (1) Fever Current Visit: Yes Status: Acute Code(s): R50.9 - FEVER, UNSPECIFIED SNOMED Code(s): 749618663 (2) Mastitis Current Visit: Yes Status: Acute Code(s): N61.0 - MASTITIS WITHOUT ABSCESS SNOMED Code(s): 546452431 (3) COVID-19 Current Visit: Yes Status: Acute Priority: High Code(s): U07.1 - COVID-19 SNOMED Code(s): 417664539 Plan: 1patient presented to hospital with large right breast mass with some bleeding, in this patient who is running low-grade fever and was tachycardic and concern for possible infected right breast wound with underlying malignancy versus pneumonia less likely 2-patient with Covid 19, patient did have some improvement in her respiratory status and is off supplemental oxygen, patient to continue with Decadron, Lovenox, zinc ascorbic acid 3blood cultures have been negative so far and local culture growing strep Proteus and Staphylococcus aureus, patient is covered with Unasyn however the patient will be able to finish therapy with oral Augmentin on discharge dictation was produced using [employer] dictation software. please excuse any grammatical, word or spelling errors. Time with Patient: Less than 30
--- NOTE | 2023-09-29 16:46 | P.PN ---
Subjective Progress Note Date: 09/29/23 Hospital course: Patient is a very pleasant 67-year-old female with coronary artery disease and prior myocardial infarction, TIA, and neuropathy. She presented to the emergency department on 09/17/23 with complaints of right breast pain and breast lesion that started bleeding. In the ER she underwent an extensive evaluation. Vital signs revealed patient to be significantly tachycardic at 140 bpm, blood pressure 126/70, respiratory rate 20, temp 98.1F, SpO2 of 92% on 2 L of oxygen. Labs were completed and reviewed. CBC showing macrocytosis with MCV of 100.8 otherwise normal findings. Coagulation profile normal findings. BMP revealed hyponatremia with sodium 135, hypokalemia with potassium 3.3, hypochloremia with chloride of 95, and hypercarbia with bicarb of 32 and anion gap of 8. Blood glucose was 139. Magnesium 1.9. Liver profile showing hyperbilirubinemia with total bili of 1.4, elevated AST of 184 and ALT of 80 with normal alkaline meredith sphatase of 117. Troponin was 0.029 and CRP was 6.1. Chest x-ray completed showing basilar increased density concerning for atelectasis versus developing infiltrate. CTA chest was completed showing a filling defect with an right upper lobe subsegmental branch concerning for pulmonary emboli with no evidence of large central or saddlebag emboli, and right sided breast carcinoma with skin thickening along with right axillary adenopathy. EKG was completed showing atrial flutter/atrial tachycardia with RVR at 138 bpm. Patient was admitted under our services with consultations to pulmonology, hematology/oncology, and breast surgery. She is placed on IV anticoagulation with high intensity heparin infusion. Overnight patient was found to become hypoxic requiring increased oxygenation needs and was placed on 10 L high flow nasal cannula. Troponins trended resulting at 0.029 and 0.035. Patient was transferred to the ICU. Biomedical Engineering Director evaluated and further reviewed CTA stated unlikely pulmonary emboli and ordered lower extremity venous Dopplers which were negative for DVTs. Echocardiogram completed revealing a preserved EF of 50% with normal right ventricular systolic pressure. Patient then underwent VQ scan which showed very low probability of pulmonary emboli. Subsequently pulmonary emboli was ruled out at this time. Patient then evaluated by oncology and breast surgery who recommended lymph node biopsy. During this hospitalization and patient also noted to spike a fever and was found to be positive for COVID-19 infection. Patient was started on IV steroids with continued management of her acute hypoxic respiratory failure. Patient underwent right axillary lymph node biopsy on 09/24/23. Hospital course imaging: Echocardiogram ejection fraction 50%, normal RVSP Lower extremity venous Dopplers: No DVT bilaterally CTA chest: Filling defect within the right upper lobe pulmonary embolism not excluded, right breast carcinoma with skin thickening VQ scan: Low probability of pulmonary embolism CT abdomen and pelvis: Partially seen worsening consolidative opacity in the left lung base with small pleural effusion possible pneumonia, moderate cardiomegaly, portion of right breast mass and skin thickening seen, enlarged lymph nodes in the right chest wall potentially metastatic, diffuse heterogeneous liver without discrete mass, gallbladder moderately distended with 1.9 cm gallstone in the neck, mildly prominent nodule suggested lymph node in the right upper quadrant, PET/CT as an outpatient for further staging as clinically warranted. Nuclear medicine bone scan: Nothing to suggest metastatic disease Abdominal ultrasound, gallstones stuck within the gallbladder neck correlate for signs and symptoms of cholecystitis, cystic duct obstruction Physical exam: Patient seen and fully evaluated at bedside this morning. Patient again sitting up in chair at bedside, she has been accepted to inpatient rehab with plans for discharge tomorrow morning. Patient currently denies having any pain or complaints. She remains on 4 L O2. Vital signs reviewed. General: nontoxic, no distress, obese Skin: Dressing in place right breast that is clean, dry, and intact. Remaining of right breast tissue appears erythemic with thickened skin/scaling. Cardiovascular: S1S2 reg, distant heart sounds, positive posterior tibial pulses bilaterally, Lungs: Respirations even, regular, and unlabored. Patient remains on 4 L O2 via nasal cannula with current SpO2 of 90%. Lung sounds decreased bilaterally, no rhonchi/rales/crackles/wheezes noted. Abdominal: soft, nontender to palpation, no guarding, no appreciable organomegaly Ext: no gross muscle atrophy, scant edema bilateral lower extremities, no contractures Neuro: CN II-XI grossly intact, no focal neuro deficits Psych: Alert, oriented, appropriate affect Assessment and Plan of Care: Sepsis possibly secondary to infected breast tissue Poorly differentiated ductal mammary carcinomaFungating/necrotic right-sided breast mass measuring at least 4.6 cm with mets to the lymphnodes. -ER/UT/Her-2testing pending. -Bone scan negative for any metastatic disease -Case is being followed by breast surgery and hematology/oncology. -Status post axillary lymph node biopsy on 09/24/23 -Infectious disease following and reviewed documentation in chart, Recommending cannulation of Unasyn for breast mass pending cultures. -Per documentation in chart, Case was discussed with Dr. Lopez (breast surgeon) who will reevaluate the patient sometime next week. Should she be discharged before then she will recommend outpatient follow-up within the clinic. -Continue to monitor for pathology results from lymph node biopsy. -Continue Unasyn 3 g IV piggyback every 8 hours day #7 received Zosyn on 09/19 through 09/21 -Bleeding from breast mass, recommend vasline impregnated gauze prior to 4X 4 as breast mass bleeding from multiple 4X 4 changes. -Blood cultures showing no growth to date. -Breast mass wound culture positive for beta hemolytic strep group C, Proteus mirabilis, and Staphylococcus aureus. Acute hypoxic respiratory failure likely secondary to atelectasis Acute COVID-19 infection Probable obesity hypoventilation syndrome -Oxygenation to be administered and titrated as needed to maintain SPO2 equal to or greater than 90%, wean as patient tolerates. Currently on 4 L. -Encourage Incentive Spirometry 10-15x hourly while awake -Steroids: Decadron 6 mg daily, dose #9 out of 10 -Pulmonology following, appreciate further recommendations. -DVT prophylaxis with Lovenox. -Strict Droplet plus Contact precautions Acute diastolic heart failure exacerbation, ruled out Sinus tachycardia Isolated Elevated troponin, NSTEMI ruled out and elevated troponin due to supply demand mismatch Elevated TSH, normal free T4 -Cardiology evaluated, signed off recommending outpatient follow-up in their office after discharge -Continue Lopressor 50 mg BID Transaminitis, has been stable Large gallstone, cholecystitis ruled out -Repeat CMP tomorrow Class III Obesity with BMI 60.6 -Recommend outpatient structured weight loss program. Hypokalemia, resolved Hyponatremia, resolved Data and imaging reviewed: Vital signs reviewed. Blood pressure 141/76, heart rate 75, respiratory rate 16, temp 97.4F, SpO2 of 95% on 4 L. DVT prophylaxis: Lovenox Anticipated discharge date: 09/30/[address]: Patient has been accepted to inpatient rehab by Dr. Garcia. Plan for discharge 09/30/23 per facility availability. Patient was seen independently by Nurse Pracitioner. This document was prepared using [employer] dictation software. Please allow for errors in security nurse, while rare they do occur. Anthony Coto, J2EE ARCHITECT rendered care for this patient independently, reviewed the findings and plan as documented in the note above. I did not physically speak with or examine the patient on this date. Objective - Vital Signs Vital signs: Vital Signs Temp 97.4 F L 09/29/23 07:29 Pulse 75 09/29/23 07:29 Resp 16 09/29/23 07:29 BP 141/76 09/29/23 07:29 Pulse Ox 95 09/29/23 07:29 FiO2 Intake & Output 09/28/23 09/29/23 09/29/23 18:59 06:59 18:59 Intake Total 708 Balance 708 Weight 147 kg Intake: Oral 708 Other: Voiding Method External Catheter External Catheter - Labs CBC & Chem 7: 09/28/23 06:55 09/28/23 06:55 Labs: Abnormal Lab Results - Last 24 Hours (Table) 09/28/23 09/28/23 Range/Units 06:55 06:55 WBC 11.90 H (4.50-10.00) X 10*3/uL MCV 104.4 H (80.0-97.0) FL MCH 34.3 H (27.0-32.0) pg RDW 15.6 H (11.5-14.5) % Carbon Dioxide 33.0 H (21.6-31.8) mmol/L BUN 28.0 H (9.0-27.0) mg/dL BUN/Creatinine Ratio 31.11 H (12.00-20.00) Ratio Glucose 113 H (70-110) mg/dL AST 82 H (13-35) U/L ALT 64 H (8-44) U/L Total Protein 6.1 L (6.2-8.2) g/dL Albumin 2.9 L (3.8-4.9) g/dL Albumin/Globulin Ratio 0.91 L (1.60-3.17) Ratio
--- NOTE | 2023-09-29 21:43 | P.PN ---
Subjective Progress Note Date: 09/29/23 -Afebrile, no acute events overnight -Denies any new signs or symptoms Objective - Vital Signs Vital signs: Vital Signs Temp 97.4 F L 09/29/23 19:46 Pulse 88 09/29/23 19:46 Resp 18 09/29/23 19:46 BP 163/75 09/29/23 19:46 Pulse Ox 95 09/29/23 19:46 FiO2 Intake & Output 09/29/23 09/29/23 09/30/23 06:59 18:59 06:59 Other: Voiding Method External Catheter External Catheter External Catheter - Constitutional General appearance: Present: morbidly obese, no acute distress - EENT Eyes: Present: EOMI - Respiratory Details: Nonlabored breathing - Cardiovascular Details: Warm and well-perfused - Neurologic Neurologic: Present: CNII-XII intact. Absent: focal deficits - Labs CBC & Chem 7: 09/28/23 06:55 09/28/23 06:55 Assessment and Plan (1) Breast mass, right Current Visit: Yes Status: Acute Priority: High Code(s): N63.10 - UNSPECIFIED LUMP IN THE RIGHT BREAST, UNSPECIFIED QUADRANT SNOMED Code(s): 48673732 (2) COVID-19 Current Visit: Yes Status: Acute Priority: High Code(s): U07.1 - COVID-19 SNOMED Code(s): 238892692 (3) Hypoxia Current Visit: Yes Status: Acute Priority: High Code(s): R09.02 - HYPOXE MALORIE SNOMED Code(s): 779461513 (4) Mastitis Current Visit: Yes Status: Acute Code(s): N61.0 - MASTITIS WITHOUT ABSCESS SNOMED Code(s): 228836493 Plan: Breast mass, right: -Physical exam findings, as well as imaging are quite compatible with a large right breast malignancy, with right axillary node involvement. Based on the history, this is likely a neglected tumor, found upon patient seeking care when she developed persistent serous sanguinous oozing due to surface breakdown -Given the concern for breast malignancy involving the skin, additional staging studies with CT abdomen/pelvis and nuclear medicine bone scan were obtained -Tumor markers normal -Additional staging with CT scan of the abdomen and pelvis and bone scan were ordered. Bone scan showed no evidence of metastatic disease. CT AP revealed a worsening consolidative opacity in the left lung base with small left pleural effusion. Portion of known right breast mass and skin thickening noted. Enlarged nodes in the right chest wall, measuring 1.0cm and 2.6 x 1.6cm, and inferior left breast lymph node measuring 1.3 cm. Diffusely heterogeneous liver without evidence of discrete mass. Gallbladder moderately distended with 1.9 cm gallstone in the neck. Clonic diverticular disease. Some thickening of the posterior distal rectal wall cannot be excluded. Mildly prominent nodule suggesting lymph node in the right upper quadrant and suspected small nodular density in the left upper quadrant just superior to the stomach, however not well visualized on imaging and are nonspecific -Right axillary lymph node biopsy was consistent with grade 3 invasive ductal carcinoma -ER, HI, and HER2 status are all pending -Based off of studies performed to date, she has at least stage IIIB disease. This was reviewed with Naila on today's visit -We discussed that the lymph nodes seen on CT abdomen/pelvis could be reactive to underlying infection with COVID-19 versus potentially being involved with metastatic disease -In addition to following up hormone receptor and HER2 status, she will need PET/CT outpatient, which is in the process of being scheduled -We will arrange for outpatient follow-up for additional assessment prior to pursuing definitive treatment plan -If she is found to be ER/HI positive prior to discharge, she could be started o n endocrine therapy with an aromatase inhibitor Hypoxia: -Because of the same appears to be somewhat unclear upon admission. It was initially attributed to the probable PE reported on CT angiogram. However from my discussion with the admitting service, the findings on further evaluation by pulmonary medicine, were not felt to be convincing for the same. Therefore VQ scan was ordered, revealing low probability of PE. Heparin discontinued. Continues on lovenox, prophylactic dose. -COVID testing obtained on 09/21 was positive -Defer to admitting team and pulm for management Michael Castelan MD
[2023-09-30] MEDS: SODIUM CHLORIDE 0.9% 1,000 ML IV SCH (03:01)
[2023-09-30] MEDS: AMPICILLIN-SULBACTAM 3 GM in SODIUM CHLORIDE 0.9% 100 ML IVPB SCH (05:13)
[2023-09-30 08:20] VITALS: BP 138/69; PULSE 80; RESP 18; TEMP 98.5
--- NOTE | 2023-09-30 08:54 | P.DS ---
Providers Date of admission: 09/17/23 14:06 Expected date of discharge: 09/30/23 Attending physician: Deb Mejia DO Consults: 09/17/23 13:56 Consult Physician Routine Consulting Provider: Taylor Esposito Consult Reason/Comments: PE Do you want consulting provider notified?: Yes 09/17/23 17:31 Consult Physician Routine Consulting Provider: Mervat Lopez Consult Reason/Comments: fungating breast mass, biopsy? Do you want consulting provider notified?: Yes Consult Physician Routine Consulting Provider: Warren Yost Consult Reason/Comments: breast mass Do you want consulting provider notified?: Yes 09/19/23 05:23 Consult Physician Urgent Consulting Provider: Samir Chacon Consult Reason/Comments: Sepsis Do you want consulting provider notified?: Yes 09/28/23 14:57 Consult Physician Urgent Consulting Provider: Stewart Okeefe Consult Reason/Comments: in patient rehab Do you want consulting provider notified?: Yes Primary care physician: Stated None Hospital Course: Discharge Diagnosis: Poorly differentiated ductal mammary carcinoma fungating/necrotic right-sided breast mass measuring at least 4.6 cm with mets to the lymphnodes. Sepsis possibly secondary to infected breast tissue. Sepsis resolved. Patient discharged to inpatient rehab on oral Augmentin 875/125 mg tablets for an additional 7 days as instructed by infectious disease specialist. Acute hypoxic respiratory failure likely secondary to atelectasis Acute COVID-19 infection, positive test 09/21/23. Patient completed 10 day cou rse of Decadron. Probable obesity hypoventilation syndrome Acute diastolic heart failure exacerbation, ruled out Sinus tachycardia. Continue metoprolol 50 mg twice daily. Isolated Elevated troponin, NSTEMI ruled out and elevated troponin due to supply demand mismatch Elevated TSH, normal free T4 Transaminitis, has been stable Large gallstone, cholecystitis ruled out Class III Obesity with BMI 60.6 Recommend outpatient structured weight loss program. Hypokalemia, resolved Hyponatremia, resolved Hospital Course: Patient is a very pleasant 67-year-old female with coronary artery disease and prior myocardial infarction, TIA, and neuropathy. She presented to the emergency department on 09/17/23 with complaints of right breast pain and breast lesion that started bleeding. In the ER she underwent an extensive evaluation. Vital signs revealed patient to be significantly tachycardic at 140 bpm, blood pressure 126/70, respiratory rate 20, temp 98.1F, SpO2 of 92% on 2 L of oxygen. Labs were completed and reviewed. CBC showing macrocytosis with MCV of 100.8 otherwise normal findings. Coagulation profile normal findings. BMP revealed hyponatremia with sodium 135, hypokalemia with potassium 3.3, hypochloremia with chloride of 95, and hypercarbia with bicarb of 32 and anion gap of 8. Blood glucose was 139. Magnesium 1.9. Liver profile showing hyperbilirubinemia with total bili of 1.4, elevated AST of 184 and ALT of 80 with normal alkaline phosphatase of 117. Troponin was 0.029 and CRP was 6.1. Chest x-ray completed showing basilar increased density concerning for atelectasis versus developing infiltrate. CTA chest was completed showing a filling defect with an right upper lobe subsegmental branch concerning for pulmonary emboli with no evidence of large central or saddlebag emboli, and right sided breast carcinoma with skin thickening along with right axillary adenopathy. EKG was completed showing atrial flutter/atrial tachycardia with RVR at 138 bpm. Patient was admitted under our services with consultations to pulmonology, hematology/oncology, and breast surgery. She is placed on IV anticoagulation with high intensity heparin infusion. Overnight patient was found to become hypoxic requiring increased oxygenation needs and was placed on 10 L high flow nasal cannula. Troponins trended resulting at 0.029 and 0.035. Patient was transferred to the ICU. Pediatric Intensive Physician evaluated and further reviewed CTA stated unlikely pulmonary emboli and ordered lower extremity venous Dopplers which were negative for DVTs. Echocardiogram completed revealing a preserved EF of 50% with normal right ventricular systolic pressure. Patient then underwent VQ scan which showed very low probability of pulmonary emboli. Subsequently pulmonary emboli was ruled out at this time. Patient then evaluated by oncology and breast surgery who recommended lymph node biopsy. During this hospitalization and patient also noted to spike a fever and was found to be positive for COVID-19 infection. Patient was started on IV steroids with continued management of her acute hypoxic respiratory failure. Patient completed 10 day isolation for Covid and completed 10 days of IV steroids with Decadron. Patient underwent right axillary lymph node biopsy on 09/24/23. Biopsy results showing poorly differentiated ductal mammary carcinoma fungating/necrotic right-sided breast mass measuring at least 4.6 cm with mets to the lymphnodes. Patient is medically stable at this time. She remains on 4 L O2 via nasal cannula and is being discharged to inpatient rehab. Patient will need to follow up with her PCP Dr. Elise, breast surgeon Dr. Lopez, oncologist Dr. Yost, instructor hairspring Dr. Lowe, and rehab office coordinator Dr. Kaur. Hospital course imaging: Echocardiogram ejection fraction 50%, normal RVSP Lower extremity venous Dopplers: No DVT bilaterally CTA chest: Filling defect within the right upper lobe pulmonary embolism not excluded, right breast carcinoma with skin thickening VQ scan: Low probability of pulmonary embolism CT abdomen and pelvis: Partially seen worsening consolidative opacity in the left lung base with small pleural effusion possible pneumonia, moderate cardiomegaly, portion of right breast mass and skin thickening seen, enlarged lymph nodes in the right chest wall potentially metastatic, diffuse heterogeneous liver without discrete mass, gallbladder moderately distended with 1.9 cm gallstone in the neck, mildly prominent nodule suggested lymph node in the right upper quadrant, PET/CT as an outpatient for further staging as clinically warranted. Nuclear medicine bone scan: Nothing to suggest metastatic disease Abdominal ultrasound, gallstones stuck within the gallbladder neck correlate for signs and symptoms of cholecystitis, cystic duct obstruction Physical exam: Vital signs reviewed. General: nontoxic, no distress, obese Skin: Dressing in place right breast that is clean, dry, and intact. Remaining of right breast tissue appears erythemic with thickened skin/scaling. Cardiovascular: S1S2 reg, distant heart sounds, positive posterior tibial pulses bilaterally, Lungs: Respirations even, regular, and unlabored. Patient remains on 4 L O2 via nasal cannula with current SpO2 of 90%. Lung sounds decreased bilaterally, no rhonchi/rales/crackles/wheezes noted. Abdominal: soft, nontender to palpation, no guarding, no appreciable organomegaly Ext: no gross muscle atrophy, scant edema bilateral lower extremities, no contractures Neuro: CN II-XI grossly intact, no focal neuro deficits Psych: Alert, oriented, appropriate affect A total of 42 minutes of time were spent preparing this complex discharge summary. Pt was discharged on 09/30/23 at 8:54 AM. Patient was seen independently by Nurse Practitioner. This document was prepared using [employer] dictation software. Please allow for errors in guest relations agent while rare they do occur. Anthony Coto NP rendered care for this patient independently, reviewed the findings and plan as documented in the note above. I did not physically speak with or examine the patient on this date. Patient Condition at Discharge: Stable Plan - Discharge Summary Discharge Rx Participant: Yes New Discharge Prescriptions: New bisacodyL [Dulcolax] 5 mg PO DAILY PRN tab PRN Reason: Constipation Melatonin 3 mg PO HS PRN tab PRN Reason: Insomnia Nystatin 100,000 Unit/gm Powd [Mycostatin Powder] 1 applic TOPICAL TID each HYDROcodone/APAP 5-325MG [[place] 5-325] 1 each PO Q4HR PRN tab PRN Reason: Moderate Pain (Scale 4 To 6) Acetaminophen Tab [Tylenol] 650 mg PO Q6HR PRN tab PRN Reason: Mild Pain Or Fever > 100.5 Metoprolol Tartrate [Lopressor] 50 mg PO BID tab Zinc Sulfate [Orazinc] 220 mg PO DAILY cap Ascorbic Acid [Vitamin C] 1,000 mg PO DAILY tab Amoxic-Pot Clav 875-125Mg [Augmentin 875-125] 1 tab PO Q12HR 7 Days #14 tab Discharge Medication List Acetaminophen Tab [Tylenol] 650 mg PO Q6HR PRN tab 09/30/23 [Rx] Amoxic-Pot Clav 875-125Mg [Augmentin 875-125] 1 tab PO Q12HR 7 Days #14 tab 09/30/23 [Rx] Ascorbic Acid [Vitamin C] 1,000 mg PO DAILY tab 09/30/23 [Rx] HYDROcodone/APAP 5-325MG [[place] 5-325] 1 each PO Q4HR PRN tab 09/30/23 [Rx] Melatonin 3 mg PO HS PRN tab 09/30/23 [Rx] Metoprolol Tartrate [Lopressor] 50 mg PO BID tab 09/30/23 [Rx] Nystatin 100,000 Unit/gm Powd [Mycostatin Powder] 1 applic TOPICAL TID each 09/30/23 [Rx] Zinc Sulfate [Orazinc] 220 mg PO DAILY cap 09/30/23 [Rx] bisacodyL [Dulcolax] 5 mg PO DAILY PRN tab 09/30/23 [Rx] Follow up Appointment(s)/Referral(s): Christy Gilmore MD [STAFF PHYSICIAN] - 1 Week Sinan Lowe MD [Medical Doctor] - 1 Week (Cardiology will call with appointment ) Warren Yost [STAFF PHYSICIAN] - 1 Week Sudeep Elise MD [STAFF PHYSICIAN] - 1 Week Mervat Lopez MD [STAFF PHYSICIAN] - 1 Week Activity/Diet/Wound Care/Special Instructions: Patient is medically stable for transfer to rehab at [facility] Discharge Disposition: TRANSFER TO SHORT TERM HOSP
[2023-09-30] MEDS: dexAMETHasone 2 MG TAB PO SCH (09:29)
[2023-09-30] MEDS: METOPROLOL TARTRATE 50 MG TAB PO SCH (09:29)
[2023-09-30] MEDS: ZINC SULFATE 220 MG CAP PO SCH (09:29)
[2023-09-30] MEDS: ENOXAPARIN 40 MG/0.4 ML SYRINGE SQ SCH (09:29)
[2023-09-30] MEDS: ASCORBIC ACID 500 MG TAB PO SCH (09:33)
--- NOTE | 2023-09-30 16:57 | P.PN ---
Subjective Progress Note Date: 09/30/23 Principal diagnosis: Reason for follow up is right breast infected wound Patient is a 67-year-old female with a past medical history significant for CVA TIA hypertension morbid obesity presenting to the hospital for evaluation of right breast pain, patient has been diagnosed with a fungating tumor with a wound and concern for infection. On today's evaluation that is 09/30/2023 the patient remains to be afebrile, the patient is breathing comfortably on 4 L nasal cannula supplemental oxygen, the patient denies having any chest pain or cough and no sputum production, patient denies nausea vomiting or any diarrhea, and no abdominal pain, no new symptoms Patient did have a white count of 11.90, creatinine 0.9 as of 09/28/2023 no new labs were done today, right breast culture positive for Streptococcus MSSA and Proteus, patient covid 19 PCR positive Objective - Vital Signs Vital signs: Vital Signs Temp 98.5 F 09/30/23 07:40 Pulse 80 09/30/23 08:00 Resp 18 09/30/23 08:00 BP 138/69 09/30/23 07:40 Pulse Ox 97 09/30/23 07:40 FiO2 Intake & Output 09/29/23 09/30/23 09/30/23 18:59 06:59 18:59 Intake Total 118 Balance 118 Intake: Oral 118 Other: Voiding Method External Catheter External Catheter External Catheter - Exam GENERAL DESCRIPTION: An elderly female lying in bed in no distress RESPIRATORY SYSTEM: Unlabored breathing , decreased intensity breath sound, no wheeze HEART: S1 S2 regular rate and rhythm , ABDOMEN: Soft , no tenderness EXTREMITIES: Diffuse swelling bilateral lower extremity no redness - Labs CBC & Chem 7: 09/28/23 06:55 09/28/23 06:55 Assessment and Plan (1) Fever Status: Acute Code(s): R50.9 - FEVER, UNSPECIFIED SNOMED Code(s): 516821869 (2) Mastitis Status: Acute Code(s): N61.0 - MASTITIS WITHOUT ABSCESS SNOMED Code(s): 839109045 (3) COVID-19 Status: Acute Priority: High Code(s): U07.1 - COVID-19 SNOMED Code(s): 914622511 Plan: 1patient presented to hospital with large right breast mass with some bleeding, in this patient who is running low-grade fever and was tachycardic and concern for possible infected right breast wound with underlying malignancy versus pneumonia less likely 2-patient with Covid 19, patient did have some improvement in her respiratory status , patient to continue with Lovenox, zinc ascorbic acid 3blood cultures have been negative so far and local culture growing strep Proteus and Staphylococcus aureus, patient is covered with Unasyn with the plan to finish therapy with oral Augmentin 7 days on discharge, this was discussed with CONTINUITY MANAGER for admitting team working on discharge dictation was produced using [employer] dictation software. please excuse any grammatical, word or spelling errors. Time with Patient: Less than 30
--- NOTE | 2023-09-30 18:23 | P.PN ---
Subjective Progress Note Date: 09/30/23 This is a 67-year-old female with chronic redness and swelling of her right nipple, which has been progressively getting worse. Patient has been noticing bleeding from her right breast nipple, and while evaluated in the ER she was noted to have a large mass which has been progressively getting worse apparently over the last 3 months. Upon evaluation in the ER, the patient was also noted to be tachycardic, with slightly elevated troponin of 0.035. Chest x-ray showed left lower lobe atelectasis, CT of the chest raised the possibility of a defect in the right upper lobe subsegmental branch. Considering the patient was complaining of some shortness of breath, and the patient was transferred to the ICU for further evaluation she was seen already by cardiology and by vascular surgery. I reviewed the CT of the chest, and I did not feel that the findings are specific for thromboembolic disease, not to mention that the CT angiogram is a very poor quality CT. Nonetheless it did show right breast mass, and right axillary lymph nodes highly suggestive of breast carcinoma with lymph node metastasis. After reviewing the CT of the chest, and after reviewing that the patient had negative venous Doppler, and considering the patient had bleeding from the right breast mass, I recommended stopping the heparin and hopefully sometime today and arrange for a VQ scan to put the issue to rest clinically this is not a presentation of pulmonary embolism. And again the CT of the chest does not seem very diagnostic. During my evaluation the patient no shortness of breath, no cough no wheezing and no chest pain. She was on 2 L nasal cannula and O2 saturation was 97%, and after reviewing the CT of the chest again, she does have left lower lobe atelectasis, doubt pneumonia involving the left lower lobe Reevaluated today on 09/19/23, patient remains in the ICU, doing fairly well, relatively asymptomatic, her VQ scan came back negative for pulmonary embolism/low probability as the patient does not need heparin which I have already cut discontinued yesterday. She is however on Lovenox for DVT prophylaxis and cardiology recommended metoprolol 12.5 twice a day for tachycardia. Seems to be mostly a sinus tachycardia. Patient remains on 4 L nasal cannula, O2 saturation is 96% up to 98%. WBC count is 6.2 hemoglobin 13.6 basic metabolic profile is normal and renal profile is normal. Patient was seen by general surgery consultation, and I recommended basically right axillary lymph node biopsy by interventional radiology, withdraw the not do breast biopsy at this point since there is a concern about bleeding from the fungating right breast mass. In the meantime the patient is hemodynamically stable, and I believe we can safely transfer the patient out of the ICU to a regular medical floor or a medical surgical floor with telemetry to keep an eye on her tachycardia, and metoprolol was added Seen today 09/20, patient remains in the ICU, however she is truly an overflow in the ICU, patient is being seen by many consultants, at initial presentation was a presentation of bleeding fungating right breast mass and a left lower lobe atelectasis, doubt pneumonia, patient had no pulmonary symptoms on her initial presentation, CT angiogram of the chest questioned pulmonary embolism and we felt that this is not truly the case. Venous Dopplers were negative, VQ scan was negative, hence the patient was taken off heparin which was initially started in the ER. Patient is morbidly obese, and she has significant left lower lobe atelectasis, doing very poorly with incentive spirometry, she is empirically on antibiotics in the form of Zosyn. She remains tachycardic with heart rate of 130, hemodynamically stable otherwise. Metoprolol dose was increased to 25 mg twice a day CBC showed no evidence of leukocytosis, hemoglobin is 13.2 basic metabolic profile is normal renal profile is normal, BNP level is normal 1 culture from the right breast is showing polymicrobial picture with presumptive staph, Proteus mirabilis, and beta hemolytic strep group C patient is being seen by infectious disease on consultation blood cultures are negative so far. The patient is seen today 09/21/2023 in follow-up on the oncology unit. She is currently resting comfortably in bed. Awake and alert in no acute distress. She is maintaining O2 saturations in the 90s on 4 L/m per nasal cannula. Chest x-ray reveals cardiomegaly and mild pulmonary vascular congestion. Right breast cultures are positive for beta-hemolytic strep group C, Proteus mirabilis and Staphylococcus aureus. She is currently on Zosyn. White count 7.9. Hemoglobin 14.1. Platelets 222. Sodium 132. Potassium 4.4. Bicarb 26. BUN 18. Creatinine 1.2. AST 109. ALT 50. Urinalysis with possible UTI. Culture pending. She is currently on Lovenox for DVT prophylaxis. Normal saline at KVO. Progress note dated 09/22/2023. The patient was transferred to room 350, because apparently she tested positive for coronavirus. Currently, she is on 4 L of oxygen. Getting saline at 10 mL an hour. The patient had a bone scan that was negative. A chest x-ray was ordered for September 23. No new labs today. Her last d-dimer was 1.37. The patient is being followed by medical oncology, and their impression is that she has a large right breast malignancy, with right axillary node involvement. Progress note dated 09/23/2023. The patient is seen again in room 350. The patient is currently on 4 L of oxygen. She's getting saline at 10 mL an hour. She did test positive for coronavirus. She remains on Unasyn for her right breast cellulitis. The wounds from the right breast show evidence of beta-hemolytic streptococci, Proteus, and Staphylococcus. Infectious diseases is following this patient. White count is 11.3, hemoglobin 15.8, hematocrit 48, and platelet count 275,000. No additional labs from today. Progress note dated 09/24/2023. The patient is seen today in room 350. Currently, the patient's off of oxygen. Saturations are 90%. The patient is receiving saline at 10 mL an hour. An u ltrasound of the right axilla shows multiple lymph nodes. In addition, the patient continues on Unasyn. Currently labs include a white count 8.9, hemoglobin 13.6, hematocrit 44.4, and a platelet count of 237,000. Sodium 138, potassium 4.6, chloride 96, CO2 30, BUN 29, and creatinine 0.85. Progress note dated 09/25/2023. The patient is seen today in room 629. Currently, the patient is on oxygen at 3.5 L. Saturation 90%. She's not receiving any IV fluids she does continue on Unasyn. Yesterday, she had a lymph node biopsy of the right axillary lymph nodes. We will recheck another pro-calcitonin level, and a BNP. White count 8, he will 14.1, hematocrit 45.6, platelet count 313,000. Sodium 143, potassium 4.1, chlorides 99, CO2 36, BUN 31, creatinine 0.89. The patient's N-terminal p roBNP was 1220. Albumin is 3. The patient's lung volumes are low, and lung fritz are hazy, consistent with CHF/fluid overload. The patient is seen today 09/26/2023 in follow-up on the regular medical floor. She is currently sitting up in bed. Awake and alert in no acute distress. She is maintaining O2 saturations in the 90s on 4 L/m per nasal cannula. She is receiving normal saline at KVO. Her pro-calcitonin is 0.91. She remains on Unasyn. Breast wound cultures were positive for Proteus mirabilis, Staphylococcus aureus, beta-hemolytic strep group C. Blood cultures revealed no growth. Urine cultures revealed no growth. White count 7.7. He will 14.0. Platelets 271. Sodium 141. Potassium 4.1. Bicarb 33. BUN 35. Creatinine 0.77. Glucose 111. She did test positive for COVID-19 infection. She is continued on vitamin supplements, Decadron, Lovenox for DVT prophylaxis. Pathology from the right axillary lymph node biopsy is pending. The patient is seen today 09/27/2023 in follow-up on the regular medical floor. She is awake and alert in no acute distress. Resting fairly comfortably in bed. Continues to maintain O2 saturations in the 90s on 4 L/m per nasal cannula. Right breast wound culture positive for Proteus mirabilis, Staphylococcus aureus, beta-hemolytic strep group C. Blood cultures revealed no growth. Urine culture revealed no growth. She is continued on Unasyn. Remains on Lovenox, Decadron, vitamin supplements. Normal saline at KVO. Pathology from right axillary lymph node biopsy is pending. On today's evaluation of 09/28/2023, the patient is being seen for a follow-up. The patient is sitting up on a decline in that she is, comfortable. No signs of any significant respiratory distress. She is morbidly obese with a BMI of 65. The CT angiogram of the chest raised the suspicion for a pulmonary embolism and this was a poor quality CT angiogram. The Doppler of the lower extremities were negative for DVT and the patient also had a VQ scan that was a very low probability for pulmonary embolism. The patient is hemodynamically stable. The patient d-dimer was at 1.37. She does have underlying malignancy and she is being followed up by oncology. The patient is a large right breast malignancy with right axillary lymph node involvement. The patient also has a ulcerating wound over the right breast with secondary cellulitis and the patient's cultures are positive for beta-hemolytic strep, Proteus and staph aureus. The previous echo is 11.9, he was 14.1 and a platelet count of 301, and the patient has normal renal function, normal electrolytes, and the patient is currently on IV Unasyn for now. Patient is on Lovenox 40 mg subcu portably prophylaxis. The patient on Decadron. IV fluids at 10 mL an hour. Echocardiogram showed a preserved ejection fraction of 50%. Poor quality due to the body habitus. On today's evaluation of 09/29/2023, the patient is resting comfortably on the recliner. No new complaints. The biopsy from the regular lymph nodes are not to be positive for ductal carcinoma of the breast. The patient remains on IV Unasyn. The patient is on Lovenox for DVT prophylaxis. The patient is also complaining of course of Decadron regarding her Covid 19 status. The patient's labs are from yesterday. No new labs are available from today. Pro-calcitonin level was at 0.91. On 09/30/2023, the patient is clinically stable. No active drainage from the breast wounds. Patient is on oxygen 4L/m nasal cannula. She is completing a course of Decadron regarding her Covid 19 infection. No respiratory distress. Objective - Vital Signs Vital signs: Vital Signs Temp 98.5 F 09/30/23 07:40 Pulse 80 09/30/23 08:00 Resp 18 09/30/23 08:00 BP 138/69 09/30/23 07:40 Pulse Ox 97 09/30/23 07:40 FiO2 Intake & Output 09/29/23 09/30/23 09/30/23 18:59 06:59 18:59 Intake Total 118 Balance 118 Intake: Oral 118 Other: Voiding Method External Catheter External Catheter External Catheter - Exam GENERAL EXAM: Alert, pleasant 67-year-old female, on 4 L nasal cannula, in no apparent distress. HEAD: Normocephalic. EYES: Normal reaction of pupils, equal size. NOSE: Clear with pink turbinates. THROAT: No erythema or exudates. NECK: No masses, no JVD. CHEST: Dressing to right breast dry and intact LUNGS: Equal air entry with few crackles in the posterior bases. CVS: S1 and S2 normal with no audible murmur, regular rhythm. ABDOMEN: No hepatosplenomegaly, normal bowel sounds, no guarding or rigidity. SPINE: No scoliosis or deformity SKIN: Excoriated right breast. CENTRAL NERVOUS SYSTEM: No focal deficits, tone is normal in all 4 extremities. EXTREMITIES: There is no peripheral edema. No clubbing, no cyanosis. Peripheral pulses are intact. - Labs CBC & Chem 7: 09/28/23 06:55 09/28/23 06:55 Assessment and Plan Plan: Ductal carcinoma of the right breast confirmed by core biopsy of the exit early mass. The patient has a Fungating right breast mass, highly suggestive of breast carcinoma with axillary lymph node metastasis. Status post right axillary lymph node biopsy on 09/24/2023. Pathology pending. This is a neglected tumor that was found with overlying skin ulceration and breakdown and cellulitis Acute hypoxic respiratory failure secondary to mostly atelectasis, and obesity. Patient may have obesity/hypoventilation syndrome, significant left lower lobe atelectasis is noted on chest x-ray and CT of the chest. Pulmonary embolism was ruled out COVID-19 infection, currently asymptomatic , diagnosis established on 09/21/2023 , currently on Decadron Morbid obesity, body mass index of 65 Obesity hypoventilation syndrome Left lower lobe atelectasis, doubt pneumonia Cellulitis of right breast, polymicrobial culture with Staphylococcus aureus, Proteus mirabilis, beta-hemolytic strep group C Distended gallbladder without evidence of cholecystitis, prominent common bile d uct Colonic diverticulosis Plan Biopsies consistent with breast cancer We'll discharge this patient home on Augmentin and the patient will likely need home O2 and this will be evaluated time of discharge Completed course of Decadron outpatient basis Increase her activity as tolerated Titrate the FiO2 as tolerated, currently on 4 L nasal cannula and this can be weaned down on outpatient basis Continue incentive spirometer Poor prognosis based on the above-mentioned Looking for ECF transfer/inpatient rehab Oncology follow-up
--- NOTE | 2023-10-06 08:26 | US ---
ULTRASOUND GUIDED CORE BIOPSY RIGHT AXILLARY LYMPH NODE: CLINICAL HISTORY: Right axillary lymph node FINDINGS: The procedure was explained to the patient. The risks, complications, benefits and alternatives were discussed and any questions were answered. Informed consent was obtained. Patient was placed supin e on the ultrasound table and prepped and draped in the usual sterile fashion. Utilizing a 19 gauge needle, 3 passes were made into the requested right axillary lymph node. Patient was stable throughout the procedure. Pathology is pending. All elements of maximal barrier technique were utilized. IMPRESSION: 1. Successful ultrasound guided biopsy right axillary lymph node.
== END 2023-09-30 13:18 | DRG 853 ==
LOC: EC 09:47 → 3SCARD 14:06 → 2SICU 09-18 05:14 → 5NMEDONC 09-20 16:23 → 3SCARD 09-21 23:42 → 6NMEDSUR 09-25 07:11
PROVIDERS: ADMIT Internal Medicine; ATTEND Internal Medicine
PROC: 07B53ZX Excision of Right Axillary Lymphatic, Percutaneous Approach, Diagnostic (ICD-10-PCS; principal; 2023-09-24)
DX: A41.9 Sepsis, unspecified organism (principal); I50.33 Acute on chronic diastolic (congestive) heart failure; J96.01 Acute respiratory failure with hypoxia; U07.1 COVID-19; C77.3 Secondary and unspecified malignant neoplasm of axilla and upper limb lymph nodes; E66.2 Morbid (severe) obesity with alveolar hypoventilation; E87.1 Hypo-osmolality and hyponatremia; I24.89 Other forms of acute ischemic heart disease; I47.19 Other supraventricular tachycardia; I48.92 Unspecified atrial flutter; J98.11 Atelectasis; Z68.44 Body mass index [BMI] 60.0-69.9, adult; N61.1 Abscess of the breast and nipple; B96.4 Proteus (mirabilis) (morganii) as the cause of diseases classified elsewhere; R74.01 Elevation of levels of liver transaminase levels; C50.911 Malignant neoplasm of unspecified site of right female breast; B36.9 Superficial mycosis, unspecified; D75.89 Other specified diseases of blood and blood-forming organs; E87.6 Hypokalemia; E87.8 Other disorders of electrolyte and fluid balance, not elsewhere classified; H57.02 Anisocoria; I11.0 Hypertensive heart disease with heart failure; K80.20 Calculus of gallbladder without cholecystitis without obstruction; I25.2 Old myocardial infarction; Z79.899 Other long term (current) drug therapy; Z82.49 Family history of ischemic heart disease and other diseases of the circulatory system; Z86.73 Personal history of transient ischemic attack (TIA), and cerebral infarction without residual deficits; Z60.2 Problems related to living alone; Z71.3 Dietary counseling and surveillance; Z28.310 Unvaccinated for COVID-19; Z28.21 Immunization not carried out because of patient refusal
CPT/HCPCS: 36415; 38505; 71045; 71275; 74177; 76705; 76942; 78306; 78580; 80048; 80053; 81001; 83605; 83735; 83880; 84075; 84100; 84145; 84439; 84443; 84450; 84460; 84484; 85025; 85027; 85379; 85610; 85730; 86140; 86300; 87040; 87070; 87077; 87086; 87186; 87205; 87636; 88305; 88341; 88342; 93005; 93306; 93970; 94760; 96365; 99285

== ENCOUNTER → 2023-10-16 | Outpatient (CLI) | payer MEDICARE, OTHER ==
--- NOTE | 2023-10-17 08:48 | PE ---
EXAMINATION TYPE: PET CT fusion skull to thigh DATE OF EXAM: 10/16/2023 CLINICAL INDICATION:Female, 67 years old with history of C50.111 Right breast CA; TECHNIQUE: Following the intravenous administration of 11.97 mCi of F-18 FDG, whole body images are performed from the skull base to the midthigh. Images are reviewed on the computer in the coronal, axial, and sagittal planes. Reconstructed rotating images are created on independent workstation and reviewed on the computer. A non-contrast CT is performed in conjunction with the PET scan. Glucose level 107 mg/dL CT DLP: 1320 mGycm, Automated exposure control for dose reduction was used. COMPARISON: CT 09/20/2023, 09/17/2023, PET/CT None, FINDINGS: Mediastinal SUV mean is 2.0. Hepatic parenchyma SUV mean is 2.8. SKULL BASE AND NECK: No suspicious radiotracer activity. CHEST, MEDIASTINUM, AND HILAR REGION: * Right breast mass measuring 4.3 x 5.1 cm. Max SUV 12.8. * Right axillary lymph node which is enlarged with eccentric abnormal uptake max SUV 7.0 measuring 1 7 mm in short axis. * Left lower lung airspace opacities in lung bases on the left Max 5.8. * Subpleural nodule-like consolidation on the left upper lung measuring 15 x 8 mm Max SUV 2.3. This is favored to represent atelectasis. ABDOMEN AND PELVIS: No suspicious radiotracer activity. MUSCULOSKELETAL STRUCTURES: No suspicious radiotracer activity. OTHER CT: Atherosclerosis of the arterial vasculature. Cardiomegaly. Coronary artery atherosclerosis. Cholelithiasis. Mildly atrophic kidneys. Scattered colonic diverticula. Appendix is normal. IMPRESSION: 1. Primary right breast malignancy with metastatic disease to the right axilla. 2. A lateral left upper lobe subpleural nodular consolidation is felt to represent atelectasis and n ot metastatic disease on this exam. 3. Lower lung airspace opacities correlate for pneumonia.
== END | disposition home or self-care (01) ==
LOC: RADPETMAIN 09:10
PROVIDERS: ATTEND Internal Medicine Hematology & Oncology
DX: C77.3 Secondary and unspecified malignant neoplasm of axilla and upper limb lymph nodes (principal); C50.111 Malignant neoplasm of central portion of right female breast; R91.8 Other nonspecific abnormal finding of lung field
CPT/HCPCS: 78815; A9552